=== PATIENT | female | born 1980 | race Caucasian/White ===

== ENCOUNTER 2022-08-09 09:14 | Outpatient (OUT) | payer BC, SELFPAY ==
--- NOTE | 2022-08-09 09:27 | PM.CN ---
Consult Note: HPI Data of Consult Patient: known to practice within the last 3 years Consult date: 08/09/22 Requesting Physician: NATALEE CALIX NP Primary Care Provider: Shaikh Fe MD Consult Narrative Reason for consult: back pain Narrative: She is here for f/u of intial dx MBB to left L4/5, L5/S1 done 07/30/22. She had 80% relief for several hours after procedure. She would like to proceed with second MBB. No new bowel or bladder issues. No new sensorimotor sx. No radicular sx. Oswestry score- 28. Pain is left lumbar area without radiation. cc:: CC: NATALEE CALIX NP Review of Systems ROS Status of ROS 10 or more systems reviewed and unremarkable except as noted in history and below Musculoskeletal Reports: back pain Exam Constitutional Documenting provider has reviewed patient's vital signs: yes Common normals: no apparent distress, average body habitus, oriented x3, no limitations, healthy appearing, alert and well nourished Orientation/consciousness: Yes awake, Yes oriented to person, Yes oriented to place and Yes oriented to time HENIA Common normals: head/scalp atraumatic, nasal mucous membranes and turbinates normal and moist oral mucous membranes Respiratory Common normals: normal respiratory effort, no retractions and no use of accessory muscles Effort & inspection: able to speak in complete sentences and symmetric chest movement Back & Pelvis Lumbar spine/lower back: normal to inspection, lumbar ROM normal, pain with ROM and paraspinal muscle tenderness Other: positive facet load left. Extremity Common normals: normal to inspection, normal capillary refill and no pedal edema Other: muscle strength 5/5 bilat with intact sensation bilat LE Assessment and Plan Assessment and Plan (1) Lumbar spondylosis: (2) Muscle spasm:
== END 2022-08-09 09:15 ==
PROVIDERS: PCP Internal Medicine; Visit Provider Nurse Practitioner
DX: M47.816 Spondylosis without myelopathy or radiculopathy, lumbar region (principal); M62.830 Muscle spasm of back
CPT/HCPCS: G0463

== ENCOUNTER 2022-08-27 10:22 | Day surgery (SDC) | payer BC, SELFPAY ==
[2022-08-27 11:05] LABS: HCG Qualitative NEGATIVE (NEGATIVE)
[2022-08-27 11:32] VITALS: BP 111/78; PULSE 79; RESP 16; TEMP 36.5; O2SAT 99
--- NOTE | 2022-08-27 11:49 | W.PM.PROCNOT ---
Date of procedure: 08/27/22 Procedure: Left Lumbar 4/5 & 5/Sacral 1 facet injection Preop diagnosis includes pain secondary to lumbar spondylosis, Postop diagnosis same Under fluoroscopic guidance Solution injected: 2millilitersMarcaine 0.25% Anesthesia :none Immediate complications none Time out process compliant After informed consent obtained from the patient placed in the Prone proposition . area was prepped and draped in a sterile fashion using betadine. 25 gauge spinal needle inserted over each of the above mentioned target areas . [place] were directed towards the target under fluoroscopic guidance . after encountering each of the targets , no indication of intravascular intraneuronal or intrathecal needle tip placement. Then 0 .5 to 1 Milliliter was injected at each level. [place] removed postoperatively. patient transferred to recovery in stable condition to be discharged home after meeting criteria Surgeon: Jayne Bradley
[2022-08-27 12:20] VITALS: BP 120/77; PULSE 75; RESP 20; O2SAT 94
[2022-08-27] MEDS: BUPIVACAINE HCL 0.25% PF 25 MG/10 ML VIAL 4 ML INJ (12:22)
[2022-08-27 12:23] VITALS: BP 123/73; PULSE 73; O2SAT 91
== END 2022-08-27 12:26 | disposition home or self-care (01) ==
PROVIDERS: PCP Internal Medicine; Visit Provider Anesthesiology Pain Medicine
DX: M47.816 Spondylosis without myelopathy or radiculopathy, lumbar region (principal)
CPT/HCPCS: 64493; 64494; 84703

== ENCOUNTER 2022-08-29 08:47 | Outpatient (OUT) | payer BC, SELFPAY ==
--- NOTE | 2022-08-29 09:13 | PM.CN ---
Consult Note: HPI Data of Consult Requesting Physician: NATALEE CALIX NP Primary Care Provider: Shaikh Fe MD Consult Narrative Narrative: Patient is here for f/u of left low back pain. She had left MBB L4/5, L5/S1 done 08/27/22. She recieved 80% relief of pain with increased fx several hours after procedure. She would like to proceed with RFA. No new sensorimotor sx or bowel or bladder issues. Medication regimen is controlling pain and assisting patient with ability to perform ADLs. No radicular sx. cc:: CC: NATALEE CALIX NP Review of Systems ROS Status of ROS 10 or more systems reviewed and unremarkable except as noted in history and below Musculoskeletal Reports: back pain Meds Home Medications and Allergies Home Medications Medication Instructions Recorded Confirmed Type baclofen 10 mg tablet See Rx Instructions PO BID 08/09/22 08/27/22 History ibuprofen 800 mg tablet 800 mg PO Q12H 08/09/22 08/27/22 History lorazepam 1 mg tablet 1 mg PO DAILY 08/09/22 08/27/22 History norethindrone acetate 1 mg-ethinyl 1 tab PO DAILY 08/09/22 08/27/22 History estradiol 20 mcg tablet (Aurovela) Allergies Allergy/AdvReac Type Severity Reaction Status Date / Time No Known Drug Allergies Allergy Verified 08/27/22 11:28 Exam Constitutional Documenting provider has reviewed patient's vital signs: yes Common normals: no apparent distress, average body habitus, oriented x3, no limitations, healthy appearing, alert and well nourished General appearance: cooperative, comfortable and well developed Orientation/consciousness: Yes awake, Yes oriented to person, Yes oriented to place and Yes oriented to time [facility] Common normals: normocephalic, external ears normal and moist oral mucous membranes Respiratory Common normals: normal respiratory effort, no retractions and no use of accessory muscles Effort & inspection: able to speak in complete sentences and symmetric chest movement Back & Pelvis Lumbar spine/lower back: normal to inspection, lumbar ROM normal, pain with ROM, paraspinal muscle tenderness, paraspinal muscle spasm and straight leg raise negative bilaterally Other: positive facet loading left. YOON-31 muscle strength 5/5 bilat LE with intact sensation Extremity Common normals: normal to inspection, full ROM, normal capillary refill and no pedal edema Assessment and Plan Assessment and Plan (1) Muscle spasm: Plan schedule for thermal RFA lumbar left L4/5, L5/S1 under fluoroscopy without sedation
== END 2022-08-29 08:48 | disposition home or self-care (01) ==
LOC: PM 08:49
PROVIDERS: PCP Internal Medicine; Visit Provider Nurse Practitioner
DX: M47.816 Spondylosis without myelopathy or radiculopathy, lumbar region (principal); M62.838 Other muscle spasm
CPT/HCPCS: G0463

== ENCOUNTER 2022-10-15 08:07 | Day surgery (SDC) | payer BC, SELFPAY ==
[2022-10-15 08:09] VITALS: BP 104/74; PULSE 77; RESP 18; TEMP 36.7; O2SAT 100
[2022-10-15 08:13] LABS: HCG Qualitative NEGATIVE (NEGATIVE)
[2022-10-15 09:08] VITALS: BP 128/62; PULSE 68; RESP 20; O2SAT 96
[2022-10-15 09:11] VITALS: BP 126/77; PULSE 80; O2SAT 96
[2022-10-15] MEDS: BUPIVACAINE HCL 0.25% PF 25 MG/10 ML VIAL 4 ML INJ (09:15)
[2022-10-15] MEDS: LIDOCAINE HCL 2% 400 MG/20 ML MDV 8 ML INJ (09:15)
[2022-10-15] MEDS: METHYLPREDNISOLONE ACETATE 40 MG/ML VIAL INJ (09:15)
--- NOTE | 2022-10-15 10:22 | W.PM.PROCNOT ---
Date of procedure: 10/15/22 Pre-op diagnosis: lumbar spondylosis Post-op diagnosis: same as pre-op Procedure: Left lumbar 4/5, 5/sacral 1 Radiofrequency ablation Under fluoroscopic guidance Rhizotomy was created using radio frequency ablation at 80?C for 90 seconds 1 to 2 lesions created at each site. Post lesioning injection of 2 mL each of 0.25% Marcaine and 2% lidocaine with Depo-Medrol 40mg. 0.5 to 1 mL injected at each site Anesthesia local 2% lidocaine for Anesthesia Other: MAC Timeout process compliant After informed consent obtained.Patient brought to the procedure room placed in the prone position skin overlying the area was prepped and draped in a sterile fashion using betadine. 25 gauge needle was used to create a skin wheal over each of the targeted areas utilizing 2% lidocaine. A rhizotomy needle with a 10 mm active tip was inserted over each of the anesthetized areas and directed towards each of the medial branches accomplished under fluoroscopic guidance. after encountering the same we had positive sensory stimulation, negative motor stimulation was noted. lesions were then created. Post lesioning, steroid solution was injected needles removed. Patient was transferred to recovery room in stable condition to be discharged home after meeting criteria. Anesthesia: Local Surgeon: Jayne Bradley Condition: stable
== END 2022-10-15 09:25 | disposition home or self-care (01) ==
LOC: SURGOUT 10-16 10:19
PROVIDERS: PCP Internal Medicine; Visit Provider Anesthesiology Pain Medicine
DX: M47.816 Spondylosis without myelopathy or radiculopathy, lumbar region (principal)
CPT/HCPCS: 36415; 64635; 64636; 84703; J1030

== ENCOUNTER 2022-11-09 09:24 | Outpatient (OUT) | payer BC, SELFPAY ==
--- NOTE | 2022-11-09 | XR_ITS ---
The [address] [address] Patient Name: ALCON BERKOWITZ MRN: [id number] date: 1980 Sex: F Assigned Patient Location: [facility] Current Patient Location: RAD Accession/Order Number: [id number] Exam Date: 11/09/2022 09:43 Report Date: 11/09/2022 15:57 At the request of: SHAIKH MONROE Procedure: XR chest 2V EXAMINATION: XR chest 2V 11/09/2022 12:55 PM PDT, [id number]. HISTORY: chest pain TECHNIQUE: 2 views of the chest were acquired. COMPARISONS: Chest x-ray 08/09/2018. FINDINGS: Lines/tubes/other: None. Heart and mediastinum: Stable. Bones: Postsurgical changes to the right chest wall, similar. No acute fracture. Lungs: Chronic right thoracic volume loss with associated right lower lung scarring, similar. Left lung is clear. No new or worsening pulmonary opacity. Pleura: Stable chronic changes to the right chest wall pleura. No significant left pleural effusion. No pneumothorax. Other: No pneumoperitoneum. XR/XR chest 2V IMPRESSION: 1. Stable chronic postsurgical changes to the right thorax. 2. No acute cardiopulmonary abnormality demonstrated. Electronically authenticated by: MARI RENEE Date: 11/09/2022 15:57
== END 2022-11-09 09:25 | disposition home or self-care (01) ==
LOC: RAD 09:25
PROVIDERS: PCP Internal Medicine; Visit Provider Internal Medicine
DX: R07.9 Chest pain, unspecified (principal)
CPT/HCPCS: 71046

== ENCOUNTER 2022-11-18 06:55 | Outpatient (OUT) | payer BC, SELFPAY ==
--- NOTE | 2022-11-18 12:54 | PM.STRESS ---
Stress Test Stress Test Allergies Allergy/AdvReac Type Severity Reaction Status Date / Time No Known Drug Allergies Allergy Verified 10/15/22 08:06 Requesting physician: Shaikh Fe Procedure: Exercise stress test General Information: Reason for Stress Test: Chest pain Cardiac History and Risk Factors: No personal cardiovascular history. 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 Resting 12 - Lead Electrocardiogram: Rate & rhythm: Normal sinus at a rate of 93. [place]: Normal T-waves: Normal ST-segments:Normal Other findings: Suggestion of possible right atrial enlargement Stress Test: Protocol: Calvin protocol was followed. Exercise capacity: Good exercise capacity. Total exercise time of 7 minutes 30 seconds reached Calvin stage 3 at 3.4MPH, 14% grade, & 10.1 METs. Blood pressure: Initial: 98/70, Maximum: 140/82, Recovery: 96/70 Rate & rhythm: Patient remained in sinus rhythm during the exercise and recovery portions of the study.? The maximum heart rate was 157, which was 88% of the maximum predicted heart rate 177. PVCs were noted during exercise. ST-segments & T-waves: There were no T-wave changes and no ST-segment changes when compared to the baseline EKG. Patient response/symptoms: Patient complained of an 8 on the Robby score regarding dyspnea, but denied any chest pain. Interpretation: This is a normal exercise stress test without any evidence of ischemia. Means Treadmill Score is 7.5, which indicates a low risk category. Clinical correlation required.
== END 2022-11-18 06:56 | disposition home or self-care (01) ==
LOC: CARD 06:56
PROVIDERS: PCP Internal Medicine; Visit Provider Internal Medicine
DX: R07.9 Chest pain, unspecified (principal)
CPT/HCPCS: 93017

== ENCOUNTER 2023-05-06 09:51 | Outpatient (OUT) | payer BC, SELFPAY ==
--- NOTE | 2023-05-06 10:02 | US_ITS ---
The [address] [address] Patient Name: ALCON BERKOWITZ MRN: [id number] date: 1980 Sex: F Assigned Patient Location: US Current Patient Location: US Accession/Order Number: [id number] Exam Date: 05/06/2023 10:03 Report Date: 05/06/2023 10:31 At the request of: SHAIKH MONROE Procedure: US venous doppler LE LT EXAM: US venous doppler LE LT HISTORY: left leg pain M79.605 COMPARISON: None. TECHNIQUE: Grayscale, color and Doppler FINDINGS: Region: Left leg Thrombus: Echogenic thrombus identified in the popliteal, posterior tibial and peroneal veins Flow: Decreased and absent flow corresponding to thrombus Compressibility: Noncompressibility corresponding to thrombus Augmentation: Normal proximal augmentation US/US venous doppler LE LT IMPRESSION: Occlusive deep vein thrombus identified in the left posterior tibial and peroneal veins Nonocclusive deep vein thrombus left popliteal vein Electronically authenticated by: VAN CRAMER Date: 05/06/2023 10:31
== END 2023-05-06 09:52 | disposition home or self-care (01) ==
LOC: US 09:54
PROVIDERS: PCP Internal Medicine; Visit Provider Internal Medicine
DX: M79.605 Pain in left leg (principal); I82.452 Acute embolism and thrombosis of left peroneal vein; I82.442 Acute embolism and thrombosis of left tibial vein; I82.432 Acute embolism and thrombosis of left popliteal vein
CPT/HCPCS: 93971

== ENCOUNTER 2023-06-25 13:49 | Outpatient (OUT) | payer BC, SELFPAY ==
--- NOTE | 2023-06-25 14:14 | P.CN_ITS ---
Consult Note: HPI Data of Consult Patient: known to practice within the last 3 years Requesting Physician: Luiza De Leon NP Primary Care Provider: Shaikh Fe MD Consult Narrative Reason for consult: f/u Narrative: Samira John a pleasant 43 year old female presents for evaluation and management of chronic low back pain, left side greater than right. Patient has had chronic low back pain greater than 3 months unresponsive to PT/HEP greater than 6 weeks, tylenol/motrin, and baclofen. currently taking ibuprofen 600mg BID with mild benefit. 10/23 underwent Left L4-5 L5-S1 facet RFA with no improvement. 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 - Malignant neoplasm of connective and soft tissue, unspecified (ICD- 10) Surgical History History of tonsillectomy ?Z90.89 - Acquired absence of other organs (ICD-10) History of lobectomy of lung ?Z90.2 - Acquired absence of lung [part of] (ICD-10) Meds Home Medications and Allergies Home Medications ?Medication ?Instructions ?Recorded ?Confirmed ?Type baclofen 10 mg tablet See Rx Instructions PO BID 08/09/22 10/15/22 History ibuprofen 800 mg tablet 800 mg PO Q12H 08/09/22 10/15/22 History lorazepam 1 mg tablet 1 mg PO DAILY 08/09/22 10/15/22 History Allergies Allergy/AdvReac Type Severity Reaction Status Date / Time No Known Drug Allergies Allergy Verified 10/15/22 08:06 Exam Constitutional Documenting provider has reviewed patient's vital signs: yes Common normals: no apparent distress, oriented x3, healthy appearing, alert and well nourished General appearance: cooperative HENMT Common normals: normocephalic, hearing grossly normal bilaterally and moist oral mucous membranes Head and scalp: normocephalic Eye Common normals: PERRL Pupil: PERRL Neck & C-Spine Common normals: full ROM General: normal visual inspection Chest Common normals: inspection of chest normal Respiratory Common normals: normal respiratory effort, no retractions and no use of accessory muscles Back & Pelvis Lumbar spine/lower back: pain with ROM and lumbar spinal tenderness Sacroiliac joints: SI joints normal Other: negative radiculopathy strength in BLE 5/5 pain over L3-S1 facets, worst over left L3,4 facets Back image (female): 2 1. Extremity Common normals: normal to inspection and full ROM Right lower extremity: hip joint Left lower extremity: hip joint Other: negative bilateral hip exam Neuro Common normals: oriented x3, CN's II-XII intact bilaterally, moves all extremities, no focal motor deficits, no sensory deficits noted, deep tendon reflexes 2+ bilaterally and gait normal Sensorium/orientation: alert Motor exam: strength 5/5 throughout and no movement abnormalities noted Psych Common normals: mental status grossly normal, thought process normal, cooperative, affect normal, speech normal and activity/motor behavior normal Speech: normal speech Thought process: normal thought process Assessment and Plan Assessment and Plan (1) Lumbar spondylosis: Assessment and Plan: failed left L4-5 L5-S1 RFA, reports no improvement (2) Lumbar degenerative disc disease: (3) Lumbar stenosis with neurogenic claudication: Assessment and Plan: increase in low back pain with activity and ambulation, improves with forward flexion and sitting. need updated advanced imaging to assess stenosis to decide on interventional therapy vs NS referral. chronic low back pain greater than 3 months unresponsive to greater than 6 weeks of PT and HEP Plan chronic low back pain failed left L4-5 L5-S1 facet RFA, continues to have severe axial low back pain greater than 3 months unresponsive to ibuprofen and greater than 6 weeks PT/HEP failed ibuprofen, start mobic 7.5mg BID PRN pain. take with food. risks vs benefits of senior care NSAIDs and side effects discussed. pt denies GERD request records from , patient thinks she has had lumbar imaging since our prior lumbar MRI in 2021. if no recent lumbar imaging, we will order lumbar MRI without contrast f/u after imaging, or 1 month to assess medications
== END 2023-06-25 13:50 | disposition home or self-care (01) ==
LOC: PM 13:49
PROVIDERS: PCP Internal Medicine; Visit Provider Nurse Practitioner
DX: M47.816 Spondylosis without myelopathy or radiculopathy, lumbar region (principal); M51.36 Other intervertebral disc degeneration, lumbar region; M48.062 Spinal stenosis, lumbar region with neurogenic claudication
CPT/HCPCS: G0463

== ENCOUNTER 2023-07-02 13:35 | Outpatient (OUT) | payer BC, SELFPAY ==
--- NOTE | 2023-07-02 13:38 | MR_ITS ---
The [address] [address] Patient Name: ALCON BERKOWITZ MRN: [id number] date: 1980 Sex: F Assigned Patient Location: MRI Current Patient Location: MRI Accession/Order Number: [id number] Exam Date: 07/02/2023 14:00 Report Date: 07/02/2023 15:26 At the request of: RIVKA JANE Procedure: MR lumbar spine wo con EXAM: MR scan lumbar spine without contrast. TECHNIQUE: Sagittal T1, MARIE T2, STIR, axial T1 and T2 images without contrast performed through the lumbar spine. COMPARISON: MR scan performed 02/05/2022 FINDINGS: Minimal curvature of the spine concavity to the left. Mild disc space narrowing L1-L2. The vertebral bodies and disc spaces are otherwise normal in appearance. Conus lies at T12 and is normal in appearance. The marrow signal is normal. Neural foramina are patent. L5-S1: Mild facet arthropathy without stenosis. L4-L5: Mild facet arthropathy without stenosis. L3-L4: Facet arthropathy to the right of midline. No evidence of stenosis. L2-L3: Disc bulge without stenosis. L1-L2: Disc bulge without stenosis. The vertebral bodies and disc spaces are otherwise normal in appearance. The paraspinal soft tissues are otherwise normal. MR/MR lumbar spine wo con IMPRESSION: Mild facet arthropathy and mild disc bulge without central spinal canal or foraminal stenosis. Electronically authenticated by: Jhonathan KNAPP Date: 07/02/2023 15:26
== END 2023-07-02 13:36 | disposition home or self-care (01) ==
LOC: MRI 13:35
PROVIDERS: PCP Internal Medicine; Visit Provider Nurse Practitioner
DX: M48.062 Spinal stenosis, lumbar region with neurogenic claudication (principal); M47.816 Spondylosis without myelopathy or radiculopathy, lumbar region
CPT/HCPCS: 72148

== ENCOUNTER 2023-07-17 14:18 | Outpatient (OUT) | payer BC, SELFPAY ==
--- NOTE | 2023-07-17 14:37 | P.CN_ITS ---
Consult Note: HPI Data of Consult Patient: known to practice within the last 3 years Requesting Physician: Luiza De Leon NP Primary Care Provider: Shaikh Fe MD Consult Narrative Reason for consult: f/u Narrative: Samira John a pleasant 43 year old female presents for evaluation and management of chronic low back pain, left side greater than right. Patient has had chronic low back pain greater than 3 months unresponsive to PT/HEP greater than 6 weeks, tylenol/motrin, and baclofen. currently taking ibuprofen 600mg BID with mild benefit. 10/23 underwent Left L4-5 L5-S1 facet RFA with no improvement. Patient was started on mobic 7.5mg BID PRN last visit without improvement, failed to report shes on eliquis. Recently completed lumbar MRI which shows mild facet arthropathy L3-S1. 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.2 - Acquired absence of lung [part of] (ICD-10) Meds Home Medications and Allergies Home Medications ?Medication ?Instructions ?Recorded ?Confirmed ?Type baclofen 10 mg tablet See Rx Instructions PO BID 08/09/22 10/15/22 History ibuprofen 800 mg tablet 800 mg PO Q12H 08/09/22 10/15/22 History lorazepam 1 mg tablet 1 mg PO DAILY 08/09/22 10/15/22 History Allergies Allergy/AdvReac Type Severity Reaction Status Date / Time No Known Drug Allergies Allergy Verified 10/15/22 08:06 Exam Constitutional Documenting provider has reviewed patient's vital signs: yes Common normals: no apparent distress, oriented x3, healthy appearing, alert and well nourished General appearance: cooperative HENMT Common normals: normocephalic, hearing grossly normal bilaterally and moist oral mucous membranes Head and scalp: normocephalic Eye Common normals: PERRL Pupil: PERRL Neck & C-Spine Common normals: full ROM General: normal visual inspection Chest Common normals: inspection of chest normal Respiratory Common normals: normal respiratory effort, no retractions and no use of accessory muscles Back & Pelvis Lumbar spine/lower back: pain with ROM, lumbar spinal tenderness, paraspinal muscle tenderness and paraspinal muscle spasm Sacroiliac joints: SI joints normal Other: negative radiculopathy strength in BLE 5/5 pain over L3-S1 facets, worst over left L3,4 facets Extremity Common normals: normal to inspection and full ROM Right lower extremity: hip joint Left lower extremity: hip joint Other: negative bilateral hip exam Neuro Common normals: oriented x3, CN's II-XII intact bilaterally, moves all extremities, no focal motor deficits, no sensory deficits noted and deep tendon reflexes 2+ bilaterally Sensorium/orientation: alert Motor exam: strength 5/5 throughout and no movement abnormalities noted Psych Common normals: mental status grossly normal, thought process normal, cooperative, affect normal, speech normal and activity/motor behavior normal Speech: normal speech Thought process: normal thought process Results Additional Findings Additional findings: If on a controlled substance or opioids, I have checked an [place] report on this patient and there are no aberrancies noted in the prescribing history.??If on a controlled substance or opioid a drug screen was completed and reviewed within the last year, and if there has not been a drug screen completed we ordered one today to monitor higher risk, state monitored pain medication use. As part of providing excellent, safe, comprehensive care, the following was completed at our patient's visit: 1. A medication reconciliation and review to ensure accurate knowledge of current/active medications, including asking our patients to inform us about any tiol-pih-hiaylzs medications or herbal remedies/nutritional supplements/alternative remedies. 2. A review to specifically ensure our patients have had annual screening for screening for depression, screening for tobacco use, and screening for unhealthy alcohol use. For concerning screenings had a discussion with the patient, provided patient education, and recommended follow-up with primary care provider when appropriate. If patient noted with a risk of falling, they received education on strength, gait, and balance training to prevent future risk of falling. Assessment and Plan Assessment and Plan (1) Lumbar spondylosis: Assessment and Plan: failed left L4-5 L5-S1 RFA, reports no improvement (2) Lumbar degenerative disc disease: (3) Lumbar stenosis with neurogenic claudication: Assessment and Plan: increase in low back pain with activity and ambulation, improves with forward flexion and sitting. need updated advanced imaging to assess stenosis to decide on interventional therapy vs NS referral. chronic low back pain greater than 3 months unresponsive to greater than 6 weeks of PT and HEP (4) Myofascial pain: Plan chronic low back pain failed left L4-5 L5-S1 facet RFA, continues to have severe axial low back pain greater than 3 months unresponsive to ibuprofen and greater than 6 weeks PT/HEP stop mobic and all NSAIDs with eliquis lumbar MRI reviewed with patient, declining alternative level facet injections recommend f/u with Dr Bradley next week to left paraspinal TPI and assessment.
== END 2023-07-17 14:19 | disposition home or self-care (01) ==
LOC: PM 14:18
PROVIDERS: PCP Internal Medicine; Visit Provider Nurse Practitioner
DX: M47.816 Spondylosis without myelopathy or radiculopathy, lumbar region (principal); M51.36 Other intervertebral disc degeneration, lumbar region; M48.062 Spinal stenosis, lumbar region with neurogenic claudication
CPT/HCPCS: G0463

== ENCOUNTER 2023-07-22 12:20 | Outpatient (OUT) | payer BC, SELFPAY ==
--- NOTE | 2023-07-22 | CONS_ITS ---
CONSULTATION DATE: 07/22/2023 TO: Dr. Miramontes CHIEF COMPLAINT: Includes severe lower back pain, hip pain. HISTORY: She reports the pain as being 6/10, deep aching in character with a sharp component, increased with activity such as standing and walking, performing transitioning maneuvers. She also reports having tingling, numbness and a burning sensation over her let hip area. Denies any change in bowel and bladder habits. She denies any new sensorimotor changes in her lower extremities, but is isolated to her hip area. MEDICATION: Includes lorazepam 1 mg at h.s. EXAM: Patient?s examination is notable for the patient having no clinical radiculopathy or myelopathy involving the lower extremities. Patient did have dysesthesia and hyperesthesia overlying the distribution over the left superior gluteal nerve. This is associated with severe myofascial spasm of the left gluteus medius muscle. 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 RECOMMENDATIONS: I recommend a diagnostic left superior gluteal nerve injection under fluoroscopic guidance. Also recommend patient to do aquatic therapy. As part of providing excellent, safe, comprehensive care, the following was completed at our patient's visit: 1. A medication reconciliation and review to ensure accurate knowledge of current/active medications, including asking our patients to inform us about any [id number] medications or herbal remedies/nutritional supplements/alternative remedies. 2. A review to specifically ensure our patients have had annual screening for: elevated body mass index (BMI, see intake chart for exact total), tobacco use, screening for depression, and screening for unhealthy alcohol use. When screening is concerning, patients are provided with education and the specific recommendation to discuss the concerning health issue and treatment options with their primary care provider. UZAIR
--- OUTSIDE RECORDS SUMMARY | 2023-07-22 12:43 | XMS_ITS | CCD ---
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 Role Phone Abbie Negrete Unavailable Unavailable Raquel Richardson Unavailable Unavailable Fawwad, Chi Unavailable Unavailable Unavailable MD John Isbell Attending Provider MD Arti Miramontes Primary Care Provider [phone] Gordon Campoverde Attending Unavailable FAWWAD, CHI H Admitting Unavailable FAWWAD, CHI H Attending Unavailable FAWWAD, CHI H Primary Care Unavailable FAWWAD, CHI H Admitting Unavailable FAWWAD, CHI H Attending Unavailable FAWWAD, CHI H Primary Care Unavailable LAKSHMIPATHY ., NARENDRANATH Admitting Anahi vailable LAKSHMIPATHY ., NARENDRANATH Attending Anahi vailable LAKSHMIPATHY ., NARENDRANATH Consulting Anahi vailable FAWWAD, CHI H Primary Care Unavailable LAKSHMIPATHY ., NARENDRANATH Admitting Anahi vailable FAWWAD, CHI H Primary Care Unavailable LAKSHMIPATHY ., NARENDRANATH Attending Anahi vailable LAKSHMIPATHY ., NARENDRANATH Consulting Anahi vailable FAWWAD, CHI H Attending Unavailable FAWWAD, CHI H Primary Care Unavailable DR NIA LEONARD Consulting Unavailable FAWWAD, CHI H Admitting Unavailable FAWWAD, CHI H Consulting Unavailable FAWWAD, CHI H Admitting Unavailable FAWWAD, CHI H Primary Care Unavailable DR NIA LEONARD Consulting Unavailable FAWWAD, CHI H Attending Unavailable FAWWAD, CHI H Consulting Unavailable AICHHOLAlina, SHOT COAT TENDER KEZIA Admitting Unavailable FAWWAD, CHI H Primary Care Unavailable AICHROMEO, SHOT COAT TENDER KEZIA Attending Unavailable AICHHOLAlina, SHOT COAT TENDER KEZIA Consulting Unavailable DR NIA LEONARD Consulting Unavailable Unavailable Unavailable Jeffrey, Dr. Rik Collins Attending Un available Jeffrey, Dr. Rik Collins Admitting Un available MD JOHN ISBELL Referring Unavailable MD JOHN ISBELL Attending Unavailable Dara, Dr. Leyva Attending Unavailable Candelaria Ayala Unavailable Shaikh Miramontes MD Primary Care Provider Gordon Campoverde MD Unavailable GORDON CAMPOVERDE Referring Unavailable SANCHEZWDAISY, CHI Primary Care Unavailable FE, CHI Primary Care Unavailable GORDON CAMPOVERDE Attending Unavailable FE, Primary Care Unavailable FAWDAISY, CHI Primary Care Unavailable FE, CHI Attending Unavailable SANCHEZWDAISY, CHI Attending Unavailable FE, Attending Unavailable DONA CORBIN Attending Unavailable DONA CORBIN Referring Unavailable Medications Current Medications Medication Drug Class(es) Dates Sig (Normalized) Sig (Original) amoxicillin 875 mg / clavulanate 125 mg oral tablet (1 source) Penicillin-class Antibacterial Start: 02-25-2023 take 1 tablet by mouth every twelve hours Amoxicillin-Pot Clavulanate 875-125 MG 1 tablet Orally every 12 hrs for 10 day(s) Jan, Active apixaban 5 mg oral tablet (3 sources) Factor Xa Inhibitor Start: 06-19-2023 End: 06-18-2024 take 1 tablet by mouth twice daily apixaban (Eliquis) 5 mg tablet Indications: Acute deep vein thrombosis of left popliteal vein (Multi) Take 1 tablet (5 mg) by mouth 2 times a day. 60 tablet 11 06/19/2023 06/18/2024 Active benzonatate 100 mg oral capsule (1 source) Non-narcotic Antitussive Start: 12-26-2023 take 1 capsule by mouth three times daily as needed Tessalon Perles 100 MG 1 capsule as needed Orally Three times a day for 7 days Jan, Active calcitriol 0.81544 mg oral capsule (6 sources) Vitamin D3 Analog Start: 04-24-2023 take 1 capsule by mouth every other day calcitriol (Rocaltrol) 0.25 mcg capsule Take 1 capsule (0.25 mcg) by mouth every other day. 04/24/2023 Active fluconazole 150 mg oral tablet (1 source) Azole Antifungal Start: 02-25-2023 take 1 tablet by mouth once Fluconazole 150 MG 1 tablet Orally once for 1 day Jan, Active Sylvia 03/22 (1 source) Sylvia / Activ e LORazepam 0.5 mg oral tablet (10 sources) Benzodiazepine take 1 tablet by mouth once daily at bedtime LORazepam (Ativan) 0.5 mg tablet Take 1 tablet (0.5 mg) by mouth once daily at bedtime. Active take 1 tablet by mouth every twe lve hours Ativan 1 MG 1 tablet as needed Orally Twice a day Active Completed/Discontinued Medications Medication Drug Class(es) Dates Sig (Normalized) Sig (Original) [id number] 200 actuat albuterol 0.09 mg/actuat metered dose inhaler (9 sources) beta2-Adrenergic Agonist Start: 05-23-2020 End: 07-21-2023 take 1-2 puff(s) by inhalation every four hours albuterol (ProAir HFA) 90 mcg/actuation inhaler Inhale 1-2 puffs every 4 hours if needed. 05/23/2020 07/21/2023 Discontinued (Med List Cleanup) Start: 05-23-2020 take 1-2 puff(s) by inhalation every four to six hours as needed ProAir HFA 108 (90 Base) MCG/ACT AERS INHALE 1 TO 2 PUFFS EVERY 4 TO 6 HOURS NEEDED. Quantity: 1 Refills: 2 Ordered: 23-May-2020 DO Start : 23-May-2020 Active Start: 05-23-2020 take 1-2 puff(s) by inhalation every four to six hours as needed ProAir HFA 108 (90 Base) MCG/ACT Inhalation Aerosol Solution INHALE 1 TO 2 PUFFS EVERY 4 TO 6 HOURS NEEDED. Quantity: 1 Refills: 2 Start : 23-May-2020 Active 8.5 GM Inhaler dextromethorphan hydrobromide 15 mg / guaiFENesin 400 mg / pseudoephedrine hydrochloride 60 mg oral tablet (1 source) alpha-Adrenergic Agonist, Uncompetitive K-ncnvam-G-aspartate Receptor Antagonist, Sigma-1 Agonist Start: 03-16-2019 take 0.5-1 tablets by mouth every six hours as needed Capmist DM 60-15-400 MG 1/2 to 1 tablet as needed Orally every 6 hours Mar, Not-Taking/PRN Ethinyl Estradiol / Norethindrone (6 sources) Estrogen End: 07-21-2023 take 0.05 ug by mouth once daily norethindrone ac-eth estradioL (Microgestin 1/20) 1-20 mg-mcg tablet Take 1 tablet by mouth once daily. 07/21/2023 Discontinued (Med List Cleanup) take 0.05 ug by mouth once daily norethindrone ac-eth estradioL (Microgestin /20) 1-20 mg-mcg tablet Take 1 tablet by mouth once daily. Active fluticasone propionate 0.05 mg/actuat metered dose nasal spray (1 source) Corticosteroid Start: 03-16-2019 take 1 spray(s) nasal route once daily as needed Fluticasone Propionate 50 MCG/ACT 1 spray in each nostril Nasally Once a day for 21 days Mar, Not-Taking/PRN Sylvia 1/20 1-20 MG-MCG Oral Tablet (2 sources) Start: 10-16-2020 take 1 tablet by mouth once daily, then take 7 tablets by mouth once daily Sylvia 1/20 1-20 MG-MCG Oral Tablet TAKE 1 TABLET DAILY FOR 21 DAYS, THEN 7 TABLET-FREE DAYS; REPEAT. Quantity: 0 Refills: 0 Ordered: 16-Oct-2020 DO Start : 16-Oct-2020 Active methylPREDNISolone 4 mg oral tablet (1 source) Corticosteroid Start: 03-16-2019 Medrol (Torito) 4 MG half of daily dose in the morning with food and the rest at night with food Orally Mar, Not-Taking/PRN Problems Active Problems Problem Classification Problem Date Documented Date Episodic/Chronic Cancer of bone and connective tissue (13 sources) Malignant neoplasm of bone and articular cartilage, unspecified; Translations: [Malignant neoplasm of connective and soft tissue, unspecified] Onset: 3 Chronic Chronic kidney disease (15 sources) Chronic kidney disease stage 3; Translations: [Chronic kidney disease, Stage III (moderate)] Onset: 3 Chronic Nonspecific chest pain (2 sources) Atypical chest pain; Translations: [Other chest pain] Onset: 4 07-21-2023 Episodic Other aftercare (2 sources) Drug therapy finding; Translations: [Encounter for therapeutic drug monitoring] Episodic Other diseases of kidney and ureters (6 sources) Secondary hyperparathyroidism; Translations: [Secondary hyperparathyroidism of renal origin] Onset: 4 06-12-2023 Chronic Other lower respiratory disease (9 sources) Dyspnea; Translations: [Shortness of breath] Onset: 4 06-12-2023 Episodic Other lower respiratory disease (4 sources) Dyspnea on exertion; Translations: [Shortness of breath] Onset: 4 06-19-2023 Episodic Other lower respiratory disease (1 source) Shortness of breath; Translations: [Shortness of breath] Onset: 4 Episodic Other nervous system disorders (4 sources) Other chronic pain; Translations: [OTHER CHRONIC PAIN] Onset: 3 Chronic Other non-traumatic joint disorders (4 sources) Pain in left hip; Translations: [PAIN IN LEFT HIP] Onset: 3 Episodic Other screening for suspected conditions (not mental disorders or infectious disease) (9 sources) Imaging of gastrointestinal tract abnormal; Translations: [Nonspecific abnormal results of other specified function study] Onset: 4 06-12-2023 Episodic Other upper respiratory infections (1 source) Acute maxillary sinusitis, unspecified Episodic Phlebitis; thrombophlebitis and thromboembolism (6 sources) Acute deep venous thrombosis of popliteal vein of left leg; Translations: [Acute embolism and thrombosis of left popliteal vein] Onset: 4 06-19-2023 Episodic Residual codes; unclassified (11 sources) H/O: chemotherapy; Translations: [Personal history of antineoplastic chemotherapy] Onset: 4 06-12-2023 Episodic Residual codes; unclassified (5 sources) Personal history of irradiation; Translations: [Personal history of irradiation] Onset: 3 Episodic Residual codes; unclassified (4 sources) Other specified personal risk factors, not elsewhere classified; Translations: [Other specified personal history presenting hazards to health] Onset: 4 06-16-2023 Episodic Residual codes; unclassified (2 sources) H/O: radiation exposure; Translations: [Personal history of irradiation] 06-16-2023 Episodic Residual codes; unclassified (2 sources) Personal history of antineoplastic chemotherapy; Translations: [Personal history of antineoplastic chemotherapy] Onset: 4 Episodic Spondylosis; intervertebral disc disorders; other back problems (9 sources) Spondylosis without myelopathy or radiculopathy, lumbosacral region; Translations: [Other intervertebral disc degeneration, lumbar region] Onset: 2 Chronic Unclassified (3 sources) LOW BACK PAIN, UNSPECIFIED; Translations: [LOW BACK PAIN, UNSPECIFIED] Onset: 2 Past or Other Problems Problem Classification Problem Date Documented Da te Episodic/Chronic Congestive heart failure; nonhypertensive (9 sources) Congestive heart failure; Translations: [Congestive heart failure, unspecified] Onset: 06-12-2023 Resolved: 07-21-2023 06-12-2023 Chronic Malaise and fatigue (1 source) Weakness; Translations: [WEAKNESS] Onset: 01-23-2022 Episodic Unclassified (1 source) Drug therapy finding; Translations: [Encounter for monitoring cardiotoxic drug therapy] Unclassified (2 sources) Never smoked tobacco; Translations: [Never a smoker] Unclassified (1 source) LOW BACK PAIN, UNSPECIFIED; Translations: [LOW BACK PAIN, UNSPECIFIED] Onset: 01-02-2022 Results Test Name Value Interpretation Reference Range Facility Activated protein C resistan ceon 06-19-2023 Activated protein C resistance Coag (PPP) [Time ratio] 4.45 Normal >=2.00 [facility] Comment on above: Result Comment: TEST INTERPRETATION: APC Resistance Profile Ratios less than 2.00 suggest APC resistance. This method uses factor V deficient plasma; therefore, APC resistance due to a nonfactor V mutation will not be detected. Extreme factor V deficiency or presence of direct oral anticoagulants (DOACs) may cause an unreliable ratio. Performed By: [place] [address] Warehouse Manager: Anibal Babin MD, PhD CLIA Number: [id number] Performed By: #### 1 3590-5 #### [facility]) ([id number]) [address] [place] [address] PROTHROMBIN GENE MUTATION AN ALYSISon 06-19-2023 ELECTRONICALLY SIGNED BY Shari Capps MD PhD [facility] Comment on above: Performed By: #### G PRO2 #### BENNIE SUNSHINE ([id number]) [facility] ([facility]) [address] [place] [address] FACTOR II-PROTHROMBIN INTERPRETATION INTERPRETATION Normal [facility] Comment on above: Performed By: #### G PRO2 #### BENNIE SUNSHINE ([id number]) [facility] ([facility]) [address] [place] [address] FACTOR II-PROTHROMBIN RESULT Normal Normal Normal [facility] Comment on above: Performed By: #### G PRO2 #### BENNIE SUNSHINE ([id number]) [facility] ([facility]) [address] [place] [address] CBC W Auto Differential pane l (Bld)on 06-16-2023 Basophils (Bld) [#/Vol] 0.07 x10*3/uL Normal 0.00-0.10 [facility] Comment on above: Performed By: #### 5 7021-8 #### ALIX Norwood ([id number]) [facility] ([facility]) [address] [place] [address] Basophils/100 WBC (Bld) 0.8 % Normal 0.0-2.0 [facility] Comment on above: Performed By: #### 5 7021-8 #### ALIX Norwood ([id number]) [facility] ([facility]) [address] [place] [address] Eosinophils (Bld) [#/Vol] 0.33 x10*3/uL Normal 0.00-0.70 [facility] Comment on above: Performed By: #### 5 7021-8 #### ALIX Norwood ([id number]) [facility] ([facility]) [address] [place] [address] Eosinophils/100 WBC (Bld) 3.7 % Normal 0.0-6.0 [facility] Comment on above: Performed By: #### 5 7021-8 #### ALIX Norwood ([id number]) [facility] ([facility]) [address] [place] [address] Erythrocyte distribution width (RBC) [Ratio] 11.2 % Low 11.5-14.5 [facility] Comment on above: Performed By: #### 5 7021-8 #### ALIX Norowod ([id number]) [facility] ([facility]) [address] [place] [address]55[address] Hematocrit (Bld) [Volume fraction] 43.9 % Normal 36.0-46.0 [facility] Comment on above: Performed By: #### 5 7021-8 #### ALIX Norwood ([id number]) [facility] ([facility]) [address] [place] [address] Hemoglobin (Bld) [Mass/Vol] 14.7 g/dL Normal 12.0-16.0 [facility] Comment on above: Performed By: #### 5 7021-8 #### ALIX Norwood ([id number]) [facility] ([facility]) [address] [place] [address] Immature granulocytes (Bld) [#/Vol] 0.02 x10*3/uL Normal 0.00-0.70 [facility] Comment on above: Performed By: #### 5 7021-8 #### ALIX Norwood ([id number]) [facility] ([facility]) [address] [place] [address] 71093 Immature granulocytes/100 WBC (Bld) 0.2 % Normal 0.0-0.9 [facility] Comment on above: Result Comment: Nicolle ture Granulocyte Count (IG) includes promyelocytes, myelocytes and metamyelocytes but does not include bands. Percent differential counts (%) should be interpreted in the context of the absolute cell counts (cells/UL). Performed By: #### 5 7021-8 #### ALIX Norwood ([id number]) [facility] ([facility]) [id number] [place] [address] Lymphocytes (Bld) [#/Vol] 1.74 x10*3/uL Normal 1.20-4.80 [facility] Comment on above: Performed By: #### 5 7021-8 #### ALIX Norwood ([id number]) [facility] ([facility]) [id number] [place] [address] Lymphocytes/100 WBC (Bld) 19.7 % Normal 13.0-44.0 [facility] Comment on above: Performed By: #### 5 7021-8 #### ALIX Norwood ([id number]) [facility] ([facility]) [id number] [place] [address] 39065 MCH (RBC) [Entitic mass] 30.2 pg Normal 26.0-34.0 [facility] Comment on above: Performed By: #### 5 7021-8 #### ALIX Norwood ([id number]) [facility] ([facility]) [id number] [place] [address] 49995 MCHC (RBC) [Mass/Vol] 33.5 g/dL Normal 32.0-36.0 [facility] Comment on above: Performed By: #### 5 7021-8 #### ALIX Norwood ([id number]) [facility] ([facility]) [id number] [place] [address] 01705 MCV (RBC) [Entitic vol] 90 fL Normal 80-100 [facility] Comment on above: Performed By: #### 5 7021-8 #### ALIX Norwood ([id number]) [facility] ([facility]) [id number] [place] [address]0573 Monocytes (Bld) [#/Vol] 0.66 x10*3/uL Normal 0.10-1.00 [facility] Comment on above: Performed By: #### 5 7021-8 #### ALIX Norwood ([id number]) [facility] ([facility]) [address] [place] [address] Monocytes/100 WBC (Bld) 7.5 % Normal 2.0-10.0 [facility] Comment on above: Performed By: #### 5 7021-8 #### ALIX Norwood ([id number]) [facility] ([facility]) [id number] [place] [address] 34290 Neutrophils (Bld) [#/Vol] 6.01 x10*3/uL Normal 1.20-7.70 [facility] Comment on above: Result Comment: Perc ent differential counts (%) should be interpreted in the context of the absolute cell counts (cells/uL). Performed By: #### 5 7021-8 #### ALIX Norwood ([id number]) [facility] ([facility]) [address] [place] [address] Neutrophils/100 WBC (Bld) 68.1 % Normal 40.0-80.0 [facility] Comment on above: Performed By: #### 5 7021-8 #### ALIX Norwood ([id number]) [facility] ([facility]) [id number] [place] [address] 19430 Nucleated RBC/100 WBC (Bld) [Ratio] 0.0 /100 WBCs Normal 0.0-0.0 [facility] Comment on above: Performed By: #### 5 7021-8 #### ALIX Norwood ([id number]) [facility] ([facility]) [id number] [place] [address] 90267 Platelets (Bld) [#/Vol] 246 x10*3/uL Normal 150-450 [facility] Comment on above: Performed By: #### 5 7021-8 #### ALIX Norwood ([id number]) [facility] ([facility]) [address] [place] [address] RBC (Bld) [#/Vol] 4.86 x10*6/uL Normal 4.00-5.20 [facility] Comment on above: Performed By: #### 5 7021-8 #### ALIX Norwood ([id number]) [facility] ([facility]) [id number] [place] [address] 17222 WBC (Bld) [#/Vol] 8.8 x10*3/uL Normal 4.4-11.3 [facility] Comment on above: Performed By: #### 5 7021-8 #### ALIX Norwood ([id number]) [facility] ([facility]) [id number] [place] [address] 48356 Comprehensive metabolic 2000 panelon 06-16-2023 Albumin BCP dye [Mass/Vol] 4.3 g/dL Normal 3.4-5.0 [facility] Comment on above: Performed By: #### 2 4323-8 #### ALIX Norwood ([id number]) [facility] ([facility]) [id number] [place] [address] 43857 ALP [Catalytic activity/Vol] 62 U/L Normal 33-110 [facility] Comment on above: Performed By: #### 2 4323-8 #### ALIX Norwood ([id number]) [facility] ([facility]) [address] [place] [address] 71399 ALT With P-5'-P [Catalytic activity/Vol] 32 U/L Normal 7-45 [facility] Comment on above: Result Comment: Marcie ents treated with Sulfasalazine may generate falsely decreased results for ALT. Performed By: #### 2 4323-8 #### ALIX MENA L ([id number]) [facility] ([facility]) [address] [place] [address] Anion gap [Moles/Vol] 11 mmol/L Normal 10-20 [facility] Comment on above: Performed By: #### 2 4323-8 #### ALIX MENA L ([id number]) [facility] ([facility]) [address] [place] [address] AST With P-5'-P [Catalytic activity/Vol] 21 U/L Normal 9-39 [facility] Comment on above: Performed By: #### 2 4323-8 #### ALIX ROBERTSMOTZER L ([id number]) [facility] ([facility]) [address] [place] [address] Bilirubin [Mass/Vol] 0.5 mg/dL Normal 0.0-1.2 [facility] Comment on above: Performed By: #### 2 4323-8 #### ALIX SCHMOTZER L ([id number]) [facility] ([facility]) [id number] [place] [address] 32190 Calcium [Mass/Vol] 10.1 mg/dL Normal 8.6-10.6 [facility] Comment on above: Performed By: #### 2 4323-8 #### ALIX ROBERTSMOTZER L (94429) [facility] ([facility]) [id number] [place] [address] 89993 Chloride [Moles/Vol] 101 mmol/L Normal 98-107 [facility] Comment on above: Performed By: #### 2 4323-8 #### ALIX ROBERTSMOTZER L ([id number]) [facility] ([facility]) [address] [place] [address] CO2 [Moles/Vol] 31 mmol/L Normal 21-32 [facility] Comment on above: Performed By: #### 2 4323-8 #### ALIX SCHMOTZER L (54235) [facility] ([facility]) [id number] [place] [address]4056 Creatinine [Mass/Vol] 1.24 mg/dL High 0.50-1.05 [facility] Comment on above: Performed By: #### 2 4323-8 #### ALIX ROBERTSMOTZER L ([id number]) [facility] ([facility]) [address] [place] [address] 12585 Glomerular filtration rate/1.73 sq M.predicted 55 mL/min/1.73m*2 Low >60 [facility] Comment on above: Result Comment: Calc ulations of estimated GFR are performed using the 2020 CKD-EPI Study Refit equation without the race variable for the IDMS-Traceable creatinine methods. https://jasn.asnjournals.org/content//ASN.965834295 8 Performed By: #### 2 4323-8 #### ALIX Norwood ([id number]) [facility] ([facility]) [id number] [place] [address] 15722 Glucose [Mass/Vol] 85 mg/dL Normal 74-99 [facility] Comment on above: Performed By: #### 2 4323-8 #### ALIX Norwood ([id number]) [facility] ([facility]) [address] [place] [address] 08050 Potassium [Moles/Vol] 4.5 mmol/L Normal 3.5-5.3 [facility] Comment on above: Performed By: #### 2 4323-8 #### ALIX Norwood ([id number]) [facility] ([facility]) [address] [place] [address] 33247 Protein [Mass/Vol] 6.8 g/dL Normal 6.4-8.2 [facility] Comment on above: Performed By: #### 2 4323-8 #### ALIX Norwood ([id number]) [facility] ([facility]) [address] [place] [address] 10346 Sodium [Moles/Vol] 138 mmol/L Normal 136-145 [facility] Comment on above: Performed By: #### 2 4323-8 #### ALIX Norwood ([id number]) [facility] ([facility]) [address] [place] [address] 29279 Urea nitrogen [Mass/Vol] 18 mg/dL Normal 6-23 [facility] Comment on above: Performed By: #### 2 4323-8 #### ALIX Norwood ([id number]) [facility] ([facility]) [address] [place] [address] 57242 Lactate dehydrogenaseon 06-01 LDH Lactate to pyruvate reaction [Catalytic activity/Vol] 151 U/L Normal 84-246 [facility] Comment on above: Performed By: #### 1 4804-9 #### ALIX Norwood ([id number]) [facility] ([facility]) [address] [place] [address] MELANOMA DIAGNOSIS FOR NONCOVERED INDICATIONSon 06-16-[address] MELANOMA DIAGNOSIS FOR NONCOVERED INDICATIONS Interpreted By: Edy Jeronimo and Adjei Effie STUDY: NM PET CT MELANOMA DIAGNOSIS FOR NONCOVERED INDICATIONS; 06/16/2023 11:09 am INDICATION: Signs/Symptoms:History of Burr Sarcoma, 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 Complicated by recurrence in 2009 status post right lower lobectomy in May 2009, radiation in May 2009, and adjuvant chemotherapy followed by ifosfamide/etoposide which was completed in December 2009. Currently on surveillance. COMPARISON: PET-CT, 05/27/2022 ACCESSION NUMBER(S): [id number] ORDERING CLINICIAN: GORDON CAMPOVERDE TECHNIQUE: DIVISION OF NUCLEAR MEDICINE POSITRON EMISSION TOMOGRAPHY (PET-CT) The patient received an intravenous dose of 9.7 mCi of Fluorine-18 fluorodeoxyglucose (FDG). The patient was placed in a dark quiet room. Positron emission tomographic (PET) images from skull vertex to the feet were then acquired after a one hour delay. Also acquired was a contemporaneous low dose non-contrast CT scan performed for attenuation correction of PET images and anatomic localization. The PET and CT images were digitally fused for display. All images were acquired on a combined PET-CT scanner unit. Some areas of FDG accumulation may be described in standardized uptake value (SUV) units. CODING: Subsequent Treatment Strategy (PS) CALIBRATION: Dose Kdvnlwvky-rj-Uewj Interval (mins): 66 min Mediastinal bloodpool SUV (normal 1.5-2.5): 2.2 Blood glucose: 95 mg/dL FINDINGS: HEAD AND NECK: No evidence of focal hypermetabolic lesion in the brain parenchyma, noting that evaluation is limited because of the expected physiologic diffuse FDG uptake in the brain. No focal hypermetabolic soft tissue lesion is seen in the neck. No hypermetabolic cervical lymphadenopathy is present. CHEST: Again seen are postsurgical changes from right lateral chest wall resection, partial right lung resection, and chest wall reconstruction. There is persistent parenchymal scarring with associated mild hypermetabolic activity as well as atelectatic lung (maximum SUV 2.3). There is nonspecific focal hypermetabolic activity along the anterior aspect of the reconstructed chest wall (maximum SUV 4.5) which is new in comparison to the prior study. No focal hypermetabolic lesion is seen in the lung parenchyma. No evidence of hypermetabolic mediastinal, hilar or axillary lymphadenopathy. ABDOMEN AND PELVIS: No hypermetabolic soft tissue lesion is present in the abdomen and pelvis. No evidence of hypermetabolic lymphadenopathy. Physiologic radiotracer uptake is present in the liver and spleen with excretion into the bowel loops and the genitourinary tract. MUSCULOSKELETAL/EXTREMITIE S: No focal hypermetabolic lesion is seen in the axial or appendicular to suggest osseous metastasis. IMPRESSION: 1. Postsurgical changes of right lateral wall chest resection, partial right lung resection, and chest wall reconstruction. There is new focal hypermetabolic activity along the anterior aspect of the reconstructed chest wall which is nonspecific and may represent inflammatory or posttraumatic changes, versus local disease recurrence. 2. No evidence of hypermetabolic lymphadenopathy. 3. No evidence of distal hypermetabolic metastatic disease. I personally reviewed the images/study and I agree with the findings as stated by radiology asst Dr. Namrata Zuñiga. This study was interpreted at [place], [place]. MACRO: None Signed by: Edy Jeronimo 06/16/2023 2:50 PM Dictation workstation: [id number] Normal [facility] Comment on above: Order Comment: spoke with suman from dr campoverde [phone] anthem prep given by office #: pager number: [phone], Rad Selected: Y PT Unspecified body regionon 06-16-2023 1. Postsurgical corral ges of right lateral wall chest resection, partial right lung resection, and chest wall reconstruction. There is new focal hypermetabolic activity along the anterior aspect of the reconstructed chest wall which is nonspecific and may represent inflammatory or posttraumatic changes, versus local disease recurrence. 2. No evidence of hypermetabolic lymphadenopathy. 3. No evidence of distal hypermetabolic metastatic disease. I personally reviewed the images/study and I agree with the findings as stated by radiology asst Dr. Namrata Zuñiga. This study was interpreted at [facility], [place], [place]. 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 Complicated by recurrence in 2009 status post right lower lobectomy in May 2009, radiation in May 2009, and adjuvant chemotherapy followed by ifosfamide/etoposide which was completed in December 2009. Currently on surveillance. COMPARISON: PET-CT, 05/27/2022 ACCESSION NUMBER(S): [id number] ORDERING CLINICIAN: GORDON CAMPOVERDE TECHNIQUE: DIVISION OF NUCLEAR MEDICINE POSITRON EMISSION TOMOGRAPHY (PET-CT) The patient received an intravenous dose of 9.7 mCi of Fluorine-18 fluorodeoxyglucose (FDG). The patient was placed in a dark quiet room. Positron emission tomographic (PET) images from skull vertex to the feet were then acquired after a one hour delay. Also acquired was a contemporaneous low dose non-contrast CT scan performed for attenuation correction of PET images and anatomic localization. The PET and CT images were digitally fused for display. All images were acquired on a combined PET-CT scanner unit. Some areas of FDG accumulation may be described in standardized uptake value (SUV) units. CODING: Subsequent Treatment Strategy (PS) CALIBRATION: Dose Enrbrdezl-rt-Hshl Interval (mins): 66 min Mediastinal bloodpool SUV (normal 1.5-2.5): 2.2 Blood glucose: 95 mg/dL FINDINGS: HEAD AND NECK: No evidence of focal hypermetabolic lesion in the brain parenchyma, noting that evaluation is limited because of the expected physiologic diffuse FDG uptake in the brain. No focal hypermetabolic soft tissue lesion is seen in the neck. No hypermetabolic cervical lymphadenopathy is present. CHEST: Again seen are postsurgical changes from right lateral chest wall resection, partial right lung resection, and chest wall reconstruction. There is persistent parenchymal scarring with associated mild hypermetabolic activity as well as atelectatic lung (maximum SUV 2.3). There is nonspecific focal hypermetabolic activity along the anterior aspect of the reconstructed chest wall (maximum SUV 4.5) which is new in comparison to the prior study. No focal hypermetabolic lesion is seen in the lung parenchyma. No evidence of hypermetabolic mediastinal, hilar or axillary lymphadenopathy. ABDOMEN AND PELVIS: No hypermetabolic soft tissue lesion is present in the abdomen and pelvis. No evidence of hypermetabolic lymphadenopathy. Physiologic radiotracer uptake is present in the liver and spleen with excretion into the bowel loops and the genitourinary tract. MUSCULOSKELETAL/EXTREMITIE S: No focal hypermetabolic lesion is seen in the axial or appendicular to suggest osseous metastasis. 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 Complicated by recurrence in 2009 status post right lower lobectomy in May 2009, radiation in May 2009, and adjuvant chemotherapy followed by ifosfamide/etoposide which was completed in December 2009. Currently on surveillance. COMPARISON: PET-CT, 05/27/2022 ACCESSION NUMBER(S): [id number] ORDERING CLINICIAN: GORDON CAMPOVERDE TECHNIQUE: DIVISION OF NUCLEAR MEDICINE POSITRON EMISSION TOMOGRAPHY (PET-CT) The patient received an intravenous dose of 9.7 mCi of Fluorine-18 fluorodeoxyglucose (FDG). The patient was placed in a dark quiet room. Positron emission tomographic (PET) images from skull vertex to the feet were then acquired after a one hour delay. Also acquired was a contemporaneous low dose non-contrast CT scan performed for attenuation correction of PET images and anatomic localization. The PET and CT images were digitally fused for display. All images were acquired on a combined PET-CT scanner unit. Some areas of FDG accumulation may be described in standardized uptake value (SUV) units. CODING: Subsequent Treatment Strategy (PS) CALIBRATION: Dose Hpvbrbfqn-mu-Qxvq Interval (mins): 66 min Mediastinal bloodpool SUV (normal 1.5-2.5): 2.2 Blood glucose: 95 mg/dL FINDINGS: HEAD AND NECK: No evidence of focal hypermetabolic lesion in the brain parenchyma, noting that evaluation is limited because of the expected physiologic diffuse FDG uptake in the brain. No focal hypermetabolic soft tissue lesion is seen in the neck. No hypermetabolic cervical lymphadenopathy is present. CHEST: Again seen are postsurgical changes from right lateral chest wall resection, partial right lung resection, and chest wall reconstruction. There is persistent parenchymal scarring with associated mild hypermetabolic activity as well as atelectatic lung (maximum SUV 2.3). There is nonspecific focal hypermetabolic activity along the anterior aspect of the reconstructed chest wall (maximum SUV 4.5) which is new in comparison to the prior study. No focal hypermetabolic lesion is seen in the lung parenchyma. No evidence of hypermetabolic mediastinal, hilar or axillary lymphadenopathy. ABDOMEN AND PELVIS: No hypermetabolic soft tissue lesion is present in the abdomen and pelvis. No evidence of hypermetabolic lymphadenopathy. Physiologic radiotracer uptake is present in the liver and spleen with excretion into the bowel loops and the genitourinary tract. MUSCULOSKELETAL/EXTREMITIE S: No focal hypermetabolic lesion is seen in the axial or appendicular to suggest osseous metastasis. IMPRESSION: 1. Postsurgical changes of right lateral wall chest resection, partial right lung resection, and chest wall reconstruction. There is new focal hypermetabolic activity along the anterior aspect of the reconstructed chest wall which is nonspecific and may represent inflammatory or posttraumatic changes, versus local disease recurrence. 2. No evidence of hypermetabolic lymphadenopathy. 3. No evidence of distal hypermetabolic metastatic disease. I personally reviewed the images/study and I agree with the findings as stated by radiology asst Dr. Namrata Zuñiga. This study was interpreted at [facility], [place], [place]. MACRO: None Signed by: Edy Jeronimo 06/16/2023 2:50 PM Dictation workstation: [id number] [facility] Work Phone: Radiology Study observation (narrative) [facility] Work Phone: PT Unspecified body regionOr dered By: Edy Jeronimo on 06-16-2023 [facility] Work Phone: BASIC METABOLIC PANELon 08-3 Anion gap [Moles/Vol] 8 mmol/L Low 10 - 20 [facility] Comment on above: Performed By: #### B MP #### [address] [place] [address] Calcium [Mass/Vol] 9.0 mg/dL Normal 8.6 - 10.3 [facility] Comment on above: Performed By: #### B MP #### [address] [place] [address] Chloride [Moles/Vol] 103 mmol/L Normal 98 - 107 [facility] Comment on above: Performed By: #### B MP #### [address] [place] [address] Creatinine [Mass/Vol] 1.28 mg/dL High 0.50 - 1.05 [facility] Comment on above: Performed By: #### B MP #### [address] [place] [address] GFR/1.73 sq M.predicted among non-blacks MDRD (S/P/Bld) [Vol rate/Area] 53 mL/min/{1.73_m2} Abnormal >90 [facility] Comment on above: Result Comment: CALC ULATIONS OF ESTIMATED GFR ARE PERFORMED USING THE 2020 CKD-EPI STUDY REFIT EQUATION WITHOUT THE RACE VARIABLE FOR THE IDMS-TRACEABLE CREATININE METHODS. https://jasn.asnjournals.org/content/early//ASN.280009125 8 Performed By: #### B MP #### [address] [place] [address] Glucose [Mass/Vol] 53 mg/dL Low 74 - 99 [facility] Comment on above: Performed By: #### B MP #### [address] [place] [address] HCO3 (Bld) [Moles/Vol] 28 mmol/L Normal 21 - 32 [facility] Comment on above: Performed By: #### B MP #### [address] [place] [address] Potassium [Moles/Vol] 4.3 mmol/L Normal 3.5 - 5.3 [facility] Comment on above: Performed By: #### B MP #### [address] [place] [address] Sodium [Moles/Vol] 135 mmol/L Low 136 - 145 [facility] Comment on above: Performed By: #### B MP #### [address] [place] [address] Urea nitrogen [Mass/Vol] 19 mg/dL Normal 6 - 23 [facility] Comment on above: Performed By: #### B MP #### [address] [place] [address] Established Visit (Nephrolog y)on 10-30-2022 Established Visit (Nephrology) Diagnoses/Problems CKD (chronic kidney disease), stage III (585.3) (N18.30) Orders CKD (chronic kidney disease), stage III Basic Metabolic Panel; Status:Active; Requested for:[id number]; Parathormone Intact, Serum; Status:Active; Requested for:31Qpv9081; Vitamin D 25-Hydroxy; Status:Active; Requested for:98Lta3988; Provider Impressions 42-year-old female with history of askin tumor, which was diagnosed in 2001. She is a status post chemotherapy back in 2001 and again in 2009 with vincristine/temozolomide/i rinotecan followed by ifosfamide. #1 chronic kidney disease stage III. Last creatinine level is 1.17. Blood pressure is good. Normal potassium and bicarb level. Volume status is good. I asked for PTH, phosphorus, vitamin D level. I will see her in about 1 year for follow-up. Chief Complaint pt in office for 1 year follow up. Pt in office for a consult for abnormal labs History of Present Illness The patient is being seen for a routine clinic follow-up of chronic kidney disease. This is classified as stage 3. Recently, the disease has been stable. There are no known disease complications. The patient is currently asymptomatic. No associated symptoms are reported. Review of Systems The patient does not have any dizziness or lightheadedness. No chills and no fever. No headaches. No nausea and no vomiting. No shortness of breath. No cough. No sputum. No chest pain. No chest tightness. No abdominal pain. No diarrhea and no constipation. The patient denies any hematemesis or hemoptysis. No hematuria. No rectal bleeding. No melena. No epistaxis. The patient denies any urinary symptoms. No frequency, no hesitancy, and no urgency. No flank pain. The patient denies any leg edema. No leg pain. The patient denies any feeling of weakness. No itching. Overall, the rest of the review of systems is also negative. Active Problems Abnormal PET scan of colon (794.9) (R94.8) CHF (congestive heart failure) (428.0) (I50.9) CKD (chronic kidney disease), stage III (585.3) (N18.30) Encounter for monitoring cardiotoxic drug therapy (V58.83,V58.69) (Z51.81,Z79.899) Encounter for preprocedure screening laboratory testing for COVID-19 (V72.63,V01.79) (Z01.812,Z20.822) Never a smoker Shortness of breath (786.05) (R06.02) Status post administration of cardiotoxic chemotherapy (V87.41) (Z92.21) Surgical History History of Lobotomy History of Tonsillectomy History of Tumor excision chest wall 2010 History of Lester tooth extraction Family History No pertinent family history No pertinent family history Social History Daily caffeine consumption Never a smoker No illicit drug use Social alcohol use (V49.89) (Z78.9) Allergies No Known Drug Allergies Recorded By: Nicci Ziegler; 05/10/2020 3:10:38 PM Current Meds Medication NameInstruction Sylvia 03/22 1-20 MG-MCG Oral TabletTAKE 1 TABLET DAILY FOR 21 DAYS, THEN 7 TABLET-FREE DAYS; REPEAT. LORazepam 0.5 MG Oral Tabletone tablet at bedtime ProAir HFA 108 (90 Base) MCG/ACT AERSINHALE 1 TO 2 PUFFS EVERY 4 TO 6 HOURS NEEDED. Vitals Vital Signs Recorded: 05Zht7307 10:39AM Heart Rate76 Cchoylvv500, LUE, Sitting Tomkeygju87, LUE, Sitting Height5 ft 7 in Jscrqj141 lb BMI Atqgckcocj86.41 kg/m2 BSA Calculated1.91 Physical Exam General: The patient is awake, oriented, and is not in any distress. Head and Neck: Normocephalic. No periorbital edema. Respiratory: Symmetric air entry. Symmetric chest expansion.No respiratory distress.. Skin: No maculopapular rash. Musculoskeletal: No peripheral edema in both left and right upper extremities. No edema in either left or right lower extremities. Neuro Exam: Speech is fluent. Moves extremities. Results/Data Comprehensive Metabolic [id number] 08:00AMNon Ambulatory, Provider Ordering Provider: GORDON CAMPOVERDE [id number] Test NameResultFlagReference Glucose, Serum85 mg/dL74 - 99 Sodium, Qifli513 mmol/L136 - 145 POTASSIUM4.5 mmol/L3.5 - 5.3 Chloride, Gdfht242 mmol/L98 - 107 Bicarbonate, Serum29 mmol/L21 - 32 Anion Gap, Serum12 mmol/L10 - 20 Blood Urea Nitrogen, Serum17 mg/dL6 - 23 CREATININE1.17 mg/dLHSee Below Reference Range: 0.50 - 1.05 Calcium, Serum9.5 mg/dL8.6 - 10.6 Albumin, Serum4.1 g/dL3.4 - 5.0 ALKALINE [id number] U/L33 - 110 Protein, Total Serum6.8 g/dL6.4 - 8.2 Bilirubin, Serum Total0.5 mg/dL0.0 - 1.2 ALT (SGPT), Serum21 U/L7 - 45 Patients treated with Sulfasalazine may generate falsely decreased results for ALT. GFR UZTGTT17 mL/min/1.73m2A>90 CALCULATIONS OF ESTIMATED GFR ARE PERFORMED USING THE 2020 CKD-EPI STUDY REFIT EQUATION WITHOUT THE RACE VARIABLE FOR THE IDMS-TRACEABLE CREATININE METHODS. https://jasn.asnjournals.o rg/content/early 2/ASN.3582318209 AST27 U/L9 - 39 Signatures Electronically signed by : John Isbell MD; Oct 30 2022 10:46AM EST (Author) Normal [facility] - Chemistry and C hemistry - challengeon 08-30-2023 Anion gap [Moles/Vol] 8 mmol/L below low threshold 10 - 20 [place] [address] DO Work Phone: [phone] Calcium [Mass/Vol] 9.0 mg/dL 8.6 - 10.3 [place] [address] DO Work Phone: [phone] Chloride [Moles/Vol] 103 mmol/L 98 - 107 [place] [address] DO Work Phone: [phone] CO2 [Moles/Vol] 28 mmol/L 21 - 32 [place] [address] DO Work Phone: [phone] Creatinine [Mass/Vol] 1.28 mg/dL above high threshold See Below [place] [address] DO Work Phone: [phone] Comment on above: Reference Range: 0.5 0 - 1.05 Glucose [Mass/Vol] 53 mg/dL below low threshold 74 - 99 [place] [address] DO Work Phone: [phone] Potassium [Moles/Vol] 4.3 mmol/L 3.5 - 5.3 [place] [address] DO Work Phone: [phone] Sodium [Moles/Vol] 135 mmol/L below low threshold 136 - 145 [place] [address] DO Work Phone: [phone] Urea nitrogen [Mass/Vol] 19 mg/dL 6 - 23 [place] [address] DO Work Phone: [phone] No Panel Informationon 10-30 53 {mL/min/1.73m2} Abnormal >90 [place] [address] DO Work Phone: [phone] Comment on above: CALCULATIONS OF GEETHA MATED GFR ARE PERFORMED USING THE 2020 CKD-EPI STUDY REFIT EQUATION WITHOUT THE RACE VARIABLE FOR THE IDMS-TRACEABLE CREATININE METHODS.https://jasn.asnjournals.org/content//ASN.2 800057113 PARATHYROID HORMONE,INTACTon 10-30-2022 PARATHYROID HORMONE,INTACT 90.9 pg/mL High 18.5 - 88.0 [facility] Comment on above: Performed By: #### P TH #### [facility] [address] [place] [address] VITAMIN D, 25-HYDROXYon 10-03 VITAMIN D, 25-HYDROXY 74 ng/mL Normal [facility] Comment on above: Result Comment: . DEFICIENCY: < 20 NG/ML INSUFFICIENCY: 20-29 NG/ML SUFFICIENCY: 30-100 NG/ML THIS ASSAY ACCURATELY QUANTIFIES THE SUM OF VITAMIN D3, 25-HYDROXY AND VIT D2,25-HYDROXY. Performed By: #### V TDOH #### [facility] [address] [place] [address] PREG HCG QUALon 07-30-2022 , QUAL Negative Normal NEGATIVE [facility] Comment on above: Performed By: #### P REG #### [facility] [address] [place] [address] [address] Karime Araujo Clinic Note - Heme Onc Sched ulingon 06-07-2022 Clinic Note - Heme Onc Scheduling Retrieve Patient Instructions: Patient Instructions: Patient Instructions: RetrievePatient Instructions Instructions Typenutrition Instructions Ms. John It was a pleasure meeting you today. As discussed, we will meet again in June 2023. I have ordered some labs and a PET scan around that time for tumor surveillance. We will discuss those at that time. My office will be reaching out to you to make all the appointments. I am always available at the phone numbers listed below for an earlier appointment should you wish one. In case of an emergency please dial 911 or report to your nearest Emergency Room. For all other questions, please do not hesitate to reach out to us at the number listed below. Thank you for choosing [facility]. We appreciate your visit. Gordon Campoverde MD [facility] . Follow Up Testing Appointment: Test Name(s)PET CT Appointment Date & Hdcc64-Ioh-2080 09:00 [facility] [address] [place], [place] [phone] CommentsNo solids - water only 6 hrs prior. Please arrive 20 mins early and bring ID and insurance End of Visit Documentation: Clinic Location/Phone Number: Clinic Location/Phone Number: [facility] [address] [place], [place] [address] End Of Visit MU Report Item: Visit Summary given or mailed to patientyes Mailed Appointments Electronic Signatures: Suman Wall (Rev Cycl Spec) (Signed 07-Jun-2022 14:57) Authored: Retrieve Patient Instructions, TESTING (Lab, Radiology, Other) APPOINTMENTS, End of Visit Documentation Last Updated: 07-Jun-2022 14:57 by Suman Wall (Rev Cycl Spec) Normal [facility] Clinic Note - Heme Onc-Follo w Up Visiton 06-06-2022 Clinic Note - Heme Onc-Follow Up Visit Patient Visit Information: Visit Type: Follow Up Visit Cancer History: Treatment Synopsis: Recurrent askin tumor, KEE since May 2009 lung resection and s/p adjuvant chemotherapy last given December 2009. Originally resected in 2001 from right chest wall, and s/p adjuvant RT. Recurred in 2009, s/p right lower lobectomy May 04, 2009, RT from May 02 & May 03, 2009. without adjuvant chemotherapy with alternating cycles of vincristine/temozolomide/i rinotecan followed by ifosfamide, etoposide. Last given December 2009. In May 2020- patient reported shortness of breath. PET scan picked up a hot nodule in the sigmoid colon- suspicious for neoplastic process- refer to GI and cardiology. Colonoscopy did not show any tumorous lesions. Cardiology-oncology saw her in Mid July 2019 and cleared her from cardiology perspective. She was supposed to see a osteology teacher, but she cancelled the appointment as she started feeling better on her own. She does not want to make another appointment as of now. From Med Onc perspective, she had a PET scan in June 2022 that did not show any evidence of recurrent tumor. 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 Today, - She has severe back pain at times. She is working with her PCP on this. - Other than this, she has no other symptoms. Review of Systems: Review of Systems: REVIEW OF SYSTEMS: An 12 - point review of systems was performed. Positives are highlighted in bold. The pertinent negatives include: GENERAL: No weight loss, no fever, no chills. EYES: No redness, no discharge, no change in vision, no floaters. NEUROLOGIC: No headache, no visual changes, no paresthesias, no focal weakness. No dizziness or vertigo. HEENT: No nasal congestion, no tinnitus, no dysphagia or odynophagia. No cervical masses. CARDIOVASCULAR: No chest pain, no dyspnea of exertion, no palpitations, no syncope. PULMONARY: No cough, no expectoration, no wheezing. GASTROINTESTINAL: No nausea, no vomiting, no diarrhea, no constipation, no hematemesis, no hematochezia, no melena. GENITOURINARY: No dysuria, no hematuria. ENDOCRINOLOGIC: No heat or cold intolerance, no appetite issues. SKIN: No new rash, no new ulcers. MUSCULOSKELETAL: No arthralgias, no myalgias.. Has constant nagging back pain. Working with the PCP. Has had MRI and several other imaging tests. No evidence of tumor on the PET scan. Allergies and Intolerances: Allergies: No Known Allergies: Active Outpatient Medication Profile: * Patient Currently Takes Medications as of 07-Jun-2021 10:53 documented in Structured Notes ProAir HFA CFC free 90 mcg/inh inhalation aerosol: 2 puff(s) inhaled 4 times a day, As Needed (HAS NOT USED FOR YEARS), Start Date: 15-Aug-2014 lidocaine 4% patch: ibuprofen: LORazepam 1 mg oral tablet: 1 tab(s) orally once a day Medical History: Burr's sarcoma: ICD-10: C41.9, Status: Active CKD (chronic kidney disease), stage II: ICD-10: N18.2, Status: Active History of radiation therapy: ICD-10: Z92.3, Status: Active Askin's tumor: ICD-10: C49.9, Status: Active Family History: No Family History items are recorded in the problem list. Social History: Social Substance History: Smoking Statusnever smoker Tobacco Usedenies Alcohol Usedenies Drug Usedenies Performance: ECOG Performance Status: 1- Restricted from physically stenuous work Vitals and Measurements: Vitals: Temp: 36.2 HR: 78 RR: 16 BP: 110/76 SPO2%: 98 Measurements: HT(cm): 172 WT(kg): 81.3 BSA: 1.97 BMI: 27.4 Last 3 Weights & Heights: Date: Weight/Scale Type:Height: 06-Jun-2022 12:0181.3 kg 172 cm 07-Jun-2021 10:4980 kg Recent Vital Signs: Recent Vital SignsTEMP: 36.2 HR: 78 RR: 16 BP: 110/76 SPO2: 98 Date Documented: 06-Jun-2022 12:01:00 Physical Exam: Constitutional: Well developed, awake/alert/oriented x3, no distress, alert and cooperative, Eyes: PERRL, EOMI, clear sclera ENMT: mucous membranes moist, no apparent injury, no lesions seen. Head/Neck: Neck supple, no apparent injury, thyroid without mass or tenderness, Respiratory/Thorax: Patent airways, CTAB, normal breath sounds with good chest expansion. Cardiovascular: Regular, rate and rhythm, no murmurs, 2+ equal pulses of the extremities, normal S 1and S 2 Gastrointestinal: Nondistended, soft, non-tender, no rebound tenderness or guarding, no masses palpable, no organomegaly, +BS, no bruits Extremities: normal extremities, no cyanosis edema, contusions or wounds, no clubbing Neurological: alert and oriented x3, intact senses, motor, response and reflexes, normal strength Lymphatic: No significant lymphadenopathy Psychological: Appropriate mood and behavior Skin: Wa (more content not included)... Normal [facility] Clinic Note - Intakeon 06-06 Clinic Note - Intake Patient Visit Information: Visit TypeFollow Up Visit Source of Informationpatient Vital Signs: Temp (degrees C)36.2 degrees C Heart Rate (beats/min)78 beats per minute Respiration (breaths/min)16 breath per minute BP Systolic (mm Hg)110 mmHg BP Diastolic (mm Hg)76 mmHg BP Mean (mm Hg)87 mmHg Height in cm172 centimeter(s) Weight in kg81.3 kilogram(s) BMI (kg/m2)27.4 kg/M2 BSA (m2)1.97 M2 SpO2 (%)98 % SpO2 Patient Onroom air Pain Screening: Patient States Painno (0) Pain Scale UsedNumeric (0-10) Health Screening: Last [id number] Last Pap [id number] Allergies: No Known Allergies: Active Outpatient Medication Profile: * Patient Currently Takes Medications as of 07-Jun-2021 10:53 documented in Structured Notes ProAir HFA CFC free 90 mcg/inh inhalation aerosol: 2 puff(s) inhaled 4 times a day, As Needed (HAS NOT USED FOR YEARS), Start Date: 15-Aug-2014 lidocaine 4% patch: ibuprofen: LORazepam 1 mg oral tablet: 1 tab(s) orally once a day Notification: NotificationsAll annual screens currently due. Travel History: COVID-19 Screening Completedno exposure or symptoms Travel or ExposureNO travel to International locations in the past 30 days Falls: Have you fallen in the last 6 monthsno Do you have a fear of fallingno Do you feel you need assistanceno Is the patient using an assistive deviceno Spiritual/Procedural: Spiritual/cultural/religio us practices important for us to knowno Alcohol, prescription or recreational drugs taken this AM for non medical reasonsno Oncology Nutrition: During the past 2 weeks, weight has(0) not changed Intake past month, compared to normal intake(0) unchanged Score 6 or > notify clinician0 Electronic Signatures: Sara Tomlinson) (Signed 06-Jun-2022 12:12) Authored: Patient Visit Information, Vital Signs, Health Screening, Allergies, Outpatient Medication Profile, Notification, Travel History, Falls, Spiritual/Procedural, Oncology Nutrition Last Updated: 06-Jun-2022 12:12 by Sara Tomlinson) Normal [facility] CBC AND DIFFERENTIALon 05-27 % AUTOMATED IMMATURE GRAN 0.3 % Normal 0.0 - 0.9 [facility] Comment on above: Result Comment: Nicolle ture Granulocyte Count (IG) includes promyelocytes, myelocytes and metamyelocytes but does not include bands. Percent differential counts (%) should be interpreted in the context of the absolute cell counts (cells/L). Performed By: #### C BCDF #### [facility] [address] [place] [address] Basophils (Bld) [#/Vol] 0.06 10*3/uL Normal 0.00 - 0.10 [facility] Comment on above: Performed By: #### C BCDF #### [facility] [address] [place] [address] Basophils/100 WBC (Bld) 0.8 % Normal 0.0 - 2.0 [facility] Comment on above: Performed By: #### C BCDF #### [facility] [address] [place] [address] Eosinophils (Bld) [#/Vol] 0.22 10*3/uL Normal 0.00 - 0.70 [facility] Comment on above: Performed By: #### C BCDF #### [facility] [address] [place] [address] Eosinophils/100 WBC (Bld) 2.9 % Normal 0.0 - 6.0 [facility] Comment on above: Performed By: #### C BCDF #### [facility] [address] [place] [address] Erythrocyte distribution width (RBC) [Ratio] 11.7 % Normal 11.5 - 14.5 [facility] Comment on above: Performed By: #### C BCDF #### [facility] [address] [place] [address] Hematocrit (Bld) [Volume fraction] 44.6 % Normal 36.0 - 46.0 [facility] Comment on above: Performed By: #### C BCDF #### [facility] [address] [place] [address] Hemoglobin (Bld) [Mass/Vol] 15.1 g/dL Normal 12.0 - 16.0 [facility] Comment on above: Performed By: #### C BCDF #### [facility] [address] [place] [address] Lymphocytes (Bld) [#/Vol] 1.82 10*3/uL Normal 1.20 - 4.80 [facility] Comment on above: Performed By: #### C BCDF #### [facility] [address] [place] [address] Lymphocytes/100 WBC (Bld) 24.1 % Normal 13.0 - 44.0 [facility] Comment on above: Performed By: #### C BCDF #### [facility] [address] [place] [address] MCHC (RBC) [Mass/Vol] 33.9 g/dL Normal 32.0 - 36.0 [facility] Comment on above: Performed By: #### C BCDF #### [facility] [address] [place] [address] MCV (RBC) [Entitic vol] 92 fL Normal 80 - 100 [facility] Comment on above: Performed By: #### C BCDF #### [facility] [address] [place] [address] Monocytes (Bld) [#/Vol] 0.54 10*3/uL Normal 0.10 - 1.00 [facility] Comment on above: Performed By: #### C BCDF #### [facility] [address] [place] [address] Monocytes/100 WBC (Bld) 7.1 % Normal 2.0 - 10.0 [facility] Comment on above: Performed By: #### C BCDF #### [facility] [address] [place] [address] Neutrophils (Bld) [#/Vol] 4.90 10*3/uL Normal 1.20 - 7.70 [facility] Comment on above: Performed By: #### C BCDF #### [facility] [address] [place] [address] Neutrophils/100 WBC (Bld) 64.8 % Normal 40.0 - 80.0 [facility] Comment on above: Performed By: #### C BCDF #### [facility] [address] [place] [address] NUCLEATED RBC 0.0 /100 WBC Normal 0.0-0.0 [facility] Comment on above: Performed By: #### C BCDF #### [facility] [address] [place] [address] Platelets (Bld) [#/Vol] 244 10*3/uL Normal 150 - 450 [facility] Comment on above: Performed By: #### C BCDF #### [facility] [address] [place] [address] RBC 4.86 x10E12/L Normal 4.00 - 5.20 [facility] Comment on above: Performed By: #### C BCDF #### [facility] [address] [place] [address] WBC (Bld) [#/Vol] 7.6 10*3/uL Normal 4.4 - 11.3 [facility] Comment on above: Performed By: #### C BCDF #### [facility] [address] [place] [address] COMPREHENSIVE PANELon 2022 Albumin [Mass/Vol] 4.1 g/dL Normal 3.4 - 5.0 [facility] Comment on above: Performed By: #### C MP #### [facility] [address] [place] [address] ALP [Catalytic activity/Vol] 48 U/L Normal 33 - 110 [facility] Comment on above: Performed By: #### C MP #### [facility] [address] [place] [address] ALT [Catalytic activity/Vol] 21 U/L Normal 7 - 45 [facility] Comment on above: Result Comment: Marcie ents treated with Sulfasalazine may generate falsely decreased results for ALT. Performed By: #### C MP #### [facility] [address] [place] [address] Anion gap [Moles/Vol] 12 mmol/L Normal 10 - 20 [facility] Comment on above: Performed By: #### C MP #### [facility] [address] [place] [address] AST [Catalytic activity/Vol] 27 U/L Normal 9 - 39 [facility] Comment on above: Performed By: #### C MP #### [facility] [address] [place] [address] Bilirubin [Mass/Vol] 0.5 mg/dL Normal 0.0 - 1.2 [facility] Comment on above: Performed By: #### C MP #### [facility] [address] [place] [address] Calcium [Mass/Vol] 9.5 mg/dL Normal 8.6 - 10.6 [facility] Comment on above: Performed By: #### C MP #### [facility] [address] [place] [address] Chloride [Moles/Vol] 103 mmol/L Normal 98 - 107 [facility] Comment on above: Performed By: #### C MP #### [place] [address] [place] [address] Creatinine [Mass/Vol] 1.17 mg/dL High 0.50 - 1.05 [facility] Comment on above: Performed By: #### C MP #### [facility] [address] [place] [address] GFR/1.73 sq M.predicted among non-blacks MDRD (S/P/Bld) [Vol rate/Area] 59 mL/min/{1.73_m2} Abnormal >90 [facility] Comment on above: Result Comment: CALC ULATIONS OF ESTIMATED GFR ARE PERFORMED USING THE 2020 CKD-EPI STUDY REFIT EQUATION WITHOUT THE RACE VARIABLE FOR THE IDMS-TRACEABLE CREATININE METHODS. https://jasn.asnjournals.org/content//ASN.801596587 8 Performed By: #### C MP #### [facility] [address] [place] [address] Glucose [Mass/Vol] 85 mg/dL Normal 74 - 99 [facility] Comment on above: Performed By: #### C MP #### [facility] [address] [place] [address] HCO3 (Bld) [Moles/Vol] 29 mmol/L Normal 21 - 32 [facility] Comment on above: Performed By: #### C MP #### [facility] [address] [place] [address] Potassium [Moles/Vol] 4.5 mmol/L Normal 3.5 - 5.3 [facility] Comment on above: Performed By: #### C MP #### [facility] [address] [place] [address] Protein [Mass/Vol] 6.8 g/dL Normal 6.4 - 8.2 [facility] Comment on above: Performed By: #### C MP #### [facility] [address] [place] [address] Sodium [Moles/Vol] 139 mmol/L Normal 136 - 145 [facility] Comment on above: Performed By: #### C MP #### [facility] [address] [place] [address] Urea nitrogen [Mass/Vol] 17 mg/dL Normal 6 - 23 [facility] Comment on above: Performed By: #### C MP #### [facility] [address] [place] [address] LDHon 05-27-2022 LDH 132 U/L Normal 84 - 246 [facility] Comment on above: Performed By: #### L DH #### [facility] [address] 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 Needs full body imaging to rule out relapse. COMPARISON: PET-CT dated 05/01/2020 ACCESSION NUMBER(S): [id number] ORDERING CLINICIAN: GORDON CAMPOVERDE TECHNIQUE: DIVISION OF NUCLEAR MEDICINE POSITRON EMISSION TOMOGRAPHY (PET-CT) The patient received an intravenous dose of 12.2 mCi of Fluorine-18 fluorodeoxyglucose (FDG). The patient was placed in a dark quiet room. Positron emission tomographic (PET) images from skull vertex to the feet were then acquired after a one hour delay. Also acquired was a contemporaneous low dose non-contrast CT scan performed for attenuation correction of PET images and anatomic localization. The PET and CT images were digitally fused for display. All images were acquired on a combined PET-CT scanner unit. Some areas of FDG accumulation may be described in standardized uptake value (SUV) units. CODING: Subsequent Treatment Strategy (PS) CALIBRATION: Dose Zojtjityz-ci-Zzpr Interval (mins): 52 min Mediastinal bloodpool SUV (normal 1.5-2.5): 2.4 Blood glucose: 94 mg/dL FINDINGS: HEAD AND NECK: * No evidence of focal hypermetabolic lesion in the brain parenchyma, noting that evaluation is limited because of the expected physiologic diffuse FDG uptake in the brain. * No evidence of paranasal sinus disease * No enlarged or FDG avid cervical lymphadenopathy is present. CHEST: *Postsurgical changes from right lateral chest wall resection, partial right lung resection, and chest wall reconstruction. There is similar faint FDG activity associated with the adjacent right lung parenchymal scarring. No abnormal FDG uptake in the surgical bed to suggest locoregional recurrence. No concerning pulmonary nodule. *No enlarged or FDG avid mediastinal, hilar or axillary lymphadenopathy. ABDOMEN AND PELVIS: * Interval metabolic resolution of previously seen focal FDG uptake in the sigmoid colon. * No evidence of hypermetabolic lymphadenopathy. * Physiologic radiotracer uptake is present in the liver and spleen with excretion into the bowel loops and the genitourinary tract. MUSCULOSKELETAL/EXTREMITIE S: *No focal hypermetabolic lesion is seen in the axial or appendicular to suggest osseous metastasis. IMPRESSION: 1. Stable postsurgical changes of the right lateral chest wall and lung without abnormal FDG uptake in the post surgical bed to suggest locoregional recurrence or metastatic disease throughout the body. I personally reviewed the image(s) / study and agree with the findings and interpretation as stated. This study was interpreted at [facility]. Electronically signed by: MARCELO CHAPARRO MD Normal [facility] MRI LSPINE WO CONon 02-07-20 MRI LSPINE WO CON EXAMINATION: MRI LSP INE WO CON HISTORY: Degeneration of lumbar intervertebral disc ; chronic lumbar and left leg pain COMPARISON: XR L-spine 09/17/2021 TECHNIQUE: A variety of imaging planes and parameters were utilized for visualization of suspected pathology. FINDINGS: For the purposes of numbering, sagittal T2 image # 8 extends from the T11 vertebral body superiorly to the S3 level inferiorly. PARASPINAL AREA: Normal with no visible mass. BONES: Mild left convex curvature lumbar spine.No fracture, pars defect, or osseous lesion. CORD/CAUDA EQUINA: Normal caliber, contour, and signal intensity. DISC LEVELS: 12-L1: No significant disc/facet abnormality, spinal stenosis, or foraminal stenosis. L1-L2: No significant disc/facet abnormality, spinal stenosis, or foraminal stenosis. L2-L3: Early degenerative disc disease is present without focal protrusion or neural impingement. L3-L4: No significant disc/facet abnormality, spinal stenosis, or foraminal stenosis. L4-L5: Early degenerative disc disease is present without focal protrusion or neural impingement. L5-S1: No significant disc/facet abnormality, spinal stenosis, or foraminal stenosis. IMPRESSION: 1. Mild, early degenerative changes. No specific findings to account for patient's symptoms. Electronically authenticated by: NIA LEONARD Date: 2022-02-06 06:58 Normal [facility] XR LSPINE 2_3 VIEWSon 2021 XR LSPINE 2_3 VIEWS EXAMINATION: XR LSPINE 2_3 VIEWS HISTORY: Low back pain , chronic burning sensation in right leg COMPARISON: XR lumbar spine 11/23/2019 FINDINGS: BONES: Mild grade 1 retrolisthesis of L2 on 3. Mild left convex curvature of lower lumbar spine. No fracture or bone lesion. Mild degenerative facet arthropathy L4-L5, L5-S1. DISC SPACES: Slight narrowing L3-L4. PARASPINOUS: Negative. No paraspinous abnormality is seen. OTHER: Negative. IMPRESSION: 1. Mild degenerative changes which appear grossly stable; no specific findings to account for patient's symptoms. Consider MRI if symptoms persist. Electronically authenticated by: NIA LEONARD Date: 2021-09-18 16:01 Normal [facility] US renal BIon 07-20-2021 US renal BI [place] [address] Ultrasound Report Signed Patient: Alcon John MR#: [id number] : 1980 Acct:[id number] Age/Sex: 41 / F ADM Date: 07/20/21 Loc: Room: Type: [facility] Attending Dr: John Isbell MD Ordering Provider: John Isbell MD Date of Service: 07/20/21 US/US renal BI: N18.30 Copies to: John Isbell MD Bilateral renal ultrasound HISTORY: Abnormal lab work. COMPARISON:None RIGHT kidney measures 9.9 x 5.5 x 4.0 cm. LEFT kidney measures 9.1 x 4.2 x 4.0 cm. No hydronephrosis identified. No shadowing renal calculus is seen. No renal lesion identified. The volume of the urinary bladder is 284 cc. Postvoid residual urinary bladder is 11 cc. Bilateral ureteral jets identified. US/US renal BI IMPRESSION: No hydronephrosis. Impression dictated by: Darryl Puente M.D.07/20/2021 11:50 AM Dictation Location: [place] [address] Tech: Brittny Ruel Transcribed By: PWS 07/20/21 1150 Dictated By: Darryl Puente DO 07/20/21 1148 Signed By: 07/20/21 1150 [facility] Parathormone Intact, Serumon 07-10-2021 Parathyrin.intact [Mass/Vol] 53.7 pg/mL See Below [place] [address] DO Work Phone: Comment on above: Reference Range: 12. 0 - 88.0 Phosphorus, Serumon 07-11-19 Phosphate [Mass/Vol] 3.1 mg/dL 2.5 - 4.9 [place] [address] DO Work Phone: Comment on above: The performance reynold acteristics of phosphorus testing in heparinized plasma have been validated by the individual laboratory site where testing is performed. Testing on heparinized plasma is not approved by the FDA; however, such approval is not necessary. Tobacco Screening.on 022 Fall risk assessment a) No falls within the last year [place] [address] DO Work Phone: Tobacco use status CPHS b) No [place] [address] DO Work Phone: Total Protein, Urine Spoton 07-10-2021 Creatinine (U) [Mass/Vol] 148.0 mg/dL See Below [place] [address] DO Work Phone: Comment on above: Reference Range: 20. 0 - 320.0 Protein (U) [Mass/Vol] 13 mg/dL 5 - 24 [place] [address] DO Work Phone: Protein/Creatinine (U) [Ratio] 0.09 {mg/mg_Creat} See Below [place] [address] DO Work Phone: Comment on above: Reference Range: 0.0 0 - 0.17 Uric Acid, Serumon Urate [Mass/Vol] 4.6 mg/dL 2.3 - 6.7 [place] [address] DO Work Phone: Comment on above: Venipuncture immedia tely after or during the administration of Metamizole may lead to falsely low results. Testing should be performed immediately prior to Metamizole dosing. Urinalysison 07-10-2021 Color (U) YELLOW See Below [place] [address] DO Work Phone: Comment on above: Reference Range: STR AW,YELLOW Glucose Ql (U) 50 (TRACE) Abnormal NEGATIVE [place] [address] DO Work Phone: Ketones Ql (U) Negative NEGATIVE [place] [address] DO Work Phone: Leukocyte esterase Test strip Ql (U) Negative NEGATIVE [place] [address] DO Work Phone: pH (U) 5.0 [pH] 5.0 - 8.0 [place] [address] DO Work Phone: Protein (U) [Mass/Vol] Negative NEGATIVE [place] [address] DO Work Phone: [phone] RBC (U) [#/Vol] MODERATE(2+) Abnormal NEGATIVE [place] [address] DO Work Phone: Specific gravity (U) [Rel density] 1.023 1 See Below [place] [address] DO Work Phone: Comment on above: Reference Range: 1.0 05 - 1.035 Urinalysis Negative NEGATIVE [facility] 3 DO Work Phone: [phone] Urinalysis <2.0 0.0 - 1.9 [place] [address] DO Work Phone: [phone] Urinalysis HAZY CLEAR [place] [address] DO Work Phone: [phone] Urinalysis, Microscopicon Urinalysis, Microscopic 1+ [place] [address] DO Work Phone: [phone] Urinalysis, Microscopic 3 {/HPF} [place] [address] DO Work Phone: [phone] Urinalysis, Microscopic 1 {/HPF} 0-5 [place] [address] DO Work Phone: [phone] Vitamin D 25-Hydroxyon 07-10 25-hydroxyvitamin D3 [Mass/Vol] 56 ng/mL [place] [address] DO Work Phone: Comment on above: .DEFICIENCY: < 20 NG /MLINSUFFICIENCY: 20-29 NG/MLSUFFICIENCY: 30-100 NG/MLTHIS ASSAY ACCURATELY QUANTIFIES THE SUM OFVITAMIN D3, 25-HYDROXY AND VIT D2,25-HYDROXY. Complete Blood Count + Diffe rentialon 05-01-2020 Basophils (Bld) [#/Vol] 0.05 {x10E9/L} See Below [facility] Work Phone: Comment on above: Reference Range: 0.0 0 - 0.10 Ordering Provider: A JAMES CAMPOVERDE [address] Basophils/100 WBC (Bld) 0.8 % 0.0 - 2.0 [facility] Work Phone: Comment on above: Ordering Provider: A JAMES CAMPOVERDE [id number] Eosinophils (Bld) [#/Vol] 0.21 {x10E9/L} See Below [facility] Work Phone: Comment on above: Reference Range: 0.0 0 - 0.70 Ordering Provider: A JAMES CAMPOVERDE 22033 Eosinophils/100 WBC (Bld) 3.4 % 0.0 - 6.0 [employer] Phone: Comment on above: Ordering Provider: A JAMES CAMPOVERDE [id number] Erythrocyte distribution width (RBC) [Ratio] 11.4 % below low threshold See Below [employer] Phone: Comment on above: Reference Range: 11. 5 - 14.5 Ordering Provider: A JAMES CAMPOVERDE 57268 Hematocrit (Bld) [Volume fraction] 44.4 % See Below [employer] Phone: Comment on above: Reference Range: 36. 0 - 46.0 Ordering Provider: A JAMES CAMPOVERDE 14243 Hemoglobin (Bld) [Mass/Vol] 14.5 g/dL See Below [employer] Phone: Comment on above: Reference Range: 12. 0 - 16.0 Ordering Provider: A JAMES CAMPOVERDE 35468 Lymphocytes (Bld) [#/Vol] 1.86 {x10E9/L} See Below [employer] Phone: Comment on above: Reference Range: 1.2 0 - 4.80 Ordering Provider: A JAMES CAMPOVERDE 46603 Lymphocytes/100 WBC (Bld) 30.1 % See Below [employer] Phone: Comment on above: Reference Range: 13. 0 - 44.0 Ordering Provider: A JAMES CAMPOVERDE 13986 MCHC (RBC) [Mass/Vol] 32.7 g/dL See Below [employer] Phone: Comment on above: Reference Range: 32. 0 - 36.0 Ordering Provider: A JAMES CAMPOVERDE 86631 MCV (RBC) [Entitic vol] 93 fL 80 - 100 [employer] Phone: Comment on above: Ordering Provider: A JAMES CAMPOVERDE 76711 Monocytes (Bld) [#/Vol] 0.44 {x10E9/L} See Below [employer] Phone: Comment on above: Reference Range: 0.1 0 - 1.00 Ordering Provider: A JAMES CAMPOVERDE 50926 Monocytes/100 WBC (Bld) 7.1 % 2.0 - 10.0 [facility] Work Phone: Comment on above: Ordering Provider: A JAMES CAMPOVERDE 85338 Neutrophils (Bld) [#/Vol] 3.59 {x10E9/L} See Below [facility] Work Phone: Comment on above: Reference Range: 1.2 0 - 7.70 Ordering Provider: A JAMES CAMPOVERDE 64660 Neutrophils/100 WBC (Bld) 58.3 % See Below [facility] Work Phone: Comment on above: Reference Range: 40. 0 - 80.0 Ordering Provider: A JAMES CAMPOVERDE 37035 Platelets (Bld) [#/Vol] 222 {x10E9/L} 150 - 450 [facility] Work Phone: Comment on above: Ordering Provider: A JAMES CAMPOVERDE 62489 RBC (Bld) [#/Vol] 4.75 {x10E12/L} See Below [facility] Work Phone: Comment on above: Reference Range: 4.0 0 - 5.20 Ordering Provider: A JAMES CAMPOVERDE 08945 WBC (Bld) [#/Vol] 6.2 {x10E9/L} 4.4 - 11.3 [facility] Work Phone: Comment on above: Ordering Provider: A JAMES CAMPOVERDE 58977 Complete Blood Count + Differential 0.3 % 0.0 - 0.9 [facility] Work Phone: Comment on above: Immature Granulocyte Count (IG) includes promyelocytes, myelocytes and metamyelocytes but does not include bands. Percent differential counts (%) should be interpreted in the context of the absolute cell counts (cells/L). Ordering Provider: A JAMES CAMPOVERDE 59266 Metabolic Panelon 05-01-2020 LDH [Catalytic activity/Vol] 195 U/L 84 - 246 [facility] Work Phone: Comment on above: Ordering Provider: A JAMES MANGLA 17453 Otheron 05-01-2020 Interpreted by: RENEE DURAND ANDERWS AVRJOSE F05/01/20 16:32MRN: [id number] Name: ALCON JOHN STUDY:PET/CT MELANOMA, RESTAGING; 05/01/2020 10:25 am INDICATION:askin's tumor restaging. 38 yo F diagnosed with Que tumor in 2000in the right chest wall s/p resection (2001), partial lobectomy(2009), and chemoradiation (last dose in 2009). PET CT 05/2019 withno evidence of recurrence/metastatic disease. On surveillance. COMPARISON:PET-CT, 05/17/2019. ORDERING CLINICIAN:GORDON CAMPOVERDE TECHNIQUE:DIVISION OF NUCLEAR MEDICINEPOSITRON EMISSION TOMOGRAPHY (PET-CT) The patient received an intravenous dose of 13.3 mCi of Fluorine-18fluorodeoxygluc ose (FDG). The patient was placed in a dark quietroom. Positron emission tomographic (PET) images from skull vertex tothe feet were then acquired after a one hour delay. Also acquired wasa contemporaneous low dose non-contrast CT scan performed forattenuation correction of PET images and anatomic localization. ThePET and CT images were digitally fused for display. All images wereacquired on a combined PET-CT scanner unit. Some areas of FDGaccumulation may be described in standardized uptake value (SUV)units. CODING:Subsequent Treatment Strategy (PS) CALIBRATION:Dose Ulruqvftk-hm-Apnz Interval (mins): 69 minMediastinal bloodpool SUV (normal 1.5-2.5): 1.9Blood glucose: 117 mg/dL FINDINGS:HEAD AND NECK:No evidence of focal hypermetabolic lesion in the brain parenchyma,noting that evaluation is limited because of the expected physiologicdiffuse FDG uptake in the brain.No focal hypermetabolic soft tissue lesion is seen in the neck.No hypermetabolic cervical lymphadenopathy is present. CHEST:Note is made of postoperative changes from prior right lateral chestwall resection and partial lung resection with stable nonhypermetabolic scarring of the right lung.. No evidence of abnormalFDG uptake is seen in the surgical bed to suggest disease recurrence.No focal hypermetabolic lesion is seen in the lung parenchyma.No evidence of hypermetabolic mediastinal, hilar or axillarylymphadenopathy. ABDOMEN AND PELVIS:Small mildly hypermetabolic focus within the lumen of the sigmoidcolon(max SUV 3.6). Otherwise, no hypermetabolic soft tissue lesionis present in the abdomen and pelvis.No evidence of hypermetabolic lymphadenopathy.Physiologi c radiotracer uptake is present in the liver and spleenwith excretion into the bowel loops and the genitourinary tract. MUSCULOSKELETAL/EXTREMITIE S:No focal hypermetabolic lesion is seen in the axial or appendicularto suggest osseous metastasis. IMPRESSION:1. Stable postoperative changes involving the right lateral chestwall and right lung without evidence of abnormal hypermetabolicactivity to suggest disease recurrence or metastatic disease.2. Intraluminal mildly hypermetabolic focus within the sigmoid colon.Colonoscopy is recommended to rule out a dysplastic/neoplastic polyp. I personally reviewed the image(s) / study and agree with thefindings and interpretation as stated. [facility]Electronically signed by: EDY JERONIMO 05/01/20 16:32 Normal [facility] Work Phone: Comment on above: Ordering Provider: A NKIT MANGLA 54765 Reticulocyte Counton 021 Reticulocyte Count 36 pg 28 - 38 [facility] Work Phone: Comment on above: Ordering Provider: A NKIT MANGLA 61876 Reticulocyte Count 0.062 {x10E12/L} See Below [facility] Work Phone: Comment on above: Reference Range: 0.0 18 - 0.083 Ordering Provider: A NKIT MANGLA 81294 Reticulocyte Count 1.3 % 0.5 - 2.0 [facility] Work Phone: Comment on above: Ordering Provider: A NKIT MANGLA 73405 Vital Signs Date Time Vital Sign Value Performing Clinician Facility 07-21-2023 14:30-0400 Body mass index (BMI) [Ratio] 28.28 kg/m2 Radha Calvillo MD Work Phone: [facility] 07-21-2023 14:30-0400 Body temperature 97 [degF] Radha Calvillo MD Work Phone: [facility] 07-21-2023 14:30-0400 Body weight 81.9 kg Radha Calvillo MD Work Phone: [facility] 07-21-2023 14:30-0400 Diastolic blood pressure 66 mm[Hg] Radha Calvillo MD Work Phone: [facility] 07-21-2023 14:30-0400 Heart rate 78 /min Radha Calvillo MD Work Phone: [facility] 07-21-2023 14:30-0400 Respiratory rate 16 /min Radha Calvillo MD Work Phone: [facility] 07-21-2023 14:30-0400 SaO2% (BldA) [Mass fraction] 96 % Radha Calvillo MD Work Phone: [facility] 07-21-2023 14:30-0400 Systolic blood pressure 103 mm[Hg] Radha Calvillo MD Work Phone: [facility] 06-19-2023 10:18-0400 Body mass index (BMI) [Ratio] 29 kg/m2 Gordon Campoverde MD Work Phone: [facility] 06-19-2023 10:18-0400 Body temperature 97.2 [degF] Gordon Campoverde MD Work Phone: [facility] 06-19-2023 10:18-0400 Body weight 84 kg Gordon Campoverde MD Work Phone: [facility] 06-19-2023 10:18-0400 Diastolic blood pressure 78 mm[Hg] Gordon Campoverde MD Work Phone: [facility] 06-19-2023 10:18-0400 Heart rate 79 /min Gordon Campoverde MD Work Phone: [facility] 06-19-2023 10:18-0400 Respiratory rate 18 /min Gordon Campoverde MD Work Phone: [facility] 06-19-2023 10:18-0400 SaO2% (BldA) [Mass fraction] 98 % Gordon Campoverde MD Work Phone: [facility] 06-19-2023 10:18-0400 Systolic blood pressure 114 mm[Hg] Gordon Campoverde MD Work Phone: [facility] 02-25-2023 15:45-0500 Body height 170.18 cm Candelaria Ayala Other [employer] Other 02-25-2023 15:45-0500 Body mass index (BMI) [Ratio] 27.91 kg/m2 Candelaria Ayala Other [employer] Other 02-25-2023 15:45-0500 Body temperature 98.1 [degF] Candelaria Ayala Other [employer] Other 02-25-2023 15:45-0500 Body weight 80.83 kg Candelaria Ayala Other [employer] Other 02-25-2023 15:45-0500 Respiratory rate 18 /min Candelaria Ayala Other [employer] Other 02-25-2023 15:45-0500 SaO2% (BldA) [Mass fraction] 98 % Candelaria Ayala Other [employer] Other 10-30-2022 10:39-0400 Body height 170.18 cm Shaikh Fe Work Phone: [facility] 3 DO Work Phone: 10-30-2022 10:39-0400 Body mass index (BMI) [Ratio] 27.41 kg/m2 Shaikh Fe Work Phone: [facility] 3 DO Work Phone: 10-30-2022 10:39-0400 Body surface area Derived from formula 1.91 m2 Shaikh Fe Work Phone: [facility] 3 DO Work Phone: 10-30-2022 10:39-0400 Body weight 79.38 kg Shaikh Fe Work Phone: [facility] 3 DO Work Phone: 10-30-2022 10:39-0400 Diastolic blood pressure 74 mm[Hg] Shaikh Fe Work Phone: [facility] 3 DO Work Phone: 10-30-2022 10:39-0400 Heart rate 76 /min Shaikh Fe Work Phone: [facility] 3 DO Work Phone: 10-30-2022 10:39-0400 Systolic blood pressure 111 mm[Hg] Shaikh Fe Work Phone: [facility] 3 DO Work Phone: 07-10-2021 13:29-0400 Body height 170.18 cm Shaikh Fe Work Phone: [facility] 3 DO Work Phone: 07-10-2021 13:29-0400 Body mass index (BMI) [Ratio] 27.6 kg/m2 Shaikh Anastaciad Work Phone: [facility] 3 DO Work Phone: 07-10-2021 13:29-0400 Body surface area Derived from formula 1.92 m2 Shaikh Fe Work Phone: [facility] 3 DO Work Phone: 07-10-2021 13:29-0400 Body temperature 97.4 [degF] Shaikh Fe Work Phone: [facility] 3 DO Work Phone: 07-10-2021 13:29-0400 Body weight 79.95 kg Shaikh Fe Work Phone: [facility] 3 DO Work Phone: 07-10-2021 13:29-0400 Diastolic blood pressure 70 mm[Hg] Shaikh Fe Work Phone: [facility] 3 DO Work Phone: 07-10-2021 13:29-0400 Heart rate 86 /min Shaikh Fe Work Phone: [facility] 3 DO Work Phone: 07-10-2021 13:29-0400 Systolic blood pressure 110 mm[Hg] Shaikh Fe Work Phone: [facility] 3 DO Work Phone: 05-10-2020 17:05-0500 BMI (Body Mass Index) 27.41 kg/m2 [facility] Work Phone: 05-10-2020 17:05-0500 Body Temperature 97.1 [degF] [facility] Work Phone: Comment on above: Method: Temporal 05-10-2020 17:05-0500 Body weight 79.38 kg [facility] Work Phone: 05-10-2020 17:05-0500 BP Diastolic 80 mm[Hg] [facility] [employer] Work Phone: 05-10-2020 17:05-0500 BP Systolic 119 mm[Hg] [facility] [employer] Work Phone: 05-10-2020 17:05-0500 BSA (Body Surface Area) 1.91 m2 [facility] [employer] Work Phone: 05-10-2020 17:05-0500 Height 170.18 cm [facility] [employer] Work Phone: 05-10-2020 17:05-0500 Pulse (Heart Rate) 76 /min [facility] Work Phone: Encounters Encounter Date Encounter Type Care Provider Facility Start: 07-21-2023 End: 07-21-2023 Office consultation new/estab patient 80 min Radha Calvillo MD Work Phone: [facility] Comment on above: Status post administ ration of cardiotoxic chemotherapy (Primary Dx); Shortness of breath on exertion; Acute deep vein thrombosis of left popliteal vein (Multi); Burr's sarcoma (Multi); Atypical chest pain Start: 07-10-2023 End: 07-10-2023 ambulatory DONA CORBIN Not Available Start: 06-19-2023 End: 06-20-2023 ambulatory [facility] Start: 06-19-2023 End: 06-19-2023 Office outpatient visit 40 minutes Gordon Campoverde MD Work Phone: [facility] Comment on above: Acute deep vein thro mbosis of left popliteal vein (Multi) (Primary Dx); Burr's sarcoma (Multi); Status post administration of cardiotoxic chemotherapy; Shortness of breath on exertion Start: 06-16-2023 End: 06-17-2023 ambulatory [facility] Start: 06-16-2023 End: 06-16-2023 Subsequent hospital visit by physician Kevin [id number] Admin Room [facility] Comment on above: Other specified pers onal risk factors, not elsewhere classified; Personal history of irradiation; Chronic kidney disease, stage 2 (mild); Malignant neoplasm of bone and articular cartilage, unspecified (Multi) Arrived Start: 05-19-2023 End: 05-19-2023 ambulatory SHAIKH NIKKYWILLYSameer Not Available Start: 05-06-2023 End: 05-06-2023 ambulatory SHAIKH FE Not Available Start: 05-05-2023 End: 05-05-2023 ambulatory SHAIKH NIKKYWILLYSameer Not Available Start: 02-25-2023 End: 02-25-2023 ambulatory Candelaria Ayala Other [employer] Other Start: 02-25-2023 Office outpatient ne w 20 minutes Candelaria Ayala [facility] Start: 10-30-2022 Chart Update Shaikh Fe Work Phone: [facility] 3 DO Work Phone: Start: 10-30-2022 ambulatory MD JOHN Nails ty: Start: 07-30-2022 End: 07-30-2022 ambulatory NARENDALY LAKSHMIPATHY . Facility:[facility] Start: 07-16-2022 End: 07-17-2022 ambulatory ОЛЕГ PONCESHMIPATHY . Facility:[facility] Start: 06-26-2022 End: 06-27-2022 ambulatory SHAIKH Sue FE Facility:[facility] Start: 06-06-[address] Rik Murphy Facility: Start: 05-27-[address] Gordon Nails ty:[id number] Start: 05-24-2022 ambulatory Gordon Campoverde Facility:[id number] Start: 02-05-2022 End: 02-06-2022 ambulatory ARABELLA RASMUSSEN Facility:[facility]1 Start: 01-02-2022 End: 01-10-2022 ambulatory SHAIKH Sue MIRAMONTES Facility:[facility]1 Start: 09-19-2021 End: 09-20-2021 ambulatory SHAIKH Sue MIRAMONTES Facility:[facility]1 Start: 09-17-2021 End: 09-18-2021 ambulatory SHAIKH Sue MIRAMONTES Facility:[facility] Start: 07-20-2021 End: 07-20-2021 Patient encounter procedure MD John Isbell Work Phone: [facility] [place] Start: 07-11-2021 Chart Update Shaikh Fe Work Phone: [place] [address] DO Work Phone: Start: 05-03-2020 Initial nursing faci lity care/day 45 minutes [facility] Work Phone: Patient encounter status Shaikh Fe Work Phone: [place] [address] DO Work Phone: Procedures Date Procedure Procedure Detail Performing Clinician Start: 06-19-2023 APC RESISTANCE GORDON LILLIAN HENNING Start: 06-19-2023 PROTHROMBIN GENE MUT ATION ANALYSIS GORDON CAMPOVERDE Start: 06-16-[address] MELANOMA D IAGNOSIS FOR NONCOVERED INDICATIONS GORDON DARA Start: 06-16-2023 CBC W Auto Different ial panel - Blood GORDON RANDALLDEEPTI Start: 06-16-2023 Comprehensive metabo lic 2000 panel - Serum or Plasma GORDON RANDALLDEEPTI Start: 06-16-2023 Lactate dehydrogenas e [Enzymatic activity/volume] in Serum or Plasma GORDON MANGLA Start: 06-16-[address] atten uation skull base mid-thigh Gordon Campoverde MD Work Phone: Start: 07-20-2021 Ultrasonography of b ilateral kidneys MD John Isbell Work Phone: Start: 05-29-2020 Colonoscopy Abbie rodriguez Start: 05-23-2020 Brain Natriuretic Pe ptide BNP Abbie Negrete Start: 05-23-2020 Lipid panel Abbiejose rodriguez Excision of neoplasm Shaikh Fe Work Phone: Comment on above: chest wall 2010; Extraction of wisdom tooth S jennifer Miramontes Work Phone: Lobotomy of brain Shaikh Nikky nguyen Work Phone: Tonsillectomy Shaikh Fe Work Phone: Plan of Treatment Date Care Activity Detail Author Start: 2039 RSV patient s and/or patients aged 60+ years (1 - 1-dose 60+ series) RSV patients and/or patients aged 60+ years (1 - 1-dose 60+ series) [facility] Start: 06-01-2029 Zoster Vaccines (1 of 2) Zoster Vacc babs (1 of 2) [facility] Start: 06-15-2024 Creatinine measurement Creatinine Le frederick [facility] Start: 06-15-2024 Potassium measurement Potassium Leve l [facility] Start: 11-02-2023 Influenza vaccination Influenz a Vaccine (Season Ended) [facility] Start: 10-29-2023 FUV, Provider: John Isbell, Status: Pen, Time: 10:00 AM FUV, Provider: John Isbell, Status: Pen, Time: 10:00 AM [facility] 3 DO Work Phone: Start: 10-29-2023 End: 10-29-2023 Patient encounter procedure 10/29/2023 11:30 AM EDT Office Visit [facility] [address] [place] [address] John Isbell [place] [id number] [place] [address] [address] [place] [address] [facility] Start: 09-18-2023 End: 09-18-2023 Telemedicine consultation with patient 09/18/2023 3:00 PM EDT Telemedicine [facility] [address] [facility] [address] [place] [address] [place] [address] [place] [address] [facility] Start: 09-18-2023 End: 09-18-2023 Patient encounter procedure 09/18/2023 10:40 AM EDT Office Visit [facility] [address] [place] [address] [place] [address] [place] [address] [facility] Start: 09-01-2023 End: 09-01-2023 Patient encounter procedure [facility] Start: 08-12-2023 End: 08-12-2023 Clinical Support 08/12/2023 8:00 AM EDT Clinical Support [facility] [address] [facility] [address] [place] [address] [facility] Start: 07-21-2023 End: 07-21-2023 Patient encounter procedure 07/21/2023 2:15 PM EDT Office Visit [facility] [address] [place] [address] Radha Calvillo [place] [id number] [place] [address] [address] [place], [place] [id number] [facility] Start: 07-21-2023 End: 07-20-2024 Cardiac stress study Procedure Cardiopulmonary (Metabolic) Stress Test Cardiac Services Routine Shortness of breath on exertion Atypical chest pain Expected: 07/21/2023 (Approximate), Expires: 07/20/2024 [facility] Work Phone: Comment on above: Expected: 07/21/2023 (Approximate), Expires: 07/20/2024 Start: 07-21-2023 End: 07-20-2024 ECG 12 lead (Ancillary Performed) ECG 12 lead (Ancillary Performed) ECG Routine Shortness of breath on exertion Status post administration of cardiotoxic chemotherapy Expected: 07/21/2023, Expires: 07/20/2024 [facility] Work Phone: Comment on above: Expected: 07/21/2023 , Expires: 07/20/2024 Start: 07-21-2023 End: 07-20-2024 Onco-Echo Complete (Strain & 3D) Onco-Echo Complete (Strain & 3D) Echocardiography Routine Shortness of breath on exertion 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) Expected: 07/21/2023 (Approximate), Expires: 07/20/2024 [facility] Work Phone: Comment on above: Expected: 07/21/2023 (Approximate), Expires: 07/20/2024 Start: 06-19-2023 End: 06-18-2024 Activated protein C resistance [Time Ratio] in Platelet poor plasma by Coagulation assay [facility] Work Phone: Comment on above: Expected: 06/19/2023 (Approximate), Expires: 06/18/2024 Start: 06-19-2023 End: 06-18-2024 Prothrombin Gene Mutation [facility] Work Phone: Comment on above: Expected: 06/19/2023 (Approximate), Expires: 06/18/2024 Start: 06-19-2023 End: 06-19-2023 Patient encounter procedure 06/19/2023 10:40 AM EDT Office Visit [facility] [address] [place] [address] [place] [address] [place] [address] [facility] Start: 11-01-2022 COVID-19 Vaccine () COVID-19 Vaccine () [facility] Start: 08-01-2021 FUV, Provider: John Isbell, Status: Pen, Time: 9:10 AM FUV, Provider: John Isbell, Status: Pen, Time: 9:10 AM [facility] 3 DO Work Phone: Start: 07-04-2020 Colonoscopy Colonoscopy [facility] Work Phone: Start: 2019 Screening for malign ant neoplasm of breast Mammogram [facility] Start: 05-08-2018 Diabetes mellitus screening Diabetes Screening [facility] Start: 06-01-2001 DTaP/Tdap/Td Vaccine s (1 - Tdap) DTaP/Tdap/Td Vaccines (1 - Tdap) [facility] Start: 06-01-2000 Screening for malign ant neoplasm of cervix [facility] Start: 06-01-1998 Hepatitis B Vaccines (1 of 3 - 19+ 3-dose series) Hepatitis B Vaccines (1 of 3 - 19+ 3-dose series) [facility] Start: 06-01-1997 Hepatitis C screening Hepatitis C Sc [facility] Start: 06-01-1985 Pneumococcal Vaccine : Pediatrics (0 to 5 Years) and At-Risk Patients (6 to 64 Years) (1 of 2 - PCV) Pneumococcal Vaccine: Pediatrics (0 to 5 Years) and At-Risk Patients (6 to 64 Years) (1 of 2 - PCV) [facility] Start: 06-01-1980 MMR Vaccines (1 of 1 - Standard series) MMR Vaccines (1 of 1 - Standard series) [facility] Start: 1979 Echocardiography E[facility]ocardiogram [facility] Start: 1979 HIV screening HIV Screening [facility] Start: 1979 Lipid panel Lipid Panel [facility] Start: 1979 Yearly Adult Physical Yearly Adult P [facility] Work Phone: NEGATED: Highlighted row has been ruled out! Planned Goals not documented [facility] Work Phone: Immunizations Immunization Date Immunization Notes Care Provider Fa mark 05-01-2010 pneumococcal Conjuga te, unspecified formulation [facility] Work Phone: Payers Date Payer Category Payer Unknown 1979 Unknown [id number] 2.16.8 [id number] 1979 Unknown [id number] 2.16.84 [id number] 1979 Unknown [id number] 2.16.84 0.1.594456.3.579.2.593 1979 Unknown [id number] 2.16.84 0.1.499571.3.579.2.593 1979 Unknown [id number] 2.16.84 0.1.149447.3.579.2.593 1979 Unknown [id number] 2.16.84 0.1.278089.3.579.2.593 1979 Unknown [id number] 2.16.84 0.1.054085.3.579.2.593 1979 Unknown [id number] 2.16.84 0.1.314922.3.579.2.593 1979 Unknown [id number] 2.16. 840.1.467420.3.579.2.356 1979 Unknown [id number] 2.16. 840.1.225819.3.579.2.356 1979 Unknown [id number] 2.16. 840.1.533405.3.579.2.356 1979 Unknown [id number] 2.16.8 40.1.820496.3.579.2.1245 1979 Unknown [id number] 2.16.8 40.1.595785.3.579.2.1245 1979 Unknown [id number] 2.16.8 40.1.234344.3.579.2.1245 1979 Unknown [id number] 2.16.8 40.1.858383.3.579.2.1245 1979 Unknown [id number] 2.16.8 40.1.685602.3.579.2.1245 1979 Unknown [id number] 2.16.84 0.1.160730.3.579.2.1259 1979 Unknown [id number] 2.16.84 0.1.221134.3.579.2.1259 1979 Unknown [id number] 2.16.84 0.1.889864.3.579.2.9 1979 Unknown [id number] 2.16.84 0.1.639915.3.579.2.1259 1959 Unknown [id number] Self-pay Self Pay [id number] Social History Date Type Detail Facility Assertion Tobacco smoking consumption unknown (finding) [facility] [employer] Work Phone: Start: 06-12-2023 End: 06-20-2023 Daily caffeine consumption Daily caffeine consumption [facility] 3 DO Work Phone: Start: 1980 Sex Assigned At [facility] Start: 06-12-2023 End: 06-20-2023 Sex Assigned At [facility] [employer] Other Start: 06-12-2023 End: 06-19-2023 Tobacco smoking status NHIS Never smoked tobacco [facility] Work Phone: Start: 06-12-2023 End: 06-20-2023 Alcoholic beverage intake Current drinker of alcohol (finding) [facility] Work Phone: Start: 1980 Sex assigned at Not on file [facility] Work Phone: Start: 06-06-2023 End: 07-21-2023 Exposure to SARS-CoV-2 (event) Not sure [facility] Start: 06-19-2023 Tobacco use and exposure Smokeless tobacco non-user [facility] Work Phone: Functional Status Date Assessment Result Facility NEGATED: Highlighted row Functional performance Functional status health issues are not documented Disease [facility] [employer] Work Phone: Mental Status Date Assessment Result Facility NEGATED: Highlighted row Cognitive function [Interpretation] Cognitive status health issues are not documented Disease [facility] M-DISC Work Phone: Clinical Notes 06-27-2022 to 07-21-2023 Radha Calvillo MD - 07/21/2023 2:15 PM EDTPatient InstructionsGordon Campoverde MD - 06/19/2023 10:40 AM EDTPatient Instructions Note Date & Type Note Facility 07-21-2023 History of Present illness Narrative CARDIOLOGY NEW PATIENT OFFICE VISIT Patient: Alcon John Date of : 1980 Chief Complaint/Active Symptoms: Alcon John is a 43 y.o. female who is being seen today at the request of Dr. campoverde for evaluation of Askin Tumor. Chief Complaint Patient presents with New Patient Visit History of Present Illness: HPI Back to see cardiology due to some problems last summer with SOB, chest heaviness, oral cyanosis, difficulty swallowing. Doing activities made things harder than usual. Very profuse sweating. Didn't come to be seen but just stopped working out. Has not recurred since she stopped trying to exercise. Has found now that she has a much more difficult time keeping up with friends when she is walking. Did an EKG stress test with her PCP last year which was normal (non- physician), results unavaialble. 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 She had recurrence in 2009 s/p right lower lobectomy with alternating cycles of vincristine/temozolomide/irinotec an followed by ifosfamide, etoposide. Last given December 2009. In May 2020 patient reported shortness of breath. PET with hot nodule in sigmoid colon with negative work-up. Cancer Diagnosis: Askin tumor (Ewings Sarcoma) Treatment: Doxorubicin unknown dose around 2002, Vincristine/teozolomide/irinoteca n/ifosfamide/etoposide 2009. Cumulative Dose: Unknown Radiation: chest wall 2002, adjuvant RT Allergies: No Known Allergies Outpatient Medications: Current Outpatient Medications Medication Instructions albuterol (ProAir HFA) 90 mcg/actuation inhaler 1-2 puffs, inhalation, Every 4 hours PRN apixaban (ELIQUIS) 5 mg, oral, 2 times daily calcitriol (ROCALTROL) 0.25 mcg, oral, Every other day LORazepam (ATIVAN) 0.5 mg, oral, Nightly norethindrone ac-eth estradioL (Microgestin 03/22) 1-20 mg-mcg tablet 1 tablet, oral, Daily Past Medical History: Past Medical History: Diagnosis Date CKD (chronic kidney disease) Burr sarcoma (Multi) History of chemotherapy History of radiation therapy Social History: Social History Socioeconomic History Marital status: Spouse name: Not on file Number of children: Not on file Years of education: Not on file Highest education level: Not on file Occupational History Not on file Tobacco Use Smoking status: Never Smokeless tobacco: Never Substance and Sexual Activity Alcohol use: Yes Drug use: Never Sexual activity: Not on file Other Topics Concern Not on file Social History Narrative Not on file Social Determinants of Health Financial Resource Strain: Not on file Food Insecurity: No Food Insecurity (03/23/2022) Received from [facility] Hunger Screening Within the past 12 months we worried whether our food would run out before we got money to buy more.: Never True Within the past 12 months the food we bought just didn't last and we didn't have money to get more.: Never True Transportation Needs: Not on file Physical Activity: Not on file Stress: Not on file Social Connections: Not on file Intimate Partner Violence: Not on file Housing Stability: Not on file Family History: Family History Problem Relation Name Age of Onset No Known Problems Mother No Known Problems Father No Known Problems Sister Review of Systems: Review of Systems Constitutional: Positive for activity change and fatigue. HENT: Positive for congestion. Respiratory: Positive for shortness of breath. Negative for cough, wheezing and stridor. Cardiovascular: Positive for chest pain. Negative for palpitations and leg swelling. Gastrointestinal: Positive for abdominal distention. Genitourinary: Negative. Musculoskeletal: Negative. Neurological: Negative. Psychiatric/Behavioral: Negative. All other systems reviewed and are negative. Objective: Vitals: 07/21/23 1430 BP: 103/66 Pulse: 78 Resp: 16 Temp: 36.1 C (97 F) SpO2: 96% Vitals: 07/21/23 1430 Weight: 81.9 kg (180 lb 8.9 oz) Physical Examination: GENERAL: Well developed, well nourished, in no acute distress. HEENT: NC AT EOMI with anicteric sclera NECK: Supple, no JVD, no bruit. CHEST: Symmetric and nontender. Scars right chest LUNGS: Normal respiratory effort. Bilateral breath sounds clear to auscultation. Diminished right base HEART: PMI nondisplaced, RRR with normal S1 and S2, no S3. No appreciable murmur, rub. No edema, no carotid or abdominal bruits, normal distal pulses without edema. PERIPHERAL VASCULAR: Pulses present and equally palpable; 2+ throughout. ABDOMEN: Soft, NT, ND without HSM or palpable organomegaly, no bruits, normoactive bowel sounds MUSCULOSKELETAL: No significant joint or limb deformity EXTREMITIES: Warm with good color, no clubbing or cyanosis. There is no edema noted. NEURO/PSYCH: Alert and oriented times three with approppriate behavior and responses. LYMPH: no significant palpable lymphadenopathy SKIN: No rashes on exposed skin, no reported skin lesions. Lab: CBC: Lab Results Component Value Date WBC 8.8 06/16/2023 RBC 4.86 06/16/2023 HGB 14.7 06/16/2023 HCT 43.9 06/16/2023 PLT 246 06/16/2023 Lab Results Component Value Date WBC 8.8 06/16/2023 WBC 7.6 05/27/2022 WBC 8.2 06/04/2021 WBC 6.2 05/01/2020 RBC 4.86 06/16/2023 RBC 4.86 05/27/2022 RBC 4.77 06/04/2021 RBC 4.75 05/01/2020 HGB 14.7 06/16/2023 HGB 15.1 05/27/2022 HGB 14.8 06/04/2021 HGB 14.5 05/01/2020 HCT 43.9 06/16/2023 HCT 44.6 05/27/2022 HCT 44.3 06/04/2021 HCT 44.4 05/01/2020 MCV 90 06/16/2023 MCV 92 05/27/2022 MCV 93 06/04/2021 MCV 93 05/01/2020 MCH 30.2 06/16/2023 MCHC 33.5 06/16/2023 MCHC 33.9 05/27/2022 MCHC 33.4 06/04/2021 MCHC 32.7 05/01/2020 RDW 11.2 (L) 06/16/2023 RDW 11.7 05/27/2022 RDW 11.5 06/04/2021 RDW 11.4 (L) 05/01/2020 PLT 246 06/16/2023 PLT 244 05/27/2022 PLT 233 06/04/2021 PLT 222 05/01/2020 CMP: Lab Results Component Value Date NA 138 06/16/2023 K 4.5 06/16/2023 CL 101 06/16/2023 CO2 31 06/16/2023 BUN 18 06/16/2023 CREATININE 1.24 (H) 06/16/2023 GLUCOSE 85 06/16/2023 CALCIUM 10.1 06/16/2023 Lab Results Component Value Date NA 138 06/16/2023 NA 135 (L) 10/30/2022 NA 139 05/27/2022 NA 139 06/04/2021 K 4.5 06/16/2023 K 4.3 10/30/2022 K 4.5 05/27/2022 K 4.4 06/04/2021 CL 101 06/16/2023 CL 103 10/30/2022 CL 103 05/27/2022 CL 104 06/04/2021 CO2 31 06/16/2023 CO2 28 10/30/2022 CO2 29 05/27/2022 CO2 28 06/04/2021 BUN 18 06/16/2023 BUN 19 10/30/2022 BUN 17 05/27/2022 BUN 17 06/04/2021 CREATININE 1.24 (H) 06/16/2023 CREATININE 1.28 (H) 10/30/2022 CREATININE 1.17 (H) 05/27/2022 CREATININE 1.26 (H) 06/04/2021 Lab Results Component Value Date ALKPHOS 62 06/16/2023 ALT 32 06/16/2023 AST 21 06/16/2023 PROT 6.8 06/16/2023 BILITOT 0.5 06/16/2023 Magnesium: No results found for: MG Lipid Profile: No results found for: CHLPL , TRIG , HDL , LDLCALC , LDLDIRECT TSH: No results found for: TSH BNP: Lab Results Component Value Date BNP 114 (H) 07/13/2020 PT/INR: No results found for: PROTIME , INR HgBA1c: No results found for: HGBA1C Cardiac Enzymes: No results found for: TROPHS Diagnostic Studies: EKG today = NSR, VERNELL, otherwise normal. No echocardiogram results found for the past 12 months No nuclear medicine results found for the past 12 months No valid procedures specified. Radiology: No valid procedures specified. CT chest/abd/pevlis 06/2021 no CM, no coronary calcifications, no pericardial effusion Assessment: Problem List Items Addressed This Visit Status post administration of cardiotoxic chemotherapy - Primary Relevant Orders ECG 12 lead (Ancillary Performed) Onco-Echo Complete (Strain & 3D) Follow Up In Cardiology Burr's sarcoma (Multi) Relevant Orders Onco-Echo Complete (Strain & 3D) Follow Up In Cardiology Shortness of breath on exertion Relevant Orders ECG 12 lead (Ancillary Performed) Onco-Echo Complete (Strain & 3D) Cardiopulmonary (Metabolic) Stress Test Follow Up In Cardiology Acute deep vein thrombosis of left popliteal vein (Multi) Atypical chest pain Relevant Orders Cardiopulmonary (Metabolic) Stress Test Follow Up In Cardiology Plan: 1. Atypical chest pain. Patient's chest discomfort is atypical and not suggestive of angina pectoris. Given CT scans that do not identify any coronary calcifications for now would hold and not suit actively an ischemic cardiac workup. 2. Shortness of breath on exertion. Her symptoms are profound and severe and have prohibited her from exercising over the past year. She reports regular EKG stress test by her primary care physician that we do not have copies of. With his severe shortness of breath and description of circumoral cyanosis I recommended cardiopulmonary testing to look to see if she is hypoxic to see if this is physical deconditioning pulmonary in nature or other and we do have to be more concerned for coronary issues. He is also with her history of cardiotoxic drug therapy and lack of echoes in the past 5 to 6 years requested an echocardiogram. 3. Burr's sarcoma with history of cardiotoxic drug therapy. The patient received Adriamycin the total dose cannot be confirmed. She also had right chest radiation. Will request the echocardiogram although late presentation of cardiotoxic effects of Adriamycin are less likely. 4. Acute DVT of the left lower leg. Signs of volume retention or postphlebitic syndrome at this time. She is on oral anticoagulation. Chest discomfort and shortness of breath predates almost by a year her diagnosis of DVT. Will defer anticoagulation to her primary care physician and hematology oncology. 5. Tobacco weight status. The patient is a non-smoker. Will see the patient in follow-up after she has had her echocardiogram and cardiopulmonary testing. Will reevaluate her symptoms at that time to determine if any further workup needs beneficial. documented in this encounter [facility] Work Phone: 07-21-2023 Instructions Radha Calvillo MD - 07/21/2023 2:15 PM EDT Echo Cardiopulmonary stress test ([place]) See me after testing. documented in this encounter [facility] Work Phone: 06-19-2023 History of Present illness Narrative .Patient ID: Alcon John is a 43 y.o. female. Referring Physician: No referring provider defined for this encounter. 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 She has been in our survivorship program since completing her therapy in 2009. Recurrent askin tumor, KEE since May 2009 lung resection and s/p adjuvant chemotherapy last given December 2009. Originally resected in 2001 from right chest wall, and s/p adjuvant RT. Recurred in 2009, s/p right lower lobectomy May 04, 2009, RT from May 02 & May 03, 2009. without adjuvant chemotherapy with alternating cycles of vincristine/temozolomide/irinotec an followed by ifosfamide, etoposide. Last given December 2009. In May 2020- patient reported shortness of breath. PET scan picked up a hot nodule in the sigmoid colon- suspicious for neoplastic process- refer to GI and cardiology. Colonoscopy did not show any tumorous lesions. Cardiology-oncology saw her in Mid July 2019 and cleared her from cardiology perspective. She was supposed to see a osteology teacher, but she cancelled the appointment as she started feeling better on her own. She does not want to make another appointment as of now. From Med Onc perspective, she had a PET scan in June 2022 that did not show any evidence of recurrent tumor. 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 However, the patient had a DVT of the left popliteal vein in May 2023 which is best classified as unprovoked. She was started on apixaban 5 mg p.o. twice daily by her primary care physician. She will continue anticoagulation for at least 1 year. She was also reporting shortness of breath again along with some chest tightness. We again referred her to cardiology oncology program for a comprehensive cardiac evaluation. Subjective Please refer to Notes/Cancer History above for complete History of present illness. Ms Alcon John in the clinic all by herself. She is reporting shortness of breath which comes and goes, but is more pronounced when she exerts herself. She was also diagnosed with a DVT of left popliteal vein in May 2023. She was started on apixaban 5 mg p.o. twice daily by her primary care physician. She was told that her DVT happened because of her being on control pills, and subsequently she stopped taking control pills. No hypercoagulability workup was done at that time. She did not report any pain in the chest or shortness of breath at the time of diagnosis of DVT. Hence no CTPE protocol was performed. Since starting apixaban, she has recovered the function of her left leg and the swelling has gone down. However she is very anxious about the DVT as well as the shortness of breath. Review of Systems: Review of Systems Constitutional: Negative for appetite change, chills, fatigue and fever. HENT: Negative for hearing loss, lump/mass, mouth sores, sore throat and trouble swallowing. Eyes: Negative for eye problems and icterus. Respiratory: Positive for chest tightness and shortness of breath. Negative for cough and hemoptysis. Cardiovascular: Positive for chest pain. Negative for leg swelling and palpitations. Gastrointestinal: Negative for abdominal pain, constipation, diarrhea, nausea and vomiting. Endocrine: Negative for hot flashes. Genitourinary: Negative for difficulty urinating, dysuria, frequency and hematuria. Musculoskeletal: Negative for back pain, flank pain, gait problem and myalgias. Skin: Negative for itching and rash. Neurological: Negative for dizziness, extremity weakness, gait problem and seizures. Hematological: Negative for adenopathy. Psychiatric/Behavioral: Negative for confusion and depression. The patient is nervous/anxious. MEDICAL HISTORY Past Medical History: Diagnosis Date CKD (chronic kidney disease) Burr sarcoma (Multi) History of chemotherapy History of radiation therapy FAMILY HISTORY Family History Problem Relation Name Age of Onset No Known Problems Mother No Known Problems Father TOBACCO HISTORY Tobacco Use: Low Risk (06/19/2023) Patient History Smoking Tobacco Use: Never Smokeless Tobacco Use: Never Passive Exposure: Not on file SOCIAL HISTORY Social Connections: Not on file Outpatient Medication Profile: Current Outpatient Medications on File Prior to Visit Medication Sig Dispense Refill calcitriol (Rocaltrol) 0.25 mcg capsule Take 1 capsule (0.25 mcg) by mouth every other day. LORazepam (Ativan) 0.5 mg tablet Take 1 tablet (0.5 mg) by mouth once daily at bedtime. [DISCONTINUED] apixaban (Eliquis) 5 mg tablet Take 1 tablet (5 mg) by mouth 2 times a day. albuterol (ProAir HFA) 90 mcg/actuation inhaler Inhale 1-2 puffs every 4 hours if needed. norethindrone ac-eth estradioL (Microgestin /20) 1-20 mg-mcg tablet Take 1 tablet by mouth once daily. No current facility-administered medications on file prior to visit. Performance Status: ECOG 0 Vitals and Measurements: BP 114/78 (BP Location: Right arm, Patient Position: Sitting, BP Cuff Size: Adult) Pulse 79 Temp 36.2 C (97.2 F) (Temporal) Resp 18 Wt 84 kg (185 lb 3 oz) LMP (LMP Unknown) SpO2 98% BMI 29.00 kg/m Physical Exam: Physical Exam Constitutional: General: She is awake. Appearance: Normal appearance. She is well-developed. HENT: Head: Normocephalic and atraumatic. Eyes: General: Lids are normal. Vision grossly intact. Neck: Thyroid: No thyroid mass. Cardiovascular: Rate and Rhythm: Normal rate and regular rhythm. Heart sounds: Normal heart sounds, S1 normal and S2 normal. Pulmonary: Effort: Pulmonary effort is normal. Breath sounds: Normal breath sounds and air entry. No decreased breath sounds. Abdominal: General: Abdomen is flat. Bowel sounds are normal. Palpations: Abdomen is soft. Tenderness: There is no abdominal tenderness. Musculoskeletal: Cervical back: Normal range of motion and neck supple. No edema or rigidity. Lymphadenopathy: Upper Body: Right upper body: No axillary adenopathy. Lower Body: No right inguinal adenopathy. No left inguinal adenopathy. Skin: General: Skin is warm and moist. Capillary Refill: Capillary refill takes less than 2 seconds. Neurological: Mental Status: She is alert and oriented to person, place, and time. Cranial Nerves: Cranial nerves 2-12 are intact. Sensory: Sensation is intact. Motor: Motor function is intact. Psychiatric: Attention and Perception: Attention normal. Mood and Affect: Mood and affect normal. Speech: Speech normal. Behavior: Behavior is cooperative. Lab Results: I have reviewed these laboratory results: Lab on 06/16/2023 Component Date Value Ref Range Status WBC 06/16/2023 8.8 4.4 - 11.3 x10*3/uL Final nRBC 06/16/2023 0.0 0.0 - 0.0 /100 WBCs Final RBC 06/16/2023 4.86 4.00 - 5.20 x10*6/uL Final Hemoglobin 06/16/2023 14.7 12.0 - 16.0 g/dL Final Hematocrit 06/16/2023 43.9 36.0 - 46.0 % Final MCV 06/16/2023 90 80 - 100 fL Final MCH 06/16/2023 30.2 26.0 - 34.0 pg Final MCHC 06/16/2023 33.5 32.0 - 36.0 g/dL Final RDW 06/16/2023 11.2 (L) 11.5 - 14.5 % Final Platelets 06/16/2023 246 150 - 450 x10*3/uL Final Neutrophils % 06/16/2023 68.1 40.0 - 80.0 % Final Immature Granulocytes %, Automated 06/16/2023 0.2 0.0 - 0.9 % Final Lymphocytes % 06/16/2023 19.7 13.0 - 44.0 % Final Monocytes % 06/16/2023 7.5 2.0 - 10.0 % Final Eosinophils % 06/16/2023 3.7 0.0 - 6.0 % Final Basophils % 06/16/2023 0.8 0.0 - 2.0 % Final Neutrophils Absolute 06/16/2023 6.01 1.20 - 7.70 x10*3/uL Final Immature Granulocytes Absolute, Au* 06/16/2023 0.02 0.00 - 0.70 x10*3/uL Final Lymphocytes Absolute 06/16/2023 1.74 1.20 - 4.80 x10*3/uL Final Monocytes Absolute 06/16/2023 0.66 0.10 - 1.00 x10*3/uL Final Eosinophils Absolute 06/16/2023 0.33 0.00 - 0.70 x10*3/uL Final Basophils Absolute 06/16/2023 0.07 0.00 - 0.10 x10*3/uL Final Glucose 06/16/2023 85 74 - 99 mg/dL Final Sodium 06/16/2023 138 136 - 145 mmol/L Final Potassium 06/16/2023 4.5 3.5 - 5.3 mmol/L Final Chloride 06/16/2023 101 98 - 107 mmol/L Final Bicarbonate 06/16/2023 31 21 - 32 mmol/L Final Anion Gap 06/16/2023 11 10 - 20 mmol/L Final Urea Nitrogen 06/16/2023 18 6 - 23 mg/dL Final Creatinine 06/16/2023 1.24 (H) 0.50 - 1.05 mg/dL Final eGFR 06/16/2023 55 (L) >60 mL/min/1.73m*2 Final Calcium 06/16/2023 10.1 8.6 - 10.6 mg/dL Final Albumin 06/16/2023 4.3 3.4 - 5.0 g/dL Final Alkaline Phosphatase 06/16/2023 62 33 - 110 U/L Final Total Protein 06/16/2023 6.8 6.4 - 8.2 g/dL Final AST 06/16/2023 21 9 - 39 U/L Final Bilirubin, Total 06/16/2023 0.5 0.0 - 1.2 mg/dL Final ALT 06/16/2023 32 7 - 45 U/L Final LDH 06/16/2023 151 84 - 246 U/L Final Radiology Result: I have reviewed the latest Imaging in PACS and the findings are noted in this note. I discussed the results of the latest imaging with the patient. All previous imaging were reviewed at the time it was completed. Full records are available in the EMR for review as well. NM PET CT melanoma diagnosis for noncovered indications Result Date: 06/16/2023 Impression: 1. Postsurgical changes of right lateral wall chest resection, partial right lung resection, and chest wall reconstruction. There is new focal hypermetabolic activity along the anterior aspect of the reconstructed chest wall which is nonspecific and may represent inflammatory or posttraumatic changes, versus local disease recurrence. 2. No evidence of hypermetabolic lymphadenopathy. 3. No evidence of distal hypermetabolic metastatic disease. I personally reviewed the images/study and I agree with the findings as stated by radiology asst Dr. Namrata Zuñiga. This study was interpreted at [place], [place]. MACRO: None Signed by: Edy Jeronimo 06/16/2023 2:50 PM Dictation workstation: [id number] Pathology Results: I have reviewed the full pathology report recorded in the EMR. The pertinent portions indicating diagnosis are listed here in the note. for details please refer to the full report recorded in the EMR. Surgical Pathology [May 10 2009 12:56PM] ([id number]) Pathologist: MARCUS CHRISTOPHER M.D. Date of Procedure: 05/04/2009 Date Received: 05/04/2009 Submitting Physician: ERVIN MCMILLAN MD FINAL DIAGNOSIS A. 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 SEE NOTE. -- PORTIONS OF PULMONARY TISSUE WITH HEMORRHAGIC INFARCTION AND AREAS OF INTERSTITIAL FIBROSIS. 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 The palpable nodules in the lung specimen also are composed of tumor with extensive necrosis. There is adjacent hemorrhagic pulmonary infarction. Immunohistochemical studies confirm that the tumor cells are positive for HBA 71 (CD99). They are negative for cytokeratin AE 1/AE 3, and negative for chromogranin, and negative for nuclear TTF-1. A PAS stain demonstrates abundant cytoplasmic glycogen in the tumor cells. These findings confirm the diagnosis of recurrent primitive neuroectodermal tumor. Tumor classification: Primitive neuroectodermal tumor Extent of necrosis: > 95% necrosis Tumor size: At least 7 cm Lymphatic (small vessel) invasion: Not identified Venous or arterial (large vessel) invasion: Present (A15). Encasement of neurovascular bundle by necrotic tumor is noted. Margins: Multiple fragments of tissue are involved by tumor. Specific margins are not evaluable. Lymph nodes: No lymph nodes identified Electronically Signed Out By MARCUS CHRISTOPHER M.D./[facility] Assessment and Plan: Assessment/Plan Mr. Alcon John is a 43 y.o. female with a diagnosis of Burr Sarcoma with recurrence in 2009 (It was called Que tumor back then). Please see the evolution of the case listed above in the cancer history. Today, We discussed the most recent scan report which did not show any evidence of tumor recurrence. However, she continues to have shortness of breath for which she was referred to cardiology in 2020. At that time, she was discharged from the cardiology clinic with a suggestion to follow-up with pulmonology. No workup was done at that time. I think she is in need of a comprehensive cardiology workup, especially with the history of exposure to extensive chemotherapy for the treatment of Burr sarcoma. Such patients who are survivors of anthracycline exposures can develop heart failure a decade or more after the exposure to anthracyclines. Hence I will place another referral to the cardiology oncology program. Of note, she also had a DVT recently in the left popliteal vein. Her family physician thought this to be secondary to her taking control pills. However, this is an unprovoked DVT (history of exposure to control pills is not considered a very strong risk factor). I recommend to continue apixaban for at least a year. We will also run the genetic testing for hypercoagulable workup (including APC resistance and prothrombin gene mutation). # Burr Sarcoma - Continue yearly imaging as per NCCN guidelines # New DVT in the left popliteal vein - Test for APC resistance and prothrombin gene mutation -Continue apixaban 5 mg p.o. twice daily. Refills were provided to the patient today to last 1 year. # Shortness of breath -Referral placed to cardiology oncology DISCLAIMER: In preparing for this visit and writing this note, I reviewed all the previous electronic medical records (labs, imaging and medical charts) of the patient available in the physician portal. Significant findings which helped in decision making are recorded in this chart. The plan was discussed with the patient. We gave him ample opportunities to ask questions. All questions were answered to his satisfaction and he verbalized understanding. INSTRUCTIONS FOR PATIENT Ms. Alcon John , It was a pleasure talking to you today. As discussed, we are referring you to cardiology oncology for evaluation of shortness of breath. I also recommend that you continue your Eliquis at 5 mg p.o. twice daily for now. I have given you sufficient refills to last you 1 year. I will meet you again in clinic on September 18, 2023. Please be aware, that Eliquis is a blood thinner and can lead to increased bleeding. In case any jaylen of bleeding does not stop within 20-30 minutes, then please report to your nearest Emergency Room. Please make sure that the ER physician calls our team. Also, please be advised, that all providers (especially dentists and surgeons) must be aware that you are taking Eliquis for anticoagulation. Adjustment of this medication may be required around the time of planned surgeries. Please make sure to schedule your appointments as we discussed. Your appointments should also appear in your MyChart. In case of an emergency please dial 911 or report to your nearest Emergency Room. For all other questions, please do not hesitate to reach out to us at the number listed below. Thank you for choosing [facility] at [facility]. We appreciate your visit. Gordon Campoverde MD Hand Carver Division of Hematology and Oncology [employer] Co-Director Sarcoma and Cutaneous Oncology [facility] documented in this encounter [facility] Work Phone: 06-19-2023 Instructions Gordon Campoverde MD - 06/19/2023 10:40 AM EDT Ms. Alcon John , It was a pleasure talking to you today. As discussed, we are referring you to cardiology oncology for evaluation of shortness of breath. I also recommend that you continue your Eliquis at 5 mg p.o. twice daily for now. I have given you sufficient refills to last you 1 year. I will meet you again in clinic on September 18, 2023. Please be aware, that Eliquis is a blood thinner and can lead to increased bleeding. In case any jaylen of bleeding does not stop within 20-30 minutes, then please report to your nearest Emergency Room. Please make sure that the ER physician calls our team. Also, please be advised, that all providers (especially dentists and surgeons) must be aware that you are taking Eliquis for anticoagulation. Adjustment of this medication may be required around the time of planned surgeries. Please make sure to schedule your appointments as we discussed. Your appointments should also appear in your MyChart. In case of an emergency please dial 911 or report to your nearest Emergency Room. For all other questions, please do not hesitate to reach out to us at the number listed below. Thank you for choosing [facility]. We appreciate your visit. Gordon Campoverde MD Hand Carver Division of Hematology and Oncology [employer] Co-Director Sarcoma and Cutaneous Oncology [facility] documented in this encounter [facility] Work Phone: 02-25-2023 Evaluation note Encounter Date Diagnosis Assessment Notes Jan, Acute non-recurren t maxillary sinusitis (ICD-10 - J01.00) Will tx tody for bacterial sinusitis based on physical exam and duration of symptoms. Take antibiotic as prescribed, complete entire course of therapy even if symptoms resolve. Flonase and tessalon as directed. Supportive care as directed, push fluids and rest, Tylenol/Motrin as directed for aches/fever, warm moist compress over sinuses several times a day, cool mist humidifier, nasal saline spray as directed. Symptoms should improve in the next 3 days, if symptoms persist follow up with PCP. Immediate eval for warning s/sx as discussed. Patient verbalizes understanding and is agreeable to treatment plan. [employer] Other 05-16-2023 NoteCONSULTATION CONSULTATION DATE: 07/16/2022 TO: Dr. Miramontes CHIEF COMPLAINT: Includes left lower back pain. HISTORY OF PRESENT ILLNESS: Review of systems, past medical/surgical history were obtained and documented on the health questionnaire and is available upon request. She is a 42-year-old female who reports having pain since November of 2021. It occurred at night and occurs spontaneously. She reports the pain is described as 5-7/10, sharp in character, with a deep, aching component. It increases with activities such as standing, walking and performing transitioning maneuvers. She feels most comfortable in the semi-recumbent position. She denies any change in bowel and bladder habits or new sensorimotor changes in the lower extremities. In the past, she has trialed gabapentin and Robaxin, but was discontinued secondary to side effects. She has been on a nonsteroidal agent from at least November of 2021. She reports that she has also gone to physical therapy. She has attended 4-5 weeks and reports that she had persistent pain despite this. EXAM: Her examination is notable for patient having no clinical radiculopathy or myelopathy involving the lower extremities. Patient did have severe pain with lumbar facet joint loading maneuvers on the left side from L4 through S1, with associated myofascial spasm of the lumbar paravertebral muscles. IMPRESSION: Our impression is patient has chronic pain secondary to lumbosacral spondylosis and facet joint loading pain clinically. RECOMMENDATIONS: I recommend she consider starting baclofen 10 mg pills, 1-2 at h.s. for myofascial dysfunction and to proceed with diagnostic left sided L4- 5, L5-S1 facet joint injection. Our injection will consist of only Marcaine 0.25%. Details of the procedure were discussed with the patient. All her questions were answered. She agrees to proceed with her outlined plan. As part of providing excellent, safe, comprehensive care, the following was completed at our patient's visit: 1. A medication reconciliation and review to ensure accurate knowledge of current/active medications, including asking our patients to inform us about any kcqe-uuh-efvzeby medications or herbal remedies/nutritional supplements/alternative remedies. 2. A review to specifically ensure our patients have had annual screening for: elevated body mass index (BMI, see intake chart for exact total), tobacco use, screening for depression, and screening for unhealthy alcohol use. When screening is concerning, patients are provided with education and the specific recommendation to discuss the concerning health issue and treatment options with their primary care provider.[facility] [id number] NotePROCEDURE: XR HIP LT 2 3V W PELVIS HISTORY: Pain of left hip joint ; chronic posterior left hip pain COMPARISON: None. FINDINGS: BONES:No fracture, acute abnormality, or significant arthropathy. SOFT TISSUES:No visible soft tissue swelling. EFFUSION:None visible. OTHER: Mild curvature of lumbar spine. IMPRESSION: 1. No acute bone abnormality or significant degenerative joint disease of the hip joints. 2. Mild degenerative changes and curvature of the visible lumbar spine. Electronically authenticated by: NIA LEONARD Date: 2022-06-27 07:07[facility]Evaluation noteNo assessment information availableProtestant [facility] Work Phone: Evaluation note* Diagnosis Other specified personal risk factors, not elsewhere classified Personal history of irradiation Personal history of irradiation, presenting hazards to health Chronic kidney disease, 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, unspecified (Multi) documented in this encounter [facility] Work Phone: Evaluation note* Diagnosis Acute deep vein thrombosis of left popliteal vein (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, site unspecified Status post administration of cardiotoxic chemotherapy Shortness of breath on exertion Shortness of breath documented in this encounter [facility] Work Phone: Evaluation note* Diagnosis Status post administration of cardiotoxic chemotherapy- Primary Shortness of breath on exertion Shortness of breath Acute deep vein thrombosis of left popliteal vein (Multi) 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, site unspecified Atypical chest pain Other chest pain documented in this encounter [facility] Work Phone: History general Narrative - Reported* Type Description Date Medical History sleep disterbances Surgical History 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 2000 2010 Hospitalization History see above [facility] Other Reason for referral (narrative)* Consultation (Routine) - Authorized Specialty Diagnoses / Procedures Referred By Josué guadarrama Referred To Contact Cardiology Diagnoses Shortness of [place] [address] [place] [address] Referral ID Status Reason Start Date Expiration Date Visits Requested Visits Authorized [id number] Authorized Specialty Services Required 06/19/2023 06/18/2024 1 1 [facility] Work Phone: Reloed for referral (narrative)* Consultation (Routine) - Authorized Specialty Diagnoses / Procedures Referred By Josué guadarrama Referred To Contact Cardiology Diagnoses Shortness of breath on exertion 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) Atypical chest pain Procedures Follow Up In Cardiology Radha Calvillo [place] [id number] [place] [address] [address] [place] [address] Referral ID Status Reason Start Date Expiration Date V isits Requested Visits Authorized [id number] Authorized 07/21/2023 07/20/2024 1 1 * Cardiac Stress Testing (Routine) - Pending Review Specialty Diagnoses / Procedures Referred By Josué guadarrama Referred To Contact Cardiology Diagnoses Shortness of breath on exertion Atypical chest pain Procedures Cardiopulmonary (Metabolic) Stress Test CT CARDIOPULMONARY EXERCISE TESTING Radha Calvillo MD [id number] [place] [address] [address] [place] [address] Referral ID Status Reason Start Date Expiration Date V isits Requested Visits Authorized [id number] Pending Review 07/21/2023 07/20/2024 1 1 * CV Imaging (Routine) - Pending Review Specialty Diagnoses / Procedures Referred By Josué guadarrama Referred To Contact Cardiology Diagnoses Shortness of breath on exertion 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) Procedures Onco-Echo Complete (Strain & 3D) CT ECHO TTHRC R-T 2D W/WOM-MODE COMPL SPEC&COLR D Radha Calvillo [place] [id number] [place] [address] [address] [place] [address] Referral ID Status Reason Start Date Expiration Date Visits Requested Visits Authorized [id number] Pending Review Perform Procedure 07/21/2023 07/20/2024 1 1 * Cardiovascular (Routine) - Authorized Specialty Diagnoses / Procedures Referred By Josué guadarrama Referred To Contact Diagnoses Shortness of breath on exertion Status post administration of cardiotoxic chemotherapy Procedures ECG 12 lead (Ancillary Performed) Radha Calvillo MD [address] [place] [address] [address] [place] [address] Referral ID Status Reason Start Date Expiration Date V isits Requested Visits Authorized [id number] Authorized 07/21/2023 07/20/2024 1 1 [facility] Work Phone: Family History Unknown Family Member Name Dates Details No pertinent family history: Mother, Father(V49.89, Z78.9) Status:Active Unknown Family Member Name Dates Details No pertinent family history: Mother, Father(V49.89, Z78.9) Status:Active Chief Complaint and Reason for Visit Chief Complaint N18.30 Advance Directives Advance Directive Response Recorded Date/ Time Advance Directives No July 18 8:24am Summary Purpose Reason for Referral Specialty Diagnoses / Procedures Referred By Josué guadarrama Referred To Contact Radiology Diagnoses Other specified personal risk factors, not elsewhere classified Personal history of irradiation Chronic kidney disease, 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, unspecified (Multi) Procedures NM PET CT melanoma diagnosis for non[place] [address] [place] [address] Referral ID Status Reason Start Date Expiration Date V isits Requested Visits Authorized [id number] Closed Perform Procedure 11/16/2022 05/15/2023 3 3 Additional Source Comments Care Teams (unrecognized sec tion and content) Team Status: Inactive Member Role Status Dates John Isbell MD Attending Provider Active Shaikh Fe MD Primary Care Provider Active Team Status: Active Member Role Status Dates Shaikh Fe MD Primary Care Provider Active 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 Relationship Specialty Start Date End Date Shaikh Miramontes MD PCP - General 05/10/20 [place] [address] [place], [place] [id number] Consulting Physician Hematology and Oncology 11/16/22 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 Relationship Specialty Start Date End Date Shaikh Miramontes MD PCP - General 05/10/20 Gordon Campoverde MD [address] [place] [address] Consulting Physician Hematology and Oncology 11/16/22 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 Relationship Specialty Start Date End Date Shaikh Miramontes MD PCP - General 05/10/20 [place] [address] [place] [address] Consulting Physician Hematology and Oncology 11/16/22 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 Relationship Specialty Start Date End Date Shaikh Miramontes MD PCP - General 05/10/20 [place] [address] [address] [place] [id number] Consulting Physician Hematology and Oncology 11/16/22 Goals (unrecognized section and content) Goals may be documented in a n alternate sectionNo Information INFORMATION SOURCE (unrecogn ized section and content) DATE CREATED AUTHOR 08/04/2021 [facility] DATE CREATED AUTHOR AUTHOR'S ORGANIZ ATION 05/25/2022 [facility] DATE CREATED AUTHOR AUTHOR'S ORGANIZ ATION 08/09/2022 [facility] DATE CREATED AUTHOR AUTHOR'S ORGANIZ ATION 10/31/2022 [facility] DATE CREATED AUTHOR AUTHOR'S ORGANIZ ATION 10/31/2022 [employer] DATE CREATED AUTHOR AUTHOR'S ORGANIZ ATION 06/24/2023 [facility] DATE CREATED AUTHOR AUTHOR'S ORGANIZ ATION 07/12/2023 [facility] EPIC REASON FOR VISIT (unrecogniz ed section and content) Specialty Diagnoses / Procedures Referred By Josué guadarrama Referred To Contact Radiology Diagnoses Other specified personal risk factors, not elsewhere classified Personal history of irradiation Chronic kidney disease, 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, unspecified (Multi) Procedures NM PET CT melanoma diagnosis for non[place] [address] [place] [address] Referral ID Status Reason Start Date Expiration Date V isits Requested Visits Authorized [id number] Closed Perform Procedure 11/16/2022 05/15/2023 3 3 Reason Comments Follow-up PET scan follow upDV T follow upAnticoagulation follow up 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 This clinical summary was aggregated from multiple sources. Caution should be exercised in using it in the provision of clinical care. This summary normalizes information from multiple sources, and as a consequence, information in this document may materially change the coding, format and clinical context of patient data. In addition, data may be omitted in some cases. CLINICAL DECISIONS SHOULD BE BASED ON THE PRIMARY CLINICAL RECORDS. [employer] [facility]. provides no warranty or guarantee of the accuracy or completeness of information in this document.
== END 2023-07-22 12:21 | disposition home or self-care (01) ==
LOC: PM 12:20
PROVIDERS: PCP Internal Medicine; Visit Provider Anesthesiology Pain Medicine
DX: M54.50 Low back pain, unspecified (principal); M25.551 Pain in right hip; M25.552 Pain in left hip; M79.18 Myalgia, other site
CPT/HCPCS: G0463

== ENCOUNTER 2023-08-05 07:34 | Day surgery (SDC) | payer BC, SELFPAY ==
--- OUTSIDE RECORDS SUMMARY | 2023-08-05 07:37 | XMS_ITS ---
Patient Summarization (C-CDA 2.1 CCD) Created on: August 05, 2023 ALCON JOHN : 1980 Sex: Female Author Organization Sample organization Care Team Providers Care Road Tester Name Role Phone Negrete, Abbie Unavailable Unavailable Raquel Richardson Unavailable Unavailable Fawwad, Chi Unavailable Unavailable Unavailable MD John Isbell Attending Provider [phone] MD Arti Miramontes Primary Care Provider Gordon Campoverde Attending Unavailable FAWWAD, CHI H [...] Attending Unavailable FAWWAD, CHI H Consulting Unavailable AICHHOLZ, AIRPORT UTILITY WORKER KEZIA Admitting Unavailable FAWWAD, CHI H Primary Care Unavailable AICHHOLZ, AIRPORT UTILITY WORKER KEZIA Attending Unavailable AICHHOLZ, AIRPORT UTILITY WORKER KEZIA Consulting Unavailable DR NIA LEONARD Consulting Unavailable Unavailable Unavailable Jeffrey, Dr. Rik Collins Attending Un available Jeffrey, Dr. Rik Collins Admitting Un available MD JOHN ISBELL Referring Unavailable MD JOHN ISBELL Attending Unavailable Terrence, Dr. Leyva Attending Unavailable Candelaria Ayala Unavailable Shaikh Miramontes MD Primary Care Provider Gordon Campoverde MD Unavailable SHAIKH MIRAMONTES Attending Unavailable FE, Attending Unavailable FE, Attending Unavailable DONA CORBIN Attending Unavailable DONA CORBIN Referring Unavailable FE, CHI Primary Care Unavailable GORDON CAMPOVERDE Attending Unavailable SANCHEZWDAISY, CHI Primary Care Unavailable FAKAREND, CHI Primary Care Unavailable RADHA CALVILLO Attending Unavailable GORDON CAMPOVERDE Referring Unavailable FE, Primary Care Unavailable GORDON CAMPOVERDE Referring Unavailable FE, CHI Primary Care Unavailable Encounters Encounter Date Encounter Type Care Provider Facility Start: 07-21-2023 End: 07-22-2023 [facility] Start: 07-21-2023 End: 07-21-2023 Office consultation new/estab patient 80 min Radha Calvillo MD Work Phone: [facility] Comment on above: Status post administ ration of cardiotoxic chemotherapy (Primary Dx); Shortness of breath on exertion; Acute deep vein thrombosis of left popliteal vein (Multi); Burr's sarcoma (Multi); Atypical chest pain Start: 07-10-2023 End: 07-10-2023 ambulatory DONA CORBIN Not Available Start: 06-19-2023 End: 06-20-2023 [facility] Start: 06-19-2023 End: 06-19-2023 Office outpatient visit 40 minutes Gordon Campoverde MD Work Phone: [facility] Comment on above: Acute deep vein thro mbosis of left popliteal vein (Multi) (Primary Dx); Burr's sarcoma (Multi); Status post administration of cardiotoxic chemotherapy; Shortness of breath on exertion Start: 06-16-2023 End: 06-17-2023 ambulatory SHAIKH NIKKYPASameer [facility] Start: 06-16-2023 End: 06-16-2023 Subsequent hospital visit by physician Kevin [id number] Admin Room Pet [facility] Comment on above: Other specified pers onal risk factors, not elsewhere classified; Personal history of irradiation; Chronic kidney disease, stage 2 (mild); Malignant neoplasm of bone and articular cartilage, unspecified (Multi) Arrived Start: 05-19-2023 End: 05-19-2023 ambulatory SHAIKH FE Not Available Start: 05-06-2023 End: 05-06-2023 ambulatory SHAIKH FE Not Available Start: 05-05-2023 End: 05-05-2023 ambulatory SHAIKH FE Not Available Start: 02-25-2023 End: 02-25-2023 ambulatory Candelaria Ayala Other [employer] [facility] [email or web address] Other Start: 02-25-2023 Office outpatient ne w 20 minutes Candelaria Ayala [facility] Start: 10-30-2022 Chart Update Shaikh Anastaciasameer Work Phone: [facility] 3 DO Work Phone: Start: 10-30-2022 ambulatory MD JOHN Nails ty: Start: 07-30-2022 End: 07-30-2022 ambulatory ZURIENDRANATH LAKSHMIPATHY . Facility:H1 Start: 07-16-2022 End: 07-17-2022 ambulatory NARENDRANATH LAKSHMIPATHY . Facility:H1 Start: 06-26-2022 End: 06-27-2022 ambulatory SHAIKH Sue MIRAMONTES Facility:H1 Start: 06-06-[address] Rik Murphy Facility: Start: 05-27-[address] Gordon Campoverde Facili ty:[id number] Start: 05-24-2022 ambulatory Gordon Campoverde Facility:9 542 Start: 02-05-2022 End: 02-06-2022 ambulatory ARABELLA KEZIA RASMUSSEN Facility:H1 Start: 01-02-2022 End: 01-10-2022 ambulatory SHAIKH Sue MIRAMONTES Facility:H1 Start: 09-19-2021 End: 09-20-2021 ambulatory SHAIKH Sue DAVISD Facility:H1 Start: 09-17-2021 End: 09-18-2021 ambulatory SHAIKH Sue DAVISD Facility:H1 Start: 07-20-2021 End: 07-20-2021 Patient encounter procedure MD John Isbell Work Phone: [facility] Start: 07-11-2021 Chart Update Shaikh Fe Work Phone: [place] [address] DO Work Phone: Start: 05-03-2020 Initial nursing faci lity care/day 45 minutes [facility] Work Phone: Patient encounter status Shaikh Fe Work Phone: [place] [address] DO Work Phone: Immunizations Immunization Date Immunization Notes Care Provider Fa cility 05-01-2010 pneumococcal Conjuga te, unspecified formulation [facility] Work Phone: Medications Current Medications Medication Drug Class(es) Dates [...] oral capsule (1 source) Non-narcotic Antitussive Start: 02-25-2023 take 1 capsule by mouth three times daily as needed Tessalon Perles 100 MG 1 capsule as needed Orally Three times a day for 7 days Jan, Active calcitriol 0.15635 mg oral capsule (6 sources) Vitamin D3 [...] once for 1 day Jan, Active Sylvia 1/20 (1 source) Sylvia 1/20 Activ e LORazepam 0.5 mg oral tablet [...] Drug Class(es) Dates Sig (Normalized) Sig (Original) [id number] 200 actuat albuterol 0.09 mg/actuat metered dose [...] oral tablet (1 source) alpha-Adrenergic Agonist, Uncompetitive K-wjlkzl-X-aspartate Receptor Antagonist, Sigma-1 Agonist Start: 03-16-2019 take [...] at night with food Orally Mar, Not-Taking/PRN Payers Date Payer Category Payer Unknown 1980 Unknown [id number] 2.16.8 [id number] 1980 Unknown [id number] 2.16.84 0.1.050204.3.579.2.593 1980 Unknown [id number] 2.16.84 0.1.012513.3.579.2.593 1979 Unknown [id number] 2.16.84 0.1.479449.3.579.2.593 1979 Unknown [id number] 2.16.84 0.1.400328.3.579.2.593 1979 Unknown [id number] 2.16.84 0.1.180057.3.579.2.593 1979 Unknown [id number] 2.16.84 0.1.008578.3.579.2.593 1979 Unknown [id number] 2.16.84 0.1.766112.3.579.2.593 1979 Unknown [id number] 2.16. 840.1.751184.3.579.2.356 1979 Unknown [id number] 2.16. 840.1.101723.3.579.2.356 1979 Unknown [id number] 2.16. 840.1.087276.3.579.2.356 1979 Unknown [id number] 2.16.84 0.1.971907.3.579.2.1259 1979 Unknown [id number] 2.16.84 0.1.514074.3.579.2.9 1979 Unknown [id number] 2.16.84 0.1.566218.3.579.2.1258 1979 Unknown [id number] 2.16.84 0.1.134532.3.579.2.9 1979 Unknown [id number] 2.16.8 40.1.343885.3.579.2.1244 1979 Unknown [id number] 2.16.8 40.1.495950.3.579.2.1244 1979 Unknown [id number] 2.16.8 40.1.252229.3.579.2.1244 1979 Unknown [id number] 2.16.8 40.1.627123.3.579.2.1244 1979 Unknown [id number] 2.16.8 40.1.021229.3.579.2.1244 1979 Unknown [id number] 2.16.8 40.1.215272.3.579.2.5 1959 Unknown [id number] Self-pay Self Pay [id number] Plan of Treatment Date Care Activity Detail Author Start: 2039 RSV patient s and/or patients aged 60+ years (1 - 1-dose 60+ series) RSV patients and/or patients aged 60+ years (1 - 1-dose 60+ series) [facility] Start: 06-01-2029 Zoster Vaccines (1 of 2) Zoster Vacc babs (1 of 2) [facility] Start: 06-15-2024 Creatinine measurement Creatinine Le frederick [facility] Start: 06-15-2024 Potassium measurement Potassium Leve l [facility] Start: 11-02-2023 Influenza vaccination Influenz a Vaccine (Season Ended) [facility] Start: 10-29-2023 FUV, Provider: John Isbell, Status: Pen, Time: 10:00 AM FUV, Provider: John Isbell, Status: Wilfred, Time: 10:00 AM [facility] 3 DO Work Phone: Start: 10-29-2023 End: 10-29-2023 Patient encounter procedure 10/29/2023 11:30 AM EDT Office Visit [facility] [address] [place] [id number] [place] [address] [place] [address] [facility] Start: 09-18-2023 End: 09-18-2023 Telemedicine consultation with patient 09/18/2023 3:00 PM EDT Telemedicine [address] [place] [address] [place] [phone] [place] [address] [place] [address] [facility] Start: 09-18-2023 End: 09-18-2023 Patient encounter procedure 09/18/2023 10:40 AM EDT Office Visit [address] [place] [phone] [place] [address] [place] [address] [facility] Start: 09-01-2023 End: 09-01-2023 Patient encounter procedure [facility] Start: 08-12-2023 End: 08-12-2023 Clinical Support 08/12/2023 8:00 AM EDT Clinical Support [facility] [place] [address] [address] [facility] [place] Start: 07-21-2023 End: 07-21-2023 Patient encounter procedure 07/21/2023 2:15 PM EDT Office Visit [facility] [address] [place] [address] [place] [address] [place] [address] [facility] Start: 07-21-2023 End: 07-20-2024 Cardiac stress study Procedure Cardiopulmonary (Metabolic) Stress Test Cardiac Services Routine Shortness of breath on exertion Atypical chest pain Expected: 07/21/2023 (Approximate), Expires: 07/20/2024 [facility] Work Phone: Comment on above: Expected: 07/21/2023 (Approximate), Expires: 07/20/2024 Start: 07-21-2023 End: 07-20-2024 ECG 12 lead (Ancillary Performed) ECG 12 lead (Ancillary Performed) ECG Routine Shortness of breath on exertion Status post administration of cardiotoxic chemotherapy Expected: 07/21/2023, Expires: 07/20/2024 [facility] Work Phone: Comment on above: Expected: 07/21/2023 , Expires: 07/20/2024 Start: 07-21-2023 End: 07-20-2024 Onco-Echo Complete (Strain & 3D) Onco-Echo Complete (Strain & 3D) Echocardiography Routine Shortness of breath on exertion 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) Expected: 07/21/2023 (Approximate), Expires: 07/20/2024 [facility] Work Phone: Comment on above: Expected: 07/21/2023 (Approximate), Expires: 07/20/2024 Start: 06-19-2023 End: 06-18-2024 Activated protein C resistance [Time Ratio] in Platelet poor plasma by Coagulation assay [facility] Work Phone: Comment on above: Expected: 06/19/2023 (Approximate), Expires: 06/18/2024 Start: 06-19-2023 End: 06-18-2024 Prothrombin Gene Mutation [facility] Work Phone: Comment on above: Expected: 06/19/2023 (Approximate), Expires: 06/18/2024 Start: 06-19-2023 End: 06-19-2023 Patient encounter procedure 06/19/2023 10:40 AM EDT Office Visit [facility] [address] [place] [address] [place] [address] [place] [address] [facility] Start: 11-01-2022 COVID-19 Vaccine ( season) COVID-19 Vaccine () [facility] Start: 08-01-2021 FUV, Provider: John Isbell, Status: Pen, Time: 9:10 AM FUV, Provider: John Isbell, Status: Pen, Time: 9:10 AM -[place] [address] DO Work Phone: Start: 07-04-2020 [facility]oscopy [facility] Work Phone: Start: 2019 Screening for malign ant neoplasm of breast Mammogram [facility] Start: 05-08-2018 Diabetes mellitus screening Diabetes Screening [facility] Start: 06-01-2001 DTaP/Tdap/Td Vaccine s (1 - Tdap) DTaP/Tdap/Td Vaccines (1 - Tdap) [facility] Start: 06-01-2000 Screening for malign ant neoplasm of cervix [facility] Start: 06-01-1998 Hepatitis B Vaccines (1 of 3 - 19+ 3-dose series) Hepatitis B Vaccines (1 of 3 - 19+ 3-dose series) [facility] Start: 06-01-1997 Hepatitis C screening [facility] Start: 06-01-1985 Pneumococcal Vaccine : Pediatrics (0 to 5 Years) and At-Risk Patients (6 to 64 Years) (1 of 2 - PCV) Pneumococcal Vaccine: Pediatrics (0 to 5 Years) and At-Risk Patients (6 to 64 Years) (1 of 2 - PCV) [facility] Start: 06-01-1980 MMR Vaccines (1 of 1 - Standard series) MMR Vaccines (1 of 1 - Standard series) [facility] Start: 1979 Echocardiography Echocardiogram [facility] Start: 1979 HIV screening HIV Screening [facility] Start: 1979 Lipid panel Lipid Panel [facility] Start: 1979 Yearly Adult Physical Yearly Adult P hysical [facility] Work Phone: NEGATED: Highlighted row has been ruled out! Planned Goals not documented [facility] Work Phone: Problems Active Problems Problem Classification Problem Date Documented Date Episodic/Chronic Cancer of bone and connective tissue (13 sources) Malignant neoplasm of bone and articular cartilage, unspecified; Translations: [Malignant neoplasm of connective and soft tissue, unspecified] Onset: 3 Chronic Chronic kidney disease (15 sources) Chronic kidney disease stage 3; Translations: [Chronic kidney disease, Stage III (moderate)] Onset: 3 Chronic Nonspecific chest pain (4 sources) Atypical chest pain; Translations: [Other chest [...] Translations: [LOW BACK PAIN, UNSPECIFIED] Onset: 01-02-2022 Procedures Date Procedure Procedure Detail Performing Clinician Start: 07-21-2023 AMB REFERRAL TO [facility] IO ONCOLOGY PROGRAM SHAIKH SANCHEZSRI Start: 06-19-2023 APC RESISTANCE SHAIKH Jack DICKSONWAD Start: 06-19-2023 PROTHROMBIN GENE MUT ATION ANALYSIS [facility] Start: 06-16-[address] MELANOMA D IAGNOSIS FOR NONCOVERED INDICATIONS [facility] SANCHEZSameer Start: 06-16-2023 CBC W Auto Different ial panel - [facility] Start: 06-16-2023 Comprehensive metabo lic 2000 panel - Serum or Plasma [facility] Start: 06-16-2023 Lactate dehydrogenas e [Enzymatic activity/volume] in Serum or Plasma [facility]I SANCHEZDAISY Start: 06-16-[address] atten uation skull base mid-thigh Gordon Campoverde MD Work Phone: Start: 07-20-2021 Ultrasonography of b ilateral kidneys MD John Isbell Work Phone: Start: 05-29-2020 Colonoscopy Abbie rodriguez Start: 05-23-2020 Brain Natriuretic Pe ptide BNP Abbie Negrete Start: 05-23-2020 Lipid panel Abbie rodriguez Excision of neoplasm [facility] Work Phone: Comment on above: chest wall 2009; Extraction of wisdom tooth S jennifer Miramontes Work Phone: Lobotomy of brain [facility] Nikky nguyen Work Phone: Tonsillectomy [facility] Work Phone: Results Test Name Value Interpretation Reference Range Facility Activated protein C resistan ceon 06-19-2023 Activated protein C resistance Coag (PPP) [Time ratio] 4.45 Normal >=2.00 [facility] Comment on above: Result Comment: TEST INTERPRETATION: APC Resistance Profile Ratios less than 2.00 suggest APC resistance. This method uses factor V deficient plasma; therefore, APC resistance due to a nonfactor V mutation will not be detected. Extreme factor V deficiency or presence of direct oral anticoagulants (DOACs) may cause an unreliable ratio. Performed By: [address] [place] [address] Nuclear Engineering Technician: Anibal Babin MD, PhD CLIA Number: [id number] Performed By: #### 1 3590-5 #### [employer] ([facility]) ([id number]) [address] [place] [address] PROTHROMBIN GENE MUTATION AN ALYSISon 06-19-2023 ELECTRONICALLY SIGNED BY Shari Capps MD PhD [facility] Normal [facility] Comment on above: Performed By: #### G PRO2 #### BENNIE SUNSHINE ([id number]) [employer] [facility] ([facility]) [facility] [place] [address] FACTOR II-PROTHROMBIN INTERPRETATION INTERPRETATION Normal [facility] Comment on above: Performed By: #### G PRO2 #### BENNIE SUNSHINE ([id number]) [facility] ([facility]) [address] [place] [address] FACTOR II-PROTHROMBIN RESULT Normal Normal Normal [facility] Comment on above: Performed By: #### G PRO2 #### BENNIE SUNSHINE ([id number]) [facility] ([facility]) [address] [place] [address] CBC W Auto Differential pane l (Bld)on 06-16-2023 Basophils (Bld) [#/Vol] 0.07 x10*3/uL Normal 0.00-0.10 [facility] Comment on above: Performed By: #### 5 7021-8 #### ALIX Norwood ([id number]) [facility] ([facility]) [address] [place] [address] Basophils/100 WBC (Bld) 0.8 % Normal 0.0-2.0 [facility] Comment on above: Performed By: #### 5 7021-8 #### ALIX Norwood ([id number]) [facility] ([facility]) [address] [place] [address] Eosinophils (Bld) [#/Vol] 0.33 x10*3/uL Normal 0.00-0.70 [facility] Comment on above: Performed By: #### 5 7021-8 #### ALIX Norwood ([id number]) [facility] ([facility]) [address] [place] [address] Eosinophils/100 WBC (Bld) 3.7 % Normal 0.0-6.0 [facility] Comment on above: Performed By: #### 5 7021-8 #### ALIX Norwood ([id number]) [facility] ([facility]) [address] [place] [address] Erythrocyte distribution width (RBC) [Ratio] 11.2 % Low 11.5-14.5 [facility] Comment on above: Performed By: #### 5 7021-8 #### ALIX Norwood ([id number]) [facility] ([facility]) [address] [place] [address] Hematocrit (Bld) [Volume fraction] 43.9 % Normal 36.0-46.0 [facility] Comment on above: Performed By: #### 5 7021-8 #### ALIX Norwood ([id number]) [facility] ([facility]) [address] [place] [address] Hemoglobin (Bld) [Mass/Vol] 14.7 g/dL Normal 12.0-16.0 [facility] Comment on above: Performed By: #### 5 7021-8 #### ALIX Norwood ([id number]) [facility] ([facility]) [address] [place] [address] Immature granulocytes (Bld) [#/Vol] 0.02 x10*3/uL Normal 0.00-0.70 [facility] Comment on above: Performed By: #### 5 7021-8 #### ALIX Norwood ([id number]) [facility] ([facility]) [address] [place] [address] Immature granulocytes/100 WBC (Bld) 0.2 % Normal 0.0-0.9 [facility] Comment on above: Result Comment: Nicolle ture Granulocyte Count (IG) includes promyelocytes, myelocytes and metamyelocytes but does not include bands. Percent differential counts (%) should be interpreted in the context of the absolute cell counts (cells/UL). Performed By: #### 5 7021-8 #### ALIX Norwood ([id number]) [facility] ([facility]) [id number] [place] [address] Lymphocytes (Bld) [#/Vol] 1.74 x10*3/uL Normal 1.20-4.80 [facility] Comment on above: Performed By: #### 5 7021-8 #### ALIX Norwood ([id number]) [facility] ([facility]) [address] [place] [address] Lymphocytes/100 WBC (Bld) 19.7 % Normal 13.0-44.0 [facility] Comment on above: Performed By: #### 5 7021-8 #### ALIX Norwood ([id number]) [facility] ([facility]) [address] [place] [address] MCH (RBC) [Entitic mass] 30.2 pg Normal 26.0-34.0 [facility] Comment on above: Performed By: #### 5 7021-8 #### ALIX Norwood ([id number]) [facility] ([facility]) [address] [place] [address]892 MCHC (RBC) [Mass/Vol] 33.5 g/dL Normal 32.0-36.0 [facility] Comment on above: Performed By: #### 5 7021-8 #### ALIX Norwood ([id number]) [facility] ([facility]) [address] [place] [address] MCV (RBC) [Entitic vol] 90 fL Normal 80-100 [facility] Comment on above: Performed By: #### 5 7021-8 #### ALIX Norwood ([id number]) [facility] ([facility]) [address] [place] [address] Monocytes (Bld) [#/Vol] 0.66 x10*3/uL Normal 0.10-1.00 [facility] Comment on above: Performed By: #### 5 7021-8 #### ALIX Norwood ([id number]) [facility] ([facility]) [address] [place] [address] Monocytes/100 WBC (Bld) 7.5 % Normal 2.0-10.0 [facility] Comment on above: Performed By: #### 5 7021-8 #### ALIX Norwood ([id number]) [facility] ([facility]) [address] [place] [address]240 Neutrophils (Bld) [#/Vol] 6.01 x10*3/uL Normal 1.20-7.70 [facility] Comment on above: Result Comment: Perc ent differential counts (%) should be interpreted in the context of the absolute cell counts (cells/uL). Performed By: #### 5 7021-8 #### ALIX Norwood ([id number]) [facility] ([facility]) [address] [place] [address]67 Neutrophils/100 WBC (Bld) 68.1 % Normal 40.0-80.0 [facility] Comment on above: Performed By: #### 5 7021-8 #### ALIX Norwood ([id number]) [facility] ([facility]) [address] [place] [address] 57014 Nucleated RBC/100 WBC (Bld) [Ratio] 0.0 /100 WBCs Normal 0.0-0.0 [facility] Comment on above: Performed By: #### 5 7021-8 #### ALIX Norwood ([id number]) [facility] ([facility]) [address] [place] [address] Platelets (Bld) [#/Vol] 246 x10*3/uL Normal 150-450 [facility] Comment on above: Performed By: #### 5 7021-8 #### ALIX Norwood ([id number]) [facility] ([facility]) [address] [place] [address] RBC (Bld) [#/Vol] 4.86 x10*6/uL Normal 4.00-5.20 [facility] Comment on above: Performed By: #### 5 7021-8 #### ALIX Norwood ([id number]) [facility] ([facility]) [address] [place] [address] WBC (Bld) [#/Vol] 8.8 x10*3/uL Normal 4.4-11.3 [facility] Comment on above: Performed By: #### 5 7021-8 #### ALIX Norwood ([id number]) [facility] ([facility]) [id number] [place] [address] Comprehensive metabolic 2000 panelon 06-16-2023 Albumin BCP dye [Mass/Vol] 4.3 g/dL Normal 3.4-5.0 [facility] Comment on above: Performed By: #### 2 4323-8 #### ALIX Norwood ([id number]) [facility] ([facility]) [address] [place] [address] ALP [Catalytic activity/Vol] 62 U/L Normal 33-110 [facility] Comment on above: Performed By: #### 2 4323-8 #### ALIX Norwood ([id number]) [facility] ([facility]) [address] [place] [address] ALT With P-5'-P [Catalytic activity/Vol] 32 U/L Normal 7-45 [facility] Comment on above: Result Comment: Marcie ents treated with Sulfasalazine may generate falsely decreased results for ALT. Performed By: #### 2 4323-8 #### ALIX Norwood (73873) [facility] ([facility]) [address] [place] [address] Anion gap [Moles/Vol] 11 mmol/L Normal 10-20 [facility] Comment on above: Performed By: #### 2 4323-8 #### ALIX Norwood (14059) [facility] ([facility]) [address] [place] [address] AST With P-5'-P [Catalytic activity/Vol] 21 U/L Normal 9-39 [facility] Comment on above: Performed By: #### 2 4323-8 #### ALIX Norwood ([id number]) [facility] ([facility]) [address] [place] [address] Bilirubin [Mass/Vol] 0.5 mg/dL Normal 0.0-1.2 [facility] Comment on above: Performed By: #### 2 4323-8 #### ALIX Norwood (36254) [facility] ([facility]) [address] [place] [address] Calcium [Mass/Vol] 10.1 mg/dL Normal 8.6-10.6 [facility] Comment on above: Performed By: #### 2 4323-8 #### ALIX Norwood (15052) [facility] ([facility]) [address] [place] [address] Chloride [Moles/Vol] 101 mmol/L Normal 98-107 [facility] Comment on above: Performed By: #### 2 4323-8 #### ALIX Norwood ([id number]) [facility] ([facility]) [address] [place] [address] CO2 [Moles/Vol] 31 mmol/L Normal 21-32 [facility] Comment on above: Performed By: #### 2 4323-8 #### ALIX Norwood ([id number]) [facility] ([facility]) [address] [place] [address] Creatinine [Mass/Vol] 1.24 mg/dL High 0.50-1.05 [facility] Comment on above: Performed By: #### 2 4323-8 #### ALIX MENA L ([id number]) [facility] ([facility]) [address] [place] [address] Glomerular filtration rate/1.73 sq M.predicted 55 mL/min/1.73m*2 Low >60 [facility] Comment on above: Result Comment: Calc ulations of estimated GFR are performed using the 2020 CKD-EPI Study Refit equation without the race variable for the IDMS-Traceable creatinine methods. https://jasn.asnjournals.org/content/early//ASN.666186682 8 Performed By: #### 2 4323-8 #### ALIX MENA L (59441) [facility] ([facility]) [address] [place] [address] Glucose [Mass/Vol] 85 mg/dL Normal 74-99 [facility] Comment on above: Performed By: #### 2 4323-8 #### ALIX MENA L ([id number]) [facility] ([facility]) [address] [place] [address] Potassium [Moles/Vol] 4.5 mmol/L Normal 3.5-5.3 [facility] Comment on above: Performed By: #### 2 4323-8 #### ALIX ROBERTSMOTZER L (92152) [facility] ([facility]) [address] [place] [address] Protein [Mass/Vol] 6.8 g/dL Normal 6.4-8.2 [facility] Comment on above: Performed By: #### 2 4323-8 #### ALIX MENA L (60796) [facility] ([facility]) [address] [place] [address] Sodium [Moles/Vol] 138 mmol/L Normal 136-145 [facility] Comment on above: Performed By: #### 2 4323-8 #### ALIX ROBERTSMOTZER L (41978) [facility] ([facility]) [address] [place] [address] Urea nitrogen [Mass/Vol] 18 mg/dL Normal 6-23 [facility] Comment on above: Performed By: #### 2 4323-8 #### ALIX Norwood (85240) [facility] ([facility]) [address] [place] [address] Lactate dehydrogenaseon 06-01 LDH Lactate to pyruvate reaction [Catalytic activity/Vol] 151 U/L Normal 84-246 [facility] Comment on above: Performed By: #### 1 4804-9 #### ALIX Norwood (75303) [facility] ([facility]) [address] [place] [address] MELANOMA DIAGNOSIS FOR NONCOVERED [...] on surveillance. COMPARISON: PET-CT, 05/27/2022 ACCESSION NUMBER(S): [id number] ORDERING CLINICIAN: GORDON CAMPOVERDE TECHNIQUE: DIVISION OF [...] CODING: Subsequent Treatment Strategy (PS) CALIBRATION: Dose Yvggvzrom-er-Wdin Interval (mins): 66 min Mediastinal bloodpool SUV [...] agree with the findings as stated by residential sales consultant Dr. Namrata Zuñiga. This study was interpreted at [place], [place]. MACRO: None Signed by: Edy Jeronimo 06/16/2023 2:50 PM Dictation workstation: [id number] Normal [facility] Comment on above: Order Comment: spoke with suman from dr campoverde [phone] anthem prep given by office #: pager number: [phone], Rad Selected: Y PT Unspecified body regionon 06-16-2023 Radiology Study observation (narrative) [facility] Work Phone: 1. Postsurgical corral ges of right lateral [...] agree with the findings as stated by residential sales consultant Dr. Namrata Zuñiga. This study was interpreted at [place], [place]. MACRO: None Signed by: Edy Jeronimo 06/16/2023 2:50 PM Dictation workstation: [id number] Interpreted By: Edy Mad[place] and [...] on surveillance. COMPARISON: PET-CT, 05/27/2022 ACCESSION NUMBER(S): [id number] ORDERING CLINICIAN: GORDON CAMPOVERDE TECHNIQUE: DIVISION OF [...] CODING: Subsequent Treatment Strategy (PS) CALIBRATION: Dose Uvcegxeun-pq-Gyyd Interval (mins): 66 min Mediastinal bloodpool SUV [...] on surveillance. COMPARISON: PET-CT, 05/27/2022 ACCESSION NUMBER(S): [id number] ORDERING CLINICIAN: GORDON CAMPOVERDE TECHNIQUE: DIVISION OF [...] CODING: Subsequent Treatment Strategy (PS) CALIBRATION: Dose Reovnuwzs-ji-Verj Interval (mins): 66 min Mediastinal bloodpool SUV [...] agree with the findings as stated by residential sales consultant Dr. Namrata Zuñiga. This study was interpreted at [facility], [place], [place]. MACRO: None Signed by: Edy Jeronimo 06/16/2023 2:50 PM Dictation workstation: [id number] [facility] Work Phone: PT Unspecified body regionOr dered By: Edy Jeronimo on 06-16-2023 [facility] Work Phone: BASIC METABOLIC PANELon 10-03 Anion gap [Moles/Vol] 8 mmol/L Low 10 - 20 [facility] Comment on above: Performed By: #### B MP #### [address] [address] Calcium [Mass/Vol] 9.0 mg/dL Normal 8.6 - 10.3 [facility] Comment on above: Performed By: #### B MP #### [address] [address] Chloride [Moles/Vol] 103 mmol/L Normal 98 - 107 [facility] Comment on above: Performed By: #### B MP #### [address] [address] Creatinine [Mass/Vol] 1.28 mg/dL High 0.50 - 1.05 [facility] Comment on above: Performed By: #### B MP #### [address] [address] GFR/1.73 sq M.predicted among non-blacks MDRD (S/P/Bld) [Vol rate/Area] 53 mL/min/{1.73_m2} Abnormal >90 [facility] Comment on above: Result Comment: CALC ULATIONS OF ESTIMATED GFR ARE PERFORMED USING THE 2020 CKD-EPI STUDY REFIT EQUATION WITHOUT THE RACE VARIABLE FOR THE IDMS-TRACEABLE CREATININE METHODS. https://jasn.asnjournals.org/content//ASN.539072178 8 Performed By: #### B MP #### [address] [place] [address] Glucose [Mass/Vol] 53 mg/dL Low 74 - 99 [facility] Comment on above: Performed By: #### B MP #### [address] [place] [address] HCO3 (Bld) [Moles/Vol] 28 mmol/L Normal 21 - 32 [facility] Comment on above: Performed By: #### B MP #### [address] [place] [address] Potassium [Moles/Vol] 4.3 mmol/L Normal 3.5 - 5.3 [facility] Comment on above: Performed By: #### B MP #### [address] [place] [address] Sodium [Moles/Vol] 135 mmol/L Low 136 - 145 [facility] Comment on above: Performed By: #### B MP #### [address] [place], [place] [address] Urea nitrogen [Mass/Vol] 19 mg/dL Normal 6 - 23 [facility] Comment on above: Performed By: #### B MP #### [address] [place] [address] Established Visit (Nephrolog y)on 10-30-2022 Established Visit (Nephrology) Diagnoses/Problems CKD (chronic kidney disease), stage III (585.3) (N18.30) Orders CKD (chronic kidney disease), stage III Basic Metabolic Panel; Status:Active; Requested for:13Clp1056; Parathormone Intact, Serum; Status:Active; Requested for:93Fpt4735; Vitamin D 25-Hydroxy; Status:Active; Requested for:01Gjd8409; Provider Impressions 42-year-old female with history of [...] Tumor excision chest wall 2010 History of [place] tooth extraction Family History No pertinent family history No pertinent family history Social History Daily caffeine consumption Never a smoker No illicit drug use Social alcohol use (V49.89) (Z78.9) Allergies No Known Drug Allergies Recorded By: Nicci Ziegler; 05/10/2020 3:10:38 PM Current Meds Medication NameInstruction Sylvia 20 1-20 MG-MCG Oral TabletTAKE 1 TABLET DAILY FOR 21 DAYS, THEN 7 TABLET-FREE DAYS; REPEAT. LORazepam 0.5 MG Oral Tabletone tablet at bedtime ProAir HFA 108 (90 Base) MCG/ACT AERSINHALE 1 TO 2 PUFFS EVERY 4 TO 6 HOURS NEEDED. Vitals Vital Signs Recorded: 16Cnn5749 10:39AM Heart Rate76 Nrpmctdw918, LUE, Sitting Jeohattnz40, LUE, Sitting Height5 ft 7 in Wjcbpu024 lb BMI Wvnzooakim54.41 kg/m2 BSA Calculated1.91 Physical Exam General: The [...] is fluent. Moves extremities. Results/Data Comprehensive Metabolic [id number] 08:00AMNon Ambulatory, Provider Ordering Provider: GORDON CAMPOVERDE [address] Test NameResultFlagReference Glucose, Serum85 mg/dL74 - 99 Sodium, Tuupl013 mmol/L136 - 145 POTASSIUM4.5 mmol/L3.5 - 5.3 Chloride, Xqctk204 mmol/L98 - 107 Bicarbonate, Serum29 mmol/L21 - 32 Anion Gap, Serum12 mmol/L10 - 20 Blood Urea Nitrogen, Serum17 mg/dL6 - 23 CREATININE1.17 mg/dLHSee Below Reference Range: 0.50 - 1.05 Calcium, Serum9.5 mg/dL8.6 - 10.6 Albumin, Serum4.1 g/dL3.4 - 5.0 ALKALINE MSPXBWBTADZ16 U/L33 - 110 Protein, Total Serum6.8 g/dL6.4 - 8.2 Bilirubin, Serum Total0.5 mg/dL0.0 - 1.2 ALT (SGPT), Serum21 U/L7 - 45 Patients treated with Sulfasalazine may generate falsely decreased results for ALT. GFR MRIEID47 mL/min/1.73m2A>90 CALCULATIONS OF ESTIMATED GFR ARE PERFORMED USING THE 2020 CKD-EPI STUDY REFIT EQUATION WITHOUT THE RACE VARIABLE FOR THE IDMS-TRACEABLE CREATININE METHODS. https://gamalielsn.asnjournals.o rg/content/early 2/ASN.9649069091 AST27 U/L9 - 39 Signatures Electronically signed by : John Isbell MD; Oct 30 2022 10:46AM EST (Author) Normal [facility] - Chemistry and C hemistry - challengeon 10-30-2022 Anion gap [Moles/Vol] 8 mmol/L below low threshold 10 - 20 [place] [address] DO Work Phone: Calcium [Mass/Vol] 9.0 mg/dL 8.6 - 10.3 [place] [address] DO Work Phone: [phone] Chloride [Moles/Vol] 103 mmol/L 98 - 107 [place] [address] DO Work Phone: [phone] CO2 [Moles/Vol] 28 mmol/L 21 - 32 [place] [address] DO Work Phone: Creatinine [Mass/Vol] 1.28 mg/dL above high threshold See Below [place] [address] DO Work Phone: Comment on above: Reference Range: 0.5 0 - 1.05 Glucose [Mass/Vol] 53 mg/dL below low threshold 74 - 99 [place] [address] DO Work Phone: Potassium [Moles/Vol] 4.3 mmol/L 3.5 - 5.3 [place] [address] DO Work Phone: [phone] Sodium [Moles/Vol] 135 mmol/L below low threshold 136 - 145 [place] [address] DO Work Phone: [phone] Urea nitrogen [Mass/Vol] 19 mg/dL 6 - 23 [place] [address] DO Work Phone: No Panel Informationon 10-30 53 {mL/min/1.73m2} Abnormal >90 [facility] 3 DO Work Phone: Comment on above: CALCULATIONS OF GEETHA MATED GFR ARE PERFORMED USING THE 2020 CKD-EPI STUDY REFIT EQUATION WITHOUT THE RACE VARIABLE FOR THE IDMS-TRACEABLE CREATININE METHODS.https://jasn.asnjournals.org/content/early/ASN.2 623100487 PARATHYROID HORMONE,INTACTon 10-30-2022 PARATHYROID HORMONE,INTACT 90.9 pg/mL High 18.5 - 88.0 [facility] Comment on above: Performed By: #### P TH #### [facility] [address] [place] [address] VITAMIN D, 25-HYDROXYon 10-03 VITAMIN D, 25-HYDROXY 74 ng/mL Normal [facility] Comment on above: Result Comment: . DEFICIENCY: < 20 NG/ML INSUFFICIENCY: 20-29 NG/ML SUFFICIENCY: 30-100 NG/ML THIS ASSAY ACCURATELY QUANTIFIES THE SUM OF VITAMIN D3, 25-HYDROXY AND VIT D2,25-HYDROXY. Performed By: #### V TDOH #### [facility] [address] [place] [address] PREG HCG QUALon 07-30-2022 , QUAL Negative Normal NEGATIVE [facility] Comment on above: Performed By: #### P REG #### [facility] [address] [place] [address] [address] Karime Araujo [facility] Note - Heme Onc Sched ulingon 06-07-2022 [...] number listed below. Thank you for choosing [facility]. We appreciate your visit. Gordon Campoverde MD Financial Center Manager Hematology and Oncology . Follow Up Testing Appointment: Test Name(s)PET CT Appointment Date & [id number] 09:00 [facility] [address] [place], [place] [phone] CommentsNo solids - water only 6 hrs prior. Please arrive 20 mins early and bring ID and insurance End of Visit Documentation: Clinic Location/Phone Number: Clinic Location/Phone Number: [facility] [address] [place] [address] End Of Visit MU Report Item: Visit Summary given or mailed to patientyes Mailed Appointments Electronic Signatures: Suman Wall (Rev Cycl Spec) (Signed 07-Jun-2022 14:57) Authored: Retrieve Patient Instructions, TESTING (Lab, Radiology, Other) APPOINTMENTS, End of Visit Documentation Last Updated: 07-Jun-2022 14:57 by Suman Wall (Rev Cycl Spec) Normal [facility] Clinic Note - Heme Onc-Follo w Up [...] perspective. She was supposed to see a platform stapler, but she cancelled the appointment as she [...] old Female Chief Complaint: Recurrent [place] tumor- [place] follow up Interval History: Please refer to [...] Skin: Wa (more content not included)... Normal [facility] Clinic Note - Intakeon 06-06 Clinic Note [...] Pain Scale UsedNumeric (0-10) Health Screening: Last Ivkzdkrrd41-Zkm-2890 Last Pap Epva00-Kxw-7842 Allergies: No Known Allergies: Active Outpatient Medication [...] Updated: 06-Jun-2022 12:12 by Sara Tomlinson) Normal [facility] CBC AND DIFFERENTIALon 05-27 % AUTOMATED IMMATURE GRAN 0.3 % Normal 0.0 - 0.9 [facility] Comment on above: Result Comment: Nicolle ture Granulocyte Count (IG) includes promyelocytes, myelocytes and metamyelocytes but does not include bands. Percent differential counts (%) should be interpreted in the context of the absolute cell counts (cells/L). Performed By: #### C BCDF #### [facility] [address] [place] [address] Basophils (Bld) [#/Vol] 0.06 10*3/uL Normal 0.00 - 0.10 [facility] Comment on above: Performed By: #### C BCDF #### [facility] [address] [place] [address] Basophils/100 WBC (Bld) 0.8 % Normal 0.0 - 2.0 [facility] Comment on above: Performed By: #### C BCDF #### [facility] [address] [place] [address] Eosinophils (Bld) [#/Vol] 0.22 10*3/uL Normal 0.00 - 0.70 [facility] Comment on above: Performed By: #### C BCDF #### [facility] [address] [place] [address] Eosinophils/100 WBC (Bld) 2.9 % Normal 0.0 - 6.0 [facility] Comment on above: Performed By: #### C BCDF #### [facility] [address] [place] [address] Erythrocyte distribution width (RBC) [Ratio] 11.7 % Normal 11.5 - 14.5 [facility] Comment on above: Performed By: #### C BCDF #### [facility] [address] [place] [address] Hematocrit (Bld) [Volume fraction] 44.6 % Normal 36.0 - 46.0 [facility] Comment on above: Performed By: #### C BCDF #### [facility] [address] [place] [address] Hemoglobin (Bld) [Mass/Vol] 15.1 g/dL Normal 12.0 - 16.0 [facility] Comment on above: Performed By: #### C BCDF #### [facility] [address] [place] [address] Lymphocytes (Bld) [#/Vol] 1.82 10*3/uL Normal 1.20 - 4.80 [facility] Comment on above: Performed By: #### C BCDF #### [facility] [address] [place] [address] Lymphocytes/100 WBC (Bld) 24.1 % Normal 13.0 - 44.0 [facility] Comment on above: Performed By: #### C BCDF #### [facility] [address] [place] [address] MCHC (RBC) [Mass/Vol] 33.9 g/dL Normal 32.0 - 36.0 [facility] Comment on above: Performed By: #### C BCDF #### [facility] [address] [place] [address] MCV (RBC) [Entitic vol] 92 fL Normal 80 - 100 [facility] Comment on above: Performed By: #### C BCDF #### [facility] [address] [place] [address] Monocytes (Bld) [#/Vol] 0.54 10*3/uL Normal 0.10 - 1.00 [facility] Comment on above: Performed By: #### C BCDF #### [facility] [address] [place] [address] Monocytes/100 WBC (Bld) 7.1 % Normal 2.0 - 10.0 [facility] Comment on above: Performed By: #### C BCDF #### [facility] [address] [place] [address] Neutrophils (Bld) [#/Vol] 4.90 10*3/uL Normal 1.20 - 7.70 [facility] Comment on above: Performed By: #### C BCDF #### [facility] [address] [place] [address] Neutrophils/100 WBC (Bld) 64.8 % Normal 40.0 - 80.0 [facility] Comment on above: Performed By: #### C BCDF #### [facility] [address] [place] [address] NUCLEATED RBC 0.0 /100 WBC Normal 0.0-0.0 [facility] Comment on above: Performed By: #### C BCDF #### [facility] [address] [place] [address] Platelets (Bld) [#/Vol] 244 10*3/uL Normal 150 - 450 [facility] Comment on above: Performed By: #### C BCDF #### [facility] [address] [place] [address] RBC 4.86 x10E12/L Normal 4.00 - 5.20 [facility] Comment on above: Performed By: #### C BCDF #### [facility] [address] [place] [address] WBC (Bld) [#/Vol] 7.6 10*3/uL Normal 4.4 - 11.3 [facility] Comment on above: Performed By: #### C BCDF #### [place] [address] [place] [address] COMPREHENSIVE PANELon 2022 Albumin [Mass/Vol] 4.1 g/dL Normal 3.4 - 5.0 [facility] Comment on above: Performed By: #### C MP #### [facility] [address] [place] [address] ALP [Catalytic activity/Vol] 48 U/L Normal 33 - 110 [facility] Comment on above: Performed By: #### C MP #### [facility] [address] [place] [address] ALT [Catalytic activity/Vol] 21 U/L Normal 7 - 45 [facility] Comment on above: Result Comment: Marcie ents treated with Sulfasalazine may generate falsely decreased results for ALT. Performed By: #### C MP #### [facility] [address] [place] [address] Anion gap [Moles/Vol] 12 mmol/L Normal 10 - 20 [facility] Comment on above: Performed By: #### C MP #### [facility] [address] [place] [address] AST [Catalytic activity/Vol] 27 U/L Normal 9 - 39 [facility] Comment on above: Performed By: #### C MP #### [place] [address] [place] [address] Bilirubin [Mass/Vol] 0.5 mg/dL Normal 0.0 - 1.2 [facility] Comment on above: Performed By: #### C MP #### [facility] [address] [place] [address] Calcium [Mass/Vol] 9.5 mg/dL Normal 8.6 - 10.6 [facility] Comment on above: Performed By: #### C MP #### [place] [address] [place] [address] Chloride [Moles/Vol] 103 mmol/L Normal 98 - 107 [facility] Comment on above: Performed By: #### C MP #### [place] [address] [place] [address] Creatinine [Mass/Vol] 1.17 mg/dL High 0.50 - 1.05 [facility] Comment on above: Performed By: #### C MP #### [facility] [address] [place] [address] GFR/1.73 sq M.predicted among non-blacks MDRD (S/P/Bld) [Vol rate/Area] 59 mL/min/{1.73_m2} Abnormal >90 [facility] Comment on above: Result Comment: CALC ULATIONS OF ESTIMATED GFR ARE PERFORMED USING THE 2020 CKD-EPI STUDY REFIT EQUATION WITHOUT THE RACE VARIABLE FOR THE IDMS-TRACEABLE CREATININE METHODS. https://jasn.asnjournals.org/content/early/ASN.960599148 8 Performed By: #### C MP #### [facility] [address] [place] [address] Glucose [Mass/Vol] 85 mg/dL Normal 74 - 99 [facility] Comment on above: Performed By: #### C MP #### [facility] [address] [place] [address] HCO3 (Bld) [Moles/Vol] 29 mmol/L Normal 21 - 32 [facility] Comment on above: Performed By: #### C MP #### [facility] [address] [place] [address] Potassium [Moles/Vol] 4.5 mmol/L Normal 3.5 - 5.3 [facility] Comment on above: Performed By: #### C MP #### [facility] [address] [place] [address] Protein [Mass/Vol] 6.8 g/dL Normal 6.4 - 8.2 [facility] Comment on above: Performed By: #### C MP #### [facility] [address] [place] [address] Sodium [Moles/Vol] 139 mmol/L Normal 136 - 145 [facility] Comment on above: Performed By: #### C MP #### [facility] [address] [place] [address] Urea nitrogen [Mass/Vol] 17 mg/dL Normal 6 - 23 [facility] Comment on above: Performed By: #### C MP #### [facility] [address] [place] [address] LDHon 05-27-2022 LDH 132 U/L Normal 84 - 246 [facility] Comment on above: Performed By: #### L DH #### [facility] [address] 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 Needs full body imaging to rule out relapse. COMPARISON: PET-CT dated 05/01/2020 ACCESSION NUMBER(S): [id number] ORDERING CLINICIAN: GORDON CAMPOVERDE TECHNIQUE: DIVISION OF [...] CODING: Subsequent Treatment Strategy (PS) CALIBRATION: Dose Ydqemqdhl-gq-Dtrd Interval (mins): 52 min Mediastinal bloodpool SUV [...] as stated. This study was interpreted at [facility]. Electronically signed by: MARCELO CHAPARRO MD Normal [facility] MRI LSPINE WO CONon 02-07-20 MRI LSPINE [...] by: NIA LEONARD Date: 2022-02-06 06:58 Normal [facility] XR LSPINE 2_3 VIEWSon 2021 XR [...] by: NIA LEONARD Date: 2021-09-18 16:01 Normal [facility] US renal BIon 07-20-2021 renal BI [facility] [place] [address] Ultrasound Report Signed Patient: Alcon John MR#: [id number] : 1980 Acct:[id number] Age/Sex: 41 / F ADM Date: 07/20/21 Loc: Room: Type: [facility] Attending Dr: John Isbell MD Ordering Provider: [...] Darryl Puente M.D.07/20/2021 11:50 AM Dictation Location: [place] [address] Tech: Brittny Ruel Transcribed By: [facility] 07/20/21 1150 Dictated By: Darryl Puente DO 07/20/21 1148 Signed By: 07/20/21 1150 [facility] Parathormone Intact, Serumon 07-10-2021 Parathyrin.intact [Mass/Vol] 53.7 pg/mL See Below [place] [address] DO Work Phone: Comment on above: Reference Range: 12. 0 - 88.0 Phosphorus, Serumon 07-11-19 Phosphate [Mass/Vol] 3.1 mg/dL 2.5 - 4.9 [place] [address] DO Work Phone: Comment on above: The performance reynold acteristics of phosphorus testing in heparinized plasma have been validated by the individual laboratory site where testing is performed. Testing on heparinized plasma is not approved by the FDA; however, such approval is not necessary. Tobacco Screening.on 022 Fall risk assessment a) No falls within the last year [place] [address] DO Work Phone: Tobacco use status CPHS b) No [place] [address] DO Work Phone: Total Protein, Urine Spoton 07-10-2021 Creatinine (U) [Mass/Vol] 148.0 mg/dL See Below [place] [address] DO Work Phone: Comment on above: Reference Range: 20. 0 - 320.0 Protein (U) [Mass/Vol] 13 mg/dL 5 - 24 [place] [address] DO Work Phone: [phone] Protein/Creatinine (U) [Ratio] 0.09 {mg/mg_Creat} See Below [place] [address] DO Work Phone: Comment on above: Reference Range: 0.0 0 - 0.17 Uric Acid, Serumon Urate [Mass/Vol] 4.6 mg/dL 2.3 - 6.7 [place] [address] DO Work Phone: [phone] Comment on above: Venipuncture immedia tely after or during the administration of Metamizole may lead to falsely low results. Testing should be performed immediately prior to Metamizole dosing. Urinalysison 07-10-2021 Color (U) YELLOW See Below [place] [address] DO Work Phone: Comment on above: Reference Range: STR AW,YELLOW Glucose Ql (U) 50 (TRACE) Abnormal NEGATIVE [place] [address] DO Work Phone: [phone] Ketones Ql (U) Negative NEGATIVE [place] [address] DO Work Phone: Leukocyte esterase Test strip Ql (U) Negative NEGATIVE [place] [address] DO Work Phone: pH (U) 5.0 [pH] 5.0 - 8.0 [place] [address] DO Work Phone: Protein (U) [Mass/Vol] Negative NEGATIVE [place] [address] DO Work Phone: RBC (U) [#/Vol] MODERATE(2+) Abnormal NEGATIVE -[place] [address] DO Work Phone: [phone] Specific gravity (U) [Rel density] 1.023 1 See Below [place] [address] DO Work Phone: [phone] Comment on above: Reference Range: 1.0 05 - 1.035 Urinalysis Negative NEGATIVE [place] [address] DO Work Phone: [phone] Urinalysis <2.0 0.0 - 1.9 [place] [address] DO Work Phone: [phone] Urinalysis HAZY CLEAR [place] [address] DO Work Phone: [phone] Urinalysis, Microscopicon Urinalysis, Microscopic 1+ [place] [address] DO Work Phone: [phone] Urinalysis, Microscopic 3 {/HPF} [place] [address] DO Work Phone: [phone] Urinalysis, Microscopic 1 {/HPF} 0-5 [place] [address] DO Work Phone: Vitamin D 25-Hydroxyon 07-10 25-hydroxyvitamin D3 [Mass/Vol] 56 ng/mL [place] [address] DO Work Phone: Comment on above: .DEFICIENCY: < 20 NG /MLINSUFFICIENCY: 20-29 NG/MLSUFFICIENCY: 30-100 NG/MLTHIS ASSAY ACCURATELY QUANTIFIES THE SUM OFVITAMIN D3, 25-HYDROXY AND VIT D2,25-HYDROXY. Complete Blood Count + Diffe rentialon 05-01-2020 Basophils (Bld) [#/Vol] 0.05 {x10E9/L} See Below [facility] Work Phone: Comment on above: Reference Range: 0.0 0 - 0.10 Ordering Provider: Chio CAMPOVERDE 17986 Basophils/100 WBC (Bld) 0.8 % 0.0 - 2.0 [employer] Phone: Comment on above: Ordering Provider: A JAMES CAMPOVERDE 61320 Eosinophils (Bld) [#/Vol] 0.21 {x10E9/L} See Below [employer] Phone: Comment on above: Reference Range: 0.0 0 - 0.70 Ordering Provider: A JAMES CAMPOVERDE 82068 Eosinophils/100 WBC (Bld) 3.4 % 0.0 - 6.0 [employer] Phone: Comment on above: Ordering Provider: A JAMES CAMPOVERDE 73757 Erythrocyte distribution width (RBC) [Ratio] 11.4 % below low threshold See Below [employer] Phone: Comment on above: Reference Range: 11. 5 - 14.5 Ordering Provider: A JAMES CAMPOVERDE 89075 Hematocrit (Bld) [Volume fraction] 44.4 % See Below [employer] Phone: Comment on above: Reference Range: 36. 0 - 46.0 Ordering Provider: A JAMES CAMPOVERDE 73406 Hemoglobin (Bld) [Mass/Vol] 14.5 g/dL See Below [employer] Phone: Comment on above: Reference Range: 12. 0 - 16.0 Ordering Provider: A JAMES CAMPOVERDE 24836 Lymphocytes (Bld) [#/Vol] 1.86 {x10E9/L} See Below [employer] Phone: Comment on above: Reference Range: 1.2 0 - 4.80 Ordering Provider: A JAMES CAMPOVERDE 39358 Lymphocytes/100 WBC (Bld) 30.1 % See Below [employer] Phone: Comment on above: Reference Range: 13. 0 - 44.0 Ordering Provider: A BOSTONIT MANGLA 25078 MCHC (RBC) [Mass/Vol] 32.7 g/dL See Below [employer] Phone: Comment on above: Reference Range: 32. 0 - 36.0 Ordering Provider: A NKIT MANGLA 69855 MCV (RBC) [Entitic vol] 93 fL 80 - 100 [facility] Work Phone: Comment on above: Ordering Provider: A NKIT MANGLA 40271 Monocytes (Bld) [#/Vol] 0.44 {x10E9/L} See Below [facility] Work Phone: Comment on above: Reference Range: 0.1 0 - 1.00 Ordering Provider: A NKIT MANGLA 38489 Monocytes/100 WBC (Bld) 7.1 % 2.0 - 10.0 [facility] Work Phone: Comment on above: Ordering Provider: A NKIT MANGLA 80719 Neutrophils (Bld) [#/Vol] 3.59 {x10E9/L} See Below [facility] Work Phone: Comment on above: Reference Range: 1.2 0 - 7.70 Ordering Provider: A NKIT MANGLA 84675 Neutrophils/100 WBC (Bld) 58.3 % See Below [facility] Work Phone: Comment on above: Reference Range: 40. 0 - 80.0 Ordering Provider: A NKIT MANGLA 95928 Platelets (Bld) [#/Vol] 222 {x10E9/L} 150 - 450 [facility] [employer] Phone: Comment on above: Ordering Provider: A NKIT MANGLA 98760 RBC (Bld) [#/Vol] 4.75 {x10E12/L} See Below [facility] Work Phone: Comment on above: Reference Range: 4.0 0 - 5.20 Ordering Provider: A NKIT MANGLA 33701 WBC (Bld) [#/Vol] 6.2 {x10E9/L} 4.4 - 11.3 [facility] Work Phone: Comment on above: Ordering Provider: A NKIT MANGLA 11042 Complete Blood Count + Differential 0.3 % 0.0 - 0.9 [facility] Work Phone: Comment on above: Immature Granulocyte Count (IG) includes promyelocytes, myelocytes and metamyelocytes but does not include bands. Percent differential counts (%) should be interpreted in the context of the absolute cell counts (cells/L). Ordering Provider: Chio MEADMYA CAMPOVERDE 40151 Metabolic Panelon 05-01-2020 LDH [Catalytic activity/Vol] 195 U/L 84 - 246 [facility] Work Phone: Comment on above: Ordering Provider: A JAMES CAMPOVERDE 52872 Otheron 05-01-2020 Interpreted by: RENEE JERONIMO05/01/20 16:32MRN: [id number] Name: ALCON JOHN STUDY:PET/CT MELANOMA, RESTAGING; 05/01/2020 [...] value (SUV)units. CODING:Subsequent Treatment Strategy (PS) CALIBRATION:Dose Vxxjznjzq-bt-Lyzf Interval (mins): 69 minMediastinal bloodpool SUV (normal [...] interpretation as stated. [facility]Electronically signed by: EDY JERONIMO 05/01/20 16:32 Normal [facility] Work Phone: Comment on above: Ordering Provider: A JAMES RANDALLLA 78761 Reticulocyte Counton 021 Reticulocyte Count 36 pg 28 - 38 [facility] Work Phone: Comment on above: Ordering Provider: A NKIT MANGLA 38826 Reticulocyte Count 0.062 {x10E12/L} See Below [facility] Work Phone: Comment on above: Reference Range: 0.0 18 - 0.083 Ordering Provider: A NKIT MANGLA 99582 Reticulocyte Count 1.3 % 0.5 - 2.0 [facility] Work Phone: Comment on above: Ordering Provider: Chio CAMPOVERDE [address] Social History Date Type Detail Facility Start: 06-19-2023 Tobacco use and exposure Smokeless tobacco non-user [facility] Work Phone: Start: 06-12-2023 End: 06-20-2023 Daily caffeine consumption Daily caffeine consumption -[facility] 3 DO Work Phone: Start: 06-12-2023 End: 06-20-2023 Sex Assigned At [facility] [employer] Other Start: 06-12-2023 End: 06-19-2023 Tobacco smoking status NHIS Never smoked tobacco [facility] Work Phone: Start: 06-12-2023 End: 06-20-2023 Alcoholic beverage intake Current drinker of alcohol (finding) [facility] Work Phone: Start: 06-06-2023 End: 07-21-2023 Exposure to SARS-CoV-2 (event) Not sure [facility] Start: 1980 Sex Assigned At Female [facility] Start: 1980 Sex assigned at Not on file [facility] Work Phone: Assertion Tobacco smoking consumption unknown (finding) [facility] Work Phone: Vital Signs Date Time Vital Sign Value Performing Clinician Facility 07-21-2023 14:30-0400 Body mass index (BMI) [Ratio] 28.28 kg/m2 Radha Calvillo MD Work Phone: [facility] 07-21-2023 14:30-0400 Body temperature 97 [degF] Radha Calvillo MD Work Phone: [facility] 07-21-2023 14:30-0400 Body weight 81.9 kg Radha Calvillo MD Work Phone: [facility] 07-21-2023 14:30-0400 Diastolic blood pressure 66 mm[Hg] Radha Calvillo MD Work Phone: [facility] 07-21-2023 14:30-0400 Heart rate 78 /min Radha Calvillo MD Work Phone: [facility] 07-21-2023 14:30-0400 Respiratory rate 16 /min Radha Calvillo MD Work Phone: [facility] 07-21-2023 14:30-0400 SaO2% (BldA) [Mass fraction] 96 % Radha Calvillo MD Work Phone: [facility] 07-21-2023 14:30-0400 Systolic blood pressure 103 mm[Hg] Radha Calvillo MD Work Phone: [facility] 06-19-2023 10:18-0400 Body mass index (BMI) [Ratio] 29 kg/m2 Gordon Campoverde MD Work Phone: [facility] 06-19-2023 10:18-0400 Body temperature 97.2 [degF] Gordon Campoverde MD Work Phone: [facility] 06-19-2023 10:18-0400 Body weight 84 kg Gordon Campoverde MD Work Phone: [facility] 06-19-2023 10:18-0400 Diastolic blood pressure 78 mm[Hg] Gordon Campoverde MD Work Phone: [facility] 06-19-2023 10:18-0400 Heart rate 79 /min Gordon Campoverde MD Work Phone: [facility] 06-19-2023 10:18-0400 Respiratory rate 18 /min Gordon Campoverde MD Work Phone: [facility] 06-19-2023 10:18-0400 SaO2% (BldA) [Mass fraction] 98 % Gordon Campoverde MD Work Phone: [facility] 06-19-2023 10:18-0400 Systolic blood pressure 114 mm[Hg] Gordon Campoverde MD Work Phone: [facility] 02-25-2023 15:45-0500 Body height 170.18 cm Candelaria Ayala Other [employer] Other 02-25-2023 15:45-0500 Body mass index (BMI) [Ratio] 27.91 kg/m2 Candelaria Ayala Other [employer] Other 02-25-2023 15:45-0500 Body temperature 98.1 [degF] Candelaria Ayala Other [employer] Other 02-25-2023 15:45-0500 Body weight 80.83 kg Candelaria Ayala Other [employer] Other 02-25-2023 15:45-0500 Respiratory rate 18 /min Candelaria Ayala Other [employer] Other 02-25-2023 15:45-0500 SaO2% (BldA) [Mass fraction] 98 % Candelaria Ayala Other [employer] Other 10-30-2022 10:39-0400 Body height 170.18 cm Chi Fe Work Phone: [facility] [employer] 3 DO Work Phone: 10-30-2022 10:39-0400 Body mass index (BMI) [Ratio] 27.41 kg/m2 Chi Fe Work Phone: [facility] [employer] 3 DO Work Phone: 10-30-2022 10:39-0400 Body surface area Derived from formula 1.91 m2 Shaikh Fe Work Phone: [facility] 3 DO Work Phone: 10-30-2022 10:39-0400 Body weight 79.38 kg Shaikh Fe Work Phone: [facility] 3 DO Work Phone: 10-30-2022 10:39-0400 Diastolic blood pressure 74 mm[Hg] Shaikh Fe Work Phone: [facility] 3 DO Work Phone: 10-30-2022 10:39-0400 Heart rate 76 /min Shaikh Fe Work Phone: [facility] 3 DO Work Phone: 10-30-2022 10:39-0400 Systolic blood pressure 111 mm[Hg] Shaikh Fe Work Phone: [facility] 3 DO Work Phone: 07-10-2021 13:29-0400 Body height 170.18 cm Shaikh Fe Work Phone: [facility] 3 DO Work Phone: 07-10-2021 13:29-0400 Body mass index (BMI) [Ratio] 27.6 kg/m2 Shaikh Fe Work Phone: [facility] 3 DO Work Phone: 07-10-2021 13:29-0400 Body surface area Derived from formula 1.92 m2 Shaikh Fe Work Phone: [facility] 3 DO Work Phone: 07-10-2021 13:29-0400 Body temperature 97.4 [degF] Shaikh Fe Work Phone: [facility] 3 DO Work Phone: 07-10-2021 13:29-0400 Body weight 79.95 kg Shaikh Fe Work Phone: [facility] 3 DO Work Phone: 07-10-2021 13:29-0400 Diastolic blood pressure 70 mm[Hg] Shaikh Fe Work Phone: [facility] 3 DO Work Phone: 07-10-2021 13:29-0400 Heart rate 86 /min Shaikh Fe Work Phone: [facility] 3 DO Work Phone: 07-10-2021 13:29-0400 Systolic blood pressure 110 mm[Hg] Shaikh Fe Work Phone: [facility] 3 DO Work Phone: 05-10-2020 17:05-0500 BMI (Body Mass Index) 27.41 kg/m2 [facility] [employer] Work Phone: 05-10-2020 17:05-0500 Body Temperature 97.1 [degF] [facility] [employer] Work Phone: Comment on above: Method: Temporal 05-10-2020 17:05-0500 Body weight 79.38 kg [facility] Work Phone: 05-10-2020 17:05-0500 BP Diastolic 80 mm[Hg] [facility] [employer] Work Phone: 05-10-2020 17:05-0500 BP Systolic 119 mm[Hg] [facility] [employer] Work Phone: 05-10-2020 17:05-0500 BSA (Body Surface Area) 1.91 m2 [facility] [employer] Work Phone: 05-10-2020 17:05-0500 Height 170.18 cm [facility] Work Phone: 05-10-2020 17:05-0500 Pulse (Heart Rate) 76 /min [facility] [employer] Work Phone: Functional Status Date Assessment Result Facility NEGATED: Highlighted row Functional performance Functional status health issues are not documented Disease [facility] Work Phone: Mental Status Date Assessment Result Facility NEGATED: Highlighted row Cognitive function [Interpretation] Cognitive status health issues are not documented Disease [facility] [employer] Phone: Clinical Notes 06-27-2022 to 07-21-2023 Radha [...] 2009. Cumulative Dose: Unknown Radiation: chest wall 2001, adjuvant RT Allergies: No Known Allergies Outpatient [...] Insecurity: No Food Insecurity (03/23/2022) [facility] Within the past 12 [...] workup needs beneficial. documented in this encounter [facility] Work Phone: 07-21-2023 Instructions Radha Calvillo MD - 07/21/2023 2:15 PM EDT Echo Cardiopulmonary stress test ([place]) See me after testing. documented in this encounter [facility] Work Phone: 06-19-2023 History of Present illness [...] perspective. 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 She does not want to make another appointment as of now. From Med Onc perspective, she had a PET scan in June 2022 that did not show any evidence of recurrent tumor. 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 However, the patient had a [...] hours if needed. norethindrone ac-eth estradioL (Microgestin 03/22) 1-20 mg-mcg tablet Take 1 tablet by [...] agree with the findings as stated by residential sales consultant Dr. Namrata Zuñiga. This study was interpreted at [facility], [place], [place]. MACRO: None Signed by: Edy Jeronimo 06/16/2023 2:50 PM Dictation workstation: [id number] Pathology Results: I have reviewed the full pathology report recorded in the EMR. The pertinent portions indicating diagnosis are listed here in the note. for details please refer to the full report recorded in the EMR. Surgical Pathology [May 10 2009 12:56PM] ([id number]) Pathologist: MARCUS CHRISTOPHER M.D. Date of Procedure: [...] identified Electronically Signed Out By MARCUS CHRISTOPHER M.D./[facility] Assessment and Plan: Assessment/Plan Mr. Alcon John [...] number listed below. Thank you for choosing [facility]. We appreciate your visit. Gordon Campoverde MD Financial Center Manager Division of Hematology and Oncology [facility] Co-Director Sarcoma and Cutaneous Oncology [facility] documented in this encounter [facility] Work Phone: 06-19-2023 Instructions Gordon Campoverde MD [...] number listed below. Thank you for choosing [facility]. We appreciate your visit. Gordon Campoverde MD Financial Center Manager Division of Hematology and Oncology [facility] Co-Director Sarcoma and Cutaneous Oncology [facility] documented in this encounter [facility] Work Phone: 02-25-2023 Evaluation note Encounter Date [...] understanding and is agreeable to treatment plan. [employer] Other 05-16-2023 NoteCONSULTATION CONSULTATION DATE: 07/16/2022 TO: [...] our patients to inform us about any gvig-uti-vudodkp medications or herbal remedies/nutritional supplements/alternative remedies. 2. [...] treatment options with their primary care provider.[id number] NotePROCEDURE: XR HIP LT 2 3V W [...] authenticated by: NIA LEONARD Date: 2022-06-27 07:07[facility]Evaluation noteNo assessment information availableSum[facility] Work Phone: Evaluation note* Diagnosis Other specified personal risk factors, not elsewhere classified Personal history of irradiation Personal history of irradiation, presenting hazards to health Chronic kidney disease, 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, unspecified (Multi) documented in this encounter [facility] Work Phone: Evaluation note* Diagnosis Acute deep vein thrombosis of left popliteal vein (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, site unspecified Status post administration of cardiotoxic chemotherapy Shortness of breath on exertion Shortness of breath documented in this encounter [facility] Work Phone: Evaluation note* Diagnosis Status post administration of cardiotoxic chemotherapy- Primary Shortness of breath on exertion Shortness of breath Acute deep vein thrombosis of left popliteal vein (Multi) 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, site unspecified Atypical chest pain Other chest pain documented in this encounter [facility] Work Phone: History general Narrative - Reported* Type Description Date Medical History sleep disterbances Surgical History 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 2000 2009 Hospitalization History see above [employer] Other Reason for referral (narrative)* Consultation (Routine) - Authorized Specialty Diagnoses / Procedures Referred By Josué guadarrama Referred To Contact Cardiology Diagnoses Shortness [place] [address] [place] [address] Referral ID Status Reason Start Date Expiration Date Visits Requested Visits Authorized [id number] Authorized Specialty Services Required 06/19/2023 06/18/2024 1 1 [facility] Work Phone: Rexyoh for referral (narrative)* Consultation (Routine) - Authorized Specialty Diagnoses / Procedures Referred By Josué guadarrama Referred To Contact Cardiology Diagnoses Shortness of breath on exertion 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) Atypical chest pain Procedures [place] [address] [facility] [address] [place] [address] Referral ID Status Reason Start Date Expiration Date V isits Requested Visits Authorized [id number] Authorized 07/21/2023 07/20/2024 1 1 * Cardiac Stress Testing (Routine) - Pending Review Specialty Diagnoses / Procedures Referred By Josué guadarrama Referred To Contact Cardiology Diagnoses Shortness of breath on exertion Atypical chest pain Procedures Cardiopulmonary (Metabolic) Stress Test [place] CARDIOPULMONARY EXERCISE TESTING [place]ha Calvillo [place] [id number] [place] [address] [address] [place] [address] Referral ID Status Reason Start Date Expiration Date V isits Requested Visits Authorized [id number] Pending Review 07/21/2023 07/20/2024 1 1 * CV Imaging (Routine) - Pending Review Specialty Diagnoses / Procedures Referred By Josué guadarrama Referred To Contact Cardiology Diagnoses Shortness of breath on exertion 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) Procedures Onco-Echo Complete (Strain & 3D) [place] ECHO TTHRC R-T 2D W/WOM-MODE COMPL SPEC&COLR D Radha Calvillo MD [address] [place] [address] [address] [place] [address] Referral ID Status Reason Start Date Expiration Date Visits Requested Visits Authorized [id number] Pending Review Perform Procedure 07/21/2023 07/20/2024 1 1 * Cardiovascular (Routine) - Authorized Specialty Diagnoses / Procedures Referred By Josué guadarrama Referred To Contact Diagnoses Shortness of breath on exertion Status post administration of cardiotoxic chemotherapy Procedures ECG 12 lead (Ancillary Performed) Radha Calvillo MD [address] [place] [address] [address] [place] [address] Referral ID Status Reason Start Date Expiration Date V isits Requested Visits Authorized [id number] Authorized 07/21/2023 07/20/2024 1 1 [facility] Work Phone: Family History No Family History Records FoundUnknown Family Member Name Dates Details No pertinent family history: Mother, Father(V49.89, Z78.9) Status:Active Unknown Family Member Name Dates Details No pertinent family history: Mother, Father(V49.89, Z78.9) Status:Active Chief Complaint and Reason for Visit Chief Complaint N18.30 Advance Directives No Advanced Directives Records Found Advance Directive Response Recorded Date/ Time Advance Directives No July 18 8:24am Summary Purpose Reason for Referral Specialty Diagnoses / Procedures Referred By Contamira t Referred To Contact Radiology Diagnoses Other specified personal risk factors, not elsewhere classified Personal history of irradiation Chronic kidney disease, 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, unspecified (Multi) Procedures NM PET CT melanoma diagnosis for noncovered [place] [id number] [place] [id number] Referral ID Status Reason Start Date Expiration Date V isits Requested Visits Authorized [id number] Closed Perform Procedure 11/16/2022 05/15/2023 3 3 Additional Source Comments Care Teams (unrecognized sec tion and content) Team Status: Inactive Member Role Status Dates John Isbell MD Attending Provider Active Shaikh Fe MD Primary Care Provider Active Team Status: Active Member Role Status Dates Shaikh Fe MD Primary Care Provider Active Road Tester Relationship Specialty Start Date End Date Shaikh Miramontes MD PCP - General 05/10/20 Gordon Campoverde MD [address] [place], [place] [id number] [place] [id number] Consulting Physician Hematology and Oncology 11/16/22 Road Tester Relationship Specialty Start Date End Date Shaikh Miramontes MD PCP - General 05/10/20 Gordon Campoverde MD [address] [place] [address] Consulting Physician Hematology and Oncology 11/16/22 Road Tester Relationship Specialty Start Date End Date Shaikh Miramontes MD PCP - General 05/10/20 [place] [address] [place] [address] Consulting Physician Hematology and Oncology 11/16/22 Road Tester Relationship Specialty Start Date End Date Shaikh Miramontes MD PCP - General 05/10/20 [place] [address] [place] [address] Consulting Physician Hematology and Oncology 11/16/22 Goals (unrecognized section and content) Goals may be documented in a n alternate sectionNo Information INFORMATION SOURCE (unrecogn ized section and content) DATE CREATED AUTHOR 08/04/2021 [facility] DATE CREATED AUTHOR AUTHOR'S ORGANIZ ATION 05/25/2022 [facility] DATE CREATED AUTHOR AUTHOR'S ORGANIZ ATION 08/09/2022 [facility] DATE CREATED AUTHOR AUTHOR'S ORGANIZ ATION 10/31/2022 [facility] DATE CREATED AUTHOR AUTHOR'S ORGANIZ ATION 10/31/2022 [employer] DATE CREATED AUTHOR AUTHOR'S ORGANIZ ATION 07/12/2023 [facility] DATE CREATED AUTHOR AUTHOR'S ORGANIZ ATION 07/27/2023 [facility] REASON FOR VISIT (unrecogniz ed section and content) Specialty Diagnoses / Procedures Referred By Contac t Referred To Contact Radiology Diagnoses Other specified personal risk factors, not elsewhere classified Personal history of irradiation Chronic kidney disease, 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, unspecified (Multi) Procedures NM PET CT melanoma diagnosis for noncovered [place] [address] [place] [address] Referral ID Status Reason Start Date Expiration Date V isits Requested Visits Authorized [id number] Closed Perform Procedure 11/16/2022 05/15/2023 3 3 Reason Comments Follow-up PET scan follow upDV T follow upAnticoagulation follow up Sarcoma Burr Sarcoma long t erm survivor Reason Comments New Patient Visit Specialty Diagnoses / Procedures Referred By Contamira t Referred To Contact Cardiology Diagnoses Shortness [place] [address] [place] [address] Referral ID Status Reason Start Date Expiration Date Visits Requested Visits Authorized [id number] Authorized Specialty Services Required 06/19/2023 06/18/2024 1 [...] BE BASED ON THE PRIMARY CLINICAL RECORDS. [employer] provides no warranty or guarantee of the accuracy or completeness of information in this document.
[2023-08-05 07:57] VITALS: BP 107/79; PULSE 86; TEMP 36.6; O2SAT 99
[2023-08-05 08:10] LABS: HCG Qualitative NEGATIVE (NEGATIVE)
[2023-08-05 08:40] VITALS: BP 113/80; BP 115/77; PULSE 80; PULSE 82; O2SAT 97; O2SAT 98
[2023-08-05] MEDS: BUPIVACAINE HCL 0.25% PF 25 MG/10 ML VIAL 2 ML INJ (08:45)
--- NOTE | 2023-08-05 09:55 | W.PM.PROCNOT ---
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 25 gauge spinal needle Insert over each of the target areas identified in fluoroscopy corresponding needles were advanced Under fluoroscopic guidance until the target/targets encountered , no indication of intravascular or Intraneuronal needle tip placement. Solution injected .needles removed post procedurally. patient transferred to recovery room in stable condition to be discharged home after meeting criteria Anesthesia: Local Surgeon: Jayne Bradley Condition: stable Disposition: PACU
== END 2023-08-05 08:51 | disposition home or self-care (01) ==
PROVIDERS: PCP Internal Medicine; Visit Provider Anesthesiology Pain Medicine
DX: G57.82 Other specified mononeuropathies of left lower limb (principal)
CPT/HCPCS: 36415; 64425; 84703

== ENCOUNTER 2023-11-07 13:42 | Outpatient (OUT) | payer BC, SELFPAY ==
[2023-11-07 15:57] LABS: Anion Gap 9.1; BUN Creatinine Ratio 19.7; Calcium 8.9 mg/dL (8.5-10.1); Carbon Dioxide 32.4 mmol/L (21.0-32.0); Chloride 99 mmol/L (98-107); Estimated GFR (African America 53 (>=60); Estimated GFR (Non-African Ame 44 (>=60); Glucose 98 mg/dL (74-106); Potassium 4.5 mmol/L (3.5-5.1); Sodium 136 mmol/L (136-145)
[2023-11-08 13:08] LABS: PTH, Intact 44 pg/mL (15-65)
== END 2023-11-07 13:43 | disposition home or self-care (01) ==
LOC: LAB 13:44
PROVIDERS: PCP Internal Medicine; Visit Provider Internal Medicine
DX: N18.31 Chronic kidney disease, stage 3a (principal); E21.3 Hyperparathyroidism, unspecified
CPT/HCPCS: 36415; 80048; 83970

== ENCOUNTER 2024-02-16 13:31 | Outpatient (OUT) | payer BC, SELFPAY ==
--- OUTSIDE RECORDS SUMMARY | 2024-02-16 13:45 | XMS_ITS | CCD ---
Author Organization [facility] Care Team Providers Care Real Estate Manager Name Role Phone Abbie Negrete Unavailable Unavailable Raquel Richardson Unavailable Unavailable Fawwad, Hood Unavailable Unavailable Unavailable MD John Graham Attending Provider [phone] MD Arti Miramontes Primary Care Provider Gordon Campoverde Attending Unavailable FAWWAD, HOOD H Admitting Unavailable FAWWAD, HOOD H Attending Unavailable FAWWAD, HOOD H Primary Care Unavailable FAWWAD, HOOD H Admitting Unavailable FAWWAD, HOOD H Attending Unavailable FAWWAD, HOOD H Primary Care Unavailable LAKSHMIPATHY ., NARENDRANATH Admitting Anahi vailable LAKSHMIPATHY ., NARENDRANATH Attending Anahi vailable LAKSHMIPATHY ., NARENDRANATH Consulting Anahi vailable FAWWAD, HOOD H Primary Care Unavailable LAKSHMIPATHY ., NARENDRANATH Admitting Anahi vailable FAWWAD, HOOD H Primary Care Unavailable LAKSHMIPATHY ., NARENDRANATH Attending Anahi vailable LAKSHMIPATHY ., NARENDRANATH Consulting Anahi vailable FAWWAD, HOOD H Attending Unavailable FAWWAD, HOOD H Primary Care Unavailable DR NIA LEONARD Consulting Unavailable FAWWAD, HOOD H Admitting Unavailable FAWWAD, OHOD H Consulting Unavailable FAWWAD, HOOD H Admitting Unavailable FAWWAD, HOOD H Primary Care Unavailable DR NIA LEONARD Consulting Unavailable FAWWAD, HOOD H Attending Unavailable FAWWAD, [facility] H Consulting Unavailable AICHHOLZ, PUBLIC RELATIONS DIRECTOR STACIE Admitting Unavailable FAWWAD, HOOD H Primary Care Unavailable AICHHOLZ, PUBLIC RELATIONS DIRECTOR STACIE Attending Unavailable AICHHOLZ, PUBLIC RELATIONS DIRECTOR STACIE Consulting Unavailable HORACIO, DR NIA Paige Consulting Unavailable Unavailable Unavailable Jeffrey, Dr. Rik Collins Attending Un available Jeffrey, Dr. Rik Collins Admitting Un available MD JOHN GRAHAM Referring Unavailable MD JOHN GRAHAM Attending Unavailable Terrence, Dr. Leyva Attending Unavailable Candelaria Ayala Unavailable Fe GAN, [facility] Primary Care Provider [phone] Gordon Campoverde MD Unavailable RUSTERREZA, RADHA A Referring Unavailable [facility] Primary Care Unavailable JOHN GRAHAM Attending Unavailable [facility] Primary Care Unavailable GORDON CAMPOVERDE Referring Unavailable [facility] Primary Care Unavailable [facility] Primary Care Unavailable GORDON CAMPOVERDE Attending Unavailable [facility] Primary Care Unavailable [facility] Care Unavailable BECCATERREZA, RADHA A Attending Unavailable GORDON CAMPOVERDE Referring Unavailable [facility] Care Unavailable RUSTERHOLTZ, RADHA A Referring Unavailable [facility] Care Unavailable RUSTERHOLTZ, RADHA A Attending Unavailable BECCATERHOLTZ, RADHA A Referring Unavailable [facility] Primary Care Unavailable Naveen GAN, Silviano Primary Care Provider [phone] Sera Aguirre NP Unavailable SHAIKH MIRAMONTES Attending Unavailable FE HOOD Attending Unavailable [facility] Attending Unavailable ANURADHA OSEGUERA Attending Unavailable ANURADHA OSEGUERA Referring Unavailable NIA PORTILLO Attending Unavailable NIA PORTILLO Referring Unavailable AICGREG, STACIE Attending Unavailable Fe GAN, [facility] Primary Care Provider Fe AGN, [facility] Primary Care Provider [phone] Medications Current Medications Medication Drug Class(es) Dates Sig (Normalized) Sig (Original) amoxicillin 875 mg / clavulanate 125 mg oral tablet (1 source) Penicillin-class Antibacterial Start: 02-25-2023 take 1 tablet by mouth every twelve hours Amoxicillin-Pot Clavulanate 875-125 MG 1 tablet Orally every 12 hrs for 10 day(s) Jan, Active apixaban 5 mg oral tablet (9 sources) Factor Xa Inhibitor Start: 05-06-2023 End: 06-18-2024 take 1 tablet by mouth twice daily apixaban (Eliquis) 5 mg tablet Indications: Acute deep vein thrombosis of left popliteal vein (Multi) Take 1 tablet (5 mg) by mouth 2 times a day. 60 tablet 06/19/2023 06/18/2024 Active azithromycin 250 mg oral tablet (3 sources) Macrolide Antimicrobial Start: 01-20-2024 azithromycin (Zithromax) 250 MG tablet Indications: Subacute cough 2 pills day #1, 1 pill day #2-5 6 tablet 01/20/2024 Active benzonatate 100 mg oral capsule (1 source) Non-narcotic Antitussive Start: 02-25-2023 take 1 capsule by mouth three times daily as needed Tessalon Perles 100 MG 1 capsule as needed Orally Three times a day for 7 days Jan, Active calcitriol 0.56371 mg oral capsule (13 sources) Vitamin D3 Analog Start: 04-24-2023 take 1 capsule by mouth every other day calcitriol (Rocaltrol) 0.25 MCG capsule Take 0.25 mcg by mouth every other day 04/24/2023 Active fluconazole 150 mg oral tablet (1 source) Azole Antifungal Start: 02-25-2023 take 1 tablet by mouth once Fluconazole 150 MG 1 tablet Orally once for 1 day Jan, Active Sylvia 1/20 (1 source) Sylvia 1/20 Activ e LORazepam 1 mg oral tablet (17 sources) Benzodiazepine Start: 09-10-2023 End: 12-09-2023 take 1 tablet by mouth at bedtime LORazepam (Ativan) 1 MG tablet Indications: Psychophysiological insomnia Take 1 tablet (1 mg) by mouth at bedtime 30 tablet 2 09/10/2023 Active take 1 tablet by jagdeep th once daily at bedtime LORazepam (Ativan) 0.5 mg tablet Take 1 tablet (0.5 mg) by mouth once daily at bedtime. Active take 1 tablet by mouth every twe lve hours Ativan 1 MG 1 tablet as needed Orally Twice a day Active meloxicam 7.5 mg oral tablet (1 source) Nonsteroidal Anti-inflammatory Drug Start: 06-26-2023 take 1 tablet by mouth twice daily as needed meloxicam (Mobic) 7.5 MG tablet Take 7.5 mg by mouth 2 (two) times a day as needed 06/26/2023 Active predniSONE 10 mg oral tablet (2 sources) Start: 11-13-2023 predniSONE (Deltasone) 10 MG tablet Indications: Plantar fasciitis, right , Inflammatory heel pain, right , Calcaneal spur, right , Difficulty walking 1 tablet twice daily x 7 days; followed by 1 tablet daily as directed until complete 21 tablet 11/13/2023 Active Completed/Discontinued Medications Medication Drug Class(es) Dates Sig (Normalized) Sig (Original) [id number] 200 actuat albuterol 0.09 mg/actuat metered dose [...] oral tablet (1 source) alpha-Adrenergic Agonist, Uncompetitive S-lpietu-U-aspartate Receptor Antagonist, Sigma-1 Agonist Start: 03-16-2019 take [...] propionate 0.05 mg/actuat metered dose nasal spray (3 sources) Corticosteroid Start: 03-16-2019 take 1 spray(s) nasal route once daily as needed Fluticasone Propionate 50 MCG/ACT 1 spray in each nostril Nasally Once a day for 21 days Mar, Not-Taking/PRN take 2 spray(s) nasa l route in the morning fluticasone (Flonase Allergy Relief) 50 MCG/ACT nasal spray Administer 2 sprays into each nostril in the morning. Shake gently. Before first use, prime pump. After use, clean tip and replace cap.. Active Sylvia 1/20 1-20 MG-MCG Oral Tablet (2 [...] Problem Classification Problem Date Documented Date Episodic/Chronic Anxiety disorders (5 sources) Anxiety; Translations: [Anxiety disorder, unspecified] Onset: 4 05-05-2023 Chronic Asthma (5 sources) Mild intermittent asthma; Translations: [Mild intermittent asthma with (acute) exacerbation] Onset: 4 05-05-2023 Chronic Cancer of bone and connective tissue (20 sources) Malignant neoplasm of bone and articular cartilage, unspecified; Translations: [Malignant neoplasm of connective and soft tissue, unspecified] Onset: 3 Chronic Chronic kidney disease (20 sources) Chronic kidney disease stage 3; Translations: [Chronic kidney disease, Stage III (moderate)] Onset: 3 Chronic Chronic kidney disease (2 sources) Chronic kidney disease; Translations: [Chronic kidney disease, stage 3a (Multi)] Onset: 4 Maintenance chemotherapy; radiotherapy (3 sources) Encounter for antineoplastic chemotherapy; Translations: [Patient encounter status] Onset: 4 Chronic Miscellaneous mental health disorders (5 sources) Psychophysiologic insomnia; Translations: [Psychophysiologic insomnia] Onset: 4 05-05-2023 Chronic Other aftercare (2 sources) Drug therapy finding; Translations: [Encounter for therapeutic drug monitoring] Episodic Other connective tissue disease (3 sources) Plantar fasciitis of right foot; Translations: [Plantar fascial fibromatosis] 02-05-2024 Episodic Other connective tissue disease (3 sources) Heel pain; Translations: [Pain in right foot] 02-05-2024 Episodic Other connective tissue disease (3 sources) Calcaneal spur of right foot; Translations: [Calcaneal spur, right foot] 02-05-2024 Episodic Other diseases of kidney and ureters (12 sources) Secondary hyperparathyroidism; Translations: [Secondary hyperparathyroidism of renal origin] Onset: 4 06-12-2023 Chronic Other endocrine disorders (2 sources) Hyperparathyroidism, unspecified; Translations: [Hyperparathyroidism, unspecified (Multi)] Onset: 4 Chronic Other lower respiratory disease (3 sources) Cough; Translations: [Subacute cough] Onset: 4 01-20-2024 Episodic Other nervous system disorders (4 sources) Other chronic pain; Translations: [OTHER CHRONIC PAIN] Onset: 3 Chronic Other nervous system disorders (3 sources) Difficulty walking; Translations: [Difficulty in walking, not elsewhere classified] 02-05-2024 Chronic Other non-traumatic joint disorders (4 sources) Pain in left hip; Translations: [PAIN IN LEFT HIP] Onset: 3 Episodic Other screening for suspected conditions (not mental disorders or infectious disease) (20 sources) Imaging of gastrointestinal tract abnormal; Translations: [Nonspecific abnormal results of other specified function study] Onset: 4 Resolved: 4 06-12-2023 Episodic Other upper respiratory infections (1 source) Acute maxillary sinusitis, unspecified Episodic Residual codes; unclassified (2 sources) H/O: radiation exposure; Translations: [Personal history of irradiation] 06-16-2023 Episodic Spondylosis; intervertebral disc disorders; other back problems (9 sources) Spondylosis without myelopathy or radiculopathy, lumbosacral region; Translations: [Other intervertebral disc degeneration, lumbar region] Onset: 2 Chronic Unclassified (3 sources) LOW BACK PAIN, UNSPECIFIED; Translations: [LOW BACK PAIN, UNSPECIFIED] Onset: 2 Past or Other Problems Problem Classification Problem Date Documented Da te Episodic/Chronic Congestive heart failure; nonhypertensive (11 sources) Congestive heart failure; Translations: [Congestive heart failure, unspecified] Onset: 06-12-2023 Resolved: 07-21-2023 06-12-2023 Chronic Malaise and fatigue (1 source) Weakness; Translations: [WEAKNESS] Onset: 01-23-2022 Episodic Nonspecific chest pain (6 sources) Atypical chest pain; Translations: [Other chest pain] Onset: 07-21-2023 07-21-2023 Episodic Other connective tissue disease (5 sources) Pain in left lower limb; Translations: [Pain in left leg] Onset: 05-05-2023 05-05-2023 Episodic Other lower respiratory disease (13 sources) Dyspnea; Translations: [Shortness of breath] Onset: 06-12-2023 06-12-2023 Episodic Other lower respiratory disease (12 sources) Dyspnea on exertion; Translations: [Shortness of breath] Onset: 06-12-2023 06-19-2023 Episodic Other lower respiratory disease (2 sources) Shortness of breath; Translations: [Shortness of breath] Onset: 06-19-2023 Episodic Phlebitis; thrombophlebitis and thromboembolism (17 sources) Acute deep venous thrombosis of popliteal vein of left leg; Translations: [Acute embolism and thrombosis of left popliteal vein] Onset: 05-06-2023 Resolved: 01-20-2024 06-19-2023 Episodic Residual codes; unclassified (19 sources) H/O: chemotherapy; Translations: [Personal history of antineoplastic chemotherapy] Onset: 06-12-2023 06-12-2023 Episodic Residual codes; unclassified (5 sources) Personal history of irradiation; Translations: [Personal history of irradiation] Onset: 05-27-2022 Episodic Residual codes; unclassified (4 sources) Other specified personal risk factors, not elsewhere classified; Translations: [Other specified personal history presenting hazards to health] Onset: 06-16-2023 06-16-2023 Episodic Residual codes; unclassified (4 sources) Personal history of antineoplastic chemotherapy; Translations: [Personal history of antineoplastic chemotherapy] Onset: 06-12-2023 Episodic Residual codes; unclassified (5 sources) History of lung lobectomy; Translations: [Acquired absence of lung [part of]] Onset: 05-05-2023 05-05-2023 Episodic Spondylosis; intervertebral disc disorders; other back problems (5 sources) Lumbago with sciatica; Translations: [Lumbago with sciatica, left side] Onset: 05-05-2023 05-05-2023 Episodic Unclassified (1 source) Drug therapy finding; Translations: [Encounter for monitoring cardiotoxic drug therapy] Unclassified (2 sources) Never smoked tobacco; Translations: [Never a smoker] Unclassified (1 source) LOW BACK PAIN, UNSPECIFIED; Translations: [LOW BACK PAIN, UNSPECIFIED] Onset: 01-02-2022 Results Test Name Value Interpretation Reference Range Facility ONCO-ECHO COMPLETE (STRAIN A ND 3D)on 09-01-2023 ONCO-ECHO COMPLETE (STRAIN AND 3D) [facility] [id number] [id number] TRANSTHORACIC ECHOCARDIOGRAM REPORT Patient Name: ALCONANAI Reid Physician: [id number] Radha Calvillo MD Study Date: 09/01/2023 Ordering Provider: [id number] RADHA CALVILLO MRN/PID: [id number] Fellow: Nurse: Date of /Age: 4 1980 / 43 years Coatings Inspector: Dorota Parra RDCS Gender: F Additional Staff: Height: 170.18 cm Admit Date: Weight: 82.55 kg Admission Status: Outpatient BSA / BMI: 1.94 m2 / 28.50 Department Location: [facility] Echo Lab kg/m2 Blood Pressure: 102 /68 mmHg Study Type: ONCO-ECHO COMPLETE (STRAIN AND 3D) Diagnosis/ICD: Encounter for antineoplastic chemotherapy-Z51.11 Indication: Chemothraphy CPT Codes: Echo Complete w Full Doppler-[id number] Study Detail: The following Echo studies were performed: 2D, M-Mode, Doppler, color flow, Strain and 3D. Image quality for this study is fair. Technically challenging study due to poor acoustic windows, body habitus and prominent lung artifact. PHYSICIAN INTERPRETATION: Left Ventricle: Left ventricular ejection fraction is normal, calculated by 3D at 65%. There are no regional wall motion abnormalities. The left ventricular cavity size is normal. There is no evidence of left ventricular hypertrophy. Left Ventricular Global Longitudinal Strain - -14.6 %. Spectral Doppler shows a normal pattern of left ventricular diastolic filling. Strain values have decreased since the last echocardiogram. There is no definite left ventricular thrombus visualized. The intraventricular septum appears intact without evidence of shunting or a ventricular septal defect. Poor quality strain measurement. Left Atrium: The left atrium is normal in size. There is no atrial septal defect present. Right Ventricle: The right ventricle is normal in size. There is normal right ventricular global systolic function. Right Atrium: The right atrium is normal in size. Aortic Valve: The aortic valve is trileaflet. There is no evidence of aortic valve stenosis. The aortic valve dimensionless index is 0.76. There is no evidence of aortic valve regurgitation. The peak instantaneous gradient of the aortic valve is 3.7 mmHg. The mean gradient of the aortic valve is 1.9 mmHg. Mitral Valve: The mitral valve is mildly thickened. There is no evidence of mitral valve prolapse. There is no evidence of mitral valve stenosis. There is no evidence of mitral annular calcification. There is mild mitral valve regurgitation. Tricuspid Valve: The tricuspid valve is structurally normal. There is no evidence of tricuspid valve stenosis. There is trace to mild tricuspid regurgitation. The Doppler estimated RVSP is within normal limits at 26.2 mmHg. Pulmonic Valve: The pulmonic valve is not well visualized. There is no indication of pulmonic valve regurgitation. Pericardium: There is no pericardial effusion noted. Aorta: The aortic root is normal. In comparison to the previous echocardiogram(s): There are no prior studies on this patient for comparison purposes. ONCO-CARDIOLOGY: Machine: This study was performed on the [employer]. Onco-Cardiology Measurements: Current Measurements 2D EF (Biplane) 65% 3D EF 59% Global Longitudinal Strain (GLS) -17% GLS Tracking Quality: Poor CONCLUSIONS: 1. Left ventricular ejection fraction is normal, calculated by 3D at 65%. 2. Intact intraventricular septum without shunting or a ventricular septal defect. 3. No left ventricular thrombus visualized. 4. There is no evidence of left ventricular hypertrophy. 5. There is normal right ventricular global systolic function. 6. No evidence of mitral valve prolapse. 7. There is No tricuspid stenosis. 8. RVSP within normal limits. 9. Aortic valve stenosis is not present. QUANTITATIVE DATA SUMMARY: 2D MEASUREMENTS: Normal Ranges: IVSd: 0.72 cm (0.6-1.1cm) LVPWd: 0.71 cm (0.6-1.1cm) LVIDd: 4.31 cm (3.9-5.9cm) LVIDs: 2.94 cm LV Mass Index: 46.7 g/m2 LV % FS 31.7 % LA VOLUME: Normal Ranges: LA Vol A4C: 25.0 ml (22+/-6mL/m2) LA Vol A2C: 28.3 ml LA Vol BP: 28.5 ml LA Vol Index A4C: 12.9ml/m2 LA Vol Index A2C: 14.5 ml/m2 LA Vol Index BP: 14.7 ml/m2 LA Area A4C: 12.6 cm2 LA Area A2C: 12.5 cm2 LA [place] A4C: 5.4 cm LA [place] A2C: 4.7 cm LA Volume Index: 14.8 ml/m2 LA Vol A4C: 23.5 ml LA Vol A2C: 27.3 ml AORTA MEASUREMENTS: Normal Ranges: Ao Sinus, d: 3.00 cm (2.1-3.5cm) LV SYSTOLIC FUNCTION BY 2D PLANIMETRY (MOD): Normal Ranges: EF-3DQ: 65 % LV EF Reported: 65 % Global Longitudinal Strain (GLS): -15 % LV DIASTOLIC FUNCTION: Normal Ranges: MV Peak E: 0.69 m/s (0.7-1.2 m/s) MV Peak A: 0.60 m/s (0.42-0.7 m/s) E/A Ratio: 1.15 (1.0-2.2) MV e' 0.100 m/s (>8.0) MV lateral e' 0.11 m/s MV medial e' 0.09 m/s E/e' Ratio: 6.91 (<8.0) MITRAL VALVE: Normal Ranges: MV DT: 119 msec (150-240msec) AORTIC VALVE: Normal Ranges: AoV Vma (more content not included)... Normal [facility] Onco-Echo Complete (Strain & 3D)on 09-01-2023 Aortic Valve Area by Continuity of Peak Velocity 2.70 cm2 [facility] Work Phone: Aortic Valve Area by Continuity of VTI 2.41 cm2 [facility] Work Phone: AV mn grad 1.9 mmHg [facility] Work Phone: AV pk grad 3.7 mmHg [facility] Work Phone: AV pk [place] 0.96 m/s [facility] Work Phone: LA vol index A/L 14.7 ml/m2 [facility] Work Phone: LV EF 65 % [facility] Work Phone: LV GLS -14.6 % [facility] Work Phone: LVIDd 4.31 cm [facility] Work Phone: LVOT diam 2.01 cm [facility] Work Phone: MV E/A ratio 1.15 [facility] Work Phone: RV free wall pk S' 10.00 cm/s [facility] Work Phone: RVSP 26.2 mmHg [facility] Work Phone: Tricuspid annular plane systolic excursion 1.4 cm [facility] Work Phone: [facility] [id number] [id number] TRANSTHORACIC ECHOCARDIOGRAM REPORT Patient Name: ALCON BERKOWITZ Jeanette Physician: [id number] Rosa Calvillo MD Study Date: 09/01/2023 Ordering Provider: Francisca CALVILLO MRN/PID: [id number] Fellow: Nurse: Date of /Age: 4 1980 / 43 years Coatings Inspector: Dorota Parra RDCS Gender: F Additional Staff: Height: 170.18 cm Admit Date: Weight: 82.55 kg Admission Status: Outpatient BSA / BMI: 1.94 m2 / 28.50 Department Location: [facility] Echo Lab kg/m2 Blood Pressure: 102 /68 mmHg Study Type: ONCO-ECHO COMPLETE (STRAIN AND 3D) Diagnosis/ICD: Encounter for antineoplastic chemotherapy-Z51.11 Indication: Chemothraphy CPT Codes: Echo Complete w Full Doppler-[id number] Study Detail: The following Echo studies were performed: 2D, M-Mode, Doppler, color flow, Strain and 3D. Image quality for this study is fair. Technically challenging study due to poor acoustic windows, body habitus and prominent lung artifact. PHYSICIAN INTERPRETATION: Left Ventricle: Left ventricular ejection fraction is normal, calculated by 3D at 65%. There are no regional wall motion abnormalities. The left ventricular cavity size is normal. There is no evidence of left ventricular hypertrophy. Left Ventricular Global Longitudinal Strain - -14.6 %. Spectral Doppler shows a normal pattern of left ventricular diastolic filling. Strain values have decreased since the last echocardiogram. There is no definite left ventricular thrombus visualized. The intraventricular septum appears intact without evidence of shunting or a ventricular septal defect. Poor quality strain measurement. Left Atrium: The left atrium is normal in size. There is no atrial septal defect present. Right Ventricle: The right ventricle is normal in size. There is normal right ventricular global systolic function. Right Atrium: The right atrium is normal in size. Aortic Valve: The aortic valve is trileaflet. There is no evidence of aortic valve stenosis. The aortic valve dimensionless index is 0.76. There is no evidence of aortic valve regurgitation. The peak instantaneous gradient of the aortic valve is 3.7 mmHg. The mean gradient of the aortic valve is 1.9 mmHg. Mitral Valve: The mitral valve is mildly thickened. There is no evidence of mitral valve prolapse. There is no evidence of mitral valve stenosis. There is no evidence of mitral annular calcification. There is mild mitral valve regurgitation. Tricuspid Valve: The tricuspid valve is structurally normal. There is no evidence of tricuspid valve stenosis. There is trace to mild tricuspid regurgitation. The Doppler estimated RVSP is within normal limits at 26.2 mmHg. Pulmonic Valve: The pulmonic valve is not well visualized. There is no indication of pulmonic valve regurgitation. Pericardium: There is no pericardial effusion noted. Aorta: The aortic root is normal. In comparison to the previous echocardiogram(s): There are no prior studies on this patient for comparison purposes. ONCO-CARDIOLOGY: Machine: This study was performed on the [employer]. Onco-Cardiology Measurements: Current Measurements 2D EF (Biplane) 65% 3D EF 59% Global Longitudinal Strain (GLS) -17% GLS Tracking Quality: Poor CONCLUSIONS: 1. Left ventricular ejection fraction is normal, calculated by 3D at 65%. 2. Intact intraventricular septum without shunting or a ventricular septal defect. 3. No left ventricular thrombus visualized. 4. There is no evidence of left ventricular hypertrophy. 5. There is normal right ventricular global systolic function. 6. No evidence of mitral valve prolapse. 7. There is No tricuspid stenosis. 8. RVSP within normal limits. 9. Aortic valve stenosis is not present. QUANTITATIVE DATA SUMMARY: 2D MEASUREMENTS: Normal Ranges: IVSd: 0.72 cm (0.6-1.1cm) LVPWd: 0.71 cm (0.6-1.1cm) LVIDd: 4.31 cm (3.9-5.9cm) LVIDs: 2.94 cm LV Mass Index: 46.7 g/m2 LV % FS 31.7 % LA VOLUME: Normal Ranges: LA Vol A4C: 25.0 ml (22+/-6mL/m2) LA Vol A2C: 28.3 ml LA Vol BP: 28.5 ml LA Vol Index A4C: 12.9ml/m2 LA Vol Index A2C: 14.5 ml/m2 LA Vol Index BP: 14.7 ml/m2 LA Area A4C: 12.6 cm2 LA Area A2C: 12.5 cm2 LA [place] A4C: 5.4 cm LA [place] A2C: 4.7 cm (more content not included)... Radha Monsalve MD - 09/01/2023 [facility] [id number] [id number] TRANSTHORACIC ECHOCARDIOGRAM REPORT Patient Name: ALCON BERKOWITZ Jeanette Physician: [id number] Rosa Calvillo MD Study Date: 09/01/2023 Ordering Provider: Francisca CALVILLO MRN/PID: [id number] Fellow: Nurse: Date of /Age: 4 1980 / 43 years Coatings Inspector: Dorota Parra RDCS Gender: F Additional Staff: Height: 170.18 cm Admit Date: Weight: 82.55 kg Admission Status: Outpatient BSA / BMI: 1.94 m2 / 28.50 Department Location: [facility] Echo Lab kg/m2 Blood Pressure: 102 /68 mmHg Study Type: ONCO-ECHO COMPLETE (STRAIN AND 3D) Diagnosis/ICD: Encounter for antineoplastic chemotherapy-Z51.11 Indication: Chemothraphy CPT Codes: Echo Complete w Full Doppler-[id number] Study Detail: The following Echo studies were performed: 2D, M-Mode, Doppler, color flow, Strain and 3D. Image quality for this study is fair. Technically challenging study due to poor acoustic windows, body habitus and prominent lung artifact. PHYSICIAN INTERPRETATION: Left Ventricle: Left ventricular ejection fraction is normal, calculated by 3D at 65%. There are no regional wall motion abnormalities. The left ventricular cavity size is normal. There is no evidence of left ventricular hypertrophy. Left Ventricular Global Longitudinal Strain - -14.6 %. Spectral Doppler shows a normal pattern of left ventricular diastolic filling. Strain values have decreased since the last echocardiogram. There is no definite left ventricular thrombus visualized. The intraventricular septum appears intact without evidence of shunting or a ventricular septal defect. Poor quality strain measurement. Left Atrium: The left atrium is normal in size. There is no atrial septal defect present. Right Ventricle: The right ventricle is normal in size. There is normal right ventricular global systolic function. Right Atrium: The right atrium is normal in size. Aortic Valve: The aortic valve is trileaflet. There is no evidence of aortic valve stenosis. The aortic valve dimensionless index is 0.76. There is no evidence of aortic valve regurgitation. The peak instantaneous gradient of the aortic valve is 3.7 mmHg. The mean gradient of the aortic valve is 1.9 mmHg. Mitral Valve: The mitral valve is mildly thickened. There is no evidence of mitral valve prolapse. There is no evidence of mitral valve stenosis. There is no evidence of mitral annular calcification. There is mild mitral valve regurgitation. Tricuspid Valve: The tricuspid valve is structurally normal. There is no evidence of tricuspid valve stenosis. There is trace to mild tricuspid regurgitation. The Doppler estimated RVSP is within normal limits at 26.2 mmHg. Pulmonic Valve: The pulmonic valve is not well visualized. There is no indication of pulmonic valve regurgitation. Pericardium: There is no pericardial effusion noted. Aorta: The aortic root is normal. In comparison to the previous echocardiogram(s): There are no prior studies on this patient for comparison purposes. ONCO-CARDIOLOGY: Machine: This study was performed on the [employer] [facility]. Onco-Cardiology Measurements: Current Measurements 2D EF (Biplane) 65% 3D EF 59% Global Longitudinal Strain (GLS) -17% GLS Tracking Quality: Poor CONCLUSIONS: 1. Left ventricular ejection fraction is normal, calculated by 3D at 65%. 2. Intact intraventricular septum without shunting or a ventricular septal defect. 3. No left ventricular thrombus visualized. 4. There is no evidence of left ventricular hypertrophy. 5. There is normal right ventricular global systolic function. 6. No evidence of mitral valve prolapse. 7. There is No tricuspid stenosis. 8. RVSP within normal limits. 9. Aortic valve stenosis is not present. QUANTITATIVE DATA SUMMARY: 2D MEASUREMENTS: Normal Ranges: IVSd: 0.72 cm (0.6-1.1cm) LVPWd: 0.71 cm (0.6-1.1cm) LVIDd: 4.31 cm (3.9-5.9cm) LVIDs: 2.94 cm LV Mass Index: 46.7 g/m2 LV % FS 31.7 % LA VOLUME: Normal Ranges: LA Vol A4C: 25.0 ml (22+/-6mL/m2) LA Vol A2C: 28.3 ml LA Vol BP: 28.5 ml LA Vol Index A4C: 12.9ml/m2 LA Vol Index A2C: 14.5 ml/m2 LA Vol Index BP: 14.7 ml/m2 LA Area A4C: 12.6 cm2 LA Area A2C: 12.5 cm2 LA [place] A4C: 5.4 cm LA [place] A2C: 4.7 cm LA Volume Index: 14.8 ml/m2 LA Vol A4C: 23.5 ml LA Vol A2C: 27.3 ml AORTA MEASUREMENTS: Normal Ranges: Ao Sinus, d: 3.00 cm (2.1-3.5cm) LV SYSTOLIC FUNCTION BY 2D PLANIMETRY (MOD): Normal Ranges: EF-3DQ: 65 % LV EF Reported: 65 % Global Longitudinal Strain (GLS): -15 % LV DIASTOLIC FUNCTION: Normal Ranges: MV Peak E: 0.69 m/s (0.7-1.2 m/s) MV Peak A: 0.60 m/s (0.42-0.7 m/s) E/A Ratio: 1.15 (1.0-2.2) MV e' 0.100 m/s (>8.0) MV lateral e' 0.11 m/s MV medial e' 0.09 m/s E/e' Ratio: 6.91 (more content not included)... [facility] Work Phone: [facility] Work Phone: CARDIOPULMONARY (METABOLIC) STRESS TESTon 08-12-2023 CARDIOPULMONARY (METABOLIC) STRESS TEST [facility], [address] [place] [address] Cardiopulmonary Exercise Report - (Non-Invasive) Patient Name: ALCON Reid Physician: [id number] Fede Cedillo MD Study Date: 08/12/2023 Ordering Provider: [id number] RADHA CALVILLO MRN/PID: [id number] Exercise Eboni Milton Chiller Hand: PIO STAPLES Additional Staff: Polysomnographer Date of /Age: 4 1980 / 43 years Nurse: . Gender: F Fellow: Height: 170.18 cm Admit Date: 08/12/2023 Weight: 83.00 kg Admission Status: Outpatient BSA: 1.95 m2 BMI: 28.66 kg/m2 Study Type: CARDIOPULMONARY (METABOLIC) STRESS TEST Diagnosis/ICD: Shortness of breath-R06.02; Chest pain, unspecified-R07.9 Indication: dyspnea and chest discomfort CPT Codes: (88348) Pulmonary graded exercise test-42353 Patient ID Verified: Correct procedure and correct patient verified verbally and with ID Band checked. Medications: The patient's prescribed medications are apixaban and ativan, albuterol, calcitrol, microgestin. The patient took medications as prescribed. Patient History: Dyspnea, previous deep vein thrombosis, anticoagulation therapy, chest pain and Past medical history of cancer, with radiation and cardiotoxic chemotherapy, prior reoccurance with s/p right lower lobectomy. Allergies: None. Smoker: Never. BMI: Overweight 25 - 30. EXERCISE PROTOCOL Protocol: Modified Balke Test Duration: 12:34 Measurements: gas analysis by metabolic cart. ECG continuous recording. Serial blood pressure measurements by manual cuff inflation. Continuous oxygen saturation by finger pulse oximeter. Reason for Stoppin/10 dyspnea. (PULMONARY) + +---- + + + Rest Peak Exercise % Achieved + +---- + + + HR (BPM) 81 163 93 + +---- + + + Systolic BP 102 112 + +---- + + + Diastolic BP 68 62 + +---- + + + MAP (mmHg) 79 79 + +---- + + + VO2 (ml/Kg/min) 3.8 23.8 92 + +---- + + + VO2 (ml/min) 313 1977 92 + +---- + + + O2 Pulse (ml/beat) 4 12 + +---- + + + VE (L/min) 11 54 42 + +---- + + + VE/VCO2 44 25 + +---- + + + VD/VT 0.38 0.20 + +---- + + + Resp. Rate (br/min) 21 39 + +---- + + + Tidal Volume (ml) 491 1376 + +---- + + + RER 0.76 1.10 + +---- + + + End Tidal CO2 (mmHg) 35 48 + +---- + + + Breathing [place]% 58% + +---- + + + SaO2% 97 91 + +---- + + + Patient Performance: Cardiac Response: The patient developed dyspnea and leg fatigue during the stress exam. The symptoms resolved with rest. The peak heart rate achieved was 163 bpm, which was 93 % of the age predicted target heart rate of 176 bpm. There is a good exercise effort as reflected in the peak exercise RER. There is an appropriate increase in heart rate and blood pressure with exercise. Appropriate blood pressure response to exercise. The O2 pulse (VO2/HR) was 4 ml/beat at rest and increased to 12 ml/beat at peak exercise. EKG: Resting ECG showed normal sinus rhythm with rare premature ventricular contractions. Stress ECG showed sinus tachycardia. Gas Exchange: The peak VO2 achieved is 23.8 ml/Kg/min, which is 92% of the predicted maximum. Freitas functional class A (mild to no impairment). A ventilatory threshold of 19.4 occurred at 82% of peak VO2. The perceived maximal exertion by RPE scale was 14. The dyspnea rating at peak exercise was 8. The patient's oxygen saturation was 97 at rest and 91 at peak exercise. Ventilatory Response: The ventilatory efficiency slope at peak exercise was 25. The patient's resting minute ventilation (VE) was 11 liters/minute and increased to 54 liters/minute at peak exercise which is 42% of predicted. The breathing reserve was 58%. The respiratory rate at rest was 21 breaths/minute and increased to 39 breaths/minute at peak exercise. The tidal volume increased from 491.00 ml per breath at rest to 1376.00 ml per breath at peak exercise. The VD/VT space estimate was 0.38 at rest and fell to 0.20 at peak exercise. The end-tidal CO2 measurement was 35 mL/Hg at rest and changed to 48 mL/Hg at peak exercise. Impression: 1. The peak VO2 achieved was [23.8] ml/kg/min which is con (more content not included)... Normal [facility] Activated protein C resistan ceon 06-19-2023 Activated protein C resistance Coag (PPP) [Time ratio] 4.45 Normal >=2.00 [facility] Comment on above: Result Comment: TEST INTERPRETATION: APC Resistance Profile Ratios less than 2.00 suggest APC resistance. This method uses factor V deficient plasma; therefore, APC resistance due to a nonfactor V mutation will not be detected. Extreme factor V deficiency or presence of direct oral anticoagulants (DOACs) may cause an unreliable ratio. Performed By: [facility] [address] [place] [address] Field Reviewer: Anibal Babin MD, PhD CLIA Number: [id number] Performed By: #### 1 3590-5 #### [facility] ([id number]) [address] [place] [address] PROTHROMBIN GENE MUTATION AN ALYSISon 06-19-2023 ELECTRONICALLY SIGNED BY Shari Capps MD PhD [facility] Comment on above: Performed By: #### G PRO2 #### BENNIE SUNSHINE ([id number]) [facility] ([facility]) [address] [place] [address] FACTOR II-PROTHROMBIN INTERPRETATION INTERPRETATION Normal [facility] Comment on above: Performed By: #### G PRO2 #### BENNIE SUNSHINE ([id number]) [facility] ([facility]) [address] [place] [address] FACTOR II-PROTHROMBIN RESULT Normal Normal Normal [facility] Comment on above: Performed By: #### G PRO2 #### BENNIE SUNSHINE ([id number]) [facility] ([facility]) [address] [place] [address] CBC W Auto Differential pane l (Bld)on 06-16-2023 Basophils (Bld) [#/Vol] 0.07 x10*3/uL Normal 0.00-0.10 [facility] Comment on above: Performed By: #### 5 7021-8 #### ALIX Norwood ([id number]) [facility] ([facility]) [id number] [place] [address] Basophils/100 WBC (Bld) 0.8 % Normal 0.0-2.0 [facility] Comment on above: Performed By: #### 5 7021-8 #### ALIX Norwood ([id number]) [facility] ([facility]) [id number] [place] [address] 07415 Eosinophils (Bld) [#/Vol] 0.33 x10*3/uL Normal 0.00-0.70 [facility] Comment on above: Performed By: #### 5 7021-8 #### ALIX MENA L ([id number]) [facility] ([facility]) [address] [place] [address] 36954 Eosinophils/100 WBC (Bld) 3.7 % Normal 0.0-6.0 [facility] Comment on above: Performed By: #### 5 7021-8 #### ALIX MENA L ([id number]) [facility] ([facility]) [id number] [place] [address] 92854 Erythrocyte distribution width (RBC) [Ratio] 11.2 % Low 11.5-14.5 [facility] Comment on above: Performed By: #### 5 7021-8 #### ALIX Norwood (77017) [facility] ([facility]) [address] [place] [address] Hematocrit (Bld) [Volume fraction] 43.9 % Normal 36.0-46.0 [facility] Comment on above: Performed By: #### 5 7021-8 #### ALIX Norwood ([id number]) [facility] ([facility]) [address] [place] [address] 16572 Hemoglobin (Bld) [Mass/Vol] 14.7 g/dL Normal 12.0-16.0 [facility] Comment on above: Performed By: #### 5 7021-8 #### ALIX Norwood (05222) [facility] ([facility]) [address] [place] [address]754 Immature granulocytes (Bld) [#/Vol] 0.02 x10*3/uL Normal 0.00-0.70 [facility] Comment on above: Performed By: #### 5 7021-8 #### ALIX Norwood ([id number]) [facility] ([facility]) [address] [place] [address] 81214 Immature granulocytes/100 WBC (Bld) 0.2 % Normal 0.0-0.9 [facility] Comment on above: Result Comment: Nicolle ture Granulocyte Count (IG) includes promyelocytes, myelocytes and metamyelocytes but does not include bands. Percent differential counts (%) should be interpreted in the context of the absolute cell counts (cells/UL). Performed By: #### 5 7021-8 #### ALIX Norwood ([id number]) [facility] ([facility]) [address] [place] [address] 07747 Lymphocytes (Bld) [#/Vol] 1.74 x10*3/uL Normal 1.20-4.80 [facility] Comment on above: Performed By: #### 5 7021-8 #### ALIX Norwood ([id number]) [facility] ([facility]) [address] [place] [address] 85193 Lymphocytes/100 WBC (Bld) 19.7 % Normal 13.0-44.0 [facility] Comment on above: Performed By: #### 5 7021-8 #### ALIX Norwood (98459) [facility] ([facility]) [address] [place] [address] 57421 MCH (RBC) [Entitic mass] 30.2 pg Normal 26.0-34.0 [facility] Comment on above: Performed By: #### 5 7021-8 #### ALIX Norwood (44687) [facility] ([facility]) [address] [place] [address] 46534 MCHC (RBC) [Mass/Vol] 33.5 g/dL Normal 32.0-36.0 [facility] Comment on above: Performed By: #### 5 7021-8 #### ALIX Norwood (19507) [facility] ([facility]) [address] [place] [address] 34066 MCV (RBC) [Entitic vol] 90 fL Normal 80-100 [facility] Comment on above: Performed By: #### 5 7021-8 #### ALIX Norwood (47682) [facility] ([facility]) [address] [place] [address] 96329 Monocytes (Bld) [#/Vol] 0.66 x10*3/uL Normal 0.10-1.00 [facility] Comment on above: Performed By: #### 5 7021-8 #### ALIX Norwood (05156) [facility] ([facility]) [address] [place] [address] 00446 Monocytes/100 WBC (Bld) 7.5 % Normal 2.0-10.0 [facility] Comment on above: Performed By: #### 5 7021-8 #### ALIX Norwood ([id number]) [facility] ([facility]) [address] [place] [address] 84074 Neutrophils (Bld) [#/Vol] 6.01 x10*3/uL Normal 1.20-7.70 [facility] Comment on above: Result Comment: Perc ent differential counts (%) should be interpreted in the context of the absolute cell counts (cells/uL). Performed By: #### 5 7021-8 #### ALIX Norwood ([id number]) [facility] ([facility]) [address] [place] [address] Neutrophils/100 WBC (Bld) 68.1 % Normal 40.0-80.0 [facility] Comment on above: Performed By: #### 5 7021-8 #### ALIX Norwood ([id number]) [facility] ([facility]) [address] [place] [address] Nucleated RBC/100 WBC (Bld) [Ratio] 0.0 /100 WBCs Normal 0.0-0.0 [facility] Comment on above: Performed By: #### 5 7021-8 #### ALIX MENA L (19971) [facility] ([facility]) [address] [place] [address] Platelets (Bld) [#/Vol] 246 x10*3/uL Normal 150-450 [facility] Comment on above: Performed By: #### 5 7021-8 #### ALIX MENA L ([id number]) [facility] ([facility]) [address] [place] [address] RBC (Bld) [#/Vol] 4.86 x10*6/uL Normal 4.00-5.20 [facility] Comment on above: Performed By: #### 5 7021-8 #### ALIX MENA L (65423) [facility] ([facility]) [address] [place] [address] WBC (Bld) [#/Vol] 8.8 x10*3/uL Normal 4.4-11.3 [facility] Comment on above: Performed By: #### 5 7021-8 #### ALIX Norwood (89823) [facility] ([facility]) [address] [place] [address] 34495 Comprehensive metabolic 2000 panelon 06-16-2023 Albumin BCP dye [Mass/Vol] 4.3 g/dL Normal 3.4-5.0 [facility] Comment on above: Performed By: #### 2 4323-8 #### ALIX Norwood (84785) [facility] ([facility]) [address] [place] [address] 63776 ALP [Catalytic activity/Vol] 62 U/L Normal 33-110 [facility] Comment on above: Performed By: #### 2 4323-8 #### ALIX Norwood (45739) [facility] ([facility]) [address] [place] [address] 79158 ALT With P-5'-P [Catalytic activity/Vol] 32 U/L Normal 7-45 [facility] Comment on above: Result Comment: Marcie ents treated with Sulfasalazine may generate falsely decreased results for ALT. Performed By: #### 2 4323-8 #### ALIX Norwood (67633) [facility] ([facility]) [address] [place] [address] 89796 Anion gap [Moles/Vol] 11 mmol/L Normal 10-20 [facility] Comment on above: Performed By: #### 2 4323-8 #### ALIX Norwood (21735) [facility] ([facility]) [address] [place] [address] 46016 AST With P-5'-P [Catalytic activity/Vol] 21 U/L Normal 9-39 [facility] Comment on above: Performed By: #### 2 4323-8 #### ALIX Norwood (19821) [facility] ([facility]) [address] [place] [address] 00542 Bilirubin [Mass/Vol] 0.5 mg/dL Normal 0.0-1.2 [facility] Comment on above: Performed By: #### 2 4323-8 #### ALIX Norwood (58396) [facility] ([facility]) [address] [place] [address] Calcium [Mass/Vol] 10.1 mg/dL Normal 8.6-10.6 [facility] Comment on above: Performed By: #### 2 4323-8 #### ALIX Norwood (54036) [facility] ([facility]) [address] [place] [address] Chloride [Moles/Vol] 101 mmol/L Normal 98-107 [facility] Comment on above: Performed By: #### 2 4323-8 #### ALIX MENA L (83512) [facility] ([facility]) [address] [place] [address] 95841 CO2 [Moles/Vol] 31 mmol/L Normal 21-32 [facility] Comment on above: Performed By: #### 2 4323-8 #### ALIX MENA L (77214) [facility] ([facility]) [address] [place] [address] 70556 Creatinine [Mass/Vol] 1.24 mg/dL High 0.50-1.05 [facility] Comment on above: Performed By: #### 2 4323-8 #### ALIX MENA L ([id number]) [facility] ([facility]) [address] [place] [address] 92365 Glomerular filtration rate/1.73 sq M.predicted 55 mL/min/1.73m*2 Low >60 [facility] Comment on above: Result Comment: Calc ulations of estimated GFR are performed using the 2020 CKD-EPI Study Refit equation without the race variable for the IDMS-Traceable creatinine methods. https://jasn.asnjournals.org/content//ASN.725673881 8 Performed By: #### 2 4323-8 #### ALIX MENA L ([id number]) [facility] ([facility]) [address] [place] [address] 30644 Glucose [Mass/Vol] 85 mg/dL Normal 74-99 [facility] Comment on above: Performed By: #### 2 4323-8 #### ALIX Norwood (24233) [facility] ([facility]) [address] [place] [address] 97780 Potassium [Moles/Vol] 4.5 mmol/L Normal 3.5-5.3 [facility] Comment on above: Performed By: #### 2 4323-8 #### ALIX Norwood (18525) [facility] ([facility]) [address] [place] [address] 18963 Protein [Mass/Vol] 6.8 g/dL Normal 6.4-8.2 [facility] Comment on above: Performed By: #### 2 4323-8 #### ALIX Norwood ([id number]) [facility] ([facility]) [address] [place] [address] 24046 Sodium [Moles/Vol] 138 mmol/L Normal 136-145 [facility] Comment on above: Performed By: #### 2 4323-8 #### ALIX Norwood (25962) [facility] ([facility]) [address] [place] [address] 79046 Urea nitrogen [Mass/Vol] 18 mg/dL Normal 6-23 [facility] Comment on above: Performed By: #### 2 4323-8 #### ALIX Norwood (57157) [facility] ([facility]) [address] [place] [address] 21474 Lactate dehydrogenaseon 06-01 LDH Lactate to pyruvate reaction [Catalytic activity/Vol] 151 U/L Normal 84-246 [facility] Comment on above: Performed By: #### 1 4804-9 #### ALIX Norwood (02875) [facility] ([facility]) [address] [place] [address] MELANOMA DIAGNOSIS FOR NONCOVERED [...] on surveillance. COMPARISON: PET-CT, 05/27/2022 ACCESSION NUMBER(S): [id number] ORDERING CLINICIAN: GORDON CAMPOVERDE TECHNIQUE: DIVISION OF [...] CODING: Subsequent Treatment Strategy (PS) CALIBRATION: Dose Cpjgaxhwr-mg-Tbep Interval (mins): 66 min Mediastinal bloodpool SUV [...] the findings as stated by residential sales Dr. Namrata Zuñiga. This study was interpreted at [place], [place]. MACRO: None Signed by: Edy Jeronimo 06/16/2023 2:50 PM Dictation workstation: [id number] [facility] Comment on above: Order Comment: spoke with suman from dr campoverde [phone] anthem prep given by office #: pager number: [phone], Rad Selected: Y PT Unspecified body regionon [...] the findings as stated by residential sales Dr. Namrata Zuñiga. This study was interpreted at [place], [place]. MACRO: None Signed by: Edy Jeronimo 06/16/2023 2:50 PM Dictation workstation: [id number] Interpreted By: Edy Madera and Adjei [...] on surveillance. COMPARISON: PET-CT, 05/27/2022 ACCESSION NUMBER(S): [id number] ORDERING CLINICIAN: GORDON CAMPOVERDE TECHNIQUE: DIVISION OF [...] CODING: Subsequent Treatment Strategy (PS) CALIBRATION: Dose Eojdmujjx-ix-Kpjx Interval (mins): 66 min Mediastinal bloodpool SUV [...] on surveillance. COMPARISON: PET-CT, 05/27/2022 ACCESSION NUMBER(S): [id number] ORDERING CLINICIAN: GORDON CAMPOVERDE TECHNIQUE: DIVISION OF [...] CODING: Subsequent Treatment Strategy (PS) CALIBRATION: Dose Tldyncspo-jd-Ovwx Interval (mins): 66 min Mediastinal bloodpool SUV [...] the findings as stated by residential sales Dr. Namrata Zuñiga. This study was interpreted at [place], [place]. MACRO: None Signed by: Edy Jeronimo 06/16/2023 2:50 PM Dictation workstation: [id number] [facility] Work Phone: Radiology Study observation (narrative) [facility] Work Phone: PT Unspecified body regionOr dered By: Edy Jeronimo on 06-16-2023 [facility] Work Phone: BASIC METABOLIC PANELon 10-03 Anion gap [Moles/Vol] 8 mmol/L Low 10 - 20 [facility] Comment on above: Performed By: #### B MP #### [facility] [place] [address] [place] [address] Calcium [Mass/Vol] 9.0 mg/dL Normal 8.6 - 10.3 [facility] Comment on above: Performed By: #### B MP #### [address] [place] [address] Chloride [Moles/Vol] 103 mmol/L Normal 98 - 107 [facility] Comment on above: Performed By: #### B MP #### [address] [place] [address] Creatinine [Mass/Vol] 1.28 mg/dL High 0.50 - 1.05 [facility] Comment on above: Performed By: #### B MP #### [address] [place] [address] GFR/1.73 sq M.predicted among non-blacks MDRD (S/P/Bld) [Vol rate/Area] 53 mL/min/{1.73_m2} Abnormal >90 [facility] Comment on above: Result Comment: CALC ULATIONS OF ESTIMATED GFR ARE PERFORMED USING THE 2020 CKD-EPI STUDY REFIT EQUATION WITHOUT THE RACE VARIABLE FOR THE IDMS-TRACEABLE CREATININE METHODS. https://jasn.asnjournals.org/content/early//ASN.821603435 8 Performed By: #### B MP #### [address] [place] [address] Glucose [Mass/Vol] 53 mg/dL Low 74 - 99 [facility] Comment on above: Performed By: #### B MP #### [address] [place] [address] HCO3 (Bld) [Moles/Vol] 28 mmol/L Normal 21 - 32 [facility] Comment on above: Performed By: #### B MP #### [address] [place] [address] Potassium [Moles/Vol] 4.3 mmol/L Normal 3.5 - 5.3 [facility] Comment on above: Performed By: #### B MP #### [address] [place] [address] Sodium [Moles/Vol] 135 mmol/L Low 136 - 145 [facility] Comment on above: Performed By: #### B MP #### [facility] [place] [address] [place] [address] Urea nitrogen [Mass/Vol] 19 mg/dL Normal 6 - 23 [facility] Comment on above: Performed By: #### B MP #### [facility] [address] [place] [address] Established Visit (Nephrolog y)on 10-30-2022 Established Visit (Nephrology) Diagnoses/Problems CKD (chronic kidney disease), stage III (585.3) (N18.30) Orders CKD (chronic kidney disease), stage III Basic Metabolic Panel; Status:Active; Requested for:30Gsr8581; Parathormone Intact, Serum; Status:Active; Requested for:59Inh4856; Vitamin D 25-Hydroxy; Status:Active; Requested for:96Vwf8918; Provider Impressions 42-year-old female with history of [...] Tumor excision chest wall 2010 History of [place] tooth extraction Family History No pertinent family history No pertinent family history Social History Daily caffeine consumption Never a smoker No illicit drug use Social alcohol use (V49.89) (Z78.9) Allergies No Known Drug Allergies Recorded By: Nicci Ziegler; 05/10/2020 3:10:38 PM Current Meds Medication NameInstruction Sylvia 1/20 1-20 MG-MCG Oral TabletTAKE 1 TABLET DAILY FOR 21 DAYS, THEN 7 TABLET-FREE DAYS; REPEAT. LORazepam 0.5 MG Oral Tabletone tablet at bedtime ProAir HFA 108 (90 Base) MCG/ACT AERSINHALE 1 TO 2 PUFFS EVERY 4 TO 6 HOURS NEEDED. Vitals Vital Signs Recorded: 01Koe1640 10:39AM Heart Rate76 Ldxmjwdl275, LUE, Sitting Czkxpmgzc00, LUE, Sitting Height5 ft 7 in Ffquxa106 lb BMI Cxcyukzqar14.41 kg/m2 BSA Calculated1.91 Physical Exam General: The [...] is fluent. Moves extremities. Results/Data Comprehensive Metabolic Kqrlc81Prw9604 08:00AMNon Ambulatory, Provider Ordering Provider: GORDON CAMPOVERDE [address] Test NameResultFlagReference Glucose, Serum85 mg/dL74 - 99 Sodium, Nfgfl908 mmol/L136 - 145 POTASSIUM4.5 mmol/L3.5 - 5.3 Chloride, Rboom720 mmol/L98 - 107 Bicarbonate, Serum29 mmol/L21 - 32 Anion Gap, Serum12 mmol/L10 - 20 Blood Urea Nitrogen, Serum17 mg/dL6 - 23 CREATININE1.17 mg/dLHSee Below Reference Range: 0.50 - 1.05 Calcium, Serum9.5 mg/dL8.6 - 10.6 Albumin, Serum4.1 g/dL3.4 - 5.0 ALKALINE ZHUYOBWEUTH70 U/L33 - 110 Protein, Total Serum6.8 g/dL6.4 - 8.2 Bilirubin, Serum Total0.5 mg/dL0.0 - 1.2 ALT (SGPT), Serum21 U/L7 - 45 Patients treated with Sulfasalazine may generate falsely decreased results for ALT. GFR ICJMLU26 mL/min/1.73m2A>90 CALCULATIONS OF ESTIMATED GFR ARE PERFORMED USING THE 2020 CKD-EPI STUDY REFIT EQUATION WITHOUT THE RACE VARIABLE FOR THE IDMS-TRACEABLE CREATININE METHODS. https://jasn.asnjournals.o rg/content/early 2/ASN.0496526432 AST27 U/L9 - 39 Signatures Electronically signed by : John Graham MD; Oct 30 2022 10:46AM EST (Author) Normal [facility] - Chemistry and C hemistry - challengeon 10-30-2022 Anion gap [Moles/Vol] 8 mmol/L below low threshold 10 - 20 -[place] [address] DO Work Phone: Calcium [Mass/Vol] 9.0 mg/dL 8.6 - 10.3 [place] [address] DO Work Phone: Chloride [Moles/Vol] 103 mmol/L 98 - 107 [place] [address] DO Work Phone: [phone] CO2 [Moles/Vol] 28 mmol/L 21 - 32 [place] [address] DO Work Phone: [phone] Creatinine [Mass/Vol] 1.28 mg/dL above high threshold See Below [place] [address] DO Work Phone: [phone] Comment on above: Reference Range: 0.5 0 - 1.05 Glucose [Mass/Vol] 53 mg/dL below low threshold 74 - 99 [place] [address] DO Work Phone: [phone] Potassium [Moles/Vol] 4.3 mmol/L 3.5 - 5.3 [place] [address] DO Work Phone: [phone] Sodium [Moles/Vol] 135 mmol/L below low threshold 136 - 145 [place] [address] DO Work Phone: [phone] Urea nitrogen [Mass/Vol] 19 mg/dL 6 - 23 [place] [address] DO Work Phone: [phone] No Panel Informationon 10-30 53 {mL/min/1.73m2} Abnormal >90 [place] [address] DO Work Phone: [phone] Comment on above: CALCULATIONS OF GEETHA MATED GFR ARE PERFORMED USING THE 2020 CKD-EPI STUDY REFIT EQUATION WITHOUT THE RACE VARIABLE FOR THE IDMS-TRACEABLE CREATININE METHODS.https://jasn.asnjournals.org/content/early/ASN.2 946364825 PARATHYROID HORMONE,INTACTon 10-30-2022 PARATHYROID HORMONE,INTACT 90.9 pg/mL High 18.5 - 88.0 [facility] Comment on above: Performed By: #### P TH #### [facility] [address] [place] [address] VITAMIN D, 25-HYDROXYon 10-03 VITAMIN D, 25-HYDROXY 74 ng/mL Normal [facility] Comment on above: Result Comment: . DEFICIENCY: < 20 NG/ML INSUFFICIENCY: 20-29 NG/ML SUFFICIENCY: 30-100 NG/ML THIS ASSAY ACCURATELY QUANTIFIES THE SUM OF VITAMIN D3, 25-HYDROXY AND VIT D2,25-HYDROXY. Performed By: #### V TDOH #### [facility] [address] [place] [address] PREG HCG QUALon 07-30-2022 , QUAL Negative Normal NEGATIVE [facility] Comment on above: Performed By: #### P REG #### [facility] [address] [place], [place] [address] Dr. Karime Araujo Clinic Note - Heme Onc Sched ulingon 06-07-2022 Clinic Note - Heme Onc Scheduling Retrieve Patient Instructions: Patient Instructions: Patient Instructions: RetrievePatient Instructions Instructions Typenutrition Instructions Ms. Berkowitz It was a pleasure meeting you today. [...] number listed below. Thank you for choosing [facility] [place] at [facility]. We appreciate your visit. Gordon Campoverde MD [facility] Hematology and Oncology . Follow Up Testing Appointment: Test Name(s)PET CT Appointment Date & [id number] 09:00 Location/Phone Number[place] [id number] [facility] [address] [place], [place] [phone] CommentsNo solids - water only 6 hrs prior. Please arrive 20 mins early and bring ID and insurance End of Visit Documentation: Clinic Location/Phone Number: Clinic Location/Phone Number: [place] [address] [place] [address] End Of Visit MU Report [...] perspective. She was supposed to see a talent acquisition project manager, but she cancelled the appointment as she started feeling better on her own. She does not want to make another appointment as of now. From Med Onc perspective, she had a PET scan in June 2022 that did not show any evidence of recurrent tumor. 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 Interval History: Please refer to [...] Pain Scale UsedNumeric (0-10) Health Screening: Last Iyptjffgs09-Dtr-6042 Last Pap Gozy19-Ycr-4679 Allergies: No Known Allergies: Active Outpatient Medication [...] or > notify clinician0 Electronic Signatures: Sara Tomlinson (LILLIAN) (Signed 06-Jun-2022 12:12) Authored: Patient Visit Information, Vital Signs, Health Screening, Allergies, Outpatient Medication Profile, Notification, Travel History, Falls, Spiritual/Procedural, Oncology Nutrition Last Updated: 06-Jun-2022 12:12 by Sara Tomlinson (LILLIAN) Normal [facility] CBC AND DIFFERENTIALon 05-27 % AUTOMATED IMMATURE GRAN 0.3 % Normal 0.0 - 0.9 [facility] Comment on above: Result Comment: Nicolle ture Granulocyte Count (IG) includes promyelocytes, myelocytes and metamyelocytes but does not include bands. Percent differential counts (%) should be interpreted in the context of the absolute cell counts (cells/L). Performed By: #### C BCDF #### [facility] [address] [place] [address] Basophils (Bld) [#/Vol] 0.06 10*3/uL Normal 0.00 - 0.10 [facility] Comment on above: Performed By: #### C BCDF #### [facility] [address] [place] [address] Basophils/100 WBC (Bld) 0.8 % Normal 0.0 - 2.0 [facility] Comment on above: Performed By: #### C BCDF #### [facility] [address] [place] [address] Eosinophils (Bld) [#/Vol] 0.22 10*3/uL Normal 0.00 - 0.70 [facility] Comment on above: Performed By: #### C BCDF #### [facility] [address] [place] [address] Eosinophils/100 WBC (Bld) 2.9 % Normal 0.0 - 6.0 [facility] Comment on above: Performed By: #### C BCDF #### [facility] [address] [place] [address] Erythrocyte distribution width (RBC) [Ratio] 11.7 % Normal 11.5 - 14.5 [facility] Comment on above: Performed By: #### C BCDF #### [facility] [address] [place] [address] Hematocrit (Bld) [Volume fraction] 44.6 % Normal 36.0 - 46.0 [facility] Comment on above: Performed By: #### C BCDF #### [facility] [address] [place] [address] Hemoglobin (Bld) [Mass/Vol] 15.1 g/dL Normal 12.0 - 16.0 [facility] Comment on above: Performed By: #### C BCDF #### [facility] [address] [place] [address] Lymphocytes (Bld) [#/Vol] 1.82 10*3/uL Normal 1.20 - 4.80 [facility] Comment on above: Performed By: #### C BCDF #### [facility] [address] [place] [address] Lymphocytes/100 WBC (Bld) 24.1 % Normal 13.0 - 44.0 [facility] Comment on above: Performed By: #### C BCDF #### [facility] [address] [place] [address] MCHC (RBC) [Mass/Vol] 33.9 g/dL Normal 32.0 - 36.0 [facility] Comment on above: Performed By: #### C BCDF #### [facility] [address] [place] [address] MCV (RBC) [Entitic vol] 92 fL Normal 80 - 100 [facility] Comment on above: Performed By: #### C BCDF #### [facility] [address] [place] [address] Monocytes (Bld) [#/Vol] 0.54 10*3/uL Normal 0.10 - 1.00 [facility] Comment on above: Performed By: #### C BCDF #### [facility] [address] [place] [address] Monocytes/100 WBC (Bld) 7.1 % Normal 2.0 - 10.0 [facility] Comment on above: Performed By: #### C BCDF #### [facility] [address] [place] [address] Neutrophils (Bld) [#/Vol] 4.90 10*3/uL Normal 1.20 - 7.70 [facility] Comment on above: Performed By: #### C BCDF #### [facility] [address] [place] [address] Neutrophils/100 WBC (Bld) 64.8 % Normal 40.0 - 80.0 [facility] Comment on above: Performed By: #### C BCDF #### [facility] [address] [place] [address] NUCLEATED RBC 0.0 /100 WBC Normal 0.0-0.0 [facility] Comment on above: Performed By: #### C BCDF #### [facility] [address] [place] [address] Platelets (Bld) [#/Vol] 244 10*3/uL Normal 150 - 450 [facility] Comment on above: Performed By: #### C BCDF #### [facility] [address] [place] [address] RBC 4.86 x10E12/L Normal 4.00 - 5.20 [facility] [place] Comment on above: Performed By: #### C BCDF #### [facility] [address] [place] [address] WBC (Bld) [#/Vol] 7.6 10*3/uL Normal 4.4 - 11.3 [facility] Comment on above: Performed By: #### C BCDF #### [facility] [address] [place] [address] COMPREHENSIVE PANELon 2022 Albumin [Mass/Vol] 4.1 g/dL Normal 3.4 - 5.0 [facility] Comment on above: Performed By: #### C MP #### [facility] [address] [place] [address] ALP [Catalytic activity/Vol] 48 U/L Normal 33 - 110 [facility] Comment on above: Performed By: #### C MP #### [facility] [address] [place] [address] ALT [Catalytic activity/Vol] 21 U/L Normal 7 - 45 [facility] Comment on above: Result Comment: Marcie ents treated with Sulfasalazine may generate falsely decreased results for ALT. Performed By: #### C MP #### [facility] [address] [place] [address] Anion gap [Moles/Vol] 12 mmol/L Normal 10 - 20 [facility] Comment on above: Performed By: #### C MP #### [facility] [address] [place] [address] AST [Catalytic activity/Vol] 27 U/L Normal 9 - 39 [facility] Comment on above: Performed By: #### C MP #### [facility] [address] [place] [address] Bilirubin [Mass/Vol] 0.5 mg/dL Normal 0.0 - 1.2 [facility] Comment on above: Performed By: #### C MP #### [facility] [address] [place] [address] Calcium [Mass/Vol] 9.5 mg/dL Normal 8.6 - 10.6 [facility] Comment on above: Performed By: #### C MP #### [facility] [address] [place] [address] Chloride [Moles/Vol] 103 mmol/L Normal 98 - 107 [facility] Comment on above: Performed By: #### C MP #### [facility] [address] [place] [address] Creatinine [Mass/Vol] 1.17 mg/dL High 0.50 - 1.05 [facility] Comment on above: Performed By: #### C MP #### [facility] [address] [place] [address] GFR/1.73 sq M.predicted among non-blacks MDRD (S/P/Bld) [Vol rate/Area] 59 mL/min/{1.73_m2} Abnormal >90 [facility] Comment on above: Result Comment: CALC ULATIONS OF ESTIMATED GFR ARE PERFORMED USING THE 2020 CKD-EPI STUDY REFIT EQUATION WITHOUT THE RACE VARIABLE FOR THE IDMS-TRACEABLE CREATININE METHODS. https://jasn.asnjournals.org/content//ASN.411024494 8 Performed By: #### C MP #### [facility] [address] [place] [address] Glucose [Mass/Vol] 85 mg/dL Normal 74 - 99 [facility] Comment on above: Performed By: #### C MP #### [facility] [address] [place] [address] HCO3 (Bld) [Moles/Vol] 29 mmol/L Normal 21 - 32 [facility] Comment on above: Performed By: #### C MP #### [facility] [address] [place] [address] Potassium [Moles/Vol] 4.5 mmol/L Normal 3.5 - 5.3 [facility] Comment on above: Performed By: #### C MP #### [facility] [address] [place] [address] Protein [Mass/Vol] 6.8 g/dL Normal 6.4 - 8.2 [facility] Comment on above: Performed By: #### C MP #### [facility] [address] [place] [address] Sodium [Moles/Vol] 139 mmol/L Normal 136 - 145 [facility] Comment on above: Performed By: #### C MP #### [facility] [address] [place] [address] Urea nitrogen [Mass/Vol] 17 mg/dL Normal 6 - 23 [facility] Comment on above: Performed By: #### C MP #### [facility] [address] [place] [address] LDHon 05-27-2022 LDH 132 U/L Normal 84 - 246 [facility] Comment on above: Performed By: #### L DH #### [facility] [address] 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 Needs full body imaging to rule out relapse. COMPARISON: PET-CT dated 05/01/2020 ACCESSION NUMBER(S): [id number] ORDERING CLINICIAN: GORDON CAMPOVERDE TECHNIQUE: DIVISION OF [...] CODING: Subsequent Treatment Strategy (PS) CALIBRATION: Dose Qrxwsdhza-td-Tqtr Interval (mins): 52 min Mediastinal bloodpool SUV [...] as stated. This study was interpreted at [facility]. Electronically signed by: MARCELO CHAPARRO [...] by: NIA LEONARD Date: 2022-02-06 06:58 Normal [facility] XR LSPINE 2_3 VIEWSon 2021 XR LSPINE [...] by: NIA LEONARD Date: 2021-09-18 16:01 Normal [facility] US renal BIon 07-20-2021 US renal BI [facility] [place] [address] Ultrasound Report Signed Patient: Alcon Berkowitz MR#: [id number] : 1980 Acct:[id number] Age/Sex: 41 / F ADM Date: 07/20/21 Loc: Room: Type: [facility] Attending Dr: John Graham MD Ordering Provider: John Graham MD Date of Service: 07/20/21 US/US renal BI: N18.30 Copies to: John Graham MD Bilateral renal ultrasound HISTORY: Abnormal lab [...] Darryl Puente M.D.07/20/2021 11:50 AM Dictation Location: [place] [address] Tech: Brittny Lipscomb Transcribed By: SAMANTHA 07/20/21 1150 Dictated By: Darryl Puente DO 07/20/21 1148 Signed By: 07/20/21 1150 [facility] Parathormone Intact, Serumon 07-10-2021 Parathyrin.intact [Mass/Vol] 53.7 pg/mL See Below [place] [address] DO Work Phone: Comment on above: Reference Range: 12. 0 - 88.0 Phosphorus, Serumon 07-11-19 22 Phosphate [Mass/Vol] 3.1 mg/dL 2.5 - 4.9 [place] [address] DO Work Phone: Comment on above: The performance reynold acteristics of phosphorus testing in heparinized plasma have been validated by the individual laboratory site where testing is performed. Testing on heparinized plasma is not approved by the FDA; however, such approval is not necessary. Tobacco Screening.on 022 Fall risk assessment a) No falls within the last year [place] [address] DO Work Phone: Tobacco use status CPHS b) No [place] [address] DO Work Phone: Total Protein, Urine Spoton 07-10-2021 Creatinine (U) [Mass/Vol] 148.0 mg/dL See Below [place] [address] DO Work Phone: Comment on above: Reference Range: 20. 0 - 320.0 Protein (U) [Mass/Vol] 13 mg/dL 5 - 24 [place] [address] DO Work Phone: Protein/Creatinine (U) [Ratio] 0.09 {mg/mg_Creat} See Below [place] [address] DO Work Phone: Comment on above: Reference Range: 0.0 0 - 0.17 Uric Acid, Serumon 2 Urate [Mass/Vol] 4.6 mg/dL 2.3 - 6.7 [place] [address] DO Work Phone: Comment on above: Venipuncture immedia tely after or during the administration of Metamizole may lead to falsely low results. Testing should be performed immediately prior to Metamizole dosing. Urinalysison 07-10-2021 Color (U) YELLOW See Below [place] [address] DO Work Phone: [phone] Comment on above: Reference Range: STR AW,YELLOW Glucose Ql (U) 50 (TRACE) Abnormal NEGATIVE [place] [address] DO Work Phone: [phone] Ketones Ql (U) Negative NEGATIVE [place] [address] DO Work Phone: [phone] Leukocyte esterase Test strip Ql (U) Negative NEGATIVE [place] [address] DO Work Phone: [phone] pH (U) 5.0 [pH] 5.0 - 8.0 [place] [address] DO Work Phone: [phone] Protein (U) [Mass/Vol] Negative NEGATIVE [place] [address] DO Work Phone: [phone] RBC (U) [#/Vol] MODERATE(2+) Abnormal NEGATIVE [place] [address] DO Work Phone: [phone] Specific gravity (U) [Rel density] 1.023 1 See Below [place] [address] DO Work Phone: [phone] Comment on above: Reference Range: 1.0 05 - 1.035 Urinalysis Negative NEGATIVE [place] [address] DO Work Phone: [phone] Urinalysis <2.0 0.0 - 1.9 [place] [address] DO Work Phone: [phone] Urinalysis HAZY CLEAR [place] [address] DO Work Phone: [phone] Urinalysis, Microscopicon Urinalysis, Microscopic 1+ [place] [address] DO Work Phone: Urinalysis, Microscopic 3 {/HPF} [place] [address] DO Work Phone: Urinalysis, Microscopic 1 {/HPF} 0-5 [place] [address] DO Work Phone: Vitamin D 25-Hydroxyon 07-10 25-hydroxyvitamin D3 [Mass/Vol] 56 ng/mL [place] [address] DO Work Phone: Comment on above: .DEFICIENCY: < 20 NG /MLINSUFFICIENCY: 20-29 NG/MLSUFFICIENCY: 30-100 NG/MLTHIS ASSAY ACCURATELY QUANTIFIES THE SUM OFVITAMIN D3, 25-HYDROXY AND VIT D2,25-HYDROXY. Complete Blood Count + Diffe rentialon 05-01-2020 Basophils (Bld) [#/Vol] 0.05 {x10E9/L} See Below [facility] [employer] Work Phone: Comment on above: Reference Range: 0.0 0 - 0.10 Ordering Provider: A BOSTONMYA CAMPOVERDE [address] Basophils/100 WBC (Bld) 0.8 % 0.0 - 2.0 [facility] [employer] Work Phone: Comment on above: Ordering Provider: A JAMES CAMPOVERDE [address] Eosinophils (Bld) [#/Vol] 0.21 {x10E9/L} See Below [facility] delicious Phone: Comment on above: Reference Range: 0.0 0 - 0.70 Ordering Provider: A NKIT MANGLA [address] Eosinophils/100 WBC (Bld) 3.4 % 0.0 - 6.0 [facility] delicious Phone: Comment on above: Ordering Provider: A JAMES CAMPOVERDE [address] Erythrocyte distribution width (RBC) [Ratio] 11.4 % below low threshold See Below [employer] Phone: Comment on above: Reference Range: 11. 5 - 14.5 Ordering Provider: A BOSTONIT MANGLA [address] Hematocrit (Bld) [Volume fraction] 44.4 % See Below [employer] Phone: Comment on above: Reference Range: 36. 0 - 46.0 Ordering Provider: A JAMES CAMPOVERDE [address] Hemoglobin (Bld) [Mass/Vol] 14.5 g/dL See Below [employer] Phone: Comment on above: Reference Range: 12. 0 - 16.0 Ordering Provider: A JAMES CAMPOVERDE [address] Lymphocytes (Bld) [#/Vol] 1.86 {x10E9/L} See Below [employer] Work Phone: Comment on above: Reference Range: 1.2 0 - 4.80 Ordering Provider: A JAMES CAMPOVERDE [address] Lymphocytes/100 WBC (Bld) 30.1 % See Below [employer] Phone: Comment on above: Reference Range: 13. 0 - 44.0 Ordering Provider: A JAMES CAMPOVERDE [address] MCHC (RBC) [Mass/Vol] 32.7 g/dL See Below [employer] Phone: Comment on above: Reference Range: 32. 0 - 36.0 Ordering Provider: A JAMES CAMPOVERDE [address] MCV (RBC) [Entitic vol] 93 fL 80 - 100 [employer] Phone: Comment on above: Ordering Provider: A JAMES CAMPOVERDE [address] Monocytes (Bld) [#/Vol] 0.44 {x10E9/L} See Below [employer] Work Phone: Comment on above: Reference Range: 0.1 0 - 1.00 Ordering Provider: A JAMES CAMPOVERDE [address] Monocytes/100 WBC (Bld) 7.1 % 2.0 - 10.0 [employer] Phone: Comment on above: Ordering Provider: A JAMES CAMPOVERDE [address] Neutrophils (Bld) [#/Vol] 3.59 {x10E9/L} See Below [employer] Phone: Comment on above: Reference Range: 1.2 0 - 7.70 Ordering Provider: A JAMES CAMPOVERDE [address] Neutrophils/100 WBC (Bld) 58.3 % See Below [facility] [employer] Work Phone: Comment on above: Reference Range: 40. 0 - 80.0 Ordering Provider: A JAMES CAMPOVERDE [address] Platelets (Bld) [#/Vol] 222 {x10E9/L} 150 - 450 [facility] [employer] Work Phone: Comment on above: Ordering Provider: A JAMES CAMPOVERDE [address] RBC (Bld) [#/Vol] 4.75 {x10E12/L} See Below [facility] [employer] Work Phone: Comment on above: Reference Range: 4.0 0 - 5.20 Ordering Provider: A JAMES CAMPOVERDE [address] WBC (Bld) [#/Vol] 6.2 {x10E9/L} 4.4 - 11.3 [facility] [employer] Work Phone: Comment on above: Ordering Provider: A JAMES CAMPOVERDE [address] Complete Blood Count + Differential 0.3 % 0.0 - 0.9 [facility] [employer] Work Phone: Comment on above: Immature Granulocyte Count (IG) includes promyelocytes, myelocytes and metamyelocytes but does not include bands. Percent differential counts (%) should be interpreted in the context of the absolute cell counts (cells/L). Ordering Provider: A JAMES CAMPOVERDE [address] Metabolic Panelon 05-01-2020 LDH [Catalytic activity/Vol] 195 U/L 84 - 246 [facility] [employer] Work Phone: Comment on above: Ordering Provider: A JAMES CAMPOVERDE [address]1992 Otheron 05-01-2020 Interpreted by: RENEE JERONIMO05/01/20 16:32MRN: [id number] Name: ALCON BERKOWITZ STUDY:PET/CT MELANOMA, RESTAGING; 05/01/2020 10:25 am INDICATION:askin's [...] value (SUV)units. CODING:Subsequent Treatment Strategy (PS) CALIBRATION:Dose Irmfrsbvg-zp-Npuz Interval (mins): 69 minMediastinal bloodpool SUV (normal [...] interpretation as stated. [facility]Electronically signed by: EDY JERONIMO 05/01/20 16:32 Normal [facility] [employer] Work Phone: Comment on above: Ordering Provider: A NKIT MANGLA [id number] Reticulocyte Counton 021 Reticulocyte Count 36 pg 28 - 38 [facility] [employer] Work Phone: Comment on above: Ordering Provider: A NKIT MANGLA [id number] Reticulocyte Count 0.062 {[id number]/L} See Below [facility] [employer] Work Phone: Comment on above: Reference Range: 0.0 18 - 0.083 Ordering Provider: A NKIT MANGLA [id number] Reticulocyte Count 1.3 % 0.5 - 2.0 [facility] [employer] Work Phone: Comment on above: Ordering Provider: A NKIT MANGLA [id number] Vital Signs Date Time Vital Sign Value Performing Clinician Facility 02-05-2024 08:35-0500 Body height 170.2 cm Nia Portillo DPM Work Phone: [facility] 02-05-2024 08:35-0500 Body mass index (BMI) [Ratio] 27.1 kg/m2 Nia CURTISM Work Phone: [facility] 02-05-2024 08:35-0500 Body weight 78.47 kg Nia Portillo DPM Work Phone: [facility] 09-01-2023 14:44-0400 Body mass index (BMI) [Ratio] 28.28 kg/m2 Radha Calvillo MD Work Phone: [facility] 09-01-2023 14:44-0400 Body temperature 97.3 [degF] Radha Calvillo MD Work Phone: [facility] 09-01-2023 14:44-0400 Body weight 81.9 kg Radha Calvillo MD Work Phone: [facility] 09-01-2023 14:44-0400 Diastolic blood pressure 70 mm[Hg] Radha Calvillo MD Work Phone: [facility] 09-01-2023 14:44-0400 Heart rate 73 /min Radha Calvillo MD Work Phone: [facility] 09-01-2023 14:44-0400 Respiratory rate 15 /min Radha Calvillo MD Work Phone: [facility] 09-01-2023 14:44-0400 SaO2% (BldA) [Mass fraction] 99 % Radha Calvillo MD Work Phone: [facility] 09-01-2023 14:44-0400 Systolic blood pressure 108 mm[Hg] Radha Calvillo MD Work Phone: [facility] 07-21-2023 14:30-0400 Body mass index (BMI) [Ratio] 28.28 kg/m2 Radha Calvillo MD Work Phone: [facility] 07-21-2023 14:30-0400 Body temperature 97 [degF] Radha Calvillo MD Work Phone: [facility] 07-21-2023 14:30-0400 Body weight 81.9 kg Radha Calvillo MD Work Phone: [facility] 07-21-2023 14:30-0400 Diastolic blood pressure 66 mm[Hg] Radha Calvillo MD Work Phone: [facility] 07-21-2023 14:30-0400 Heart rate 78 /min Radha Calvillo MD Work Phone: [facility] 07-21-2023 14:30-0400 Respiratory rate 16 /min Radha Calvillo MD Work Phone: [facility] 07-21-2023 14:30-0400 SaO2% (BldA) [Mass fraction] 96 % Radha Calvillo MD Work Phone: [facility] 07-21-2023 14:30-0400 Systolic blood pressure 103 mm[Hg] Radha Calvillo MD Work Phone: [facility] 06-19-2023 10:18-0400 Body mass index (BMI) [Ratio] 29 kg/m2 Gordon Campoverde MD Work Phone: [facility] 06-19-2023 10:18-0400 Body temperature 97.2 [degF] Gordon Campoverde MD Work Phone: [facility] 06-19-2023 10:18-0400 Body weight 84 kg Gordon Campoverde MD Work Phone: [facility] 06-19-2023 10:18-0400 Diastolic blood pressure 78 mm[Hg] Gordon Campoverde MD Work Phone: [facility] 06-19-2023 10:18-0400 Heart rate 79 /min Gordon Campoverde MD Work Phone: [facility] 06-19-2023 10:18-0400 Respiratory rate 18 /min Gordon Campoverde MD Work Phone: [facility] 06-19-2023 10:18-0400 SaO2% (BldA) [Mass fraction] 98 % Gordon Campoverde MD Work Phone: [facility] 06-19-2023 10:18-0400 Systolic blood pressure 114 mm[Hg] Gordon Campoverde MD Work Phone: [facility] 02-25-2023 15:45-0500 Body height 170.18 cm Candelaria Ayala Other [employer] Other 02-25-2023 15:45-0500 Body mass index (BMI) [Ratio] 27.91 kg/m2 Candelaria Ayala Other [facility] Other 02-25-2023 15:45-0500 Body temperature 98.1 [degF] Candelaria Ayala Other [facility] Other 02-25-2023 15:45-0500 Body weight 80.83 kg Candelaria Ayala Other [facility] Other 02-25-2023 15:45-0500 Respiratory rate 18 /min Candelaria Ayala Other [facility] Other 02-25-2023 15:45-0500 SaO2% (BldA) [Mass fraction] 98 % Candelaria Ayala Other [facility] Other 10-30-2022 10:39-0400 Body height 170.18 cm Shaikh Fe Work Phone: [facility] 3 DO Work Phone: 10-30-2022 10:39-0400 Body mass index (BMI) [Ratio] 27.41 kg/m2 Shaikh Fe Work Phone: [facility] 3 DO Work Phone: 10-30-2022 10:39-0400 Body surface area Derived from formula 1.91 m2 Shaikh Fe Work Phone: [facility] 3 DO Work Phone: 10-30-2022 10:39-0400 Body weight 79.38 kg Shaikh Fe Work Phone: [facility] 3 DO Work Phone: 10-30-2022 10:39-0400 Diastolic blood pressure 74 mm[Hg] Shaikh Anastaciad Work Phone: [facility] 3 DO Work Phone: 10-30-2022 10:39-0400 Heart rate 76 /min Shaikh Fe Work Phone: [facility] 3 DO Work Phone: 10-30-2022 10:39-0400 Systolic blood pressure 111 mm[Hg] Shaikh Anastaciad Work Phone: [facility] 3 DO Work Phone: 07-10-2021 13:29-0400 Body height 170.18 cm Shaikh Fe Work Phone: [facility] 3 DO Work Phone: 07-10-2021 13:29-0400 Body mass index (BMI) [Ratio] 27.6 kg/m2 Shaikh Fe Work Phone: [facility] 3 DO Work Phone: 07-10-2021 13:29-0400 Body surface area Derived from formula 1.92 m2 Shaikh Fe Work Phone: [facility] 3 DO Work Phone: 07-10-2021 13:29-0400 Body temperature 97.4 [degF] Shaikh Anastaciad Work Phone: [facility] 3 DO Work Phone: 07-10-2021 13:29-0400 Body weight 79.95 kg Shaikh Fe Work Phone: [facility] 3 DO Work Phone: 07-10-2021 13:29-0400 Diastolic blood pressure 70 mm[Hg] Shaikh Fe Work Phone: [facility] 3 DO Work Phone: 07-10-2021 13:29-0400 Heart rate 86 /min Shaikh Fe Work Phone: [facility] 3 DO Work Phone: 07-10-2021 13:29-0400 Systolic blood pressure 110 mm[Hg] Shaikh Fe Work Phone: [facility] 3 DO Work Phone: 05-10-2020 17:05-0500 BMI (Body Mass Index) 27.41 kg/m2 [facility] [employer] Work Phone: 05-10-2020 17:05-0500 Body Temperature 97.1 [degF] [facility] [employer] Work Phone: Comment on above: Method: Temporal 05-10-2020 17:05-0500 Body weight 79.38 kg [facility] [employer] Work Phone: 05-10-2020 17:05-0500 BP Diastolic 80 mm[Hg] [facility] [employer] Work Phone: 05-10-2020 17:05-0500 BP Systolic 119 mm[Hg] [facility] [employer] Work Phone: 05-10-2020 17:05-0500 BSA (Body Surface Area) 1.91 m2 [facility] Work Phone: 05-10-2020 17:05-0500 Height 170.18 cm [facility] Work Phone: 05-10-2020 17:05-0500 Pulse (Heart Rate) 76 /min [facility] Work Phone: Encounters Encounter Date Encounter Type Care Provider Facility Start: 02-05-2024 End: 02-05-2024 Bamboo flowsheet Nia Portillo DPM Work Phone: [facility] Start: 02-05-2024 End: 02-05-2024 Bamboo flowsheet Nia Portillo DPM Work Phone: [facility] Start: 02-05-2024 End: 02-05-2024 Office outpatient visit 15 minutes Nia Portillo DPM Work Phone: [facility] Comment on above: Plantar fasciitis, r ight (Primary Dx); Inflammatory heel pain, right; Calcaneal spur, right; Difficulty walking Start: 01-20-2024 End: 01-20-2024 ambulatory STACIE HORTON Not Available Start: 01-20-2024 End: 01-20-2024 Bamboo flowsheet Stacie Horton OVEN DAUBER Work Phone: [facility] Start: 01-20-2024 End: 01-20-2024 Bamboo flowsheet Stacie Horton OVEN DAUBER Work Phone: [facility] Start: 11-12-2023 End: 11-14-2023 Telephone encounter Nia Portillo DPM Work Phone: [facility] Comment on above: Advice Only (Injecti on Question) Start: 11-11-2023 End: 11-11-2023 ambulatory NIA PORTILLO Not Available Start: 09-30-2023 End: 09-30-2023 ambulatory [facility] Start: 09-01-2023 End: 09-01-2023 ambulatory RADHA Barroso [facility] Start: 09-01-2023 End: 09-01-2023 Office outpatient visit 15 minutes Radha Calvillo MD Work Phone: [facility] Comment on above: Shortness of breath (Primary Dx); Shortness of breath on exertion; Status post administration of cardiotoxic chemotherapy; Burr's sarcoma (Multi) Start: 09-01-2023 End: 09-01-2023 ambulatory [facility] Start: 09-01-2023 End: 09-01-2023 Subsequent hospital visit by physician [facility] Comment on above: Shortness of breath on exertion; Status post administration of cardiotoxic chemotherapy; Burr's sarcoma (Multi); Encounter for antineoplastic chemotherapy Start: 08-12-2023 End: 08-12-2023 ambulatory [facility] Start: 07-21-2023 End: 07-21-2023 Office consultation new/estab patient 80 min Radha Calvillo MD Work Phone: [facility] Comment on above: Status post administ ration of cardiotoxic chemotherapy (Primary Dx); Shortness of breath on exertion; Acute deep vein thrombosis of left popliteal vein (Multi); Burr's sarcoma (Multi); Atypical chest pain Start: 07-21-2023 End: 07-21-2023 ambulatory [facility] Start: 07-10-2023 End: 07-10-2023 ambulatory ANURADHA OSEGUERA Not Available Start: 06-19-2023 End: 06-19-2023 Office outpatient visit 40 minutes Gordon Campoverde MD Work Phone: [facility] Comment on above: Acute deep vein thro mbosis of left popliteal vein (Multi) (Primary Dx); Burr's sarcoma (Multi); Status post administration of cardiotoxic chemotherapy; Shortness of breath on exertion Start: 06-19-2023 End: 06-19-2023 ambulatory SHAIKH FE [facility] Start: 06-16-2023 End: 06-16-2023 Subsequent hospital visit by physician Kevin [id number] Admin Room [facility] Comment on above: Other specified pers onal risk factors, not elsewhere classified; Personal history of irradiation; Chronic kidney disease, stage 2 (mild); Malignant neoplasm of bone and articular cartilage, unspecified (Multi) Arrived Start: 06-16-2023 End: 06-16-2023 ambulatory SHAIKH FE [facility] Start: 05-19-2023 End: 05-19-2023 ambulatory SHAIKH NIKKYWENDY Not Available Start: 05-06-2023 End: 05-06-2023 ambulatory SHAIKH NIKKYWENDY Not Available Start: 05-05-2023 End: 05-05-2023 ambulatory SHAIKH NIKKYWENDY Not Available Start: 05-05-2023 Patient encounter status Dharmesh Portillo [facility] Work Phone: [facility] Start: 02-25-2023 End: 02-25-2023 ambulatory Candelaria Ayala Other [email or web address] [facility] [employer] Other Start: 02-25-2023 Office outpatient ne w 20 minutes Candelaria Ayala [facility] Yovanny Start: 10-30-2022 Chart Update Shaikh Fe Work Phone: [place] [address] DO Work Phone: Start: 10-30-2022 ambulatory MD JOHN Nails ty: Start: 07-30-2022 End: 07-30-2022 ambulatory ОЛЕГ DOLLMIPATHChetna . Facility:H1 Start: 07-16-2022 End: 07-17-2022 ambulatory ОЛЕГ ARAGONPATHChetna . Facility:[facility]1 Start: 06-26-2022 End: 06-27-2022 ambulatory Sue FE Facility:[facility]1 Start: 06-06-[address] Rik Murphy Facility: Start: 05-27-[address] Gordon Nails ty:[id number] Start: 05-24-2022 ambulatory Gordon Campoverde Facility:[id number] Start: 02-05-2022 End: 02-06-2022 ambulatory ARABELLA HORTON Facility:[facility] Start: 01-02-2022 End: 01-10-2022 ambulatory SHAIKH Sue MIRAMONTES Facility:H1 Start: 09-19-2021 End: 09-20-2021 ambulatory SHAIKH Sue MIRAMONTES Facility:[facility]1 Start: 09-17-2021 End: 09-18-2021 ambulatory SHAIKH Sue MIRAMONTES Facility:[facility]1 Start: 07-20-2021 End: 07-20-2021 Patient encounter procedure MD John Graham Work Phone: [facility] [place] Start: 07-11-2021 Chart Update Shaikh Anastaciasameer Work Phone: [place] [address] DO Work Phone: Start: 05-03-2020 Initial nursing faci lity care/day 45 minutes [facility] [employer] Work Phone: Patient encounter status Shaikh Anastaciasameer Work Phone: [place] [address] DO Work Phone: Procedures Date Procedure Procedure Detail Performing Clinician Start: 09-01-2023 Echo tthrc r-t 2d w/wom-mode compl spec&colr d Radha Calvillo MD Work Phone: Start: 07-21-2023 AMB REFERRAL TO CARD IO ONCOLOGY PROGRAM GORDON MANGLA Start: 06-19-2023 APC RESISTANCE GORDON MA NGLA Start: 06-19-2023 PROTHROMBIN GENE MUT ATION ANALYSIS GORDON MANGLA Start: 06-16-[address] MELANOMA DIAGNOSIS FOR NONCOVERED INDICATIONS GORDON MANGLA Start: 06-16-2023 CBC W Auto Different ial panel - Blood GORDON MANGLA Start: 06-16-2023 Comprehensive metabo lic 2000 panel - Serum or Plasma GORDON MANGLA Start: 06-16-2023 Lactate dehydrogenas e [Enzymatic activity/volume] in Serum or Plasma GORDON MANGLA Start: 06-16-[address] atten uation skull base mid-thigh Gordon Campoverde MD Work Phone: Start: 07-20-2021 Ultrasonography of bilateral kidneys MD John Graham Work Phone: Start: 05-29-2020 Colonoscopy Abbie Lim jennifer Start: 05-23-2020 Brain Natriuretic Pe ptide BNP Abbie Limw Start: 05-23-2020 Lipid panel Abbie rodriguez Excision of neoplasm Shaikh Sabinoness Work Phone: Comment on above: chest wall 2009; Extraction of wisdom tooth S jennifer Ervinwendy Work Phone: Lobotomy of brain Nikky nguyen Work Phone: Tonsillectomy Shaikh Nikkywendy Work Phone: Plan of Treatment Date Care Activity Detail Author Start: 2039 RSV patient s and/or patients aged 60+ years (1 - 1-dose 60+ series) RSV patients and/or patients aged 60+ years (1 - 1-dose 60+ series) [facility] Start: 06-01-2029 Zoster Vaccines (1 of 2) Zoster Vacc babs (1 of 2) [facility] Start: 07-09-2028 Screening for malign ant neoplasm of cervix [facility] Start: 07-29-2024 End: 07-29-2024 Patient encounter procedure 07/29/2024 3:15 PM EDT Office Visit [facility] [address] [place] [address] Anuradha Oseguera, DO [address] [place] [address] [facility] Start: 06-15-2024 Creatinine measurement Creatinine Le frederick [facility] Start: 06-15-2024 Potassium measurement Potassium Leve l [facility] Start: 02-11-2024 End: 02-11-2024 Patient encounter procedure 02/11/2024 8:30 AM EST Office Visit [facility] [address] [place] [address] Sera Aguirre NP [address] [place] [address] [facility] Start: 02-05-2024 End: 02-05-2024 Patient encounter procedure 02/05/2024 8:30 AM EST [facility] [address] [address] Nia Portillo DPM [address], [place] [id number] Arrived [facility] Comment on above: Arrived Start: 01-20-2024 End: 01-20-2024 Patient encounter procedure 01/20/2024 2:20 PM EST [facility] [address] [place] [address] Stacie Horton NP [address] [place] [address] Arrived [facility] Comment on above: Arrived Start: 12-04-2023 End: 12-04-2023 Patient encounter procedure 12/04/2023 2:45 PM EDT Office Visit [facility] [address] [address] Nia Portillo DPM [address], [place] [id number] [facility] Start: 11-02-2023 Influenza vaccination [facility] Start: 10-29-2023 FUV, Provider: John Graham, Status: Pen, Time: 10:00 AM FUV, Provider: John Graham, Status: Pen, Time: 10:00 AM [facility] 3 DO Work Phone: Start: 10-29-2023 End: 10-29-2023 Patient encounter procedure 10/29/2023 11:30 AM EDT Office Visit [facility] [address] [place] [address] [place] [address] [place], [place] [phone] [facility] Start: 09-18-2023 End: 09-18-2023 Telemedicine consultation with patient 09/18/2023 3:00 PM EDT Telemedicine [facility] [address] [place] [address] [place] [address] [place], [place] [id number] [facility] Start: 09-18-2023 End: 09-18-2023 Patient encounter procedure 09/18/2023 10:40 AM EDT Office Visit [facility] [address] [place] [phone] [place] [address] [place] [address] [facility] Start: 09-01-2023 End: 09-01-2023 Patient encounter procedure [facility] Start: 08-12-2023 End: 08-12-2023 Clinical Support 08/12/2023 8:00 AM EDT Clinical Support [facility] [address] [facility] [address] [place] [address] [facility] Start: 07-21-2023 End: 07-21-2023 Patient encounter procedure 07/21/2023 2:15 PM EDT Office Visit [facility] [address] [place] [address] [place] [address] [place] [id number] [facility] Start: 07-21-2023 End: 07-20-2024 Cardiac stress study Procedure Cardiopulmonary (Metabolic) Stress Test Cardiac Services Routine Shortness of breath on exertion Atypical chest pain Expected: 07/21/2023 (Approximate), Expires: 07/20/2024 [facility] Work Phone: Comment on above: Expected: 07/21/2023 (Approximate), Expires: 07/20/2024 Start: 07-21-2023 End: 07-20-2024 ECG 12 lead (Ancillary Performed) ECG 12 lead (Ancillary Performed) ECG Routine Shortness of breath on exertion Status post administration of cardiotoxic chemotherapy Expected: 07/21/2023, Expires: 07/20/2024 [facility] Work Phone: Comment on above: Expected: 07/21/2023 , Expires: 07/20/2024 Start: 07-21-2023 End: 07-20-2024 Onco-Echo Complete (Strain & 3D) Onco-Echo Complete (Strain & 3D) Echocardiography Routine Shortness of breath on exertion 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) Expected: 07/21/2023 (Approximate), Expires: 07/20/2024 [facility] Work Phone: Comment on above: Expected: 07/21/2023 (Approximate), Expires: 07/20/2024 Start: 06-19-2023 End: 06-18-2024 Activated protein C resistance [Time Ratio] in Platelet poor plasma by Coagulation assay [facility] Work Phone: Comment on above: Expected: 06/19/2023 (Approximate), Expires: 06/18/2024 Start: 06-19-2023 End: 06-18-2024 Prothrombin Gene Mutation [facility] Work Phone: Comment on above: Expected: 06/19/2023 (Approximate), Expires: 06/18/2024 Start: 06-19-2023 End: 06-19-2023 Patient encounter procedure 06/19/2023 10:40 AM EDT Office Visit [facility] [address] [place] [address] [place] [address] [place] [address] [facility] Start: 11-01-2022 COVID-19 Vaccine ( season) COVID-19 Vaccine () [facility] Start: 08-01-2021 FUV, Provider: John Graham, Status: Pen, Time: 9:10 AM FUV, Provider: John Graham, Status: Pen, Time: 9:10 AM [place] [address] DO Work Phone: Start: 07-04-2020 Colonoscopy Colonoscopy [facility] Work Phone: Start: 2019 Screening for malign ant neoplasm of breast Mammogram [facility] Start: 05-08-2018 Diabetes mellitus screening Diabetes Screening [facility] Start: 06-01-2001 DTaP/Tdap/Td Vaccine s (1 - Tdap) DTaP/Tdap/Td Vaccines (1 - Tdap) [facility] Start: 06-01-2000 Screening for malign ant neoplasm of cervix [facility] Start: 06-01-1998 Hepatitis B Vaccines (1 of 3 - 19+ 3-dose series) Hepatitis B Vaccines (1 of 3 - 19+ 3-dose series) [facility] Start: 06-01-1998 Urine screening for protein CKD: Urine Protein Screening [facility] Start: 06-01-1997 Hepatitis C screening Hepatitis [facility] Start: 06-01-1985 Pneumococcal Vaccine : Pediatrics (0 to 5 Years) and At-Risk Patients (6 to 64 Years) (1 of 2 - PCV) Pneumococcal Vaccine: Pediatrics (0 to 5 Years) and At-Risk Patients (6 to 64 Years) (1 of 2 - PCV) [facility] Start: 06-01-1980 MMR Vaccines (1 of 1 - Standard series) MMR Vaccines (1 of 1 - Standard series) [facility] Start: 1979 Echocardiography Echocardiogram [facility] Start: 1979 HIV screening HIV Screening [facility] Start: 1979 Lipid panel Lipid Panel [facility] Start: 1979 Yearly Adult Physical Yearly Adult P hysical [facility] Work Phone: NEGATED: Highlighted row has been ruled out! Planned Goals not documented [facility] Work Phone: Immunizations Immunization Date Immunization Notes Care Provider Fa mark 05-01-2010 pneumococcal Conjuga te, unspecified formulation [facility] Work Phone: Payers Date Payer Category Payer [facility] [id number] 2007 Unknown 1979 Unknown [id number] 2.16.840.1.155543.3.579.2 .1069 1979 Unknown [id number] 2.16.840.1.643746.3.579.2 .593 1979 Unknown [id number] 2.16.840.1.926219.3.579.2 .593 1979 Unknown [id number] 2.16.840.1.682620.3.579.2 .593 1979 Unknown [id number] 2.16.840.1.677932.3.579.2 .593 1979 Unknown [id number] 2.16.840.1.737145.3.579.2 .593 1979 Unknown [id number] 2.16.840.1.404441.3.579.2 .593 1979 Unknown [id number] 2.16.840.1.346499.3.579.2 .593 1979 Unknown [id number] 2.16.840.1.617472.3.579.2 .356 1979 Unknown [id number] 2.16.840.1.995782.3.579.2 .356 1979 Unknown [id number] 2.16840.1.615930.3.579.2 .356 1979 Unknown [id number] 2.16840.1.149392.3.579.2 .1242 1979 Unknown [id number] 2.16.840.1.129671.3.579.2 .1243 1979 Unknown [id number] 2.16.840.1.687359.3.579.2 .1244 1979 Unknown [id number] 2.16.840.1.941082.3.579.2 .1244 1979 Unknown [id number] 2.16.840.1.419167.3.579.2 .1244 1979 Unknown [id number] 2.16.840.1.154062.3.579.2 .1244 1979 Unknown [id number] 2.16.840.1.853042.3.579.2 .1244 1979 Unknown [id number] 2.16.840.1.610982.3.579.2 .1244 1979 Unknown [id number] 2.16.840.1.019985.3.579.2 .1245 1979 Unknown [id number] 2.16.840.1.013414.3.579.2 .5 1979 Unknown [id number] 2.16.840.1.034639.3.579.2 .9 1979 Unknown [id number] 2.16.840.1.794909.3.579.2 .1258 1979 Unknown [id number] 2.16.840.1.646566.3.579.2 .9 1979 Unknown [id number] 2.16.840.1.851126.3.579.2 .9 1979 Unknown [id number] 2.16.840.1.552028.3.579.2 .9 1979 Unknown [id number] 2.16.840.1.001449.3.579.2 .1258 1979 Unknown [id number] 2.16.840.1.661410.3.579.2 .9 1959 Unknown [id number] Self-pay Self Pay [id number] Social History Date Type Detail Facility Assertion Tobacco smoking consumption unknown (finding) [facility] Work Phone: Start: 06-12-2023 End: 06-20-2023 Daily caffeine consumption Daily caffeine consumption [facility] 3 DO Work Phone: Start: 1980 Sex Assigned At Female [facility] Start: 06-12-2023 End: 06-20-2023 Sex Assigned At [facility] [employer] Other Start: 06-12-2023 End: 06-19-2023 Tobacco smoking status NHIS Never smoked tobacco [facility] Work Phone: Start: 06-12-2023 End: 06-20-2023 Alcoholic beverage intake Current drinker of alcohol (finding) [facility] Work Phone: Start: 1980 [facility] Work [facility]: Start: 06-06-2023 End: 09-01-2023 Exposure to SARS-CoV-2 (event) Not sure [facility] Start: 05-05-2023 End: 06-19-2023 Tobacco use and exposure Smokeless tobacco non-user [facility] Work Phone: Start: 11-11-2023 End: 02-05-2024 Alcoholic beverage intake Lifetime non-drinker (finding) [facility] Start: 03-10-2023 Alcohol Comment caffeine: 1-2 cups per day coffee [facility] NEGATED: Highlighted rowStart: NINF History of tobacco use Passive smoker [facility] Functional Status Date Assessment Result Facility NEGATED: Highlighted row Functional performance Functional status health issues are not documented Disease [facility] [employer] Work Phone: Mental Status Date Assessment Result Facility NEGATED: Highlighted row Cognitive function [Interpretation] Cognitive status health issues are not documented Disease [facility] delicious Phone: Clinical Notes 06-27-2022 to 02-05-2024 Nia Portillo DPM - 02/05/2024 8:30 AM ESTPatient InstructionsTelephone Encounter - Avel Back - 11/12/2023 9:41 AM EDTTelephone Encounter - Avel Back - 11/12/2023 9:41 AM EDT Note Date & Type Note Facility 02-05-2024 History of Present illness Narrative Images from the original note were not included. Subjective Patient ID: Alcon Berkowitz is a 43 y.o. female who presents for Foot Pain (Alcon Berkowitz 43yo presents for FUV right heel pain. Injection at last visit, patient relates slight improvement at that time. Pain is at a 7 out of 10. SS 10). HPI Chief complaint: Right heel pain. Relates about 60-70 percent transient relief or improvement following injection therapy in November of 2023. Denies interval injury or trauma. Denies interval pop or snap sensation. Patient has noted gradual progressive symptoms over the past several weeks or so; describes rather sharp pain, well localized to the inferior heel and in-step area; typical of 1st step pain and post static dyskinesia. Denies swelling, discoloration, dysesthesias or radicular pain. Reports good compliance with supportive footwear, Powerstep orthoses and stretching exercises. Medications Current Outpatient Medications: apixaban (Eliquis) 5 MG tablet, Take 1 tablet (5 mg) by mouth in the morning and 1 tablet (5 mg) before bedtime., Disp: 180 tablet, Rfl: 0 azithromycin (Zithromax) 250 MG tablet, 2 pills day #1, 1 pill day #2-5, Disp: 6 tablet, Rfl: 0 calcitriol (Rocaltrol) 0.25 MCG capsule, Take 0.25 mcg by mouth every other day, Disp: , Rfl: LORazepam (Ativan) 1 MG tablet, Take 1 tablet (1 mg) by mouth at bedtime, Disp: 30 tablet, Rfl: 2 Allergies Patient has no known allergies. 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 Pleasant disposition. Wearing [place] athletic shoes with Powerstep orthoses. Vascular: DORSALIS PEDIS PULSE: 2/4, bilaterally. POSTERIOR TIBIAL PULSE: 2/4, bilaterally. TEMPERATURE GRADIENT: warm to warm. EDEMA: Unremarkable for ankle of the. VARICOSITIES: absent. CAPILLARY FILLING TIME(sec): capillary fill intact bilateral digits less than 3 secs. HAIR GROWTH: present. Neurologic: TINELS SIGN: negative along the tarsal canal. SHARP SENSATION: tactile and light touch sensation intact. NEUROLOGIC: light touch (normal). Dermatologic: SKIN FINDINGS: skin turgor is good. HYPERKERATOSIS: no forefoot or digital discrete keratotic lesions are noted. Orthopedic: FOOT MORPHOLOGY: Stance assessment: Symmetrical, flexible, mildly pronated foot type. JOINT RANGE OF MOTION: maintains functional ankle, subtalar, midtarsal and MTP joint range of motion; mild gastrocnemius equinus. DEFORMITIES : no obvious or distinct forefoot or digital deformities are noted. PAIN ELICITED WITH PALPATION OF: Focused exam right foot and ankle: Rather sharp point tenderness medial calcaneal tubercle/medial fascial insertion; without swelling, warmth, discoloration or nodular formation. Lateral squeeze of the calcaneus demonstrates mild tenderness medially. Posterior joint line and Achilles tendon construct non-tender. Mild tenderness through the proximal plantar fascial structures. Midfoot and forefoot structures otherwise non-tender. MUSCLE STRENGTH: no focal deficits. Radiology: 2 views right heel: Weight-bearing: Lateral and oblique: 11/11/2023: Unremarkable for acute osseous or joint pathology. Unremarkable for fracture, stress fracture, cystic, erosive or lytic changes of the calcaneus. Well-formed enthesophyte at the insertion of the plantar fascia. Calcific deposition at the insertion of the Achilles tendon. Prominent os trigonum. Osseous fragment dorsal joint line of the talar-navicular joint; with a naviculocuneiform fault. 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 Plan: Review of clinical and x-ray findings, differential diagnosis, etiology and contributing/aggravating factors, response to previous treatment, treatment strategy, rationale and objectives. Elective corticosteroid injection right heel as described (2nd injection). Supportive strapping right foot 5-7 days. Encourage compliance with supportive footwear, Powerstep orthoses and stretching exercises. Discourage any barefoot walking, particularly when 1st arising. Procedure: Right foot: Aseptic technique: Elective corticosteroid injection: Plantar fascial insertion; medial approach: Infiltrating point of maximum tenderness: Xylocaine with 0.3 cc Kenalog 40. Well tolerated. This note was created with the assistance of a speech recognition program. While intending to generate a timely document that accurately reflects the content of the visit, no guarantee can be provided that every grammatical or spelling mistake has been or will be identified or corrected. Thank you for your understanding. Nia Portillo DPM documented in this encounter [facility] 02-05-2024 Instructions Nia Portillo DPM - 02/05/2024 8:30 AM EST As noted documented in this encounter [facility] 11-12-2023 Telephone encounter Note Patient called with questions regarding the injection at her appointment yesterday [facility] 11-12-2023 Miscellaneous Notes Patient called with questions regarding the injection at her appointment yesterday documented in this encounter [facility] 09-01-2023 History of Present illness Narrative Patient: Alocn Berkowitz Date of : 1980 Chief Complaint/Active Symptoms: Alcon Berkowitz is a 43 y.o. female who returns today for cardiac follow-up. Patient here today for follow-up related to her shortness of breath and history of cardiotoxic drug therapy. Patient continues to have shortness of breath on exertion without orthopnea or PND. There is no lower extremity edema, palpitations, dizziness or lightheadedness. She has had a carb pulmonary stress testing that is abnormal but findings are consistent with muscular deconditioning. She had an echocardiogram prior to her office appointment today that shows normal LV systolic function. The echo was technically difficult and strain images were not of good quality but did with what was obtained showed a mildly reduced strain. The patient has not noted any significant problems. Her biggest issue is she was trying to do CrossFit and just could not make any progress and do the intensive exercises as part of that regimen. Otherwise her symptoms are unchanged since when I saw her little more than a month ago. There are no new problems or concerns. 39 year old female diagnosed with Burr [...] Unknown Radiation: chest wall 2001, adjuvant RT Review of Systems Respiratory: Positive for shortness of breath. Cardiovascular: Negative for chest pain, palpitations and leg swelling. Neurological: Negative for weakness. All other systems reviewed and are negative. Objective: Vitals: 09/01/23 1444 BP: 108/70 Pulse: 73 Resp: 15 Temp: 36.3 C (97.3 F) SpO2: 99% Vitals: 09/01/23 1444 Weight: 81.9 kg (180 lb 8.9 oz) Allergies: No Known Allergies Medications: Current Outpatient Medications Medication Instructions apixaban (ELIQUIS) 5 mg, oral, 2 times daily calcitriol (ROCALTROL) 0.25 mcg, oral, Every other day LORazepam (ATIVAN) 0.5 mg, oral, Nightly Physical Examination: GENERAL: Well developed, well nourished, in no acute distress. HEENT: NC AT, anicteric sclera NECK: Supple, no JVD, no bruit. LUNGS: Clear to auscultation bilaterally, normal respiratory effort. HEART: PMI is nondisplaced. RRR with normal S1 and S2, no S3, no mumur or rub. No carotid or abdominal bruits EXTREMITIES: Warm with good color, no clubbing or cyanosis. There is no edema noted. PERIPHERAL VASCULAR: Pulses present and equally palpable; MUSCULOSKELETAL: No significant joint deformity NEURO/PSYCH: Alert and oriented times three with approppriate behavior and responses. Normal gait and ambulation Lab: CBC: Lab Results Component Value Date WBC 8.8 06/16/2023 RBC 4.86 06/16/2023 HGB 14.7 06/16/2023 HCT 43.9 06/16/2023 PLT 246 06/16/2023 CMP: Lab Results Component Value Date NA 138 06/16/2023 K 4.5 06/16/2023 CL 101 06/16/2023 CO2 31 06/16/2023 BUN 18 06/16/2023 CREATININE 1.24 (H) 06/16/2023 GLUCOSE 85 06/16/2023 CALCIUM 10.1 06/16/2023 Magnesium: No results found for: MG Lipid Profile: No results found for: CHLPL , TRIG , HDL , LDLCALC , LDLDIRECT TSH: No results found for: TSH BNP: Lab Results Component Value Date BNP 114 (H) 07/13/2020 PT/INR: No results found for: PROTIME , INR HgBA1c: No results found for: HGBA1C BMP: Lab Results Component Value Date NA 138 [...] 1.17 (H) 05/27/2022 CREATININE 1.26 (H) 06/04/2021 Cardiac Enzymes: No results found for: TROPHS Hepatic Function Panel: Lab Results Component Value Date ALKPHOS 62 06/16/2023 ALT 32 06/16/2023 AST 21 06/16/2023 PROT 6.8 06/16/2023 BILITOT 0.5 06/16/2023 Diagnostic Studies: Echo today with normal LV systolic function and regional wall motion, normal diastolic function, trace to mild mitral and tricuspid valve regurgitation. 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 Shortness of breath on exertion. Given the results of today's echocardiogram and a cardiopulmonary stress testing I suspect that the predominance of her symptoms is just physical deconditioning. There is no signs of heart failure and there certainly is no significant LV systolic dysfunction. We have made some recommendations how she can improve her functional capacity but at this time that CrossFit type exercises may not serve her well. Certainly no signs of any cardiotoxicity or significant impairment from her prior chemotherapy. 2. History of Burr sarcoma with cardiotoxic chemotherapy. Please see the above no signs of any cardiotoxicity, would repeat her echocardiogram and follow-up in 5 years. We have asked the patient to return for evaluation or treatment if she has any change in her underlying symptoms, otherwise would recommend repeat echocardiogram and office visit in 5 years. documented in this encounter [facility] Work Phone: 07-21-2023 History of Present illness Narrative CARDIOLOGY NEW PATIENT OFFICE VISIT Patient: Alcon Berkowitz Date of : 1980 Chief Complaint/Active Symptoms: Alcon Berkowitz is a 43 y.o. female who is [...] Insecurity: No Food Insecurity (03/23/2022) Received from [facility] Hunger Screening Within the past 12 [...] workup needs beneficial. documented in this encounter [facility] Work Phone: 07-21-2023 Instructions Radha Calvillo MD - 07/21/2023 2:15 PM EDT Echo Cardiopulmonary stress test ([place]) See me after testing. documented in this encounter [facility] Work Phone: 06-19-2023 History of Present illness Narrative .Patient ID: Alcon Berkowitz is a 43 y.o. female. Referring Physician: No referring provider defined for this encounter. 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 She was supposed to see a talent acquisition project manager, but she cancelled the appointment as she started feeling better on her own. She does not want to make another appointment as of now. From Med Onc perspective, she had a PET scan in June 2022 that did not show any evidence of recurrent tumor. The next scan in June 2023 also did not pick up driver any recurrence. However, the patient had a [...] complete History of present illness. Ms Alcon Berkowitz in the clinic all by herself. She [...] the findings as stated by residential sales Dr. Namrata Zuñiga. This study was interpreted at [place], [place]. MACRO: None Signed by: Edy Jeronimo 06/16/2023 2:50 PM Dictation workstation: [id number] Pathology Results: I have reviewed the full pathology report recorded in the EMR. The pertinent portions indicating diagnosis are listed here in the note. for details please refer to the full report recorded in the EMR. Surgical Pathology [May 10 2009 12:56PM] ([id number]) Pathologist: MARCUS CHRISTOPHER M.D. Date of Procedure: [...] identified Electronically Signed Out By MARCUS CHRISTOPHER M.D./[facility] Assessment and Plan: Assessment/Plan Mr. Alcon Berkowitz is a 43 y.o. female with a [...] verbalized understanding. INSTRUCTIONS FOR PATIENT Ms. Alcon Berkowitz , It was a pleasure talking to [...] number listed below. Thank you for choosing [facility]. We appreciate your visit. Gordon Campoverde MD [employer] Division of Hematology and Oncology [facility] Co-Director Sarcoma and Cutaneous Oncology [facility] documented in this encounter [facility] Work Phone: 06-19-2023 Instructions Gordon Campoverde MD - 06/19/2023 10:40 AM EDT Ms. Alcon Berkowitz , It was a pleasure talking to [...] number listed below. Thank you for choosing [facility]. We appreciate your visit. Gordon Campoverde MD [employer] Division of Hematology and Oncology [facility] Co-Director Sarcoma and Cutaneous Oncology [facility] documented in this encounter [facility] Work Phone: 02-25-2023 Evaluation note Encounter Date [...] understanding and is agreeable to treatment plan. [facility] Other 05-16-2023 NoteCONSULTATION CONSULTATION DATE: 07/16/2022 TO: [...] our patients to inform us about any [id number]-[id number] medications or herbal remedies/nutritional supplements/alternative remedies. 2. 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, unspecified (Multi) documented in this encounter [facility] Work Phone: Evaluation note* Diagnosis Acute deep vein thrombosis of left popliteal vein (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, site unspecified Status post administration of cardiotoxic chemotherapy Shortness of breath on exertion Shortness of breath documented in this encounter [facility] Work Phone: Evaluation note* Diagnosis Status post administration of cardiotoxic chemotherapy- Primary Shortness of breath on exertion Shortness of breath Acute deep vein thrombosis of left popliteal vein (Multi) 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, site unspecified Atypical chest pain Other chest pain documented in this encounter [facility] Work Phone: Evaluation note* Diagnosis Breast cancer screening by mammogram- Primary Left leg pain Pain in soft tissues of limb Psychophysiological insomnia Persistent disorder of initiating or maintaining sleep Wellness examination Subacute cough- Primary Acute deep vein thrombosis of left popliteal vein (CMS/HCC) Stage 3a chronic kidney disease (HCC) (CMS/HCC) S/P partial lobectomy of lung Other postprocedural status Anxiety Anxiety state, unspecified Encounter for screening mammogram for malignant neoplasm of breast Plantar fasciitis, right- Primary Inflammatory heel pain, right Calcaneal spur, right Difficulty walking Difficulty in walking documented in this encounter [facility] HealthcareEvaluation note* Diagnosis Plantar fasciitis, right- Primary Inflammatory heel pain, right Calcaneal spur, right Difficulty walking Difficulty in walking documented in this encounter [facility] HealthcareEvaluation note* Diagnosis Shortness of breath- Primary Shortness of breath on exertion Shortness of breath 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, site unspecified documented in this encounter [facility] Work Phone: Evaluation note* Diagnosis Shortness of breath on exertion Shortness of breath 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, site unspecified Encounter for antineoplastic chemotherapy documented in this encounter [facility] Work Phone: History general Narrative - Reported* Type Description Date Medical History sleep disterbances Surgical History 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 2000 2009 Hospitalization History see above [facility] Other Reason for referral (narrative)* Consultation (Routine) - Authorized Specialty Diagnoses / Procedures Referred By Josué t Referred To Contact Cardiology Diagnoses Shortness of [place] [address] [place] [address] Referral ID Status Reason Start Date Expiration Date Visits Requested Visits Authorized [id number] Authorized Specialty Services Required 06/19/2023 06/18/2024 1 1 [facility] Work Phone: Reason for referral (narrative)* Consultation (Routine) - Authorized Specialty Diagnoses / Procedures Referred By Contac t Referred To Contact Cardiology Diagnoses Shortness of breath on exertion 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) Atypical chest pain Procedures Follow Up In Cardiology [place]illo [place] [id number] [place] [address] [address] [place] [address] Referral ID Status Reason Start Date Expiration Date V isits Requested Visits Authorized [id number] Authorized 07/21/2023 07/20/2024 1 1 * Cardiac Stress Testing (Routine) - Pending Review Specialty Diagnoses / Procedures Referred By Josué t Referred To Contact Cardiology Diagnoses Shortness of breath on exertion Atypical chest pain Procedures Cardiopulmonary (Metabolic) Stress Test [place] CARDIOPULMONARY EXERCISE TESTING Radha Calvillo MD [address] [place] [address] Dr [address] [place] [address] Referral ID Status Reason Start Date Expiration Date V isits Requested Visits Authorized [id number] Pending Review 07/21/2023 07/20/2024 1 1 * CV Imaging (Routine) - Pending Review Specialty Diagnoses / Procedures Referred By Josué t Referred To Contact Cardiology Diagnoses Shortness of breath on exertion 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) Procedures Onco-Echo Complete (Strain & 3D) [place] ECHO TTHRC R-T 2D W/WOM-MODE COMPL SPEC&COLR D [place]ha [place] [id number] [place] [address] Dr [address] [place] [address] Referral ID Status Reason Start Date Expiration Date Visits Requested Visits Authorized [id number] Pending Review Perform Procedure 07/21/2023 07/20/2024 1 1 * Cardiovascular (Routine) - Authorized Specialty Diagnoses / Procedures Referred By Contac t Referred To Contact Diagnoses Shortness of breath on exertion Status post administration of cardiotoxic chemotherapy Procedures ECG 12 lead (Ancillary Performed) Radha Calvillo MD [address] [place] [address] [address] [place] [address] Referral ID Status Reason Start Date Expiration Date V isits Requested Visits Authorized [id number] Authorized 07/21/2023 07/20/2024 1 1 [facility] Work Phone: Family History Unknown Family Member [...] Referral Specialty Diagnoses / Procedures Referred By Contac t Referred To Contact Cardiology Diagnoses Shortness of breath on exertion 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) Procedures Onco-Echo Complete (Strain & 3D) [place] ECHO TTHRC R-T 2D W/WOM-MODE COMPL SPEC&COLR D Radha Calvillo MD [address] [place] [address] Dr [address] [place] [address] Referral ID Status Reason Start Date Expiration Date Visits Requested Visits Authorized [id number] Authorized Perform Procedure 07/21/2023 07/20/2024 1 1 Specialty Diagnoses / Procedures Referred By Contac t Referred To Contact Radiology Diagnoses Other specified personal risk factors, not elsewhere classified Personal history of irradiation Chronic kidney disease, 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, unspecified (Multi) Procedures NM PET CT melanoma diagnosis for non[place] [address] [place] [address] Referral ID Status Reason Start Date Expiration Date V isits Requested Visits Authorized [id number] Closed Perform Procedure 11/16/2022 05/15/2023 3 3 Additional Source Comments Care Teams (unrecognized sec tion and content) Team Status: Inactive Member Role Status Dates John Graham MD Attending Provider Active Shaikh Fe MD Primary Care Provider Active Team Status: Active Member Role Status Dates Shaikh Fe MD Primary Care Provider Active Real Estate Manager Relationship Specialty Start Date End Date Shaikh Miramontes MD PCP - General 05/10/20 [place] [id number] [id number] Consulting Physician Hematology and Oncology 11/16/22 Real Estate Manager Relationship Specialty Start Date End Date Shaikh Miramontes MD PCP - General 05/10/20 [place] [address] [id number] Consulting Physician Hematology and Oncology 11/16/22 Real Estate Manager Relationship Specialty Start Date End Date Shaikh Miramontes MD PCP - General 05/10/20 [place] [address] [place] [address] Consulting Physician Hematology and Oncology 11/16/22 Real Estate Manager Relationship Specialty Start Date End Date Shaikh Miramontes MD PCP - General 05/10/20 [place] [address] [place] [address] Consulting Physician Hematology and Oncology 11/16/22 Real Estate Manager Relationship Specialty Start Date End Date Silviano Hodge MD [address] [place] [phone] PCP - General Family Medicine 01/13/24 Sera Aguirre NP [address] [place] [phone] Nurse Practitioner Family Medicine 01/13/24 Real Estate Manager Relationship Specialty Start Date End Date Silviano Hodge MD [address] [place] [phone] PCP - General Family Medicine 01/13/24 Sera Aguirre NP [address] [place] [phone] Nurse Practitioner Family Medicine 01/13/24 Real Estate Manager Relationship Specialty Start Date End Date Silviano Hodge MD [address] [place] [phone] PCP - General Family Medicine 01/13/24 Sera Aguirre NP [address] [place] [phone] Nurse Practitioner Family Medicine 01/13/24 Real Estate Manager Relationship Specialty Start Date End Date Shaikh Miramontes MD [address] [place] [address] PCP - General Internal Medicine 05/05/23 Real Estate Manager Relationship Specialty Start Date End Date Shaikh Miramontes MD [address] [place] [address] PCP - General Internal Medicine 08/25/23 [place] [address] [place] [address] Consulting Physician Hematology and Oncology 11/16/22 Real Estate Manager Relationship Specialty Start Date End Date Shaikh Miramontes MD [address] [place] [address] PCP - General Internal Medicine 08/25/23 [place] [address] [place] [address] Consulting Physician Hematology and Oncology 11/16/22 Goals (unrecognized section and content) Goals may be documented in a n alternate sectionNo Information INFORMATION SOURCE (unrecogn ized section and content) DATE CREATED AUTHOR 08/04/2021 [facility] DATE CREATED AUTHOR AUTHOR'S ORGANIZ ATION 05/25/2022 [facility] DATE CREATED AUTHOR AUTHOR'S ORGANIZ ATION 08/09/2022 [facility] DATE CREATED AUTHOR AUTHOR'S ORGANIZ ATION 10/31/2022 [facility] DATE CREATED AUTHOR AUTHOR'S ORGANIZ ATION 10/31/2022 [facility] DATE CREATED AUTHOR AUTHOR'S ORGANIZ ATION 09/23/2023 [facility] DATE CREATED AUTHOR AUTHOR'S ORGANIZ ATION 12/02/2023 [facility] DATE CREATED AUTHOR AUTHOR'S ORGANIZ ATION 12/31/2023 [facility] DATE CREATED AUTHOR AUTHOR'S ORGANIZ ATION 01/23/2024 [facility] dical Specialists EPIC REASON FOR VISIT [...] diagnosis for [place] [address] [place] [address] Referral ID Status Reason Start Date Expiration Date V isits Requested Visits Authorized [id number] Closed Perform Procedure 11/16/2022 05/15/2023 3 3 Reason Comments Follow-up PET scan follow upDV T follow upAnticoagulation follow up Sarcoma Burr Sarcoma long t erm survivor Reason Comments New Patient Visit Specialty Diagnoses / Procedures Referred By Josué guadarrama Referred To Contact Cardiology Diagnoses Shortness of [place] [address] [place] [address] Referral ID Status Reason Start Date Expiration Date Visits Requested Visits Authorized [id number] Authorized Specialty Services Required 06/19/2023 06/18/2024 1 1 Reason Comments Foot Pain Alcon Berkowitz 43yo presents for FUV right heel pain. Injection at last visit, patient relates slight improvement at that time. Pain is at a 7 out of 10. 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) Atypical chest pain Procedures Follow [place] [address] [facility] [address] [place] [address] Referral ID Status Reason Start Date Expiration Date V isits Requested Visits Authorized [id number] Authorized 07/21/2023 07/20/2024 1 1 Specialty Diagnoses / Procedures Referred By Contac t Referred To Contact Cardiology Diagnoses Shortness of breath on exertion 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 [facility] [employer] [facility]. provides no warranty or guarantee of the accuracy or completeness of information in this document.
--- NOTE | 2024-02-16 14:02 | XR_ITS ---
The [address] [address] Patient Name: ALCON BERKOWITZ MRN: [id number] date: 1980 Sex: F Assigned Patient Location: [facility] Current Patient Location: Accession/Order Number: [id number] Exam Date: 02/16/2024 13:55 Report Date: 02/17/2024 07:54 At the request of: KEZIA RASMUSSEN Procedure: XR chest 2V EXAMINATION: XR chest 2V HISTORY: Subacute Cough COMPARISON: 11/09/22 TECHNIQUE: PA and lateral FINDINGS: LUNGS: The left lung is clear. Moderate opacity identified throughout the right mid to lower lung zone, grossly stable. Right lung volume loss with apical pleural parenchymal scarring VASCULATURE: No increased pulmonary vasculature. PLEURA: No pneumothorax, effusion, or pleural thickening. CARDIAC: No cardiomegaly or cardiac silhouette abnormality. MEDIASTINUM: No visible mass or adenopathy. BONES: No fracture or visible bone lesion. OTHER: Negative. XR/XR chest 2V IMPRESSION: Chronic right lung opacities Clear left lung Electronically authenticated by: VAN CRAMER Date: 02/17/2024 07:54
== END 2024-02-16 13:32 | disposition home or self-care (01) ==
LOC: RAD 13:33
PROVIDERS: Visit Provider Nurse Practitioner
DX: R05.2 Subacute cough (principal)
CPT/HCPCS: 71046

== ENCOUNTER 2024-09-09 12:43 | Outpatient (OUT) | payer OTHER, SELFPAY ==
--- NOTE | 2024-09-09 13:22 | MM_ITS ---
Patient Name: ALCON BERKOWITZ MR#: [id number] : 1980 Exam Date: 09/09/2024 Ordering Doctor: ARABELLA RASMUSSEN CNP RADIOLOGY REPORT PROCEDURE: MM TOMOSYNTHESIS SCREENING BI COMPARISON: MAMMO KELLY DIAG DIG, 06/26/2011. INDICATIONS: Screening Calculator Name NCI Breast Cancer Risk Assessment Tool 5 Year Breast Cancer Risk 0.80% Lifetime Breast Cancer Risk 9.40% Personal Breast Cancer No Personal Ovarian Cancer No Treatments Surgery removal of RLL & ribs, chemo & radiation Family Cancers Father with lung/adrenal cancer at age 64. LOCATION: [facility] BREAST COMPOSITION: The breasts are heterogeneously dense, which may obscure small masses. FINDINGS: RIGHT BREAST: No significant suspicious finding. LEFT BREAST: No significant suspicious finding. DIAGNOSTIC CATEGORY 1--NEGATIVE. RECOMMENDATIONS: ROUTINE MAMMOGRAM AND CLINICAL EVALUATION IN 12 MONTHS. PLEASE NOTE: A NORMAL MAMMOGRAM DOES NOT EXCLUDE THE POSSIBILITY OF BREAST CANCER. A CLINICALLY SUSPICIOUS PALPABLE LUMP SHOULD BE BIOPSIED. Dictated by: Dennis Mota MD on 09/10/2024 at 11:45 Approved by: Dennis Mota MD on 09/10/2024 at 11:48
== END 2024-09-09 12:44 | disposition home or self-care (01) ==
LOC: MAMMO 12:45
PROVIDERS: PCP Nurse Practitioner; Visit Provider Nurse Practitioner
DX: Z12.31 Encounter for screening mammogram for malignant neoplasm of breast (principal); Z80.1 Family history of malignant neoplasm of trachea, bronchus and lung; Z80.8 Family history of malignant neoplasm of other organs or systems
CPT/HCPCS: 77063; 77067

== ENCOUNTER 2024-09-09 12:49 | Outpatient (OUT) | payer OTHER, SELFPAY ==
--- OUTSIDE RECORDS SUMMARY | 2024-09-09 12:52 | XMS_ITS | Encounter Summary ---
Author Organization [facility] Address [address] [place] [address] Care Team Providers Care Storage Solutions Architect Name Role Phone Silviano Hodge MD Primary Care Provider [phone] Sera Aguirre NP Unavailable Shaikh ELVIA Miramontes Unavailable [phone] Encounter Details Date Type Department Care Team (Late st Contact Info) Description 08/25/2024 Abstract [facility] [address] [place] [address] Stacie Horton NP [address] [place] [address] Social History Tobacco Use Types Packs/Day Years Used Date Smoking Tobacco: Never Passive Smoke Exposure: Never Smokeless Tobacco: Never Alcohol Use Standard Drinks/Week Comments Never 0 (1 standard drink = 0.6 oz pure alcohol) caffeine: 1-2 cups per day coffee PHQ-2 Answer Date Recorded Patient Health Questionnaire-2 Score 0 05/05/2023 Comments No Sex and Gender Information Value Date Recorded Sex Assigned at Not on file Legal Sex Female 7:30 PM EDT Gender Identity Not on file Sexual Orientation Not on file documented as of this encounter Plan of Treatment Upcoming Encounters Date Type Department Care Team (Late Contact Info) Description 02/28/2025 2:00 PM EST Office Visit [facility] [address] [place] [address] Stacie Horton, WILLEM [address] [place] [address] documented as of this encounter Visit Diagnoses Not on filedocumented in this encounter Care Teams Storage Solutions Architect Relationship Specialty Start Date End Date Silviano Hodge MD [address] [place] [address] PCP - General Family Medicine 01/13/24 Shaikh Miramontes MD [address] [place] [address] PCP - [facility] 05/01/24 Sera Aguirre NP [address] [place] [address] Nurse Practitioner Family Medicine 01/13/24 documented as of this encounter
--- OUTSIDE RECORDS SUMMARY | 2024-09-09 12:52 | XMS_ITS | Encounter Summary ---
Author Organization [facility] Address [address] [place] [address] Care Team Providers Care Detailer [employer]aceuticals Name Role Phone Shaikh ELVIA Miramontes Primary Care Provider [phone] Silviano Hodge MD Primary Care Provider [phone] Sera Aguirre NP Unavailable [phone] Shaikh ELVIA Miramontes Unavailable [phone] Encounter Details Date Type Department Care Team (Late st Contact Info) Description 05/06/2023 Clinisync Result Encounter [facility] External Department Unsolicited Shaikh Miramontes MD [address] [place] [address] Social History Tobacco Use Types Packs/Day Years Used Date Smoking Tobacco: Never Passive Smoke Exposure: Never Smokeless Tobacco: Never Alcohol Use Standard Drinks/Week Comments Never 0 (1 standard drink = 0.6 oz pure alcohol) caffeine: 1-2 cups per day coffee PHQ-2 Answer Date Recorded Patient Health Questionnaire-2 Score 0 05/05/2023 Comments Unknown Sex and Gender Information Value Date Recorded Sex Assigned at Not on file Legal Sex Female 7:30 PM EDT Gender Identity Not on file Sexual Orientation Not on file documented as of this encounter Plan of Treatment Upcoming Encounters Date Type Department Care Team (Late Contact Info) Description 02/28/2025 2:00 PM EST [facility] [address] [place] [address] Stacie Horton NP [address] [place] [address] documented as of this encounter Procedures Procedure Name Priority Date/Time Associated Diagnosis Comments US VENOUS DOPPLER LE LT 05/06/2023 10:31 AM EST documented in this encounter Results * US VENOUS DOPPLER LE LT (05/06/2023 10:31 AM EST) Anatomical Region Laterality Modality Other 05/06/2023 10:3 1 AM EST Narrative 05/06/2023 10:33 [place] [address] Ultrasound Report Signed Patient: ALCON JOHN MR#: [id number] : 1980 Acct:[id number] Age/Sex: 42 / F ADM Date: 05/06/23 Loc: US Attending Dr: Shaikh Fe Hubbard Ordering Physician: Shaikh Haydee Miramontes Date of Service: 05/06/23 Procedure(s): US venous doppler LE LT Accession Number(s): [id number] cc: Shaikh Haydee Miramontes The [address] [address] Patient Name: ALCON JOHN MRN: [id number] date: 1980 Sex: F Assigned Patient Location: US Current Patient Location: US Accession/Order Number: [id number] Exam Date: 05/06/2023 10:03 Report Date: 05/06/2023 10:31 At the request of: SHAIKH FE Procedure: US venous doppler LE LT EXAM: US venous doppler LE LT HISTORY: left leg pain M79.605 COMPARISON: None. TECHNIQUE: Grayscale, color and Doppler FINDINGS: Region: Left leg Thrombus: Echogenic thrombus identified in the popliteal, posterior tibial and peroneal veins Flow: Decreased and absent flow corresponding to thrombus Compressibility: Noncompressibility corresponding to thrombus Augmentation: Normal proximal augmentation US/US venous doppler LE LT IMPRESSION: Occlusive deep vein thrombus identified in the left posterior tibial and peroneal veins Nonocclusive deep vein thrombus left popliteal vein Electronically authenticated by: VAN CRAMER Date: 05/06/2023 10:31 Dictated By: Van Cramer M.D. Signed By: 05/06/23 1033 DD/ 1031 TD/TT: Lean Leader: Procedure Note Radiology, Radiologist, MD - 05/06/2023 [place] [address] Ultrasound Report Signed Patient: ALCON JOHN LMR#: [id number] : 1980Acct:[id number] Age/Sex: 42 / FADM Date: 05/06/23 Loc: US Attending Dr: Shaikh Fe Hubbard Ordering Physician: Shaikh Haydee Miramontes Date of Service: 05/06/23 Procedure(s): US venous doppler LE LT Accession Number(s): [id number] cc: Shaikh Haydee Miramontes [place] [address] Patient Name: ALCON JOHN MRN: [id number] date: 1980 Sex: F Assigned Patient Location: US Current Patient Location: US Accession/Order Number: [id number] Exam Date: 05/06/2023 10:03 Report Date: 05/06/2023 10:31 At the request of: SHAIKH FE Procedure: US venous doppler LE LT EXAM: US venous doppler LE LT HISTORY: left leg pain M79.605 COMPARISON: None. TECHNIQUE: Grayscale, color and Doppler FINDINGS: Region: Left leg Thrombus: Echogenic thrombus identified in the popliteal, posterior tibialand peroneal veins Flow: Decreased and absent flow corresponding to thrombus Compressibility: Noncompressibility corresponding to thrombus Augmentation: Normal proximal augmentation US/US venous doppler LE LT IMPRESSION: Occlusive deep vein thrombus identified in the left posterior tibial and peroneal veins Nonocclusive deep vein thrombus left popliteal vein Electronically authenticated by: VAN CRAMER Date: 05/06/2023 10:31 Dictated By: Van Cramer M.D. Signed By:05/06/23 1033 DD/ 1031 TD/TT: Lean Leader: us Shaikh Fe [facility] Final Result documented in this encounter Visit Diagnoses Not on filedocumented in this encounter Care Teams Detailer Pharmaceuticals Relationship Specialty Start Date End Date Shaikh Miramontes MD [address] [place] [address] PCP - General Internal Medicine 05/05/23 01/12/24 Silviano Hodge MD [address] [place] [address] PCP - General Family Medicine 01/13/24 Shaikh Miramontes MD [address] [place] [address] PCP - [facility] 05/01/24 Sera Aguirre NP [address] [place] [address] Nurse Practitioner Family Medicine 01/13/24 documented as of this encounter
--- OUTSIDE RECORDS SUMMARY | 2024-09-09 12:52 | XMS_ITS | Encounter Summary ---
Author Organization [facility] Address [address] [place] [address] Phone Care Team Providers Care Program Management Manager Name Role Phone Gordon Ocampo MD Unavailable Shaikh ELVIA Miramontes Primary Care Provider [phone] Encounter Details Date Type Department Care Team (Late st Contact Info) Description 08/30/2024 Orders Only [facility] [address] [facility] [place] [address] John Isbell MD [address] [place] [address] [place] [address] Stage 3a chronic kidney disease (Multi) (Primary Dx); Hyperparathyroidism (Multi) Social History Tobacco Use Types Packs/Day Years Used Date Smoking Tobacco: Never Smokeless Tobacco: Never Alcohol Use Standard Drinks/Week Comments Yes 0 (1 standard drink = 0.6 oz pur e alcohol) Comments No Sex and Gender Information Value Date Recorded Sex Assigned at Not on file Legal Sex Female 1:26 PM EST Gender Identity Not on file Sexual Orientation Not on file documented as of this encounter Plan of Treatment Upcoming Encounters Date Type Department Care Team (Late st Contact Info) Description 10/22/2024 4:10 PM EDT Office Visit [facility] [address] [facility] [address] [place] [address] John Isbell MD [address] [place] [address] [address] [place] [address] Scheduled Orders Name Type Priority Associated Diagnoses Orde r Schedule Basic Metabolic Panel Lab Routine Stage 3a chronic kidney disease (Multi) Hyperparathyroidism (Multi) Expected: 08/30/2024 (Approximate), Expires: 08/30/2025 Parathyroid Hormone, Intact Lab Routine Stage 3a chronic kidney disease (Multi) Hyperparathyroidism (Multi) Expected: 08/30/2024 (Approximate), Expires: 08/30/2025 documented as of this encounter Visit Diagnoses Diagnosis Stage 3a chronic kidney disease (Multi)- Primary Hyperparathyroidism (Multi) Hyperparathyroidism, unspecified documented in this encounter Additional Health Concerns Assessment Noted Time A fall risk assessment has been complete d for the patient 09/30/2023 2:47 PM EDT documented as of this encounter Care Teams Program Management Manager Relationship Specialty Start Date End Date Shaikh Miramontes MD [address] [place] [address] PCP - General Internal Medicine 08/25/23 [place] [address] [place] [address] Consulting Physician Hematology and Oncology 11/16/22 documented as of this encounter
--- OUTSIDE RECORDS SUMMARY | 2024-09-09 12:52 | XMS_ITS | Encounter Summary ---
Author Organization [facility] Address [address] [place] [address] Care Team Providers Care Net Developer With [employer] Name Role Phone Shaikh ELVIA Miramontes Primary Care Provider [phone] Silviano Hodge MD Primary Care Provider [phone] Sera Aguirre NP Unavailable [phone] Shaikh ELVIA Miramontes Unavailable [phone] Encounter Details Date Type Department Care Team (Late st Contact Info) Description 09/01/2023 Clinisync Result Encounter [facility] External Department Unsolicited Provider, Generic External Data Social History Tobacco Use Types Packs/Day Years [...] Care Team (Late st Contact Info) Description 02/28/2025 2:00 PM EST Office Visit [facility] [address] [place] [address] Stacie Horton NP [address] [place] [address] documented as of this encounter Procedures Procedure Name Priority Date/Time Associated Diagnosis Comments ONCO-CARDIOLOGY ECHO 09/01/2023 1:16 PM EDT documented in this encounter Results * ONCO-CARDIOLOGY ECHO (09/01/2023 1:16 PM EDT) Anatomical Region Laterality Modality Other 09/01/2023 1:16 PM EDT Narrative 09/01/2023 3:26 PM EDT [facility] [address] [place] [address] TRANSTHORACIC ECHOCARDIOGRAM REPORT Patient Name: ALCON JOHN Jeanette Physician: [id number] Radha Calvillo MD Study Date: 09/01/2023 Ordering Provider: [id number] RADHA CALVILLO MRN/PID: [id number] Fellow: Nurse: Date of /Age: 4 1980 / 43 years Scrap Collector: Dorota Parra RDCS Gender: F Additional Staff: Height: 170.18 cm Admit Date: Weight: 82.55 kg Admission Status: Outpatient BSA / BMI: 1.94 m2 / 28.50 Department Location: [facility] Echo Lab kg/m2 Blood Pressure: 102 /68 mmHg Study Type: ONCO-ECHO COMPLETE (STRAIN AND 3D) Diagnosis/ICD: Encounter for antineoplastic chemotherapy-Z51.11 Indication: Chemothraphy CPT Codes: Echo Complete w Full Doppler-62409 Study Detail: The following Echo studies were [...] Machine: This study was performed on the [email or web address]. Onco-Cardiology Measurements: Current Measurements 2D EF (Biplane) [...] LA Area A2C: 12.5 cm2 LA Major Selfridge A4C: 5.4 cm LA Major Selfridge A2C: 4.7 cm LA Volume Index: 14.8 [...] msec (150-240msec) AORTIC VALVE: Normal Ranges: AoV Vmax: 0.96 m/s (<=1.7m/s) AoV Peak P.7 mmHg (<20mmHg) AoV Mean P.9 mmHg (1.7-11.5mmHg) LVOT Max Walter: 0.81 m/s (<=1.1m/s) AoV VTI: 24.91 cm (18-25cm) LVOT VTI: 18.88 cm LVOT Diameter: 2.01 cm (1.8-2.4cm) AoV Area, VTI: 2.41 cm2 (2.5-5.5cm2) AoV Area,Vmax: 2.70 cm2 (2.5-4.5cm2) AoV Dimensionless Index: 0.76 RIGHT VENTRICLE: RV Basal 2.40 cm RV Mid 1.80 cm RV Major 7.3 cm TAPSE: 14.0 mm RV s' 0.10 m/s TRICUSPID VALVE/RVSP: Normal Ranges: Peak TR Velocity: 2.41 m/s RV Syst Pressure: 26.2 mmHg (< 30mmHg) IVC Diam: 1.20 cm [id number] Radha Calvillo MD Electronically signed on 09/01/2023 at 3:26:47 PM Final Procedure Note Radiology, Radiologist, MD - 09/01/2023 [facility] [address] [facility] [address] TRANSTHORACIC ECHOCARDIOGRAM REPORT Patient Name: ALCON Reid Physician: Francisca Alegria Study Date: 09/01/2023 Ordering Provider: Francisca CALVILLO MRN/PID: [id number] Fellow: Nurse: Date of /Age: 4 1980 / 43 years Scrap Collector: Maxime FARRELL Gender: F Additional Staff: Height: 170.18 cm Admit Date: Weight: 82.55 kg Admission Status: Outpatient BSA / BMI: 1.94 m2 / 28.50 Department Location: [facility] Blood Pressure: 102 /68 mmHg Study Type: ONCO-ECHO COMPLETE (STRAIN AND 3D) Diagnosis/ICD: Encounter for antineoplastic chemotherapy-Z51.11 Indication: Chemothraphy CPT Codes: Echo Complete w Full Doppler-17646 Study Detail: The following Echo studies were performed: 2D, M-Mode,Doppler, color flow, Strain and 3D. Image quality for this study isfair. Technically challenging study due to poor acoustic windows,body habitus and prominent lung artifact. PHYSICIAN INTERPRETATION: Left Ventricle: Left ventricular ejection fraction is normal, calculatedby 3D at 65%. There are no regional wall motion abnormalities. The leftventricular cavity size is normal. There is no evidence of leftventricular hypertrophy. Left Ventricular Global Longitudinal Strain --14.6 %. Spectral Doppler shows a normal pattern of left ventriculardiastolic filling. Strain values have decreased since the lastechocardiogram. There is no definite left ventricular thrombus visualized.The intraventricular septum appears intact without evidence of shunting ora ventricular septal defect. Poor quality strain measurement. Left Atrium: The left atrium is normal in size. There is no atrial septaldefect present. Right Ventricle: The right ventricle is normal in size. There is normalright ventricular global systolic function. Right Atrium: The right atrium is normal in size. Aortic Valve: The aortic valve is trileaflet. There is no evidence ofaortic valve stenosis. The aortic valve dimensionless index is 0.76. There is no evidence ofaortic valve regurgitation. The peak instantaneous gradient of the aorticvalve is 3.7 mmHg. The mean gradient of the aortic valve is 1.9 mmHg. Mitral Valve: The mitral valve is mildly thickened. There is no evidenceof mitral valve prolapse. There is no evidence of mitral valve stenosis.There is no evidence of mitral annular calcification. There is mild mitralvalve regurgitation. Tricuspid Valve: The tricuspid valve is structurally normal. There is noevidence of tricuspid valve stenosis. There is trace to mild tricuspidregurgitation. The Doppler estimated RVSP is within normal limits at 26.2mmHg. Pulmonic Valve: The pulmonic valve is not well visualized. There is noindication of pulmonic valve regurgitation. Pericardium: There is no pericardial effusion noted. Aorta: The aortic root is normal. In comparison to the previous echocardiogram(s): There are no priorstudies on this patient for comparison purposes. ONCO-CARDIOLOGY: Machine: This study was performed on the [email or web address]. Onco-Cardiology Measurements: Current Measurements 2D EF (Biplane) 65% 3D EF 59% Global Longitudinal Strain (GLS) -17% GLS Tracking Quality: Poor CONCLUSIONS: 1. Left ventricular ejection fraction is normal, calculated by 3D at65%. 2. Intact intraventricular septum without shunting or a ventricularseptal defect. 3. No left ventricular thrombus visualized. [...] LA Area A2C: 12.5 cm2 LA Major Selfridge A4C: 5.4 cm LA Major Selfridge A2C: 4.7 cm LA Volume Index: 14.8 [...] msec (150-240msec) AORTIC VALVE: Normal Ranges: AoV Vmax: 0.96 m/s (<=1.7m/s) AoV Peak P.7 mmHg (<20mmHg) AoV Mean P.9 mmHg (1.7-11.5mmHg) LVOT Max Walter: 0.81 m/s (<=1.1m/s) AoV VTI: 24.91 cm (18-25cm) LVOT VTI: 18.88 cm LVOT Diameter: 2.01 cm (1.8-2.4cm) AoV Area, VTI: 2.41 cm2 (2.5-5.5cm2) AoV Area,Vmax: 2.70 cm2 (2.5-4.5cm2) AoV Dimensionless Index: 0.76 RIGHT VENTRICLE: RV Basal 2.40 cm RV Mid 1.80 cm RV Major 7.3 cm TAPSE: 14.0 mm RV s' 0.10 m/s TRICUSPID VALVE/RVSP: Normal Ranges: Peak TR Velocity: 2.41 m/s RV Syst Pressure: 26.2 mmHg (< 30mmHg) IVC Diam: 1.20 cm [id number] Radha Calvillo MD Electronically signed on 09/01/2023 at 3:26:47 PM Final Generic External Data Provider [facility] Final Result documented in this encounter Visit Diagnoses Not on filedocumented in this encounter Care Teams Net Developer With [employer] Relationship Specialty Start Date End Date Shaikh Miramontes MD [address] [place] [address] PCP - General Internal Medicine 05/05/23 01/12/24 Silviano Hodge MD [address] [place] [address] PCP - General Family Medicine 01/13/24 Shaikh Miramontes MD [address] [place] [address] PCP - [facility] 05/01/24 Sera Aguirre NP [address] [place] [address] Nurse Practitioner Family Medicine 01/13/24 documented as of this encounter
--- OUTSIDE RECORDS SUMMARY | 2024-09-09 12:52 | XMS_ITS | Clinical Summary ---
Author Organization [facility] Address [address] [place] [address] Phone Care Team Providers Care Press Helper Name Role Phone Gordon Ocampo MD Unavailable Shaikh ELVIA Miramontes Primary Care Provider [phone] Allergies No known active allergies Medications LORazepam (Ativan) 0.5 mg tablet Take 1 tablet (0.5 mg) by mouth once daily at bedtime. Active apixaban (Eliquis) 5 mg tabletIndicatio ns:Acute deep vein thrombosis of left popliteal vein (Multi) Take 1 tablet (5 mg) by mouth 2 times a day. 60 tablet 11 06/19/2023 Active calcitriol (Rocaltrol) 0.25 mcg capsuleIndicati ons:Hyperparath yroidism (Multi) Take 1 capsule (0.25 mcg) by mouth every other day. 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 Shortness of breath on exertion 06/19/2023 Acute deep vein thrombosis of left popliteal vei n (Multi) 06/19/2023 Abnormal PET scan of colon 06/12/2023 CKD (chronic kidney disease), stage III (Multi) 06/12/2023 Shortness of breath 06/12/2023 Hyperparathyroidism, secondary (Multi) 4 Status post administration of cardiotoxic chemot herapy 06/12/2023 Resolved Problems Problem Noted Date Diagnosed Date Resolved Date CHF (congestive heart failure) 06/12/2023 07/21/2023 Encounters Date Type Department Care Team Description 08/30/2024 Orders Only [facility] [address] [place] [phone] John Isbell MD Stage 3a chronic kidney disease (Multi) (Primary Dx); Hyperparathyroidism (Multi) 08/30/[address] [place] [address] John Isbell MD from Last 3 Months Immunizations Immunization Administration Dates Next Due Pneumococcal Conjugate, Unspecified 05/01/2010 Family History Medical History Relation Name Comments No Known Problems Father No Known Problems Mother No Known Problems Sister Relation Name Status Comments Father Mother Sister Social History Tobacco Use Types Packs/Day Years Used Date Smoking Tobacco: Never Smokeless Tobacco: Never Tobacco Cessation:Counseling Given: Not Answered Alcohol Use Standard Drinks/Week Comments Yes 0 (1 standard drink = 0.6 oz pur e alcohol) Comments No Sex and Gender Information Value Date Recorded Sex Assigned at Not on file Legal Sex Female 1:26 PM EST Gender Identity Not on file Sexual Orientation Not on file Last Filed Vital Signs Vital Sign Reading Time Taken Comments Blood Pressure 105/70 09/30/2023 2:48 PM EDT Pulse 77 09/30/2023 2:48 PM EDT Temperature 36.3 C (97.3 F) 09/01/2023 2:44 PM EDT Respiratory Rate 15 09/01/2023 2:44 PM EDT Oxygen Saturation 99% 09/01/2023 2:44 PM EDT Inhaled Oxygen Concentration - - Weight 83 kg (183 lb) 09/30/2023 2:48 PM EDT Height 170.2 cm (5' 7 ) 09/30/2023 2:48 PM EDT Body Mass Index 28.66 09/30/2023 2:48 PM EDT Plan of Treatment Upcoming Encounters Date Type Department Care Team (Late st Contact Info) Description 10/22/2024 4:10 PM EDT Office Visit [facility] [address] [place] [phone] John Isbell MD [address] [place] [address] [address] [place] [address] Health Maintenance Due Date Last Done Comments CT Colonography 1979 Echocardiogram 1979 FIT-DNA (Cologuard) 1979 FIT 1980 HIV Screening 1980 Lipid Panel 1980 Sigmoidoscopy 1979 MMR Vaccines (1 of 1 - Standard series) 06/01/1980 Hepatitis C Screening 06/01/1997 Hepatitis B Vaccines (1 of 3 - 19+ 3-dose series) 06/01/1998 Pneumococcal Vaccine: Pediatrics and At-Risk Adult Patients (1 of 2 - PCV) 06/01/1998 05/01/2010 Cervical Cancer Screening 06/01/2000 HPV/Cotest 06/01/2000 Pap Smear 06/01/2000 DTaP/Tdap/Td Vaccines (1 - Tdap) 06/01/2001 Mammogram 2019 COVID-19 Vaccine (1 - season) 2023 Creatinine Level 06/15/2024 06/16/2023, , 05/27/2022, Additional history exists Diabetes Screening 06/15/2024 06/16/2023, 0 10/30/2022, 05/27/2022, Additional history exists Potassium Level 06/15/2024 06/16/2023, 08/, 05/27/2022, Additional history exists Yearly Adult Physical 07/10/2024 07/10/2023, 024 Influenza Vaccine (#1) 2024 Zoster Vaccines (1 of 2) 06/01/2029 Colonoscopy 07/04/2030 07/04/2020, 05/29/2020 Colorectal Cancer Screening 07/04/2030 Irritable Bowel Syndrome Discontinued 07/04/2020 HIB Vaccines Aged Out No longer eligi ble based on patient's age to complete this topic HPV Vaccines (No Doses Required) Completed Hepatitis A Vaccines Aged Out No long er eligible based on patient's age to complete this topic IPV Vaccines Aged Out No longer eligi ble based on patient's age to complete this topic Meningococcal Vaccine Aged Out No rebeca teresita eligible based on patient's age to complete this topic Rotavirus Vaccines Aged Out No longer eligible based on patient's age to complete this topic Procedures Procedure Name Priority Date/Time Associated Diagnosis Comments COMPREHENSIVE METABOLIC PANEL Routine 06/16/2023 9:40 AM EDT Burr sarcoma (Multi) COLONOSCOPY Routine 07/04/2020 12:19 PM EDT from Last 3 Months or Most Recently Relevant to Health Maintenance Results * (ABNORMAL) Comprehensive Metabolic Panel (06/16/2023 9:40 AM EDT) Pathologist [facility] Glucose 85 74 - 99 mg/dL LAB CHEMISTRY METHOD 06/16/2023 4:21 PM EDT [facility] Sodium 138 136 - 145 mmol/L LAB CHEMISTRY METHOD 06/16/2023 4:21 PM EDT [facility] Potassium 4.5 3.5 - 5.3 mmol/L LAB CHEMISTRY METHOD 06/16/2023 4:21 PM EDT [facility] Chloride 101 98 - 107 mmol/L LAB CHEMISTRY METHOD 06/16/2023 4:21 PM EDT [facility] Bicarbonate 31 21 - 32 mmol/L LAB CHEMISTRY METHOD 06/16/2023 4:21 PM EDT [facility] Anion Gap 11 10 - 20 mmol/L LAB CHEMISTRY METHOD 06/16/2023 4:21 PM EDT [facility] Urea Nitrogen 18 6 - 23 mg/dL LAB CHEMISTRY METHOD 06/16/2023 4:21 PM EDT [facility] Creatinine 1.24(H) 0.50 - 1.05 mg/dL LAB CHEMISTRY METHOD 06/16/2023 4:21 PM EDT [facility] eGFR 55(L) >60 mL/min/1. 73m*2 LAB CHEMISTRY METHOD 06/16/2023 4:21 PM EDT [facility] Comment: Calculations of estimated GFR are performed using the 2020 CKD-EPI Study Refit equation without the race variable for the IDMS-Traceable creatinine methods. https://jasn.asnjournals.org/content//ASN.8310529993 Calcium 10.1 8.6 - 10.6 mg/dL LAB CHEMISTRY METHOD 06/16/2023 4:21 PM EDT [facility] Albumin 4.3 3.4 - 5.0 g/dL LAB CHEMISTRY METHOD 06/16/2023 4:21 PM EDT [facility] Alkaline Phosphatase 62 33 - 110 U/L LAB CHEMISTRY METHOD 06/16/2023 4:21 PM EDT [facility] Total Protein 6.8 6.4 - 8.2 g/dL LAB CHEMISTRY METHOD 06/16/2023 4:21 PM EDT [facility] AST 21 9 - 39 U/L LAB CHEMISTRY METHOD 06/16/2023 4:21 PM EDT [facility] Bilirubin, Total 0.5 0.0 - 1.2 mg/dL LAB CHEMISTRY METHOD 06/16/2023 4:21 PM EDT [facility] ALT 32 7 - 45 U/L LAB CHEMISTRY METHOD 06/16/2023 4:21 PM EDT [facility] Comment:Patients treated wit h Sulfasalazine may generate falsely decreased results for ALT. Blood Venous blood specimen / Unknown Venipuncture / Unknown 06/16/2023 9:40 AM EDT 06/16/2023 9:40 AM EDT us Dinorah Meraz [id number] PROGRAMMER-PRINT BINDING WORKER LAB BLOOD ORDERA BLES Final Result Performing Organization Address City/State/[facility] Co de Phone Number [facility] [id number] [place] [address] * Colonoscopy (07/04/2020 12:19 PM EDT) Anatomical Region Laterality Modality Endoscopy 07/04/2020 12:1 9 PM EDT Narrative 03/17/2022 7:46 PM EST Patient Name: Samira John Procedure Date: 07/04/2020 12:19 PM Date of : 1980 Admit Type: Outpatient Site: [facility] Ethnicity: Not or Race: White Attending MD: Angelo Sandra MD, [id number] Procedure: Colonoscopy Indications: Evaluation of abnormal imaging study (likely to be clinically significant) Providers: Angelo Sandra MD (Doctor), Blanche Haro RN (Nurse), Rica Patiño, Poll Clerk Referring: Abbie Price PA-C Medicines: Propofol per Anesthesia Complications: No immediate complications. Estimated blood loss: Minimal. Procedure: Pre-Anesthesia Assessment: - Prior to the procedure, a History and Physical was performed, and patient medications and allergies were reviewed. The patient is competent. The risks and benefits of the procedure and the sedation options and risks were discussed with the patient. All questions were answered and informed consent was obtained. Patient identification and proposed procedure were verified by the physician, the nurse, the frame polisher and the fisheries technician in the pre-procedure area in the procedure room. Mental Status Examination: alert and oriented. Airway Examination: normal oropharyngeal airway and neck mobility. Respiratory Examination: clear to auscultation. CV Examination: normal. Prophylactic Antibiotics: The patient does not require prophylactic antibiotics. Prior Anticoagulants: The patient has taken no anticoagulant or antiplatelet agents. ASA Grade Assessment: II - A patient with mild systemic disease. After reviewing the risks and benefits, the patient was deemed in satisfactory condition to undergo the procedure. The anesthesia plan was to use no sedation or anesthesia. Immediately prior to administration of medications, the patient was re-assessed for adequacy to receive sedatives. The heart rate, respiratory rate, oxygen saturations, blood pressure, adequacy of pulmonary ventilation, and response to care were monitored throughout the procedure. The physical status of the patient was re-assessed after the procedure. After I obtained informed consent, the scope was passed under direct vision. Throughout the procedure, the patient's blood pressure, pulse, and oxygen saturations were monitored continuously. The Colonoscope was introduced through the anus and advanced to the cecum, identified by appendiceal orifice and ileocecal valve. The colonoscopy was performed with ease. The patient tolerated the procedure well. The ileocecal valve, appendiceal orifice, and rectum were photographed. The quality of the bowel preparation was evaluated using the BBPS ([place] Bowel Preparation Scale) with scores of: Right Colon = 3 (entire mucosa seen well with no residual staining, small fragments of stool or opaque liquid), Transverse Colon = 3 (entire mucosa seen well with no residual staining, small fragments of stool or opaque liquid) and Left Colon = 3 (entire mucosa seen well with no residual staining, small fragments of stool or opaque liquid). The total BBPS score equals 9. The quality of the bowel preparation was excellent. Scope withdrawal time was 7 minutes. Findings: The perianal and digital rectal examinations were normal. The descending colon and ascending colon appeared normal. Biopsies for histology were taken with a cold forceps from the right colon and left colon for evaluation of microscopic colitis. Verification of patient identification for the specimen was done by the physician, nurse and fisheries technician using the patient's name, date and medical record number. Estimated blood loss was minimal. A single small-mouthed diverticulum was found in the recto-sigmoid colon and sigmoid colon. Non-bleeding internal hemorrhoids were found during retroflexion. The hemorrhoids were small and Grade I (internal hemorrhoids that do not prolapse). The exam was otherwise normal throughout the examined colon. Moderate Sedation: See the other procedure note for documentation of moderate sedation with intraservice time. Estimated Blood Loss: Estimated blood loss was minimal. Impression: - The descending colon and ascending colon are normal. Biopsied. - Diverticulosis in the recto-sigmoid colon and in the sigmoid colon. - Non-bleeding internal hemorrhoids. Recommendation: - Discharge patient to home. - Resume previous diet. - Continue present medications. - Await pathology results. - Repeat colonoscopy in 10 years for screening purposes. - Return to referring physician. - Patient has a contact number available for emergencies. The signs and symptoms of potential delayed complications were discussed with the patient. Return to normal activities tomorrow. Written discharge instructions were provided to the patient. Procedure Code(s): --- Professional --- 93739, Colonoscopy, flexible; with biopsy, single or multiple Diagnosis Code(s): --- Professional --- K64.0, First degree hemorrhoids K57.30, Diverticulosis of large intestine without perforation or abscess without bleeding R93.3, Abnormal findings on diagnostic imaging of other parts of digestive tract CPT copyright 2021 [employer]. All rights reserved. The codes documented in this report are preliminary and upon deep fat cook fry review may be revised to meet current compliance requirements. Attending Participation: I personally performed the entire procedure. Angelo Sandra MD 07/04/2020 12:51:57 PM This report has been signed electronically. Number of Addenda: 0 Note Initiated On: 07/04/2020 12:19 PM Scope Withdrawal Time 0 hours 7 minutes 28 seconds Total Procedure Duration Time 0 hours 15 minutes 43 seconds Procedure Note Angelo Sandra MD - 05/04/2024 Patient Name: Samira John Procedure Date: 07/04/2020 12:19 PM Date of : 1980 Admit Type: Outpatient Site: [facility] Ethnicity: Not or Race: White Attending MD: Angelo Sandra MD, [id number] Procedure: Colonoscopy Indications: Evaluation of abnormal imaging study (likely to be clinically significant) Providers: Angelo Sandra MD (Doctor), Blanche Haro RN (Nurse), Rica Patiño, Poll Clerk Referring: Abbie Price PA-C Medicines: Propofol per Anesthesia Complications: No immediate complications. Estimated blood loss: Minimal. Procedure: Pre-Anesthesia Assessment: - Prior to the procedure, a History and Physicalwas performed, and patient medications and allergieswere reviewed. The patient is competent. The risks and benefits of the procedure and the sedation optionsand risks were discussed with the patient. Allquestions were answered and informed consent was obtained. Patient identification and proposed procedure were verified by the physician, the nurse, theanesthetist and the fisheries technician in the pre-procedure area in the procedure room. Mental Status Examination: alertand oriented. Airway Examination: normal oropharyngeal airway and neck mobility. Respiratory Examination: clear to auscultation. CV Examination: normal. Prophylactic Antibiotics: The patient does notrequire prophylactic antibiotics. Prior Anticoagulants: The patient has taken no anticoagulant or antiplatelet agents. ASA Grade Assessment: II - A patient withmild systemic disease. After reviewing the risks and benefits, the patient was deemed in satisfactory condition to undergo the procedure. The anesthesia plan was to use no sedation or anesthesia.Immediately prior to administration of medications, the patient was re-assessed for adequacy to receive sedatives.The heart rate, respiratory rate, oxygen saturations, blood pressure, adequacy of pulmonary ventilation,and response to care were monitored throughout the procedure. The physical status of the patient was re-assessed after the procedure. After I obtained informed consent, the scope was passed under direct vision. Throughout theprocedure, the patient's blood pressure, pulse, and oxygen saturations were monitored continuously. The Colonoscope was introduced through the anus and advanced to the cecum, identified by appendiceal orifice and ileocecal valve. The colonoscopy was performed with ease. The patient tolerated the procedure well. The ileocecal valve, appendiceal orifice, and rectum were photographed. The qualityof the bowel preparation was evaluated using the BBPS ([place] Bowel Preparation Scale) with scores of:Right Colon = 3 (entire mucosa seen well with no residual staining, small fragments of stool or opaqueliquid), Transverse Colon = 3 (entire mucosa seen well withno residual staining, small fragments of stool oropaque liquid) and Left Colon = 3 (entire mucosa seen well with no residual staining, small fragments of stoolor opaque liquid). The total BBPS score equals 9. The quality of the bowel preparation was excellent.Scope withdrawal time was 7 minutes. Findings: The perianal and digital rectal examinations were normal. The descending colon and ascending colon appeared normal. Biopsiesfor histology were taken with a cold forceps from the right colon andleft colon for evaluation of microscopic colitis. Verification of patient identification for the specimen was done by the physician, nurse and fisheries technician using the patient's name, date and medical record number. Estimated blood loss was minimal. A single small-mouthed diverticulum was found in the recto-sigmoidcolon and sigmoid colon. Non-bleeding internal hemorrhoids were found during retroflexion. The hemorrhoids were small and Grade I (internal hemorrhoids that do not prolapse). The exam was otherwise normal throughout the examined colon. Moderate Sedation: See the other procedure note for documentation of moderate sedationwith intraservice time. Estimated Blood Loss: Estimated blood loss was minimal. Impression: - The descending colon and ascending colon arenormal. Biopsied. - Diverticulosis in the recto-sigmoid colon and inthe sigmoid colon. - Non-bleeding internal hemorrhoids. Recommendation: - Discharge patient to home. - Resume previous diet. - Continue present medications. - Await pathology results. - Repeat colonoscopy in 10 years for screening purposes. - Return to referring physician. - Patient has a contact number available for emergencies. The signs and symptoms of potential delayed complications were discussed with thepatient. Return to normal activities tomorrow. Written discharge instructions were provided to thepatient. Procedure Code(s): --- Professional --- 49749, Colonoscopy, flexible; with biopsy, singleor multiple Diagnosis Code(s): --- Professional --- K64.0, First degree hemorrhoids K57.30, Diverticulosis of large intestine without perforation or abscess without bleeding R93.3, Abnormal findings on diagnostic imaging of other parts of digestive tract CPT copyright 2021 [employer]. All rights reserved. The codes documented in this report are preliminary and upon deep fat cook fry reviewmay be revised to meet current compliance requirements. Attending Participation: I personally performed the entire procedure. Angelo Sandra MD 07/04/2020 12:51:57 PM This report has been signed electronically. Number of Addenda: 0 Note Initiated On: 07/04/2020 12:19 PM Scope Withdrawal Time 0 hours 7 minutes 28 seconds Total Procedure Duration Time 0 hours 15 minutes 43 seconds Raquel Richardson MD ENDOSCOPY PROCEDURE ORDERA BLES Edited Result - Final from Last 3 Months or Most Recently Relevant to Health Maintenance [facility] Care Teams Press Helper Relationship Specialty Start Date End Date Shaikh Miramontes MD [address] [place] [address] PCP - General Internal Medicine 08/25/23 [place] [address] [place] [address] Consulting Physician Hematology and Oncology 11/16/22
--- OUTSIDE RECORDS SUMMARY | 2024-09-09 12:52 | XMS_ITS | Clinical Summary ---
Author Organization [employer] [facility] Address [id number] [address] [place] [address] Care Team Providers Care Lead Supply Worker Name Role Phone Shaikh ELVIA Miramontes Primary Care Provider [phone] Allergies No known active allergies Medications LORazepam (ATIVAN) 1 mg tablet Take 1 tablet (1 mg total) by mouth nightly. Active sennosides-docus ate sodium (SENOKOT-S) 8.6-50 mg Take 1 tablet by mouth in the morning. 30 tablet 03/23/2022 Active Social History Tobacco Use Types Packs/Day Years Used Date Smoking Tobacco: Never Smokeless Tobacco: Never Tobacco Cessation:Counseling Given: Not Answered Alcohol Use Standard Drinks/Week Comments Not Currently 0 (1 standard drink = 0.6 oz pur e alcohol) Childcare Answer Date Recorded Childcare Unknown 08/10/2018 Employment Answer Date Recorded Employment Unknown 08/10/2018 Hunger Screening Answer Date Recorded Within the past 12 months we worried whether our food would run out before we got money to buy more. Never True 03/23/2022 Within the past 12 months th e food we bought just didn't last and we didn't have money to get more. Never True 03/23/2022 Purpose - Life Answer Date Recorded Purpose and direction in life Unknown Comments Unknown Sex and Gender Information Value Date Recorded Sex Assigned at Not on file Legal Sex Female 12:00 PM EDT Gender Identity Not on file Sexual Orientation Not on file Last Filed Vital Signs Vital Sign Reading Time Taken Comments Blood Pressure 142/94 03/23/2022 5:19 PM EST Pulse 90 03/23/2022 5:19 PM EST Temperature 36.4 C (97.6 F) 03/23/2022 5:19 PM EST Respiratory Rate 16 03/23/2022 5:19 PM EST Oxygen Saturation 98% 03/23/2022 5:19 PM EST Inhaled Oxygen Concentration - - Weight 78.9 kg (174 lb) 03/23/2022 5:19 PM EST Height 170.2 cm (5' 7 ) 03/23/2022 5:19 PM EST Body Mass Index 27.25 03/23/2022 5:19 PM EST Plan of Treatment Health Maintenance Due Date Last Done Comments Depression Screening 1991 Tobacco Screening 1991 DTaP,Tdap and Td Vaccines (1 - Tdap) 06/01/1998 Pap Smear 06/01/2000 Adult BMI Screening 03/23/2023 03/23/2022 Influenza Vaccine 11/01/2024 Medical Devices Not on file Insurance [employer] Care Teams Lead Supply Worker Relationship Specialty Start Date End Date Shaikh Miramontes MD PCP - General Internal Medicine 03/23/22
--- OUTSIDE RECORDS SUMMARY | 2024-09-09 12:52 | XMS_ITS | Encounter Summary ---
Author Organization [facility] Address [address] [place] [address] Care Team Providers Care Drop Worker Name Role Phone Shaikh ELVIA Miramontes Primary Care Provider [phone] Silviano Hodge MD Primary Care Provider [phone] Sera Aguirre NP Unavailable [phone] Shaikh ELVIA Miramontes Unavailable [phone] Encounter Details Date Type Department Care Team (Late st Contact Info) Description 06/16/2023 Clinisync Result Encounter [facility] External Department Unsolicited [...] Visit [facility] [address] [place] [address] Stacie Horton NP [address] [place] [address] documented as of this encounter Procedures Procedure Name Priority Date/Time Associated Diagnosis Comments NM PET CT MELANOMA DIAGNOSIS FOR NONCOVERED INDICATIONS 06/16/2023 8:46 AM EDT documented in this encounter Results * NM PET CT MELANOMA DIAGNOSIS FOR NONCOVERED INDICATIONS (06/16/2023 8:46 AM EDT) Anatomical Region Laterality Modality Other 06/16/2023 8:46 AM EDT Narrative 06/16/2023 2:50 PM EDT spoke with suman from dr diamond [phone] anthem prep given by office #: pager number: [phone], Rad Selected: Y Interpreted By: Edy Jeronimo and Zara Ott STUDY: NM PET CT MELANOMA DIAGNOSIS FOR [...] on surveillance. COMPARISON: PET-CT, 05/27/2022 ACCESSION NUMBER(S): [id number] ORDERING CLINICIAN: ANTHONY DIAMOND TECHNIQUE: DIVISION OF NUCLEAR MEDICINE POSITRON EMISSION [...] CODING: Subsequent Treatment Strategy (PS) CALIBRATION: Dose Jolggaalh-jv-Cuza Interval (mins): 66 min Mediastinal bloodpool SUV [...] the bowel loops and the genitourinary tract. MUSCULOSKELETAL/EXTREMITIES: No focal hypermetabolic lesion is seen in [...] with the findings as stated by residential program director Dr. Namrata Zuñiga. This study was interpreted at [place], [place]. MACRO: None Signed by: Edy Jeronimo 06/16/2023 2:50 PM Dictation workstation: [id number] Procedure Note Radiology, Radiologist, MD - 06/17/2023 spoke with suman from dr diamond [phone] minal prep given by office #:pager number: [phone], Rad Selected: Y Interpreted By: Edy Jeronimo and Adjei Effie [...] on surveillance. COMPARISON: PET-CT, 05/27/2022 ACCESSION NUMBER(S): [id number] ORDERING CLINICIAN: ANTHONY DIAMOND TECHNIQUE: DIVISION OF NUCLEAR MEDICINE POSITRON EMISSION [...] CODING: Subsequent Treatment Strategy (PS) CALIBRATION: Dose Anquiadwa-ht-Issw Interval (mins): 66 min Mediastinal bloodpool SUV [...] the bowel loops and the genitourinary tract. MUSCULOSKELETAL/EXTREMITIES: No focal hypermetabolic lesion is seen in [...] with the findings as stated by residential program director Dr. Namrata Zuñiga. This study was interpreted at [place], [place]. MACRO: None Signed by: Edy Jeronimo 06/16/2023 2:50 PM Dictation workstation: [id number] Generic External Data Provider [facility] Final Result documented in this encounter Visit Diagnoses Not on filedocumented in this encounter Care Teams Drop Worker Relationship Specialty Start Date End Date Shaikh Miramontes MD [address] [place] [address] PCP - General Internal Medicine 05/05/23 01/12/24 Silviano Hodge MD [address] [place] [address] PCP - General Family Medicine 01/13/24 Shaikh Miramontes MD [address] [place] [address] PCP - [facility] 05/01/24 Sera Aguirre NP [address] [place] [address] Nurse Practitioner Family Medicine 01/13/24 documented as of this encounter
--- OUTSIDE RECORDS SUMMARY | 2024-09-09 12:52 | XMS_ITS | Encounter Summary ---
Author Organization [facility] Address [address] [place] [address] Care Team Providers Care Rn Telehealth Name Role Phone Silviano Hodge MD Primary Care Provider [phone] Sera Aguirre NP Unavailable [phone] Shaikh ELVIA Miramontes Unavailable [phone] Encounter Details Date Type Department Care Team (Late st Contact Info) Description 08/25/2024 Abstract [facility] [address] [place] [address] Stacie Horton NP [address] [place] [address] Social History Tobacco Use Types [...] 02/28/2025 2:00 PM EST Office Visit [facility] [address] [place] [address] Stacie Horton, WILLEM [address] [place] [address] documented as of this encounter Visit Diagnoses Not on filedocumented in this encounter Care Teams Rn Telehealth Relationship Specialty Start Date End Date Silviano Hodge MD [address] [place] [address] PCP - General Family Medicine 01/13/24 Shaikh Miramontes MD [address] [place] [address] PCP - [facility] 05/01/24 Sera Aguirre NP [address] [place] [address] Nurse Practitioner Family Medicine 01/13/24 documented as of this encounter
--- OUTSIDE RECORDS SUMMARY | 2024-09-09 12:52 | XMS_ITS | Encounter Summary ---
Author Organization [facility] Address [address] [place] [address] Phone Care Team Providers Care Electrical & Instrumentation Supervisor Name Role Phone Gordon Ocampo MD Unavailable Shaikh ELVIA Miramontes Primary Care Provider [phone] Encounter Details Date Type Department Care Team (Late st Contact Info) Description 08/30/[address] [place] [address] John Isbell MD [address] [place] [address] [address] [place], [place] [id number] Social History Tobacco Use Types Packs/Day Years [...] on file documented as of this encounter Miscellaneous Notes * Telephone Encounter - Cecilia Grimm - 08/30/2024 2:13 PM EDT Please re-enter lab orders for patient, last ones are to old. Please have us send her a copy of the orders to her in the mail. documented in this encounter Plan of Treatment Upcoming Encounters Date Type Department Care Team (Late st Contact Info) Description 10/22/2024 4:10 PM EDT Office Visit [facility] [address] [place] [address] [place] [address] [place] [address] documented as of this encounter Visit Diagnoses Not on filedocumented in this encounter Additional Health Concerns Assessment Noted Time A fall risk assessment has been complete d for the patient 09/30/2023 2:47 PM EDT documented as of this encounter Care Teams Electrical & Instrumentation Supervisor Relationship Specialty Start Date End Date Shaikh Miramontes MD [address] [phone] PCP - General Internal Medicine 08/25/23 [place] [address] [place] [address] Consulting Physician Hematology and Oncology 11/16/22 documented as of this encounter
--- OUTSIDE RECORDS SUMMARY | 2024-09-09 12:52 | XMS_ITS | Encounter Summary ---
Author Organization [facility] Address [address] [place] [address] Phone Care Team Providers Care Nail Specialist Name Role Phone Gordon Ocampo MD Unavailable Shaikh ELVIA Miramontes Primary Care Provider [phone] Encounter Details Date Type Department Care Team (Late st Contact Info) Description 11/08/2023 Scanned Document [facility] [address] [place] [phone] Scanning, Generic Provider Social History Tobacco Use Types Packs/Day Years [...] Description 10/22/2024 4:10 PM EDT Office Visit [facility] [address] [facility] [address] [place] [address] [place] [id number] [place] [address] [address] [place] [address] documented as of this encounter Visit Diagnoses Not on filedocumented in this encounter Additional Health Concerns Assessment Noted Time A fall risk assessment has been complete d for the patient 09/30/2023 2:47 PM EDT documented as of this encounter Care Teams Nail Specialist Relationship Specialty Start Date End Date Shaikh Miramontes MD [address] [place] [address] PCP - General Internal Medicine 08/25/23 [place] [address] [place] [address] Consulting Physician Hematology and Oncology 11/16/22 documented as of this encounter
--- OUTSIDE RECORDS SUMMARY | 2024-09-09 12:52 | XMS_ITS | Encounter Summary ---
Author Organization [facility] Address [address] [place] [address] Care Team Providers Care Brick Loader Name Role Phone Shaikh ELVIA Miramontes Primary Care Provider [phone] Silviano Hodge MD Primary Care Provider [phone] Sera Aguirre NP Unavailable [phone] Shaikh ELVIA Miramontes Unavailable [phone] Encounter Details Date Type Department Care Team (Late st Contact Info) Description 07/02/2023 Clinisync Result Encounter [facility] External Department Unsolicited [...] 02/28/2025 2:00 PM EST Office Visit [facility] [address] [place] [address] Stacie Horton NP [address] [place] [address] documented as of this encounter Procedures Procedure Name Priority Date/Time Associated Diagnosis Comments MR LUMBAR SPINE WO CON 07/02/2023 3:26 PM EDT documented in this encounter Results * MR LUMBAR SPINE WO CON (07/02/2023 3:26 PM EDT) Anatomical Region Laterality Modality Other 07/02/2023 3:26 PM EDT Narrative 07/02/2023 3:28 [place] [address] Magnetic Resonance Report Signed Patient: ALCON JOHN MR#: [id number] : 1980 Acct:[id number] Age/Sex: 43 / F ADM Date: 07/02/23 Loc: MRI Attending Dr: Rivka Jane NP Ordering Physician: Rivka Jane NP Date of Service: 07/02/23 Procedure(s): MR lumbar spine wo con Accession Number(s): [id number] cc: Shaikh Haydee Miramontes; Rivka Jane NP [place] [address] Patient Name: ALCON JOHN MRN: [id number] date: 1980 Sex: F Assigned Patient Location: MRI Current Patient Location: MRI Accession/Order Number: [id number] Exam Date: 07/02/2023 14:00 Report Date: 07/02/2023 15:26 At the request of: RIVKA JANE Procedure: MR lumbar spine wo con EXAM: MR scan lumbar spine without contrast. TECHNIQUE: Sagittal T1, MARIE T2, STIR, axial T1 and T2 images without contrast performed through the lumbar spine. COMPARISON: MR scan performed 02/05/2022 FINDINGS: Minimal curvature of the spine concavity to the left. Mild disc space narrowing L1-L2. The vertebral bodies and disc spaces are otherwise normal in appearance. Conus lies at T12 and is normal in appearance. The marrow signal is normal. Neural foramina are patent. L5-S1: Mild facet arthropathy without stenosis. L4-L5: Mild facet arthropathy without stenosis. L3-L4: Facet arthropathy to the right of midline. No evidence of stenosis. L2-L3: Disc bulge without stenosis. L1-L2: Disc bulge without stenosis. The vertebral bodies and disc spaces are otherwise normal in appearance. The paraspinal soft tissues are otherwise normal. MR/MR lumbar spine wo con IMPRESSION: Mild facet arthropathy and mild disc bulge without central spinal canal or foraminal stenosis. Electronically authenticated by: Jhonathan MAHONEY Date: 07/02/2023 15:26 Dictated By: Vignesh Mahoney M.D. Signed By: 07/02/23 1528 DD/ 1526 TD/TT: Sole Edge Inker Machine: Procedure Note Radiology, Radiologist, MD - 07/02/2023 [place] [address] Magnetic Resonance Report Signed Patient: ALCON JOHN LMR#: [id number] : 1980Acct:[id number] Age/Sex: 43 / FADM Date: 07/02/23 Loc: MRI Attending Dr: Rivka Jane NP Ordering Physician: Rivka Jane NP Date of Service: 07/02/23 Procedure(s): MR lumbar spine wo con Accession Number(s): [id number] cc: Shaikh Haydee Miramontes; Rivka Jane NP [address] [place] [address] Patient Name: ALCON JOHN MRN: [id number] date: 1980 Sex: F Assigned Patient Location: MRI Current Patient Location: MRI Accession/Order Number: [id number] Exam Date: 07/02/2023 14:00 Report Date: 07/02/2023 15:26 At the request of: RIVKA JANE Procedure: MR lumbar spine wo con EXAM: MR scan lumbar spine without contrast. TECHNIQUE: Sagittal T1, MARIE T2, STIR, axial T1 and T2 images withoutcontrast performed through the lumbar spine. COMPARISON: MR scan performed 02/05/2022 FINDINGS: Minimal curvature of the spine concavity to the left. Mild disc space narrowing L1-L2. The vertebral bodies and disc spaces are otherwise normalin appearance. Conus lies at T12 and is normal in appearance. The marrow signal is normal. Neural foramina are patent. L5-S1: Mild facet arthropathy without stenosis. L4-L5: Mild facet arthropathy without stenosis. L3-L4: Facet arthropathy to the right of midline. No evidence of stenosis. L2-L3: Disc bulge without stenosis. L1-L2: Disc bulge without stenosis. The vertebral bodies and disc spaces are otherwise normal in appearance.The paraspinal soft tissues are otherwise normal. MR/MR lumbar spine wo con IMPRESSION: Mild facet arthropathy and mild disc bulge without central spinal canal or foraminal stenosis. Electronically authenticated by: Jhonathan MAHONEY Date: 07/02/2023 15:26 Dictated By: Vignesh Mahoney M.D. Signed By:07/02/23 1528 DD/ 1526 TD/TT: Sole Edge Inker Machine: us Generic External Data Provider [facility] Final Result documented in this encounter Visit Diagnoses Not on filedocumented in this encounter Care Teams Brick Loader Relationship Specialty Start Date End Date Shaikh Miramontes MD [address] [place] [address] PCP - General Internal Medicine 05/05/23 01/12/24 Silviano Hodge MD [address] [place] [address] PCP - General Family Medicine 01/13/24 Shaikh Miramontes MD [address] [place] [address] [facility]/01/[facility] Sera Aguirre NP [address] [place] [address] Nurse Practitioner Family Medicine 01/13/24 documented as of this encounter
--- OUTSIDE RECORDS SUMMARY | 2024-09-09 12:52 | XMS_ITS | Encounter Summary ---
Author Organization [facility] Address [address] [place] [address] Phone Care Team Providers Care Electrical Tester Battery Name Role Phone Shaikh ELVIA Miramontes Primary Care Provider [phone] Gordon Ocampo MD Unavailable Shaikh ELVIA Miramontes Primary Care Provider [phone] Encounter Details Date Type Department Care Team (Late st Contact Info) Description 06/30/2020 Orders Only [facility] [address] [place] [address] Conversion, Onbase Social History Tobacco Use Types Packs/Day Years Used Date Smoking Tobacco: Never Assessed Comments Unknown Sex and Gender Information Value Date Recorded Sex Assigned at Not on file Legal Sex Female 1:26 PM EST Gender Identity Not on file Sexual Orientation Not on file documented as of this encounter Plan of Treatment Upcoming Encounters Date Type Department Care Team (Late st Contact Info) Description 10/22/2024 4:10 PM EDT Office Visit [facility] [address] [facility] [address] [place] [address] [place] [address] [place] [address] [address] [place] [address] Scheduled Orders Name Type Priority Associated Diagnoses Orde r Schedule OUTSIDE LAB SCAN Lab Ordered: 06/30/2020 documented as of this encounter Visit Diagnoses Not on filedocumented in this encounter Care Teams Electrical Tester Battery Relationship Specialty Start Date End Date Shaikh Miramontes MD PCP - General 05/10/20 08/24/23 Shaikh Miramontes MD [address] [place], [place] [address] PCP - General Internal Medicine 08/25/23 [place] [address] [place] [address] Consulting Physician Hematology and Oncology 11/16/22 documented as of this encounter
--- OUTSIDE RECORDS SUMMARY | 2024-09-09 12:52 | XMS_ITS | Patient Health Record ---
Author Organization [facility] [place] Address [address] [place] [address] Care Team Providers Care Fabric Awning Repairer Name Role Phone Raquel Richardson Primary Care Provider [phone] Reason For Referral No Information Medications Medication SIG (Take, Route, Frequency, Duration) Notes Start Date End Date Status Naproxen 500 MG 1 tablet with food o r milk as needed Orally every 12 hrs for 30 days 11/24/2019 Active Albuterol Sulfate HFA 108 (9 0 Base) MCG/ACT 1-2 puffs Inhalation every 4 hrs prn cough for 30 days Active Ortho-Cyclen (28) 0.25-35 MG-MCG 1 tablet Orally Once a day for 28 day(s) Active tiZANidine HCl 4 MG 1 tablet as needed Orally BID 11/10/2019 Active methylPREDNISolone 4 MG as directed Orally 020 Active Ativan 1 MG 1 tablet at bedtime as needed Orally Once a day for 30 days Active Social History Tobacco Use: Social History Observation Description Date Details (start date - stop date) Never Smoker NA - NA Tobacco Use/Smoking Question Answer Notes Patient is a nonsmoker Alcohol Screen (Audit-C) Question Answer Notes Did you have a drink containing alcohol in the p ast year? 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 Plan Of Treatment No Information Insurance Providers Payer Name Payer Address Payer Phone Subscriber Number Group Number Insured Name Patient Relationship to Insured Coverage Start Date Coverage End Date [facility] [address] [place] [phone] [id number] Shailesh John Spouse - patient is the spouse of the insured 9 Medical (General) History Medical History History ICD Code Que Tumor x2 (2001, 2009) 2009-Full Term 2006-Full Term Anxiety Surgical History Surgery Date(Month/Year) 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
--- OUTSIDE RECORDS SUMMARY | 2024-09-09 12:52 | XMS_ITS | Encounter Summary ---
Author Organization [facility] Address [address] [place] [address] Care Team Providers Care Roof Truss Detailer Name Role Phone Shaikh ELVIA Miramontes Primary Care Provider [phone] Silviano Hodge MD Primary Care Provider [phone] Sera Aguirre NP Unavailable [phone] Shaikh ELVIA Miramontes Unavailable [phone] Encounter Details Date Type Department Care Team (Late st Contact Info) Description 08/12/2023 Clinisync Result Encounter [facility] External Department Unsolicited [...] Office Visit [facility] [address] [place] [address] Stacie Horton NP [address] [place] [address] documented as of this encounter Procedures Procedure Name Priority Date/Time Associated Diagnosis Comments CARDIOPULMONARY STRESS TEST (METABOLIC STRESS TEST 08/12/2023 8:30 AM EDT documented in this encounter Results * CARDIOPULMONARY STRESS TEST (METABOLIC STRESS TEST (08/12/2023 8:30 AM EDT) Anatomical Region Laterality Modality Other 08/12/2023 8:30 AM EDT Narrative 08/22/2023 2:10 PM EDT [facility], [address] [place] [address] Cardiopulmonary Exercise Report - (Non-Invasive) Patient Name: ALCON JOHN Jeanette Physician: [id number] Fede Cedillo MD Study Date: 08/12/2023 Ordering Provider: [id number] BALA HANSON MRN/PID: [id number] Exercise [facility] Information Specialist: PIO STAPLES Additional Staff: Composing Room Machinist Date of /Age: 4 1980 / 43 years Nurse: . Gender: F Fellow: Height: 170.18 cm Admit Date: 08/12/2023 Weight: 83.00 kg Admission Status: Outpatient BSA: 1.95 m2 BMI: 28.66 kg/m2 Study Type: CARDIOPULMONARY (METABOLIC) STRESS TEST Diagnosis/ICD: Shortness of breath-R06.02; Chest pain, unspecified-R07.9 Indication: dyspnea and chest discomfort CPT Codes: (07416) Pulmonary graded exercise test-45185 Patient ID Verified: Correct procedure and correct [...] oximeter. Reason for Stoppin/10 dyspnea. (PULMONARY) + +----+ + + Rest Peak Exercise % Achieved + +----+ + + HR (BPM) 81 163 93 + +----+ + + Systolic BP 102 112 + +----+ + + Diastolic BP 68 62 + +----+ + + MAP (mmHg) 79 79 + +----+ + + VO2 (ml/Kg/min) 3.8 23.8 92 + +----+ + + VO2 (ml/min) 313 1977 92 + +----+ + + O2 Pulse (ml/beat) 4 12 + +----+ + + VE (L/min) 11 54 42 + +----+ + + VE/VCO2 44 25 + +----+ + + VD/VT 0.38 0.20 + +----+ + + Resp. Rate (br/min) 21 39 + +----+ + + Tidal Volume (ml) 491 1376 + +----+ + + RER 0.76 1.10 + +----+ + + End Tidal CO2 (mmHg) 35 48 + +----+ + + Breathing [place]% 58% + +----+ + + SaO2% 97 91 + +----+ + + Patient Performance: Cardiac Response: The [...] VO2 achieved was [23.8] ml/kg/min which is consistent with Freitas functional class A (mild exercise impairment). The peak VO2 achieved was 92% peak predicted based on age gender height nomogram. 2. There was a [good] exercise effort with peak RER of 1.10at peak exercise. The peak heart rate was 159bpm which is 90% APMHR. 3. Exercise stress EKG appears to be negative for ischemia; sensitivity is reduced due to baseline artifact. 4. A ventilatory threshold of 19.4 occurred at 82% of peak VO2. Ventilatory threshold is reached late indicating a component of skeletal muscle deconditioning. 5. Conclusion: Overall mild exercise impairment -likely attributable to skeletal muscle deconditioning noted on this cardiopulmonary exercise test. [id number] Fede Cedillo MD Electronically signed on 08/22/2023 at 2:10:41 PM Final Procedure Note Radiology, Radiologist, MD - 08/22/2023 [facility], [address] [place] [address] Cardiopulmonary Exercise Report - (Non-Invasive) Patient Name: ALCON Reid Physician: [id number] Cedillo MD Study Date: 08/12/2023 Ordering Provider: [id number] KARLEE HANSON MRN/PID: [id number] Exercise [facility] Information Specialist: PIO STAPLES Additional Staff: Composing Room Machinist Date of /Age: 4 1980 / 43 years Nurse: . Gender: F Fellow: Height: 170.18 cm Admit Date: 08/12/2023 Weight: 83.00 kg Admission Status: Outpatient BSA: 1.95 m2 BMI: 28.66 kg/m2 Study Type: CARDIOPULMONARY (METABOLIC) STRESS TEST Diagnosis/ICD: Shortness of breath-R06.02; Chest pain, unspecified-R07.9 Indication: dyspnea and chest discomfort CPT Codes: (95893) Pulmonary graded exercise test-66463 Patient ID Verified: Correct procedure and correct patient verifiedverbally and with ID Band checked. Medications: The patient's prescribed medications are apixabanand ativan, albuterol, calcitrol, microgestin. Thepatient took medications as prescribed. Patient History: Dyspnea, previous deep vein thrombosis, anticoagulationtherapy, chest pain and Past medical history of cancer, with radiation andcardiotoxic chemotherapy, prior reoccurance with s/p right lowerlobectomy. Allergies: None. Smoker: Never. BMI: Overweight 25 - 30. EXERCISE PROTOCOL Protocol: Modified Balke Test Duration: 12:34 Measurements: gas analysis by metabolic cart. ECG continuousrecording. Serial blood pressure measurements by manual cuff inflation.Continuous oxygen saturation by finger pulse oximeter. Reason for Stoppin/10 dyspnea. (PULMONARY) + +----+ + + Rest Peak Exercise % Achieved + +----+ + + HR (BPM) 81 163 93 + +----+ + + Systolic BP 102 112 + +----+ + + Diastolic BP 68 62 + +----+ + + MAP (mmHg) 79 79 + +----+ + + VO2 (ml/Kg/min) 3.8 23.8 92 + +----+ + + VO2 (ml/min) 313 1977 92 + +----+ + + O2 Pulse (ml/beat) 4 12 + +----+ + + VE (L/min) 11 54 42 + +----+ + + VE/VCO2 44 25 + +----+ + + VD/VT 0.38 0.20 + +----+ + + Resp. Rate (br/min) 21 39 + +----+ + + Tidal Volume (ml) 491 1376 + +----+ + + RER 0.76 1.10 + +----+ + + End Tidal CO2 (mmHg) 35 48 + +----+ + + Breathing [place]% 58% + +----+ + + SaO2% 97 91 + +----+ + + Patient Performance: Cardiac Response: The patient developed dyspnea and leg fatigue during the stress exam. Thesymptoms resolved with rest. The peak heart rate achieved was 163 bpm,which was 93 % of the age predicted target heart rate of 176 bpm. There roberto good exercise effort as reflected in the peak exercise RER. There is anappropriate increase in heart rate and blood pressure with exercise.Appropriate blood pressure response to exercise. The O2 pulse (VO2/HR) was4 ml/beat at rest and increased to 12 ml/beat at peak exercise. EKG: Resting ECG showed normal sinus rhythm with rare premature ventricularcontractions. Stress ECG showed sinus tachycardia. Gas Exchange: The peak VO2 achieved is 23.8 ml/Kg/min, which is 92% of the predictedmaximum. Freitas functional class A (mild to no impairment). A ventilatorythreshold of 19.4 occurred at 82% of peak VO2. The perceived maximalexertion by RPE scale was 14. The dyspnea rating at peak exercise was 8.The patient's oxygen saturation was 97 at rest and 91 at peak exercise. Ventilatory Response: The ventilatory efficiency slope at peak exercise was 25. The patient'sresting minute ventilation (VE) was 11 liters/minute and increased to 54liters/minute at peak exercise which is 42% of predicted. The breathingreserve was 58%. The respiratory rate at rest was 21 breaths/minute andincreased to 39 breaths/minute at peak exercise. The tidal volumeincreased from 491.00 ml per breath at rest to 1376.00 ml per breath atpeak exercise. The VD/VT space estimate was 0.38 at rest and fell to0.20 at peak exercise. The end-tidal CO2 measurement was 35 mL/Hg at restand changed to 48 mL/Hg at peak exercise. Impression: 1. The peak VO2 achieved was [23.8] ml/kg/min which is consistent withWeber functional class A (mild exercise impairment). The peak VO2 achievedwas 92% peak predicted based on age gender height nomogram. 2. There was a [good] exercise effort with peak RER of 1.10at peakexercise. The peak heart rate was 159bpm which is 90% APMHR. 3. Exercise stress EKG appears to be negative for ischemia; sensitivityis reduced due to baseline artifact. 4. A ventilatory threshold of 19.4 occurred at 82% of peak VO2.Ventilatory threshold is reached late indicating a component of skeletalmuscle deconditioning. 5. Conclusion: Overall mild exercise impairment -likely attributable toskeletal muscle deconditioning noted on this cardiopulmonary exercisetest. [id number] Fede Cedillo MD Electronically signed on 08/22/2023 at 2:10:41 PM Final us Generic External Data Provider [facility] Final Result documented in this encounter Visit Diagnoses Not on filedocumented in this encounter Care Teams Roof Truss Detailer Relationship Specialty Start Date End Date Shaikh Miramontes MD [address] [place] [address] PCP - General Internal Medicine 05/05/23 01/12/24 Silviano Hodge MD [address] [place] [address] PCP - General Family Medicine 01/13/24 Shaikh Miramontes MD [address] [place] [address] PCP - [facility] 05/01/24 Sera Aguirre NP [address] [place] [address] Nurse Practitioner Family Medicine 01/13/24 documented as of this encounter
--- OUTSIDE RECORDS SUMMARY | 2024-09-09 12:53 | XMS_ITS | Encounter Summary ---
Author Organization [facility] Address [address] [place] [address] Care Team Providers Care Forestry Pilot Name Role Phone Silviano Hodge MD Primary Care Provider [phone] Sera Aguirre NP Unavailable Shaikh ELVIA Miramontes Unavailable [phone] Encounter Details Date Type Department Care Team (Late st Contact Info) Description 02/17/2024 Orders Only [facility] [address] [place] [address] Stacie Horton NP [address] [place] [address] Social History Tobacco Use Types Packs/Day Years [...] 02/28/2025 2:00 PM EST Office Visit [facility] [address] [place] [address] Stacie Horton NP [address] [place] [address] documented as of this encounter Procedures Procedure Name Priority Date/Time Associated Diagnosis Comments XR CHEST 2 VIEWS Routine 02/17/2024 9:52 AM EST documented in this encounter Results * XR chest 2 views (02/17/2024 9:52 AM EST) Anatomical Region Laterality Modality Chest Radiographic [place] ging us Stacie Horton DESK MANAGER IMG XR PROCEDURES Final Result documented in this encounter Visit Diagnoses Not on filedocumented in this encounter Care Teams Forestry Pilot Relationship Specialty Start Date End Date Silviano Hodge MD [address] [place] [address] PCP - General Family Medicine 01/13/24 Shaikh Miramontes MD [address] [place] [address] PCP - [facility] 05/01/24 Sera Aguirre NP [address] [place] [address] Nurse Practitioner Family Medicine 01/13/24 documented as of this encounter
--- OUTSIDE RECORDS SUMMARY | 2024-09-09 12:53 | XMS_ITS | Encounter Summary ---
Author Organization [facility] Address [address] [facility] [address] Care Team Providers Care Food Service Associate Name Role Phone Silviano Hodge MD Primary Care Provider Sera Aguirre NP Unavailable [phone] Shaikh ELVIA Miramontes Unavailable [phone] Encounter Details Date Type Department Care Team (Late st Contact Info) Description 02/23/2024 Abstract [facility] [address] [place] [address] Mairon Ruby NP [address] [facility] [address] [place] [address] Social History Tobacco Use Types Packs/Day Years [...] Visit [facility] [address] [place] [address] Stacie Horton NP [address] [place] [address] documented as of this encounter Visit Diagnoses Not on filedocumented in this encounter Care Teams Food Service Associate Relationship Specialty Start Date End Date Silviano Hodge MD [address] [place] [address] PCP - General Family Medicine 01/13/24 Shaikh Miramontes MD [address] [place] [address] PCP - [facility] 05/01/24 Sera Aguirre NP [address] [place] [address] Nurse Practitioner Family Medicine 01/13/24 documented as of this encounter
--- OUTSIDE RECORDS SUMMARY | 2024-09-09 12:53 | XMS_ITS | Encounter Summary ---
Author Organization [facility] Address [address] [place] [address] Care Team Providers Care Shrimper Name Role Phone Silviano Hodge MD Primary Care Provider Sera Talley NP Unavailable Shaikh ELVIA Miramontes Unavailable [phone] Encounter Details Date Type Department Care Team (Late st Contact Info) Description 02/17/2024 Clinisync Result Encounter [facility] External Department Unsolicited Stacie Horton NP [address] [place] [address] Social History Tobacco Use Types [...] 02/28/2025 2:00 PM EST Office Visit [facility] [address] [place] [address] Stacie Horton NP [address] [place] [address] documented as of this encounter Procedures Procedure Name Priority Date/Time Associated Diagnosis Comments XR CHEST 2V 02/17/2024 7:54 AM EST documented in this encounter Results * XR CHEST 2V (02/17/2024 7:54 AM EST) Anatomical Region Laterality Modality Other 02/17/2024 7:54 AM EST Narrative 02/17/2024 7:57 [place] [address] XRay Report Signed Patient: ALCON JOHN MR#: [id number] : 1980 Acct:[id number] Age/Sex: 43 / F ADM Date: 02/16/24 Loc: RAD Attending Dr: Stacie Horton NP Ordering Physician: Stacie Horton NP Date of Service: 02/16/24 Procedure(s): XR chest 2V Accession Number(s): [id number] cc: Stacie Horton SWAGE TENDER; SERA TALLEY [address] [address] Patient Name: ALCON JOHN MRN: [id number] date: 1980 Sex: F Assigned Patient Location: [facility] Current Patient Location: Accession/Order Number: [id number] Exam Date: 02/16/2024 13:55 Report Date: 02/17/2024 07:54 At the request of: STACIE HORTON Procedure: XR chest 2V EXAMINATION: XR chest 2V HISTORY: Subacute Cough COMPARISON: 11/09/22 TECHNIQUE: PA and lateral FINDINGS: LUNGS: The left lung is clear. Moderate opacity identified throughout the right mid to lower lung zone, grossly stable. Right lung volume loss with apical pleural parenchymal scarring VASCULATURE: No increased pulmonary vasculature. PLEURA: No pneumothorax, effusion, or pleural thickening. CARDIAC: No cardiomegaly or cardiac silhouette abnormality. MEDIASTINUM: No visible mass or adenopathy. BONES: No fracture or visible bone lesion. OTHER: Negative. XR/XR chest 2V IMPRESSION: Chronic right lung opacities Clear left lung Electronically authenticated by: VAN CRAMER Date: 02/17/2024 07:54 Dictated By: Van Cramer M.D. Signed By: 02/17/24 0757 DD/ 0754 TD/TT: Back Panel Padder: Procedure Note Radiology, Radiologist, - 02/17/2024 [place] [address] XRay Report Signed Patient: ALCON JOHN LMR#: [id number] : 1980Acct:[id number] Age/Sex: 43 / FADM Date: 02/16/24 Loc: RAD Attending Dr: Stacie Horton NP Ordering Physician: Stacie Horton NP Date of Service: 02/16/24 Procedure(s): XR chest 2V Accession Number(s): [id number] cc: Stacie Horton NP; SERA TALLEY [place] [address] Patient Name: ALCON JOHN MRN: [id number] date: 1980 Sex: F Assigned Patient Location: [facility] Current Patient Location: Accession/Order Number: [id number] Exam Date: 02/16/2024 13:55 Report Date: 02/17/2024 07:54 At the request of: STACIE HORTON Procedure: XR chest 2V EXAMINATION: XR chest 2V HISTORY: Subacute Cough COMPARISON: 11/09/22 TECHNIQUE: PA and lateral FINDINGS: LUNGS: The left lung is clear. Moderate opacity identified throughout the right mid to lower lung zone, grossly stable. Right lung volume loss with apical pleural parenchymal scarring VASCULATURE: No increased pulmonary vasculature. PLEURA: No pneumothorax, effusion, or pleural thickening. CARDIAC: No cardiomegaly or cardiac silhouette abnormality. MEDIASTINUM: No visible mass or adenopathy. BONES: No fracture or visible bone lesion. OTHER: Negative. XR/XR chest 2V IMPRESSION: Chronic right lung opacities Clear left lung Electronically authenticated by: VAN CRAMER Date: 02/17/2024 07:54 Dictated By: Van Cramer M.D. Signed By:02/17/24 0757 DD/ 0754 TD/TT: Back Panel Padder: us Stacie Horton NP [facility] Final Result documented in this encounter Visit Diagnoses Not on filedocumented in this encounter Care Teams Shrimper Relationship Specialty Start Date End Date Silviano Hodge MD [address] [place] [address] PCP - General Family Medicine 01/13/24 Shaikh Miramontes MD [address] [place] [address] PCP - [facility] 05/01/24 Sera Talley NP [address] [place] [address] Nurse Practitioner Family Medicine 01/13/24 documented as of this encounter
--- OUTSIDE RECORDS SUMMARY | 2024-09-09 12:53 | XMS_ITS | Clinical Summary ---
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 Name Role Phone Silviano Hodge MD Primary Care Provider [phone] Sera Aguirre NP Unavailable [phone] Shaikh ELVIA Miramontes Unavailable [phone] Allergies No known active allergies Medications calcitriol (Rocaltrol) 0.25 MCG capsule Take 0.25 mcg by mouth every other day 4 Active LORazepam (Ativan) 1 MG tabletIndicatio ns:Psychophysio logical insomnia Take 1 tablet (1 mg) by mouth at bedtime 30 tablet 5 5 09/25/19 25 Active apixaban (Eliquis) 5 MG tabletIndicatio ns:Acute deep vein thrombosis (DVT) of tibial vein of left lower extremity (HCC) Take 1 tablet (5 mg) by mouth in the morning and 1 tablet (5 mg) before bedtime. 180 tablet 4 08/26/19 25 Discontinu ed(Therapy completed) azithromycin (Zithromax) 250 MG tabletIndicatio ns:Subacute cough 2 pills day #1, 1 pill day #2-5 6 tablet 4 08/26/19 Discontinu ed(Therapy completed) LORazepam (Ativan) 1 MG tabletIndicatio ns:Psychophysio logical insomnia Take 1 tablet (1 mg) by mouth at bedtime 30 tablet 1 5 08/26/19 25 Discontinu ed(Reorder ) Active Problems Problem Noted Date Diagnosed Date Encounter for screening mamm ogram for malignant neoplasm of breast 01/20/2024 Acute deep vein thrombosis of left popliteal vei n 06/19/2023 Assessment & Plan (08/25/2024 5:43 PM EDT): Was dx with that during time [facility], was on for about a year, then oncologist said no longer have to take it Assessment & Plan (01/20/2024 2:44 PM EST): Apr 2023, 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 Assessment & Plan (08/25/2024 5:58 PM EDT): Dx many years ago, no longer has to follow with oncology Abnormal PET scan of colon 06/12/2023 CKD (chronic kidney disease), stage III 06/12/19 24 Assessment & Plan (08/25/2024 5:57 PM EDT): Check labs yearly and prn Attempt to avoid nephrotoxic drugs Nephrology Lexi Isbell Assessment & Plan (01/20/2024 2:44 PM EST): Related to chemotherapy, Nephrology in [facility] Hyperparathyroidism, secondary 06/12/2023 Status post administration of cardiotoxic chemot herapy 06/12/2023 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 Has no side effects from taking OARRS reviewed Trialed in the past: many OTC meds Med agreement signed: 08/25/24 Assessment & Plan (05/05/2023 6:16 PM EST): Chronically on Ativan. Uses it daily as needed. Refilled prescription. Wellness examination 05/05/2023 Assessment & Plan (08/25/2024 5:58 PM EDT): Reviewed Ht/Wt/BMI Recommend eye exam yearly Recommend dental exams twice a year Balance work/leisure activities Exercises is recommended most days of the week (appropriate as chronic conditions allow) Follow up yearly and prn Assessment & Plan (05/05/2023 6:19 PM EST): Patient here for Annual Wellness Exam. Reviewed medical, surgical and social hx. Reviewed medication list. Health related questions and concerns addressed and answered. Patient provided appropriate education on chronic medical conditions and prescription medications. Ordered mammogram for her. Advised on Flu vaccine. Chronic medications refilled. Resolved Problems Problem Noted Date Diagnosed Date Resolved Date Subacute cough 01/20/2024 08/25/2024 Assessment & Plan (02/18/2024 11:42 AM EST): Was seen 01/19 for cough was prescribed Zpack, tessalon perles and CXR. CXR done yesterday showing chronic right lobe opacities,. No pleural effusions noted. Admits Dry cough continues Denies: Shortness of breath Chest pain Fever Sinus congestion Will order burst of steroids. Advised pt worsening symptoms, shortness of breath, chest pain, GO TO ER! Assessment & Plan (01/20/2024 3:05 PM EST): Usually gets this yearly, 2 rounds of z pack usually No wheeze or resp distress, no obvious allergy sxs, however concern possible PND too Trial add OTC loratadine to see if helps Check cxr, finish atb if not better RTO for an appt Shortness of breath on exertion 06/12/2023 08/25/2024 Acute deep vein thrombosis ( DVT) of tibial vein of left lower extremity 05/06/2023 01/20/2024 Assessment & Plan (05/19/2023 4:59 PM EDT): Acute DVT of post tibial and peroneal veins - US ordered for left LE pain Provoked DVT as patient is on estrogen containing control pills - Not using it anymore. She is using Eliquis without nay problems/adverse effects. Patient asked to keep her legs elevated for pain. No massage. Follow up in 3 months. She has an appt with her oncologist after PET scan for follow up of Askin Tumor. She will discuss DVT with her oncology also. Assessment & Plan (05/06/2023 11:09 AM EST): Acute DVT of post tibial and peroneal veins - US ordered for left LE pain Patient seen today to discuss results and treatment plan Provoked DVT as patient is on estrogen containing control pills. Asked her to stop using it. Patient educated on DVT, treatment plan, worrisome signs and symptoms, along with signs of PE. She will be treated with Eliquis. Patient asked to keep her legs elevated for pain. No massage. Follow up in 2 weeks. Pt was asked to reach out to her OBGYN to prescribe her an alternative of her current control pills. Left leg pain 05/05/2023 08/25/2024 Assessment & Plan (05/05/2023 6:17 PM EST): Left leg pain, 10 days, persistent, no injury. Feels that her leg is tight. No erythema, warmth, swelling noted. No injury. No change in pain knee movement. Normal distal pulses. Will get an US to r/o DVT Breast cancer screening by mammogram 05/05/2023 01/20/2024 Assessment & Plan (05/05/2023 6:18 PM EST): Ordered mammogram - high risk of breast cancer due to prior radiation to chest wall for mohit tumor. Encounters Date Type Department Care Team Description 08/25/2024 5:30 PM EDT Office Visit [facility] [address] [place] [address] Stacie Horton NP Wellness examination (Primary Dx); Stage 3a chronic kidney disease (CMS-HCC); Encounter for screening mammogram for malignant neoplasm of breast; Acute deep vein thrombosis of left popliteal vein (HCC); Psychophysiological insomnia; Anxiety; Burr's sarcoma (HCC) 08/25/[address] [facility] [address] [place] [address] Stacie Horton NP 08/25/[address] [facility] [facility] [address] [place] [address] Stacie Horton NP 08/25/[address] [facility] [address] [place] [address] Stacie Horton NP 08/23/[address] [facility] [facility] [address] [place] [address] Stacie Horton, WILLEM Psychophysiological insomnia from Last 3 Months Immunizations Immunization Administration Dates Next Due Pneumococcal Conjugate, Unspecified 05/01/2010 Family History Medical History Relation Name Comments Cancer Father adrenal Brain cancer Maternal Grandfather Lung cancer Maternal Grandfather Melanoma Maternal Grandfather Prostate cancer Paternal Grandfather Relation Name Status Comments Brother x1 Daughter 1 Alive Daughter 2 Alive Father Alive Maternal Grandfather Mother Alive Paternal Grandfather Social History Tobacco Use Types Packs/Day Years Used Date Smoking Tobacco: Never Passive Smoke Exposure: Never Smokeless Tobacco: Never Tobacco Cessation:Counseling Given: Not Answered Alcohol Use Standard Drinks/Week Comments Never 0 [...] Sign Reading Time Taken Comments Blood Pressure 102/72 08/25/2024 5:33 PM EDT Pulse 64 08/25/2024 5:33 PM EDT Temperature 36.6 C (97.8 F) 08/25/2024 5:33 PM EDT Respiratory Rate 18 08/25/2024 5:33 PM EDT Oxygen Saturation 98% 08/25/2024 5:33 PM EDT Inhaled Oxygen Concentration - - Weight 78.6 kg (173 lb 3.2 oz) 08/25/2024 5:33 P M EDT Height 170.2 cm (5' 7 ) 02/18/2024 11:23 AM EST Body Mass Index 27.13 02/18/2024 11:23 AM EST Plan of Treatment Upcoming Encounters Date Type Department Care Team (Late st Contact Info) Description 02/28/2025 2:00 PM EST Office Visit [facility] [address] [place] [address] Stacie Horton NP [address] [place] [address] Health Maintenance Due Date Last Done Comments CT Colonography 1979 FIT-DNA 1979 FIT 1979 FOBT 1979 Sigmoidoscopy 1979 Pap Smear 06/01/2000 Mammogram 2019 Cervical Cancer Screening 07/09/2028 HPV/Cotest 07/09/2028 07/10/2023, 06/02, 03/21/2021, Additional history exists Colonoscopy 07/04/2030 07/04/2020, 07/04/2020 Colorectal Cancer Screening 07/04/2030 Influenza Vaccine Discontinued Procedures Procedure Name Priority Date/Time Associated Diagnosis Comments THINPREP IMAGING PAP W/REFL HPV MRNA E6/E7 Routine 07/10/2023 11:52 AM EDT Screening for malignant neoplasm of cervix from Last 3 Months or Most Recently Relevant to Health Maintenance Results * THINPREP IMAGING PAP W/REFL HPV MRNA E6/E7 (07/10/2023 11:52 AM EDT) CLINICAL INFORMATION [facility] Comment:None given LMP [facility] Comment:05/2023 PREV. PAP [facility] Comment:NONE GIVEN PREV. BX [facility] Comment:NONE GIVEN SOURCE [facility] Comment:None given STATEMENT OF ADEQUACY [facility] Comment: Satisfactory for evaluation. Endocervical/transformation zone component present. INTERPRETATION/RESUL T [facility] Comment: Cytology Results: Negative for intraepithelial lesion or malignancy. COMMENT [facility] Comment: This case could not be evaluated with computer assisted technology. The slide was manually screened according to routine procedures. MANAGER FIELD INVESTIGATIONS [facility] Comment: JAYDA HARRIS(ASCP) CT screening location: [facility], [address] [place] [address], [place] [address]. (ALWAYS MESSAGE) [facility] Comment: EXPLANATORY NOTE: The Pap is a screening test for cervical cancer. It is not a diagnostic test and is subject to false negative and false positive results. It is most reliable when a satisfactory sample, regularly obtained, is submitted with relevant clinical findings and history, and when the Pap result is evaluated along with historic and current clinical information. Swab Cervix uteri structure / Unknown 07/10/2023 11:52 AM EDT 07/11/2023 3:30 AM EDT Narrative Resulting Agency Comment Performing Organization Information Site ID: [id number] Name: [facility] Address: [address] [place] [address], [address] [place] [id number] Director: Dylan Mitchell MD Anuradha Oseguera DO LAB CYTOLOGY ORDERABLES Fin al Result [facility] from Last 3 Months or Most Recently Relevant to Health Maintenance Care Teams Down[employer]omanufacturing Technician Relationship Specialty Start Date End Date Silviano Hodge MD [address] [place] [id number] PCP - General Family Medicine 01/13/24 Shaikh Miramontes MD [address] [place] [address] PCP - [employer] [place] 05/01/24 Sera Aguirre NP [address] [place] [id number] Nurse Practitioner Family Medicine 01/13/24
[2024-09-09 13:53] LABS: Anion Gap 13.7; Blood Urea Nitrogen 21.0 mg/dL (7.0-18.0); Calcium 9.3 mg/dL (8.5-10.1); Carbon Dioxide 28.6 mmol/L (21.0-32.0); Chloride 106 mmol/L (98-107); Estimated GFR (African America 58 (>=60 mL/min/1.73m^2); Estimated GFR (Non-African Ame 48 (>=60 mL/min/1.73m^2); Glucose 92 mg/dL (74-106); Potassium 4.3 mmol/L (3.5-5.1); Sodium 144 mmol/L (136-145)
== END 2024-09-09 12:50 | disposition home or self-care (01) ==
LOC: LAB 12:50
PROVIDERS: PCP Nurse Practitioner; Visit Provider Internal Medicine
DX: Z12.31 Encounter for screening mammogram for malignant neoplasm of breast (principal); N18.31 Chronic kidney disease, stage 3a; E21.3 Hyperparathyroidism, unspecified; Z80.1 Family history of malignant neoplasm of trachea, bronchus and lung; Z80.51 Family history of malignant neoplasm of kidney
CPT/HCPCS: 36415; 77063; 77067; 80048; 83970